=== PATIENT | female | born 1945 | race Caucasian/White ===

== ENCOUNTER 2019-02-06 10:51 | Inpatient (IN) | payer MEDICARE, MEDICAID ==
[~2019-02-06] VITALS: Ht 165.1 cm; Wt 101.0 kg
[2019-02-06] MEDS ORDERED: diphenhydrAMINE 25 MG TAB (BENADRYL) PO PRN (11:15)
[2019-02-06] MEDS ORDERED: ALPRAZolam 0.25 MG (XANAX) TAB PO PRN (11:15)
[2019-02-06] MEDS ORDERED: CALCIUM CARBONATE 500 MG (TUMS) TAB.CHEW PO PRN (11:15)
[2019-02-06] MEDS ORDERED: MELATONIN 3 MG TABLET PO PRN (11:15)
[2019-02-06] MEDS ORDERED: LOPERAMIDE 2 MG (IMODIUM) CAP PO PRN (11:15)
[2019-02-06] MEDS ORDERED: ONDANSETRON 4 MG (ZOFRAN) ORAL DISSOLVE TAB PO PRN ×2 (11:15→19:15)
[2019-02-06] MEDS ORDERED: ACETAMINOPHEN 500 MG TAB (TYLENOL) PO PRN (11:15)
[2019-02-06] MEDS ORDERED: DOCUSATE SODIUM 100 MG (COLACE) CAP PO PRN (11:15)
--- NOTE | 2019-02-06 14:20 | NUR ---
Pt admitted to room 227-1, with an admitting diagnosis of S/P L4-5, L5-S1 TLIF/PSIF on 02/06/[address] via w/c, accompanied by 2 female family members. RICARDO VALLEJO introduced to surroundings, call light, bed controls, phone, TV, temperature control, lights, meal times, smoking policy, visitor policy, side rail policy, bathrooms and showers. Patient Rights given to patient in the handbook. RICARDO VALLEJO acknowledges understanding that [facility] is not responsible for the loss or damage to any personal effects or valuables that are kept in the patients posession during their hospitalization. The following Patient Care Plans were discussed with the pt: Discharge Planning, Impaired Mobility, Self Care Deficit, Alteration in Skin integrity, Potential for fall/injury. RICARDO VALLEJO verbalizes understanding of Interdisciplinary Patient Education. Patient and/or family were informed about the Rapid Response Team and its purpose. Patient received Patient Rights Booklet, which includes Privacy Act Statement and Data Collection Information Summary.
[2019-02-06 14:45] VITALS: BP 146/71
[2019-02-06] MEDS ORDERED: OXYC-465 PO (15:27)
[2019-02-06] MEDS ORDERED: SPIR25TA5 PO (15:27)
[2019-02-06] MEDS ORDERED: FLUT9.9S NS (15:27)
[2019-02-06] MEDS ORDERED: DILT300C26 PO (15:27)
[2019-02-06] MEDS ORDERED: ONDA4TAB10 PO (15:27)
[2019-02-06] MEDS ORDERED: DIVA-76 PO (15:27)
[2019-02-06] MEDS ORDERED: DOCU-244 PO (15:27)
[2019-02-06] MEDS ORDERED: MAGN400T50 PO (15:27)
[2019-02-06] MEDS ORDERED: SITA100T12 PO (15:27)
[2019-02-06] MEDS ORDERED: ROSU40TA22 PO (15:27)
[2019-02-06] MEDS ORDERED: BUPR-168 PO (15:27)
[2019-02-06] MEDS ORDERED: TRAZ-189 PO (15:27)
[2019-02-06] MEDS ORDERED: FURO40TA4 PO (15:27)
[2019-02-06] MEDS ORDERED: DIVA250T12 PO (15:27)
[2019-02-06] MEDS ORDERED: ESOM40CA52 PO (15:27)
[2019-02-06] MEDS ORDERED: EST1.25T PO (15:27)
[2019-02-06] MEDS ORDERED: CYCL10TA9 PO (15:27)
[2019-02-06] MEDS ORDERED: LOSA50TA63 PO (15:27)
[2019-02-06] MEDS ORDERED: BUPR150T7 PO (15:27)
[2019-02-06] MEDS ORDERED: LEVO50TA6 PO (15:27)
[2019-02-06] MEDS ORDERED: oxyCODONE/APAP 10/325MG (PERCOCET 10) TABLET PO PRN (16:00)
--- NOTE | 2019-02-06 16:02 | NUR ---
UPDATED MED REC TO THE LIST OF MEDICATIONS ORDERED AT DISCHARGE FROM [facility]. I VERIFIED WITH THE PATIENT THAT SHE IS TAKING TWO STRENGTHS OF BUPROPION- XL 150MG IN THE MORNING AND 75MG AT 4PM AND BEDTIME. ACCORDING TO THE EXT MED HX SHE HAS NOT FILLED THE 75MG SINCE 12-22-18 #60 HOWEVER SHE STATES SHE IS TAKING IT REGULARLY AND HAS BEEN RECENTLY TRANSFERRING HER PRESCRIPTIONS TO A DIFFERENT PHARMACY AND ALL HER FILLS MAY NOT BE REFLECTED CORRECTLY SHE ALSO VERIFIED HER FUROSEMIDE IS WRITTEN BID, LAST FILLED 40MG #180 FOR 90 DAYS 10-09-18- SHE STATES SHE ONLY TAKES IT ONCE DAILY. I WILL UPDATED THE MED REC TO THE LIST OF MEDICATIONS THE PATIENT WAS TAKING PRIOR TO ADMISSION/DISCHARGE FROM [facility] AT A LATER TIME FOR CORRECT DISCHARGE ORDERS. Addendum: 02/11/19 at 1332 by JU KEITA [facility] UPDATED MED REC BACK TO THE MED LIST THE PATIENT WAS TAKING PRIOR TO DISCHARGE FROM [facility] FOR PROPER DISCHARGE ORDERS FROM [facility]. I REMOVED THE 2 NEW MEDS ORDERED FROM [facility]; DOK 100MG AND PERCOCET AND ADDED BACK THE MEDS THAT WERE STOPPED AT [facility]; TRAMADOL, ASPIRIN, AND TYLENOL ARTHRITIS.
--- NOTE | 2019-02-06 16:09 | Occupational Therapy Eval ---
OT Evaluation-General/PLF Medical Diagnosis Admission Date Feb 06, 2019 at 14:14 Medical Diagnosis: Lumbar fusion L4-5, L5-S1 Onset Date: Feb 04, 2019 Therapy Diagnosis Therapy Diagnosis: Weakness Weight Bear Status Weight Bearing Restriction: Weight Bearing/Tolerated Back brace on when up. Spinal precautions. Referral Physician: Dr. Fried Referral Reason: Activity Tolerance, Self Care, Evaluation/Treatment, Strengthening/ROM Medical History Pertinent Medical History: DM, GERD Additional Medical History Hysterectomy Current History Pt. had elective back surgery two days ago due to pain and loss of mobility. Reviewed History: Yes Social History Home: Single Level Current Living Status: Pt. lives with sister. Entry Into Home: Ramp ADL-Prior Level of Function Therapy Code Descriptions/Definitions Functional [place] Measure: 0=Not Assessed/NA 4=Minimal Assistance 1=Total Assistance 5=Supervision or Setup 2=Maximal Assistance 6=Modified [place] 3=Moderate Assistance 7=Complete [place] Therapy Quality Codes: 6 Independent with activity with or without an assistive device 5 Patient requires set up or clean up by helper. Patient completes activity by themselves 4 Supervision or touching assist (CGA). [place] provide cues , steadying assist 3 The helper provides less than half the effort to complete the activity 2 The helper provides more than half the effort to complete the activity 1 Dependent. The helper does all the effort to complete an activity 7 Patient refused to complete or attempt activity 9 The patient did not perform the activity before the current illness or injury 88 Not attempted due to Medical conditions or safety concerns Functional Abilities and Goals: Independent: Patient completed the activities by him/herself, with or without an assistive device, with no assistance from a helper. Needed Some Help: Patient needed partial assistance from another person to complete activities. Dependent: A helper completed the activities for the patient. Unknown: Not Applicable: ADL PLOF Comments Pt. was independent previous to surgery. Self Care: Independent Functional Cognition: Unknown DME/Equipment: Bath Chair, Shower DME/Equipment Comments Pt. has a walker. Drive Self: Yes OT Current Status Subjective Pt. reports 8/10 pain in back. Nursing is notified. Appearance Pt. transferred to rehab via wheelchair. OT began assessing pt. upon admission. Mental Status/Objective Patient Orientation: Person, Place Current Glasses/Contacts: Yes Upper Extremity ROM WFL ADL-Treatment Bathing (FIM): 2 (Max assist overall. Pt. is able to wash under arms and chest. Pt. is able to wash upper thighs while sitting. Pt. requires assistance for all other parts.) Shower/Bathe Self (QC): 2 Upper Body Dressing (FIM): 3 (Mod assist overall to doff/don shirt and brace.) Upper Body Dressing (QC): 3 Lower Body Dressing (FIM): 2 Lower Body Dressing (QC): 2 On/Off Footwear (QC): 1 Toileting (FIM): 2 (Max assist overall to pull down pants over hips, as well as cleansing.) Toileting Hygiene (QC): 2 Transfers (B, C, W/C) (FIM): 1 (Mod assist overall x 2 for sit-stand. Once in stance, pt. able to ambulate with CGA x 2.) Toilet/Commode Transfer (FIM): 3 Toilet Transfer (QC): 3 Other Treatments Pt. seen by occupational therapy/physical therapy for partial co-treat. Pt. required co-treat due to significant weakness and fatigue/pain. OT focused on ADL skills training and education regarding back safety. PT focused on mobility training, transfer skills, and LE strength. Pt. very guarded with movements due to pain and weakness. Requires max cues to prepare for any activity. All needs met back in bed after treatment. Education OT Patient Education: Correct positioning, Modified ADL techniques, Progress toward Goal/Update tx plan, Purpose of tx/functional activities, Reviewed precautions, Rehab process, Transfer techniques Teaching Recipient: Patient, Family Teaching Methods: Demonstration, Discussion Response to Teaching: Verbalize Understanding, Return Demonstration OT Short Term Goals Short Term Goals Time Frame: Feb 13, 2019 Eating(FIM): 5 Grooming(FIM): 5 Bathing(FIM): 3 Upper Body Dressing(FIM): 4 Lower Body Dressing(FIM): 3 Toileting(FIM): 4 Transfers (B,C,W/C) (FIM): 4 Toilet/Commode Transfer(FIM): 4 Shower Transfer(FIM): 4 Additional Short Term Goals: 1-Demonstrate ADL Tasks, 2-Verbalize Understanding , 3-ImproveStrength/[place] 1=Demonstrate adherence to instructed precautions during ADL tasks. 2=Patient will verbalize/demonstrate understanding of assistive devices/ modifications for ADL. 3=Patient will improve strength/tolerance for activity to enable patient to perform ADL's. OT Freelance Translator Goals Freelance Translator Goals Time Frame: Feb 27, 2019 Eating (FIM): 6 Eating (QC): 6 Groomin Oral Hygiene (QC): 6 Bathing(FIM): 5 Shower/Bathe Self (QC): 5 Upper Body Dressing(FIM): 6 Upper Body Dressing (QC): 6 Lower Body Dressing(FIM): 5 Lower Body Dressing (QC): 5 On/Off Footwear (QC): 5 Toileting(FIM): 6 Toileting Hygiene (QC): 6 Transfers (B,C,W/C) (FIM): 6 Toilet/Commode Transfer(FIM): 6 Toilet/Commode Transfer (QC): 6 Shower Transfer(FIM): 5 Additional Goals: 1-Demonstrate ADL Tasks, 2-Verbalize Understanding, 3- ImproveStrength/[place] 1=Demonstrate adherence to instructed precautions during ADL tasks. 2=Patient will verbalize/demonstrate understanding of assistive devices/ modifications for ADL. 3=Patient will improve strength/tolerance for activity to enable patient to perform ADL's. OT Education/Plan Problem List/Assessment Assessment: Decreased Activ Tolerance, Decreased UE Strength, Dependent Transfers, Impaired Bed Mobility, Impaired Funct Balance, Impaired I ADL's, Impaired Self-Care Skills Discharge Recommendations Plan/Recommendations: Continue POC Therapy D/C Recommendations: Home w/ Family Support, Occupational Therapy Home Care, Scheduled Assistance Equpiment Recommendations-D/C: Hip Kit Comment To be determined. Treatment Plan/Plan of Care Treatment,Training & Education: Yes Patient would benefit from OT for education, treatment and training to promote independence in ADL's, mobility, safety and/or upper extremity function for ADL' s. Plan of Care: ADL Retraining, Functional Mobility, Group Exercise/Act as Ind, UE Funct Exercise/Act Treatment Duration: Feb 27, 2019 Frequency: At least 5 of 7 days/Wk (IRF) Estimated Hrs Per Day: 1.5 hours per day Agreement: Yes Rehab Potential: Fair Time/GCodes Start Time: 14:25 Stop Time: 16:05 Total Time Billed (hr/min): 90 Billed Treatment Time 3596-0675 1, [facility] OT eval [id number] PT eval, no charge [id number] FA x 30minutes, ADL x 50minutes Co-treat with PT. Please see above note for designated roles. DWIGHT NORTON OT Feb 06, 2019 16:09
--- NOTE | 2019-02-06 16:20 | Physical Therapy Evaluation ---
PT Evaluation-General Medical Diagnosis Admission Date Feb 06, 2019 at 14:14 Medical Diagnosis: Lumbar fusion Onset Date: Feb 06, 2019 Therapy Diagnosis Therapy Diagnosis: weakness; abn gait Precautions Precautions/Isolations: Fall Prevention, Standard Precautions Weight Bear Status Right Lower Extremity: Right Full Weight Bearing Left Lower Extremity: Left Full Weight Bearing Back precautions; Breg brace on when up Referral Physician: Fariha Reason for Referral: Evaluation/Treatment Medical History Pertinent Medical History: Arthritis, GERD, HTN, Neuropathy Additional Medical History anxiety, bipolar Current History Pt admitted to ARU post extensive lumbar fusion surgery at [facility]. Reviewed History: Yes Social History Home: Single Level Current Living Status: Other Family (sisiter) Entry Into Home: Ramp Prior/Core FIM Prior Level of Function Therapy Code Descriptions/Definitions Functional [place] Measure: 0=Not Assessed/NA 4=Minimal Assistance 1=Total Assistance 5=Supervision or Setup 2=Maximal Assistance 6=Modified [place] 3=Moderate Assistance 7=Complete [place] Therapy Quality Codes: 6 Independent with activity with or without an assistive device 5 Patient requires set up or clean up by helper. Patient completes activity by themselves 4 Supervision or touching assist (CGA). [place] provide cues , steadying assist 3 The helper provides less than half the effort to complete the activity 2 The helper provides more than half the effort to complete the activity 1 Dependent. The helper does all the effort to complete an activity 7 Patient refused to complete or attempt activity 9 The patient did not perform the activity before the current illness or injury 88 Not attempted due to Medical conditions or safety concerns Functional Abilities and Goals: Independent: Patient completed the activities by him/herself, with or without an assistive device, with no assistance from a helper. Needed Some Help: Patient needed partial assistance from another person to complete activities. Dependent: A helper completed the activities for the patient. Unknown: Not Applicable: Bed Mobility: 6 Transfers (B,C,W/C) (FIM): 6 Gait: 6 Indoor Mobility (Ambulation): Independent Stairs: Independent PT Evaluation-Current Subjective Pt agreeable to PT but reports she is tired this afternoon Pain Numeric Pain Scale: 8 Location: Right Location Body Site: Back Pain Description: Ache, Stabbing Comment: Pt reports she feels she had radiating pain Pt/Family Goals Her goal is to return home with her sister when able Objective Patient Orientation: Person, Place, Time, Situation Problem Solving: Fair ROM/Strength ROM Lower Extremities Her ROM is functional but knee flexion limited to approx 100 degrees, due to complaints of back pain with flexion. Strenght Lower Extremities B LE strength is grossly 3/5 throughout; except right quad is 2/5 Integumentary/Posture Integumentary Refer to nursing notes. Bowel Incontinence: No Bladder Incontinence: Yes Posture rounded shoulders Neuromuscular (Tone, Coordination, Reflexes) intact Sensory Vision: Wears Glasses Hearing: Functional Hand Dominance: Right Sensation Right Lower Extremit: Intact Sensation Left Lower Extremity: Intact Transfers Therapy Code Descriptions/Definitions Functional [place] Measure: 0=Not Assessed/NA 4=Minimal Assistance 1=Total Assistance 5=Supervision or Setup 2=Maximal Assistance 6=Modified [place] 3=Moderate Assistance 7=Complete [place] Therapy Quality Codes: 6 Independent with activity with or without an assistive device 5 Patient requires set up or clean up by helper. Patient completes activity by themselves 4 Supervision or touching assist (CGA). [place] provide cues , steadying assist 3 The helper provides less than half the effort to complete the activity 2 The helper provides more than half the effort to complete the activity 1 Dependent. The helper does all the effort to complete an activity 7 Patient refused to complete or attempt activity 9 The patient did not perform the activity before the current illness or injury 88 Not attempted due to Medical conditions or safety concerns Transfers (B, C, W/C) (FIM): 2 Scootin Rollin Roll Left to Right (QC): 2 Supine to/from Sit: 2 Sit to/from Stand: 2 Sit to Lying (QC): 2 Lying to Sitting/Side of Bed(Q: 2 Sit to Stand (QC): 2 Chair/Ren-yh-Dbpvt Xfer(QC): 4 Car Transfer (QC): 88 (Pt was not able to attempt this on this date due to pain and decreased ability to participate) Pt requires max assist to get in and out of bed with assist for both legs and trunk with heavy cues to sequence and problem solve. In addition she required max assist to come to a stand with multiple cues for sequencing, visual demonstration and takes several attempts to even start to stand. Gait Does the Patient Walk?: Yes Mode of Locomotion: Walk Anticipated Mode of Locomotion: Walk Gait (FIM): 2 Distance (FIM): 0=799-16 ft Walk 10 feet (QC): 4 Walk 50 ft with 2 Turns(QC): 4 Walk 150 ft (QC): 88 (Pt unable to walk this distance) Walking 10ft/uneven surface-QC: 4 Distance: 50 ft Gait Level of Assist: 4 (min assist with skilled cues for safety) Gait Assistive Device: FWW Comments/Gait Description Slow gait with heavy reliance on FWW. Requires cues for foot placement due to decreased step length and velocity. Decreased foot clearance as well Gait is slow and seems to be with difficulty. Wheelchair Training Does the Pt Use a Wheelchair?: No Stairs Stairs (FIM): 0 (Pt declined attempting) 1 Step (curb) (QC): 7 4 Steps (QC): 7 12 Steps (QC): 7 If not tested on admit;explain "there is no way I can do that today", pt response Balance Sitting Static: Fair Sitting Dynamic: Fair Standing Static: Fair Standing Dynamic: Fair Picking up an Object (QC): 88 (breaks her precautions) Treatment Co treat with OT due to the heavy need for assist and heavy cues to complete all tasks. Pt requires near constant cues to complete task as well as heavy assist for mobiloity. Addressed bed mobilty training, transfer trainng (visual demonstration) and multiple sit to stand transfers. As OT addressed use and placement of UE, PT addressed the gross movement of the transfer or bed mobility. Pt did complete a sponge bath and as OT addressed cleaning her self, PT addressed core control/posture, sit to stand transfers for clothing management. Skill of 2 clinicians required to fully meet the needs of this patient on this date. Assessment/Needs Post lumbar fusion surgery. Pt is quite debilitated with functional strength, balance and activity tolerance deficits that impair her ability to transfer or ambulate. Her problem solving skills and ability to stay on task are also impaired. She takes extra time to complete all tasks and seems to be having a fair amount of pain. She will benefit from skilled Pt to address her mobility loss and work to return her to a mod indep level. Rehab Potential: Good PT Short Term Goals Short Term Goals Time Frame: Feb 20, 2019 Transfers (B,C,W/C) (FIM): 4 Gait (FIM): 4 Distance (FIM): 3=150 ft Gait Assistive Device: FWW Stairs (FIM): 2 # of Steps: 4 PT Gear Generator Set Up Operator Goals Skilled Nursing Goals PT Gear Generator Set Up Operator Goals Time Frame: Mar 06, 2019 Transfers (B,C,W/C) (FIM): 6 Sit to Lying (QC): 6 Lying-Sitting on Side/Bed(QC): 6 Sit to Stand (QC): 6 Roll Left to Right (QC): 6 Chair/Mnh-sk-Wztxi Xfer(QC): 6 Car Transfer (QC): 5 Does the Patient Walk: Yes Gait (FIM): 6 Gait distance (FIM): 3=150 ft Walk 10 feet (QC): 6 Walk 10ft-Uneven Surface(QC): 6 Walk 50ft with 2 Turns (QC): 6 Walk 150 ft (QC): 6 Gait Assistive Device: FWW Does the Pt use WC or Scooter?: No Stairs (FIM): 2 # of Steps: 4 1 Step (curb) (QC): 5 4 Steps (QC): 4 12 Steps (QC): 88 Picking up an Object (QC): 88 PT Plan Problem List Problem List: Activity Tolerance, Functional Strength, Safety, Balance, Gait, Transfer, Bed Mobility Treatment/Plan Treatment Plan: Continue Plan of Care Treatment Plan: Bed Mobility, Education, Functional Activity [place], Functional Strength, Group Therapy, Gait, Safety, Therapeutic Exercise, Transfers Treatment Duration: Mar 06, 2019 Frequency: At least 5 of 7 days/Wk (IRF) Estimated Hrs Per Day: 1.5 hours per day Patient and/or Family Agrees t: Yes Safety Risks/Education Patient Education: Transfer Techniques, Safety Issues Teaching Recipient: Patient Teaching Methods: Demonstration, Discussion Response to Teaching: Reinforcement Needed Discharge Recommendations Therapy D/C Recommendations: Physical Therapy Home Care Time/GCodes Time In: 1435 Time Out: 1445 ([id number]) Total Billed Treatment Time: 90 Total Billed Treatment visit [facility] 10 FA 80 JUAQUIN TANNER PT Feb 06, 2019 16:20
--- NOTE | 2019-02-06 17:20 | PM&R H&P / Post Admit Assess ---
History of Present Illness HPI/Chief Complaint CC: Debility following extensive lumbar fusion surgery uncomplicated by Dr Alvarez Moya at [facility] POD # 2 HPI: This is a 73-year-old white female that presents to inpatient rehab due to severe debility following extensive lumbar fusion surgery uncomplicated by Dr. Moya at [facility] in [facility]. Her primary care provider is Linda Pond in [facility]. Her pain is controlled but her right leg is sore during the transport from [place] to [facility] in [place]. She has had no complications during the hospital course at [facility] but continues to be a two-person assist and very slow recovery. Due to the fact of her multiple comorbidities in addition to dysphoria emotional problem she will need additional support provided at inpatient rehab with intensive therapies. She reports she has not had a bowel movement yet but she did receive a lot of medications which were laxatives and she wants to wait for any additional meds until in the morning and she is agreeable for suppository or enema. I reviewed all of her home medications and restarted every one of them per her home routine. Source: patient, old records Exam Limitations: no limitations Date Seen 02/06/19 Time Seen by a Provider: 17:00 Attending Physician Debbie Fried DO PCP No,Local Physician Referring Physician Date of Admission Feb 06, 2019 at 14:14 Home Medications & Allergies Home Medications Reviewed patient Home Medication Reconciliation performed by pharmacy medication reconciliations retread technician and/or nursing. Patients Allergies have been reviewed. Allergies Allergies Coded Allergies Sulfa (Sulfonamide Antibiotics) (Verified Allergy, Unknown, ITCHING, 02/06/19) adhesive (Verified Allergy, Unknown, 02/06/19) RASH cortisone (Verified Allergy, Unknown, 02/06/19) PARANOIA, IRRITABLE hydrochlorothiazide (Verified Allergy, Unknown, 02/06/19) MUSCLE PAIN nickel (Verified Allergy, Unknown, RASH, 02/06/19) Uncoded Allergies HASMUKH IN ( Allergy, Unknown, ANGIOEDEMA, 02/06/19) AMOXICILLIN/CLAVULANATE ( Adverse Reaction, Unknown, 02/06/19) DOESN'T REMEMBER CODEI ( Adverse Reaction, Unknown, 02/06/19) N/V Past Kzimgra-Akqjgc-Kiooui Hx Past Med/Social Hx: Reviewed Nursing Past Med/Soc Hx, Reviewed and Corrections made Patient Social History Marrital Status: single 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) Smoking Status: Never a Smoker Recent Foreign Travel: No Contact w/other who traveled: No Past Medical History Surgeries: Abdominal, Appendectomy, Gallbladder, Hysterectomy, Orthopedic, Tonsillectomy Respiratory: Sleep Apnea Currently Using CPAP: Yes Cardiac: High Cholesterol, Hypertension Neurological: Neuropathy Gastrointestinal: Gastroesophageal Reflux, Chronic Constipation Musculoskeletal: Arthritis, Chronic Back Pain Endocrine: Hypothyroidsim, Diabetes, Non-Insulin dep Psychosocial: Sleep Difficulties, Anxiety, Bipolar, Depression Family History Hypertension Review of Systems Constitutional: see HPI EENTM: no symptoms reported Respiratory: no symptoms reported Cardiovascular: no symptoms reported Gastrointestinal: constipation Genitourinary: no symptoms reported Musculoskeletal: back pain Skin: no symptoms reported Psychiatric/Neurological: Anxiety, Depressed All Other Systems Reviewed Negative Unless Noted: Yes Physical Exam Exam Vital Signs Vital Signs Date Time Temp Pulse Resp B/P (MAP) Pulse Ox O2 Delivery O2 Flow Rate FiO2 02/07/19 05:20 100.0 96 18 124/67 (86) 91 Room Air Capillary Refill : General Appearance: No Apparent Distress, WD/WN, Chronically ill, Obese HEENT: PERRL/EOMI, Normal ENT Inspection, Pharynx Normal, Moist Mucous Membranes Neck: Full Range of Motion, Normal Inspection, Non Tender, Supple Respiratory: Chest Non Tender, Lungs Clear, Normal Breath Sounds, No Accessory Muscle Use, No Respiratory Distress Cardiovascular: Regular Rate, Rhythm, No Edema, No Gallop, No JVD, No Murmur Gastrointestinal: Normal Bowel Sounds, No Organomegaly, No Pulsatile Mass, Non Tender, Soft Back: Decreased Range of Motion Extremity: Normal Capillary Refill, Normal Inspection, Normal Range of Motion, Non Tender, No Calf Tenderness, No Pedal Edema Neurologic/Psychiatric: Alert, Oriented x3, No Motor/Sensory Deficits, Normal Mood/Affect Skin: Normal Color, Warm/Dry Lymphatic: No Adenopathy Results Results/Procedures Labs Patient resulted labs reviewed. Assessment/Plan Assessment and Plan Assess & Plan/Chief Complaint Assessment: Status post extensive lumbar fusion surgery uncomplicated by Dr. Moya POD#2 Bipolar disorder/dysphoria Obstructive sleep apnea Hypertension Hyperlipidemia GERD Chronic back pain Osteoarthritis Diabetes mellitus Hypothyroidism MRSA infection in the past Plan: Home meds Emotional support Intensive therapies Return bowel function to normal with meds Pain control (1) S/P spinal fusion (2) Diabetes mellitus (3) Hypothyroidism (4) PAO on CPAP (5) GERD (gastroesophageal reflux disease) (6) Dysphoric mood (7) Bipolar disorder (8) Constipation Post Admission Physician Asses Date seen by provider: Feb 07, 2019 Time seen by provider: 17:00 Admisison Dx: (1) S/P spinal fusion Status: Acute The preadmission screen agrees with the post admission assessment that the patient is a good candidate for inpatient rehabilitation. The patient will have a comprehensive program of inpatient rehabilitation with a goal of maximizing level of functional independence prior to discharge home with family. The patient will have PT/OT ninety minutes per day, each discipline, five days a week for gait, strengthening, conditioning, balance, ADLs, any patient/family/caregiver training as necessary. Speech therapy to do cognitive assessment and treat as indicated. Rehabilitation nursing to assist with bowel, bladder, skin, wound care, medication administration, pain management. Route Sales Driver to assist with discharge planning, community reentry. SCD's for DVT prophylaxis. She appears to be well motivated to participate in three hours of therapy a day. She should be able to tolerate three hours of therapy a day from a medical standpoint. She should benefit from the three hours of therapy a day. She has a reasonable discharge plan, reasonable discharge rehabilitation goals and a supportive family. She has various comorbidities that need to be closely monitored with medications and treatments adjusted on a daily basis as needed. These include: Barriers to discharge for this patient who had been independent prior to this are for her to be modified independent to supervision for ADLs and mobility skills prior to discharge home with [family], so as to lessen the burden of the caregivers. Risks for this patient include: 1. Fall 2. Fracture 3. DVT 4. Pulmonary embolism 5. Wound infection 6. Skin breakdown 7. Contractures 8. Poorly controlled pain 9. Urinary retention 10. UTI 11. Respiratory infection 12. Aspiration Estimated Length of Stay: 7 days Prognosis: Rehab prognosis appears good for goal of discharge home with family modified independent to supervision for ADLs and mobility skills. General: Alert, Oriented X3, Cooperative, No Acute Distress HEENT: Atraumatic, PERRLA Neck: Supple, No JVD, No Thyromegaly, +2 Carotid Pulse No Bruit, No LAD Lungs: Clear to Auscultation, Normal Air Movement Abdomen: Normal Bowel Sounds, Soft, No Tenderness, No Hepatosplenomegaly, No Masses Extremities: No Clubbing, No Cyanosis, No Edema, Normal Pulses, No Tenderness/ Swelling Skin: No Rashes, No Breakdown, No Significant Lesion Neuro: Normal Speech, Normal Tone, Sensation Intact, Cranial Nerves 3-12 NL, Reflexes 2+, Other (limited ROM back with weakness lower extremities 4/5) Psych/Mental Status: Mental Status NL, Mood NL DEBBIE FRIED DO Feb 06, 2019 17:19
[2019-02-06] MEDS ORDERED: NON-FORMULARY MEDICATION 1 EA EA (Fluticasone Propionate (Flonase Allergy Relief) 1 SPRAY) NS PRN (17:45)
[2019-02-06] MEDS ORDERED: NON-FORMULARY MEDICATION 1 EA EA (Ondansetron HCl 4 MG) PO PRN (17:45)
[2019-02-06] MEDS ORDERED: FLUTICASONE NASAL SPRAY (FLONASE) 16 GM BTL NS PRN (19:15)
--- NOTE | 2019-02-06 20:06 | NUR ---
Call to sister, Gisselle & notified per request of Pharmacy if she could bring pt's Wellbutrin XL when she comes to see pt tomorrow. She states that she will.
--- NOTE | 2019-02-06 20:09 | NUR ---
pt arrived w dry drsg to Rt mid forearm where previous IV had been dc'd prior to d/c.
[2019-02-06] MEDS ORDERED: PATIENT MAY USE OWN MEDS, ALL MC SCH (20:15)
[2019-02-06] MEDS: POLYETHYLENE GLYCOL 17 GM (MIRALAX) PACK PO SCH (20:27)
[2019-02-06] MEDS ORDERED: NON-FORMULARY MEDICATION 1 EA EA (Docusate Sodium (Dok) 100 MG) PO SCH (21:00)
[2019-02-06] MEDS ORDERED: NON-FORMULARY MEDICATION 1 EA EA (Sitagliptin Phosphate (Januvia) 100 MG) PO SCH (21:00)
[2019-02-06] MEDS ORDERED: ESTROGENS CONJUGATED 1.25 MG PO SCH (21:00)
[2019-02-06] MEDS: buPROPion 75 MG (WELLBUTRIN) TAB PO SCH (21:01)
[2019-02-06] MEDS: traZODone 50 MG (DESYREL) TAB PO SCH (21:01)
[2019-02-06] MEDS: DIVALPROEX 500 MG DELAYED RELEASE (DEPAKOTE) TAB PO SCH (21:01)
[2019-02-06] MEDS: DIVALPROEX EXT RELEASE 250 MG (DEPAKOTE ER) TAB PO SCH (21:02)
[2019-02-06] MEDS: DOCUSATE SODIUM 100 MG (COLACE) CAP PO SCH (21:02)
[2019-02-06] MEDS: CYCLOBENZAPRINE 10 MG (FLEXERIL) TAB PO SCH (21:02)
[2019-02-06] MEDS: LINAGLIPTIN (TRADJENTA) 5 MG TABLET PO SCH (21:03)
[2019-02-06] MEDS: oxyCODONE/APAP 10/325MG (PERCOCET 10) TABLET PO PRN (21:04)
[2019-02-06] MEDS: ESTROGENS CONJ 0.625 MG (PREMARIN) TAB PO SCH (21:05)
[2019-02-06] MEDS ORDERED: BUPROPION HCL 75 MG PO SCH (22:00)
[2019-02-07] MEDS: LEVOTHYROXINE 50 MCG (LEVOTHROID) TAB PO SCH (05:13)
[2019-02-07] MEDS: oxyCODONE/APAP 10/325MG (PERCOCET 10) TABLET PO PRN (05:13)
[2019-02-07 05:20] VITALS: BP 124/67
[2019-02-07 07:26] LABS: BASOPHILS % (AUTO) 0 % (0-10); EOSINOPHILS # (AUTO) 0.1 10^3/uL (0.0-0.3); EOSINOPHILS % (AUTO) 1 % (0-10); HEMATOCRIT 25 % (35-52); HEMOGLOBIN 7.8 G/DL (11.5-16.0); LYMPHOCYTES # (AUTO) 2.6 X 10^3 (1.0-4.0); LYMPHOCYTES % (AUTO) 19 % (12-44); MEAN CORPUSCULAR HEMOGLOBIN 26 PG (25-34); MEAN CORPUSCULAR HGB CONC 32 G/DL (32-36); MEAN CORPUSCULAR VOLUME 84 FL (80-99); MEAN PLATELET VOLUME 11.8 FL (7.4-10.4); MONOCYTES # (AUTO) 1.5 X 10^3 (0.0-1.0); MONOCYTES % (AUTO) 11 % (0-12); NEUTROPHILS # (AUTO) 9.1 X 10^3 (1.8-7.8); NEUTROPHILS % (AUTO) 69 % (42-75); PLATELET COUNT 244 10^3/uL (130-400); RED CELL DISTRIBUTION WIDTH 16.7 % (10.0-14.5); WHITE BLOOD COUNT 13.3 10^3/uL (4.3-11.0)
[2019-02-07 07:51] LABS: ALANINE AMINOTRANSFERASE 12 U/L (0-55); ALBUMIN 3.2 GM/DL (3.2-4.5); ALKALINE PHOSPHATASE 84 U/L (40-136); BILIRUBIN,TOTAL 0.3 MG/DL (0.1-1.0); BUN/CREATININE RATIO 18; CALCIUM 8.6 MG/DL (8.5-10.1); CARBON DIOXIDE 26 MMOL/L (21-32); CHLORIDE 102 MMOL/L (98-107); CREATININE SERUM 0.76 MG/DL (0.60-1.30); GFR ESTIMATED > 60; GLUCOSE 164 MG/DL (70-105); POTASSIUM 3.6 MMOL/L (3.6-5.0); SODIUM 137 MMOL/L (135-145); TOTAL PROTEIN 5.9 GM/DL (6.4-8.2)
--- NOTE | 2019-02-07 07:57 | PM&R Progress Note ---
Subjective HPI/CC On Admission Date Seen by Provider: Feb 07, 2019 Time Seen by Provider: 08:00 CC: Debility following extensive lumbar fusion surgery uncomplicated by Dr Alvarez Moya at [facility] POD # 2 HPI: This is a 73-year-old white female that presents to inpatient rehab due to severe debility following extensive lumbar fusion surgery uncomplicated by Dr. Moya at [facility] in [facility]. Her primary care provider is Linda Pond in [facility]. Her pain is controlled but her right leg is sore during the transport from [place] to [facility] in [place]. She has had no complications during the hospital course at [facility] but continues to be a two-person assist and very slow recovery. Due to the fact of her multiple comorbidities in addition to dysphoria emotional problem she will need additional support provided at inpatient rehab with intensive therapies. She reports she has not had a bowel movement yet but she did receive a lot of medications which were laxatives and she wants to wait for any additional meds until in the morning and she is agreeable for suppository or enema. I reviewed all of her home medications and restarted every one of them per her home routine. Subjective/Events-last exam Pt having a lot of pain on her right side Has a lot of needs per nursing staff Accu check AC and HS and noted blood sugar was high so will initiate sliding scale B Labs are pending at time of dictation She needs a bowel movement so I did order a suppository because she did receive a lot of medication at [place] Review of Systems General: Fatigue Musculoskeletal: back pain, leg pain Objective Exam Vital Signs Vital Signs Date Time Temp Pulse Resp B/P (MAP) Pulse Ox O2 Delivery O2 Flow Rate FiO2 02/07/19 21:00 Room Air 02/07/19 15:42 98.2 83 14 142/81 (101) 92 Capillary Refill : General Appearance: No Apparent Distress, WD/WN, Chronically ill, Obese HEENT: PERRL/EOMI, Normal ENT Inspection, Pharynx Normal, Moist Mucous Membranes Neck: Full Range of Motion, Normal Inspection, Non Tender, Supple Respiratory: Chest Non Tender, Lungs Clear, Normal Breath Sounds, No Accessory Muscle Use, No Respiratory Distress Cardiovascular: Regular Rate, Rhythm, No Edema, No Gallop, No JVD, No Murmur Gastrointestinal: Normal Bowel Sounds, No Organomegaly, No Pulsatile Mass, Non Tender, Soft Back: Decreased Range of Motion Extremity: Normal Capillary Refill, Normal Inspection, Normal Range of Motion, Non Tender, No Calf Tenderness, No Pedal Edema Neurologic/Psychiatric: Alert, Oriented x3, No Motor/Sensory Deficits, Normal Mood/Affect Skin: Normal Color, Warm/Dry Lymphatic: No Adenopathy Results/Procedures Lab Laboratory Tests 02/07/19 07:14 Patient resulted labs reviewed. Assessment/Plan Assessment and Plan Assess & Plan/Chief Complaint Assessment: Status post extensive lumbar fusion surgery uncomplicated by Dr. Moya POD#3 Bipolar disorder/dysphoria Obstructive sleep apnea Hypertension Hyperlipidemia GERD Chronic back pain Osteoarthritis Diabetes mellitus Hypothyroidism MRSA infection in the past Plan: Home meds Emotional support Intensive therapies Return bowel function to normal with meds Pain control SSI Insulin (1) S/P spinal fusion (2) PAO (obstructive sleep apnea) (3) Dysphoric mood (4) GERD (gastroesophageal reflux disease) (5) Hypothyroidism (6) Bipolar disorder (7) Diabetes mellitus (8) Constipation Clinical Quality Measures DVT/VTE Risk/Contraindication: Risk Factor Score Per Nursin RFS Level Per Nursing on Admit: 4+=Very High VAL GUADALUPE DO Feb 07, 2019 07:57
[2019-02-07] MEDS ORDERED: BISACODYL 10 MG SUPP (DULCOLAX) PR NR (08:45)
[2019-02-07] MEDS: DOCUSATE SODIUM 100 MG (COLACE) CAP PO SCH ×2 (08:51→20:51)
[2019-02-07] MEDS: LOSARTAN 50 MG (COZAAR) TAB PO SCH (08:52)
[2019-02-07] MEDS: MAGNESIUM OXIDE (MAG-OX)400 MG TAB PO SCH (08:52)
[2019-02-07] MEDS: DILTIAZEM 300 MG (CARDIZEM CD) CAP PO SCH (08:52)
[2019-02-07] MEDS: SPIRONOLACTONE 25 MG (ALDACTONE) TAB PO SCH (08:52)
[2019-02-07] MEDS: FUROSEMIDE 40 MG (LASIX) TAB PO SCH (08:52)
[2019-02-07] MEDS: POLYETHYLENE GLYCOL 17 GM (MIRALAX) PACK PO SCH ×2 (08:53→20:54)
[2019-02-07] MEDS: ROSUVASTATIN 20 MG (CRESTOR) TABLET PO SCH (08:53)
[2019-02-07] MEDS ORDERED: buPROPion SR 150 MG (WELLBUTRIN SR) TAB PO SCH (09:00)
[2019-02-07] MEDS ORDERED: NON-FORMULARY MEDICATION 1 EA EA (Losartan Potassium 50 MG) PO SCH (09:00)
[2019-02-07] MEDS ORDERED: NON-FORMULARY MEDICATION 1 EA EA (Diltiazem HCl (Cartia Xt) 300 MG) PO SCH (09:00)
[2019-02-07] MEDS ORDERED: NON-FORMULARY MEDICATION 1 EA EA (Magnesium Oxide 400 MG) PO SCH (09:00)
[2019-02-07] MEDS ORDERED: NON-FORMULARY MEDICATION 1 EA EA (Rosuvastatin Calcium 40 MG) PO SCH (09:00)
--- NOTE | 2019-02-07 10:17 | Physical Therapy Daily Note ---
PT Daily Note-Current Subjective Pt agreeable to PT treatment. States several times during treatment session that she can't move, with max encouragement and time though, is able Pain Numeric Pain Scale: 8 Comment: R LB, buttock downd leg and into foot. Pre medicated Appearance Upon arrival into pt's room, pt sitting up with buttocks forward in chair, would not lean back. Awake but somewhat confused, difficulty following conversation and instruction. Noted pt with anxiety and becoming very anxious at times decreasing safety awareness and requiring redirection to calm down and perform safely At end of session, pt supine in bed with HOB and LE's slightly elevated, ST arrived, call light, phone and bedside table within reach Mental Status Patient Orientation: Person, Place, Time, Situation, Listless Attachments: Other-See Comments (back brace while up out of bed) Pt oriented to Person, place and time, but some confustion noted throughout tx session, pt requiring almost constant re instruction, tactile cueing, verbal cueing to keep aroused and awake, becomes very anxious and showing decreased safety awareness at times Transfers Therapy Code Descriptions/Definitions Functional [place] Measure: 0=Not Assessed/NA 4=Minimal Assistance 1=Total Assistance 5=Supervision or Setup 2=Maximal Assistance 6=Modified [place] 3=Moderate Assistance 7=Complete [place] Therapy Quality Codes: 6 Independent with activity with or without an assistive device 5 Patient requires set up or clean up by helper. Patient completes activity by themselves 4 Supervision or touching assist (CGA). [place] provide cues , steadying assist 3 The helper provides less than half the effort to complete the activity 2 The helper provides more than half the effort to complete the activity 1 Dependent. The helper does all the effort to complete an activity 7 Patient refused to complete or attempt activity 9 The patient did not perform the activity before the current illness or injury 88 Not attempted due to Medical conditions or safety concerns Transfers (B, C, W/C) (FIM): 2 Scootin Supine to/from Sit: 3 (sit to supine) Sit to/from Stand: 4 pt very slow with all transitions, requiring almost constant re instruction, verbal cues, physical assist, increased time to perform in order to keep pt alert Weight Bearing Right Lower Extremity: Right Full Weight Bearing Left Lower Extremity: Left Full Weight Bearing Back precautions; Breg brace on when up Gait Training Does the Patient Walk?: Yes Gait (FIM): 1 Distance (FIM): 1=up to 49 ft Distance: 15' x2 Gait Level of Assist: 4 Gait Persons Needed: 1 Gait Assistive Device: FWW requires increased time, max encouragement, verbal instruction for safety awareness, assist with maneuvering walker at times. Slow pace, shuffling gait, several stopping and standing breaks Exercises Supine Ex: Ankle pumps, Heel Slides, Straight leg raise, Hip abd/add Supine Reps: 10 (AAROM, pt unablet to maintain alertness while performing) Treatments Gait, transfer, safety, bed mobility, ex to improve functional mobility, activity tolerance, ROM, strength, decrease fall risk, decrease pain, Assessment Difficulty with maintaining alertness requiring re direction, re instruction, tactile cueing. Noted it does help to bring pt out of it with slight raised voice saying pt's name PT Short Term Goals Short Term Goals Time Frame: Feb 20, 2019 Transfers (B,C,W/C) (FIM): 4 Gait (FIM): 4 Distance (FIM): 3=150 ft Gait Assistive Device: FWW Stairs (FIM): 2 # of Steps: 4 PT Halfway Goals Mutuel Cashier Goals PT Halfway Goals Time Frame: Mar 06, 2019 Transfers (B,C,W/C) (FIM): 6 Sit to Lying (QC): 6 Lying-Sitting on Side/Bed(QC): 6 Sit to Stand (QC): 6 Rollin Roll Left to Right (QC): 6 Chair/Dfl-xj-Mralo Xfer(QC): 6 Car Transfer (QC): 5 Does the Patient Walk: Yes Gait (FIM): 6 Gait distance (FIM): 3=150 ft Walk 10 feet (QC): 6 Walk 10ft-Uneven Surface(QC): 6 Walk 50ft with 2 Turns (QC): 6 Walk 150 ft (QC): 6 Gait Assistive Device: FWW Does the Pt use WC or Scooter?: No Stairs (FIM): 2 # of Steps: 4 1 Step (curb) (QC): 5 4 Steps (QC): 4 12 Steps (QC): 88 Picking up an Object (QC): 88 PT Plan Treatment/Plan Treatment Plan: Continue Plan of Care Treatment Plan: Bed Mobility, Education, Functional Activity [place], Functional Strength, Group Therapy, Gait, Safety, Therapeutic Exercise, Transfers Treatment Duration: Mar 06, 2019 Frequency: At least 5 of 7 days/Wk (IRF) Estimated Hrs Per Day: 1.5 hours per day Patient and/or Family Agrees t: Yes Safety Risks/Education Patient Education: Gait Training, Transfer Techniques, Reviewed Precautions, Correct Positioning, Disease Process, Safety Issues Teaching Recipient: Patient Teaching Methods: Demonstration, Discussion Response to Teaching: Verbalize Understanding, Return Demonstration, Reinforcement Needed Time/GCodes Time In: 800 Time Out: 900 Total Billed Treatment Time: 60 Total Billed Treatment 1 visit, FA x 2 units, GT x 1 unit, EX x 1 unit MITRA MURPHY PTA Feb 07, 2019 10:17
--- NOTE | 2019-02-07 11:24 | ST Cognitive Linguistic Eval ---
Speech Evaluation-General Medical Diagnosis Lumbar fusion Onset Date: Feb 06, 2019 Therapy Diagnosis Therapy Diagnosis: Cognitive-Communication Precautions Precautions/Isolations: Fall Prevention, Standard Precautions Referral Referring Physician: Dr. Sanchez Medical History Pertinent Medical History: Arthritis, GERD, HTN, Neuropathy Reviewed History: Yes Social History Current Living Status: Other Family Speech PLF-Current Status Prior Level of Function Patient lived with family. She was independent for most of her daily needs. Subjective The patient was very sleepy due to her pain meds. Language Eval: Auditory Comprehends Simple Yes/No Ques: Functional Follows 1-Step Commands: Mild Follows Complex Directions: Moderate Follows General Conversations: Mild Language Eval: Verbal Language Completes Spontaneous Greeting: Functional Produces Auto, Serial Info: Functional Imitates Simple Words/Phrases: Mild Word Finding: Mild Requests Basic Needs: Mild States Basic Personal Info: Mild Expresses Complex Ideas: Moderate Objective Cognitive Domain Attention: Moderate Memory: Mild Problem Solving: Moderate Executive Functions: Moderate Objective Formal/Standardized Tests [place] Cognitive Assessment (MOCA) Results Visuospatial/Executive: 3/5, Namim/3, Attention: 0/2, Language: 3/3, Abstraction: 1/2, Memory: Immediate 4/5, Delayed with cues 2/5, Orientation: 4/6 Oral Motor/Speech Production Within Functional Limits Impression Patient is a pleasant 73 year old female who was admitted to the ARU for strengthening s/p lumbar surgery. The patient was given a bedside cognitive evaluation, MOCA. She presented with significant decreased level of alertness and attention. She completed the test with frequent verbal prompts. She exhibits mild to moderate deficits in most of the cognitive areas tested. The patient will receive skilled ST services to improve these areas for safety and independence. Communication/Social Cognition Comprehension: 5 Expression: 5 Social Interaction: 4 Problem Solvin Memory: 5 Speech Patient Assess Expression of Ideas/Wants: Exhibits (3) Understanding Verbal Content: Usually Understands (3) Brief Interview-Mental Status: Yes Repetition of Three Words: Three (3) Temporal Orientation: Year: Correct (3) Temporal Orientation: Month: Accurate within 5 days(2) Temporal Orientation: Day: Incorrect or No Answer(0) Recall : Wear to say "Sock": Yes, no cue required (2) Recall : Color: No, could not recall (0) Recall : Bed: No, could not recall (0) Memory/Recall Ability: Current season, That he or she is in a hsp/hsp unit Speech Short Term Goals Short Term Goals Short Term Goals 1) The patient will demonstrate simple problem solving (verbal/visual) with 80% accuracy, min to mod cues. 2) The patient will demonstrate sustained attention for task performance with 80 % accuracy, min to mod cues. 3) The patient will demonstrate sequencing for ADL's with 80% accuracy, min to mod cues. Speech Long-Term Goals Metal Door Assembler Goals The patient will improve skills necessary for ADL's and safety in the home with minimal assist. Comprehension: 6 Expression: 6 Social Interaction: 6 Problem Solvin Memory: 6 Speech-Plan Patient/Family Goals Patient/Family Goals: The patient plans to return home with family support post rehab. Treatment Plan Speech Therapy Treatment Plan: Continue Plan of Care The patient will receive skilled ST for improving safety and independence. Treatment Duration: Feb 15, 2019 Frequency: 4 times per week Estimated Hrs Per Day: .5 hour per day Rehab Potential: Good Barriers to Learning: Patient has deficits with cognition, possibly due to medications. Pt/Family Agrees to Plan: Yes Safety Risks/Education Teaching Recipient: Patient Teaching Methods: Discussion Response to Teaching: Verbalize Understanding Education Topics Provided: Safety within her room, utilizing her call light as needed. Time Speech Therapy Time In: 09:00 Speech Therapy Time Out: 09:30 Total Billed Time: 30 Billed Treatment Time 1, ALFRED Thakur Feb 07, 2019 11:24
[2019-02-07 11:28] VITALS: BP 116/68
--- NOTE | 2019-02-07 12:41 | NUR ---
Notified Dr. Fried of pt drowzy throughout therapy this AM, & had 2 pain pills around 0500 this AM, therapy thinking that the pain pills caused somnolence. Pt stirs easily, & nods off, but, awakens easily. Rec'd order to decrease pain med to only 1 tablet.
--- NOTE | 2019-02-07 12:41 | Individualized Plan of Care ---
Individualized Plan of Care Rehab Nursing IPOC Order Admission Date Feb 06, 2019 at 14:14 Current Orders Orders Admission Order(Inpt,Obs,Sdc) (02/06/19 11:04) Anti Air Warfare Operations Officer-Inpt Rehab Con (02/06/19 11:04) Rehab Nursing Orders-Ipoc (02/06/19 11:04) Physical Therapy Rehab Orders (02/06/19 11:04) Occupational Therapy Rehab Ord (02/06/19 11:04) Speech Therapy Rehab Orders (02/06/19 11:04) Intake & Output 06,14,22 (02/06/19 11:04) Precautions (Aru) (02/06/19 11:04) Weekly Weight (Lbs) WEEK (02/06/19 11:04) Rehab-Intensity Of Therapy (02/06/19 11:04) Initiate Admission Nursing Pro .admission (02/06/19 11:04) Acetaminophen Tablet (Tylenol Tablet) (02/06/19 11:15) Alprazolam Tablet (Xanax Tablet) (02/06/19 11:15) Calcium Carbonate Chew Tablet (Antacid C (02/06/19 11:15) Diphenhydramine Tablet (Benadryl Tablet) (02/06/19 11:15) Docusate Sodium Capsule (Colace Capsule) (02/06/19 11:15) Loperamide Capsule (Imodium Capsule) (02/06/19 11:15) Melatonin Tablet (Melatonin Tablet) (02/06/19 11:15) Ondansetron Oral Dissolve Tab (Zofran (02/06/19 11:15) Polyethylene Glycol Powder Pkt (Miralax (02/06/19 21:00) Oxycodone/Acet 10/325mg Tablet (Percocet (02/06/19 16:00) Cho 60g/M 1snack (16-2000 Cordell) (02/06/19 Dinner) Cyclobenzaprine Tablet (Flexeril Tablet) (02/06/19 21:00) Divalproex Delay Release Tab (Depakote T (02/06/19 21:00) Divalproex Er 24 Hr Tablet (Depakote Er (02/06/19 21:00) Furosemide Tablet (Lasix Tablet) (02/07/19 09:00) Levothyroxine Tablet (Synthroid Tablet) (02/07/19 06:30) Oxycodone/Acet 10/325mg Tablet (Percocet (02/06/19 17:45) Spironolactone Tablet (Aldactone Tablet) (02/07/19 09:00) Trazodone Tablet (Desyrel Tablet) (02/06/19 21:00) (Nf) Bupropion Hcl (02/06/19 22:00) (Nf) Diltiazem Hcl (Cartia Xt) (02/07/19 09:00) (Nf) Docusate Sodium (Dok) (02/06/19 21:00) (Nf) Esomeprazole Magnesium (02/07/19 15:00) (Nf) Estrogens Conjugated (Premarin) (02/06/19 21:00) (Nf) Fluticasone Propionate (Flonase All (02/06/19 17:45) (Nf) Losartan Potassium (02/07/19 09:00) (Nf) Magnesium Oxide (02/07/19 09:00) (Nf) Ondansetron Hcl (02/06/19 17:45) (Nf) Rosuvastatin Calcium (02/07/19 09:00) (Nf) Sitagliptin Phosphate (Januvia) (02/06/19 21:00) Cbc With Automated Diff (02/07/19 06:00) Comprehensive Metabolic Panel (02/07/19 06:00) Diltiazem Cd 24 Hr Capsule (Cardizem Cd (02/07/19 09:00) Estrogens Conjugated Tablet (Premarin Ta (02/06/19 21:00) Docusate Sodium Capsule (Colace Capsule) (02/06/19 21:00) Fluticasone Nasal [place] (Flonase Nasal S (02/06/19 19:15) Pantoprazole Tablet (Protonix Tablet) (02/07/19 15:00) Magnesium Oxide Tablet (Mag Ox Tablet) (02/07/19 08:00) Ondansetron Oral Dissolve Tab (Zofran (02/06/19 19:15) Losartan Tablet (Cozaar Tablet) (02/07/19 09:00) Rosuvastatin Tablet (Crestor Tablet) (02/07/19 09:00) Linagliptin Tablet (Tradjenta Tablet) (02/06/19 21:00) Bupropion Tablet (Wellbutrin Tablet) (02/06/19 22:00) Ambulate 08,, (02/06/19 19:22) Sequential Compression Device , (02/06/19 19:22) Dvt/Vte Risk - Notifiy Physici 08 (02/06/19 19:22) Patient May Use Own Meds, All (Patient M (02/06/19 20:15) Bupropion Sr 12 Hr Tablet (Wellbutrin Sr (02/07/19 09:00) Bisacodyl Suppository (Dulcolax Supposit (02/07/19 08:45) Patient Visit (02/06/19 ) Pt Eval Moderate Complexity (02/06/19 ) Functional Activities, Ea 15 (02/06/19 ) Oxycodone/Acet 10/325mg Tablet (Percocet (02/07/19 17:45) Insulin Aspart (Novolog) (Novolog (Charg (02/07/19 14:30) Insulin Aspart (Novolog) (Novolog (Charg (02/07/19 16:00) Patient Visit (02/07/19 ) Speech Sound Lang Comp (02/07/19 ) Patient Visit (02/07/19 ) Gait Training, Ea 15 Min (02/07/19 ) Exercise Therap, Ea 15 Min (02/07/19 ) Functional Activities, Ea 15 (02/07/19 ) Patient Visit (02/07/19 ) Exercise Therap, Ea 15 Min (02/07/19 ) Bupropion Xl Tab (Non-Form) (Wellbutrin (02/08/19 09:00) Rehab Nursing Orders: Ongoing Assess. of Function Status Intensity of Therapy to be met Patient to be seen: Min.3h per day/5 of 7d PT IPOC Problem List: Activity Tolerance, Functional Strength, Safety, Balance, Gait, Transfer, Bed Mobility Treatment Plan: Continue Plan of Care Bed Mobility, Education, Functional Activity [place], Functional Strength, Group Therapy, Gait, Safety, Therapeutic Exercise, Transfers Treatment Duration: Mar 06, 2019 Frequency: At least 5 of 7 days/Wk (IRF) Estimated Hrs Per Day: 1.5 hours per day OT IPOC Problems: Decreased Activ Tolerance, Decreased UE Strength, Dependent Transfers , Impaired Bed Mobility, Impaired Funct Balance, Impaired I ADL's, Impaired Self -Care Skills OT Treatment, Training and Edu: Yes Plan of Care: ADL Retraining, Functional Mobility, Group Exercise/Act as Ind, UE Funct Exercise/Act Treatment Duration: Feb 27, 2019 Frequency: At least 5 of 7 days/Wk (IRF) Estimated Hrs Per Day: 1.[address] IPOC Speech Therapy Treatment Plan: Continue Plan of Care Treatment Duration: Feb 15, 2019 Frequency: 4 times per week Estimated Hrs Per Day: .5 hour per day Anti Air Warfare Operations Officer/Case Mgmt Anti Air Warfare Operations Officer/Case Managemen: Discharge Planning Dietitian/Diaper Folder Dietitian/Diaper Folder to monitor nutritional status and make changes and/or recommendations as needed and work with speech pathology on dietary upgrades as the occur. Physician IPOC Medical Issues being managed closely and that require the 24 hour availability of a physician: Extensive spine surgery will require close physician monitoring for neurological deficits Medical Issues: Bowel/Bladder Function, DVT Prophylaxis, Falls Precautions, Fluid/Electrolyte/Nutrition Balance, Pain Management Brief Synthesis of Preadmission Screen, Post-Admission Evaluation, and Therapy Evaluations: PT/OT will improve independent ADL's along with pain management evaluation Medical Prognosis: Good Anticipated Length of Stay: 7 days VAL GUADALUPE DO Feb 07, 2019 12:41
--- NOTE | 2019-02-07 13:07 | NUR ---
INSURANCE LEGAL ASSISTANT met with patient to complete initial assessment. Orientation status was difficult to assess as patient was somnolent throughout entire assessment. Patient admitted to ARU from [facility] following lumbar spinal fusion performed by Dr. Moya. Per information received from patient during periods of alertness, patient resides in a one level home in [place], [place] with his sister, Gisselle. The home is equipped with a ramp at the entrance. Prior to surgery patient was independent with ambulation and ADLs; however, required increased time due to back pain. Patient identifies sister Gisselle Betancourt as primary contact at [phone]; however, Gisselle is gone frequently with volunteer work. Insurance verified as Medicare and [place] Medicaid with prescription coverage and preference of [facility]. PCP identified as Linda P[facility] of [place], [place]. Patient receives 25 hours of home care services provided through [facility], but patient is unable to recall caregivers name. INSURANCE LEGAL ASSISTANT reviewed typical ARU length of stay and weekly team conference summary. Additional information was unable to be obtained due to somnolence. INSURANCE LEGAL ASSISTANT will continue to follow for additional needs.
--- NOTE | 2019-02-07 14:29 | Occupational Ther Daily Note ---
OT Current Status-Daily Note Subjective Pt. reports pain but does not state a pain level. Does state that she will want pain meds when available. However, pt. continually falls asleep throughout treatment. Spoke with nursing regarding this. Appearance Pt. in bed. Agrees to work with OT. Mental Status/Objective Patient Orientation: Unable to Assess Therapy Code Descriptions/Definitions Functional [place] Measure: 0=Not Assessed/NA 4=Minimal Assistance 1=Total Assistance 5=Supervision or Setup 2=Maximal Assistance 6=Modified [place] 3=Moderate Assistance 7=Complete [place] ADL-Treatment Therapy Code Descriptions/Definitions Functional [place] Measure: 0=Not Assessed/NA 4=Minimal Assistance 1=Total Assistance 5=Supervision or Setup 2=Maximal Assistance 6=Modified [place] 3=Moderate Assistance 7=Complete [place] Therapy Quality Codes: 6 Independent with activity with or without an assistive device 5 Patient requires set up or clean up by helper. Patient completes activity by themselves 4 Supervision or touching assist (CGA). [place] provide cues , steadying assist 3 The helper provides less than half the effort to complete the activity 2 The helper provides more than half the effort to complete the activity 1 Dependent. The helper does all the effort to complete an activity 7 Patient refused to complete or attempt activity 9 The patient did not perform the activity before the current illness or injury 88 Not attempted due to Medical conditions or safety concerns Eating (FIM): 5 (Close SBA and supervision. Pt. continually falls asleep while eating food. Requires cues to stay awake. At one point, pt. starts to cough with eating eggs. States that this isn't new, that she does not have an epiglotus. Nursing notified of this.) Eating (QC): 4 Grooming (FIM): 4 (Pt. requires cues to stay awake and brush her partial. After doing this, OT rinsed partial for her. Pt. able to place them in her mouth.) Oral Hygiene (QC): 4 Bathing (FIM): 2 (Please see note below.) Shower/Bathe Self (QC): 2 Upper Body (FIM): 2 Upper Body Dressing (QC): 2 Lower Body Dressing (FIM): 1 Lower Body Dressing (QC): 1 On/Off Footwear (QC): 1 Pt. transferred supine-sit with mod assist. Pt. able to sit on side of bed, but unable to move to edge, or stand. OT attempted multiple times with pt, and pt. seemed apprehensive, and did not initiate movement. Pt. fell asleep throughout treatment and contributed it to her pain medicine. Nursing notified and checked meds. Pt. bathed UE on side of bed, with max cues to sequences. Donned shirt with assist and then laid back in bed with max assist. Dependent assist for bed mobility. Pt encouraged to doff pants over hips while in bed. Pt. unable to do this. Pt. would fall asleep, or begin talking about something else. OT assisted with this in bed. Max/dependent assist to roll in bed to cleanse peg area and bilateral LE, as well as doff/don pants and slipper socks. After ADLs, pt. given warmed up meal. Began to fall asleep while eating. After that, pt. encouraged to brush her teeth. Encouraged to stay awake throughout treatment. All needs met after treatment. Nursing notified of pt's behavior. Education OT Patient Education: Correct positioning, Modified ADL techniques, Progress toward Goal/Update tx plan, Purpose of tx/functional activities, Reviewed precautions, Rehab process, Transfer techniques, Use of adapted equipment Teaching Recipient: Patient Teaching Methods: Demonstration, Discussion Response to Teaching: Verbalize Understanding, Return Demonstration OT Short Term Goals Short Term Goals Time Frame: Feb 13, 2019 Eating(FIM): 5 Grooming(FIM): 5 Bathing(FIM): 3 Upper Body Dressing(FIM): 4 Lower Body Dressing(FIM): 3 Toileting(FIM): 4 Transfers (B,C,W/C) (FIM): 4 Toilet/Commode Transfer(FIM): 4 Shower Transfer(FIM): 4 Additional Short Term Goals: 1-Demonstrate ADL Tasks, 2-Verbalize Understanding , 3-ImproveStrength/[place] 1=Demonstrate adherence to instructed precautions during ADL tasks. 2=Patient will verbalize/demonstrate understanding of assistive devices/ modifications for ADL. 3=Patient will improve strength/tolerance for activity to enable patient to perform ADL's. OT Molding Sander Goals Molding Sander Goals Time Frame: Feb 27, 2019 Eating (FIM): 6 Eating (QC): 6 Groomin Oral Hygiene (QC): 6 Bathing(FIM): 5 Shower/Bathe Self (QC): 5 Upper Body Dressing(FIM): 6 Upper Body Dressing (QC): 6 Lower Body Dressing(FIM): 5 Lower Body Dressing (QC): 5 On/Off Footwear (QC): 5 Toileting(FIM): 6 Toileting Hygiene (QC): 6 Transfers (B,C,W/C) (FIM): 6 Toilet/Commode Transfer(FIM): 6 Toilet/Commode Transfer (QC): 6 Shower Transfer(FIM): 5 Comprehension(FIM): 6 Expression (FIM): 6 Social Interaction(FIM): 6 Problem Solving(FIM): 6 Memory(FIM): 6 Additional Goals: 1-Demonstrate ADL Tasks, 2-Verbalize Understanding, 3- ImproveStrength/Carlyle 1=Demonstrate adherence to instructed precautions during ADL tasks. 2=Patient will verbalize/demonstrate understanding of assistive devices/ modifications for ADL. 3=Patient will improve strength/tolerance for activity to enable patient to perform ADL's. OT Education/Plan Problem List/Assessment Assessment: Decreased Activ Tolerance, Decreased UE Strength, Dependent Transfers, Impaired Bed Mobility, Impaired Cognition, Impaired Funct Balance, Impaired I ADL's, Impaired Self-Care Skills, Restricted Funct UE ROM Discharge Recommendations Plan/Recommendations: Continue POC Therapy D/C Recommendations: 24 hr Supervision Treatment Plan/Plan of Care Treatment,Training & Education: Yes Patient would benefit from OT for education, treatment and training to promote independence in ADL's, mobility, safety and/or upper extremity function for ADL' s. Plan of Care: ADL Retraining, Functional Mobility, Group Exercise/Act as Ind, UE Funct Exercise/Act Treatment Duration: Feb 27, 2019 Frequency: At least 5 of 7 days/Wk (IRF) Estimated Hrs Per Day: 1.5 hours per day Agreement: Yes Rehab Potential: Fair Time/GCodes Start Time: 09:20 Stop Time: 10:50 Total Time Billed (hr/min): 90 Billed Treatment Time 1, ADL x 6 DWIGHT NORTON OT Feb 07, 2019 14:29
[2019-02-07] MEDS ORDERED: inSUlin ASPART (NovoLOG) 1 UNIT/0.01 ML (CHARGE PER UNIT) SC SCH (14:30)
[2019-02-07] MEDS ORDERED: NON-FORMULARY MEDICATION 1 EA EA (Esomeprazole Magnesium 40 MG) PO SCH (15:00)
--- NOTE | 2019-02-07 15:02 | Physical Therapy Daily Note ---
PT Daily Note-Current Subjective "I just cant stay awake"; pt nods off throughout treatment. Transfers Therapy Code Descriptions/Definitions Functional [place] Measure: 0=Not Assessed/NA 4=Minimal Assistance 1=Total Assistance 5=Supervision or Setup 2=Maximal Assistance 6=Modified [place] 3=Moderate Assistance 7=Complete [place] Therapy Quality Codes: 6 Independent with activity with or without an assistive device 5 Patient requires set up or clean up by helper. Patient completes activity by themselves 4 Supervision or touching assist (CGA). [place] provide cues , steadying assist 3 The helper provides less than half the effort to complete the activity 2 The helper provides more than half the effort to complete the activity 1 Dependent. The helper does all the effort to complete an activity 7 Patient refused to complete or attempt activity 9 The patient did not perform the activity before the current illness or injury 88 Not attempted due to Medical conditions or safety concerns Weight Bearing Right Lower Extremity: Right Full Weight Bearing Left Lower Extremity: Left Full Weight Bearing Back precautions; Breg brace on when up Treatments Pt requires multiple cues to stay awake during treatment and words are slurred. Pt had just received lunch earlier but she had not began eating it as she had fallen asleep. Assisted pt with feeding herself as she intermittently performed LE ther ex. Pt performed AP, QS, GS, AAROM heel slides x 10 each. Takes extra time to complete all as she does fall asleep throughout. Also encouraged pt to feed herself and to eat as she has not eaten much today. Pt in bed with needs met post treatment. Assessment Current Status: Fair Progress Pt very drowsy. Much difficulty staying awake. Needs near constant cues to stay on task and to complete exercises. PT Short Term Goals Short Term Goals Time Frame: Feb 20, 2019 Transfers (B,C,W/C) (FIM): 4 Gait (FIM): 4 Distance (FIM): 3=150 ft Gait Assistive Device: FWW Stairs (FIM): 2 # of Steps: 4 PT [facility] Goals Team Assembly Line Machine Operator Goals PT [facility] Goals Time Frame: Mar 06, 2019 Transfers (B,C,W/C) (FIM): 6 Sit to Lying (QC): 6 Lying-Sitting on Side/Bed(QC): 6 Sit to Stand (QC): 6 Rollin Roll Left to Right (QC): 6 Chair/Vxm-wn-Xnavd Xfer(QC): 6 Car Transfer (QC): 5 Does the Patient Walk: Yes Gait (FIM): 6 Gait distance (FIM): 3=150 ft Walk 10 feet (QC): 6 Walk 10ft-Uneven Surface(QC): 6 Walk 50ft with 2 Turns (QC): 6 Walk 150 ft (QC): 6 Gait Assistive Device: FWW Does the Pt use WC or Scooter?: No Stairs (FIM): 2 # of Steps: 4 1 Step (curb) (QC): 5 4 Steps (QC): 4 12 Steps (QC): 88 Picking up an Object (QC): 88 PT Plan Problem List Problem List: Activity Tolerance, Functional Strength, Safety, Balance, Gait, Transfer, Bed Mobility Treatment/Plan Treatment Plan: Continue Plan of Care Treatment Plan: Bed Mobility, Education, Functional Activity [place], Functional Strength, Group Therapy, Gait, Safety, Therapeutic Exercise, Transfers Treatment Duration: Mar 06, 2019 Frequency: At least 5 of 7 days/Wk (IRF) Estimated Hrs Per Day: 1.5 hours per day Patient and/or Family Agrees t: Yes Time/GCodes Time In: 1250 Time Out: 1320 Total Billed Treatment Time: 30 Total Billed Treatment visit EX 30 JUAQUIN TANNER PT Feb 07, 2019 15:02
[2019-02-07 15:42] VITALS: BP 142/81
[2019-02-07] MEDS: inSUlin ASPART (NovoLOG) 1 UNIT/0.01 ML (CHARGE PER UNIT) SC SCH ×2 (15:53→22:41)
[2019-02-07] MEDS: PANTOPRAZOLE 40 MG (PROTONIX) TAB PO SCH (16:46)
[2019-02-07] MEDS: buPROPion 75 MG (WELLBUTRIN) TAB PO SCH ×2 (16:56→20:51)
[2019-02-07] MEDS: traZODone 50 MG (DESYREL) TAB PO SCH (20:50)
[2019-02-07] MEDS: CYCLOBENZAPRINE 10 MG (FLEXERIL) TAB PO SCH (20:51)
[2019-02-07] MEDS: DIVALPROEX EXT RELEASE 250 MG (DEPAKOTE ER) TAB PO SCH (20:51)
[2019-02-07] MEDS: DIVALPROEX 500 MG DELAYED RELEASE (DEPAKOTE) TAB PO SCH (20:51)
[2019-02-07] MEDS: LINAGLIPTIN (TRADJENTA) 5 MG TABLET PO SCH (20:59)
[2019-02-07] MEDS: ESTROGENS CONJ 0.625 MG (PREMARIN) TAB PO SCH (20:59)
--- NOTE | 2019-02-07 21:03 | NUR ---
patient has not had bm since 02/03. Noted patient refusing miralax ordered BID. Patient educated on physician order and importance of medication with risk r/t surgery, narcotic admin and immobility as concerns to bowels. Patient agreeable to take at this time and states she will not refuse again. Patient denies any s/s of constipation. BS hypoactivex4. Denies any c/o at this time. cont to monitorl
[2019-02-08] MEDS: oxyCODONE/APAP 10/325MG (PERCOCET 10) TABLET PO PRN ×2 (02:29→20:20)
[2019-02-08 04:02] VITALS: BP 127/62
[2019-02-08 05:44] VITALS: BP 118/72
[2019-02-08] MEDS: inSUlin ASPART (NovoLOG) 1 UNIT/0.01 ML (CHARGE PER UNIT) SC SCH ×4 (05:49→21:43)
[2019-02-08] MEDS: LEVOTHYROXINE 50 MCG (LEVOTHROID) TAB PO SCH (06:05)
[2019-02-08] MEDS ORDERED: BISACODYL 10 MG SUPP (DULCOLAX) PR NR (09:00)
--- NOTE | 2019-02-08 09:00 | PM&R Progress Note ---
Subjective HPI/CC On Admission Date Seen by Provider: Feb 08, 2019 Time Seen by Provider: 08:45 CC: Debility following extensive lumbar fusion surgery uncomplicated by Dr Alvarez Moya at [facility] POD # 2 HPI: This is a 73-year-old white female that presents to inpatient rehab due to severe debility following extensive lumbar fusion surgery uncomplicated by Dr. Moya at [facility] in [facility]. Her primary care provider is [facility] in [facility]. Her pain is controlled but her right leg is sore during the transport from [place] to [facility] in [place]. She has had no complications during the hospital course at [facility] but continues to be a two-person assist and very slow recovery. Due to the fact of her multiple comorbidities in addition to dysphoria emotional problem she will need additional support provided at inpatient rehab with intensive therapies. She reports she has not had a bowel movement yet but she did receive a lot of medications which were laxatives and she wants to wait for any additional meds until in the morning and she is agreeable for suppository or enema. I reviewed all of her home medications and restarted every one of them per her home routine. Subjective/Events-last exam Patient doing well No bowel movement yet so will order a suppository and soapsuds enema No pain is reported other than back Right leg is much improved Reviewed blood sugars Tolerating therapies Motivated to improve Review of Systems General: Fatigue Objective Exam Vital Signs Vital Signs Date Time Temp Pulse Resp B/P (MAP) Pulse Ox O2 Delivery O2 Flow Rate FiO2 02/08/19 09:00 Room Air 02/08/19 05:44 118/72 (87) 98 02/08/19 04:02 97.6 72 16 Capillary Refill : General Appearance: No Apparent Distress, WD/WN, Chronically ill, Obese HEENT: PERRL/EOMI, Normal ENT Inspection, Pharynx Normal, Moist Mucous Membranes Neck: Full Range of Motion, Normal Inspection, Non Tender, Supple Respiratory: Chest Non Tender, Lungs Clear, Normal Breath Sounds, No Accessory Muscle Use, No Respiratory Distress Cardiovascular: Regular Rate, Rhythm, No Edema, No Gallop, No JVD, No Murmur Gastrointestinal: Normal Bowel Sounds, No Organomegaly, No Pulsatile Mass, Non Tender, Soft Back: Decreased Range of Motion Extremity: Normal Capillary Refill, Normal Inspection, Normal Range of Motion, Non Tender, No Calf Tenderness, No Pedal Edema Neurologic/Psychiatric: Alert, Oriented x3, No Motor/Sensory Deficits, Normal Mood/Affect Skin: Normal Color, Warm/Dry Lymphatic: No Adenopathy Results/Procedures Lab Patient resulted labs reviewed. Assessment/Plan Assessment and Plan Assess & Plan/Chief Complaint Assessment: Status post extensive lumbar fusion surgery uncomplicated by Dr. Moya POD#4 Bipolar disorder/dysphoria Obstructive sleep apnea Hypertension Hyperlipidemia GERD Chronic back pain Osteoarthritis Diabetes mellitus Hypothyroidism MRSA infection in the past Constipation Plan: Home meds Emotional support Intensive therapies Return bowel function to normal with meds Pain control SSI Insulin Supp and SSE (1) S/P spinal fusion (2) PAO (obstructive sleep apnea) (3) Dysphoric mood (4) GERD (gastroesophageal reflux disease) (5) Hypothyroidism (6) Bipolar disorder (7) Diabetes mellitus (8) Constipation Clinical Quality Measures DVT/VTE Risk/Contraindication: Risk Factor Score Per Nursin RFS Level Per Nursing on Admit: 4+=Very High VAL GUADALUPE DO Feb 08, 2019 09:00
[2019-02-08] MEDS: ROSUVASTATIN 20 MG (CRESTOR) TABLET PO SCH (09:06)
[2019-02-08] MEDS: LOSARTAN 50 MG (COZAAR) TAB PO SCH (09:06)
[2019-02-08] MEDS: DILTIAZEM 300 MG (CARDIZEM CD) CAP PO SCH (09:06)
[2019-02-08] MEDS: FUROSEMIDE 40 MG (LASIX) TAB PO SCH (09:06)
[2019-02-08] MEDS: MAGNESIUM OXIDE (MAG-OX)400 MG TAB PO SCH (09:07)
[2019-02-08] MEDS: DOCUSATE SODIUM 100 MG (COLACE) CAP PO SCH ×2 (09:07→21:40)
[2019-02-08] MEDS: SPIRONOLACTONE 25 MG (ALDACTONE) TAB PO SCH (09:07)
[2019-02-08] MEDS: POLYETHYLENE GLYCOL 17 GM (MIRALAX) PACK PO SCH ×2 (09:08→21:41)
[2019-02-08] MEDS: buPROPion XL 150 MG (WELLBUTRIN XL) NON-FORM PO SCH (09:14)
--- NOTE | 2019-02-08 11:42 | Physical Therapy Daily Note ---
PT Daily Note-Current Subjective Pt hollering out, acting confused at first, unable to recall if she had breakfast or medications. States her anxiety is getting worse and is having some paranoia. States she knows she hollers out, but can't seem to help it. States she feels that her Wellbutrin and other pills are not working. Did refuse Xanax when nsg offered it stating it was "powdered alcohol". Pt states she is upset that her back brace is too small and does not fit correctly Pain Comment: pt reports pain in "glut" but unable to rate, hollers out occasionally Appearance Upon arrival, pt sidelying in bed upon arrival, easily aroused but upset to be bothered, after discussion was agreeable to PT treatment. Pt's back brace is too small, does not fit correctly at end of session, pt R side lying with nursing present to administer suppository, call light, phone and bedside table within reach Mental Status Patient Orientation: Person, Time, Eyes Open some confusion at times, high anxiety and irritability, decreased safety awareness charmaine when anxiety and confusion seem to heighten Transfers Therapy Code Descriptions/Definitions Functional [place] Measure: 0=Not Assessed/NA 4=Minimal Assistance 1=Total Assistance 5=Supervision or Setup 2=Maximal Assistance 6=Modified [place] 3=Moderate Assistance 7=Complete [place] Therapy Quality Codes: 6 Independent with activity with or without an assistive device 5 Patient requires set up or clean up by helper. Patient completes activity by themselves 4 Supervision or touching assist (CGA). [place] provide cues , steadying assist 3 The helper provides less than half the effort to complete the activity 2 The helper provides more than half the effort to complete the activity 1 Dependent. The helper does all the effort to complete an activity 7 Patient refused to complete or attempt activity 9 The patient did not perform the activity before the current illness or injury 88 Not attempted due to Medical conditions or safety concerns Transfers (B, C, W/C) (FIM): 4 Scootin Rollin Supine to/from Sit: 4 Sit to/from Stand: 5 sit to from stand transfers, CGA, requiring max verb instruction for correct technique and safety but pt not following instruction or returning demonstration. Pt requiring physical assist sidelying to sit EOB with HOB elevated. Weight Bearing Right Lower Extremity: Right Full Weight Bearing Left Lower Extremity: Left Full Weight Bearing Back precautions; Breg brace on when up Gait Training Does the Patient Walk?: Yes Gait (FIM): 2 Distance (FIM): 0=147-89 ft Distance: 80', 70', 80', 70' Gait Level of Assist: 4 Gait Persons Needed: 1 Gait Assistive Device: FWW Pt wearing back brace, requiring max encouragement to continue walking before sitting, shuffling gait but improves with max instruction although then becomes agitated, fatigue with gait distances, occasional hollering out due to c/o sharp pain in "glut" Exercises NuStep Minutes: 10 NuStep Workload: 2 (min A and max verb instruction to continue movement on NuStep as well as increasing motion) Treatments gait, transfer, ther ex, safety, bed mobility to improve functional mobility, activity tolerance, strength, ROM and decrease pain Assessment Current Status: Good Progress PT Short Term Goals Short Term Goals Time Frame: Feb 20, 2019 Transfers (B,C,W/C) (FIM): 4 Gait (FIM): 4 Distance (FIM): 3=150 ft Gait Assistive Device: FWW Stairs (FIM): 2 # of Steps: 4 PT Snf Goals Panel Coverer Goals PT Snf Goals Time Frame: Mar 06, 2019 Transfers (B,C,W/C) (FIM): 6 Sit to Lying (QC): 6 Lying-Sitting on Side/Bed(QC): 6 Sit to Stand (QC): 6 Rollin Roll Left to Right (QC): 6 Chair/Lxh-fb-Mirix Xfer(QC): 6 Car Transfer (QC): 5 Does the Patient Walk: Yes Gait (FIM): 6 Gait distance (FIM): 3=150 ft Walk 10 feet (QC): 6 Walk 10ft-Uneven Surface(QC): 6 Walk 50ft with 2 Turns (QC): 6 Walk 150 ft (QC): 6 Gait Assistive Device: FWW Does the Pt use WC or Scooter?: No Stairs (FIM): 2 # of Steps: 4 1 Step (curb) (QC): 5 4 Steps (QC): 4 12 Steps (QC): 88 Picking up an Object (QC): 88 PT Plan Treatment/Plan Treatment Plan: Continue Plan of Care Treatment Plan: Bed Mobility, Education, Functional Activity [place], Functional Strength, Group Therapy, Gait, Safety, Therapeutic Exercise, Transfers Treatment Duration: Mar 06, 2019 Frequency: At least 5 of 7 days/Wk (IRF) Estimated Hrs Per Day: 1.5 hours per day Patient and/or Family Agrees t: Yes Safety Risks/Education Patient Education: Gait Training, Transfer Techniques, Reviewed Precautions, Correct Positioning, Disease Process, Safety Issues Teaching Recipient: Patient Teaching Methods: Demonstration, Discussion Response to Teaching: Verbalize Understanding, Unable to Return Demonstration, Reinforcement Needed Time/GCodes Time In: 1000 Time Out: 1100 Total Billed Treatment Time: 60 Total Billed Treatment 1 visit, GT x1 unit, EX x1 unit, FA x2 units MITRA MURPHY ADULT SECONDARY EDUCATION INSTRUCTOR Feb 08, 2019 11:42
--- NOTE | 2019-02-08 12:11 | Physician Query Clarification ---
PQ-Intro New Diagnosis Admission/Discharge Admission Date: Feb 06, 2019 at 14:14 Discharge Date: The medical record reflects the following clinical scenario: History/Risk Factors: s/p spinal fusion, bipolar disorder, diabetes Clinical Findings: Debility Treatment: spinal fusion Question: What condition best reflects the above clinical scenario? Please document below. 1. Please list the diagnosis that resulted in the spinal fusion 2. s/p fusion condition unknown 3. Other, with explanation of the clinical findings. 4. Clinically undetermined, no explanation for the clinical findings. PHYSICIAN RESPONSE What condition reflects above: 1 In responding to this query, please exercise your independent professional judgment. The purpose of this communication is to more accurately reflect the complexity of your patients condition. The fact that a question is asked does not imply that any particular answer is desired or expected. Thank you for your timely response to this clarification. Requestors name: Tonie THIS PHYSICIAN QUERY FORM IS A PERMANENT PART OF THE MEDICAL RECORD TONIE PRAJAPATI Feb 08, 2019 12:11 VAL GUADALUPE DO Feb 09, 2019 12:25
--- NOTE | 2019-02-08 12:59 | Occupational Ther Daily Note ---
OT Current Status-Daily Note Subjective Pt agreeable to therapy this am. Pt yells out during movement, but does not rate pain. Mental Status/Objective Therapy Code Descriptions/Definitions Functional [place] Measure: 0=Not Assessed/NA 4=Minimal Assistance 1=Total Assistance 5=Supervision or Setup 2=Maximal Assistance 6=Modified [place] 3=Moderate Assistance 7=Complete [place] ADL-Treatment Pt preparing to transfer to BSC with RN when therapist arrives. Pt's back brace does not fit well as it is small and pt requires assist to don it. Pt requires minimal assistance for sit to stand on multiple attempts. Cues for hand placement and safety. Transfer to BSC with minimal assistance using FWW. Pt requires assist for toileting hygiene. Transfer back to chair with minimal assistance. Pt is fearful of pain and has very guarded movements. Requires increased time for mobility. Sponge bath completed while seated in chair. Pt doffed shirt with SBA. Upper body bathing completed with SBA and increased time. Skilled cues for technique and pt requires cues for completion of task. Pt attempted to use long handled sponge to wash lower legs with maximal encouragement, but required assist to complete. Upper body dressing completed with minimal assistance. Instructed pt in use of adaptive equipment for LE dressing. Pt required max assist to don pants using coal sampler to start over feet. Pt required assist to pull pants over hips in standing. Pt requested to use BSC again, but once on commode pt requested to return to bed. Did not void. Transfer to EOB with FWW. Pt is anxious during transfer and required multiple cues for safety. Sit to supine with assist for LE. Pt resting in bed with needs met and RN present after session. Therapy Code Descriptions/Definitions Functional [place] Measure: 0=Not Assessed/NA 4=Minimal Assistance 1=Total Assistance 5=Supervision or Setup 2=Maximal Assistance 6=Modified [place] 3=Moderate Assistance 7=Complete [place] Therapy Quality Codes: 6 Independent with activity with or without an assistive device 5 Patient requires set up or clean up by helper. Patient completes activity by themselves 4 Supervision or touching assist (CGA). [place] provide cues , steadying assist 3 The helper provides less than half the effort to complete the activity 2 The helper provides more than half the effort to complete the activity 1 Dependent. The helper does all the effort to complete an activity 7 Patient refused to complete or attempt activity 9 The patient did not perform the activity before the current illness or injury 88 Not attempted due to Medical conditions or safety concerns Bathing (FIM): 2 Shower/Bathe Self (QC): 2 Upper Body (FIM): 4 Upper Body Dressing (QC): 3 Lower Body Dressing (FIM): 2 Lower Body Dressing (QC): 2 Toileting (FIM): 2 Toilet/Commode Transfer (FIM): 4 Education OT Patient Education: Modified ADL techniques Teaching Recipient: Patient Teaching Methods: Demonstration, Discussion Response to Teaching: Reinforcement Needed OT Short Term Goals Short Term Goals Time Frame: Feb 13, 2019 Eating(FIM): 5 Grooming(FIM): 5 Bathing(FIM): 3 Upper Body Dressing(FIM): 4 Lower Body Dressing(FIM): 3 Toileting(FIM): 4 Transfers (B,C,W/C) (FIM): 4 Toilet/Commode Transfer(FIM): 4 Shower Transfer(FIM): 4 Additional Short Term Goals: 1-Demonstrate ADL Tasks, 2-Verbalize Understanding , 3-ImproveStrength/[place] 1=Demonstrate adherence to instructed precautions during ADL tasks. 2=Patient will verbalize/demonstrate understanding of assistive devices/ modifications for ADL. 3=Patient will improve strength/tolerance for activity to enable patient to perform ADL's. OT Client Technical Professional Goals [place] Goals Time Frame: Feb 27, 2019 Eating (FIM): 6 Eating (QC): 6 Groomin Oral Hygiene (QC): 6 Bathing(FIM): 5 Shower/Bathe Self (QC): 5 Upper Body Dressing(FIM): 6 Upper Body Dressing (QC): 6 Lower Body Dressing(FIM): 5 Lower Body Dressing (QC): 5 On/Off Footwear (QC): 5 Toileting(FIM): 6 Toileting Hygiene (QC): 6 Transfers (B,C,W/C) (FIM): 6 Toilet/Commode Transfer(FIM): 6 Toilet/Commode Transfer (QC): 6 Shower Transfer(FIM): 5 Comprehension(FIM): 6 Expression (FIM): 6 Social Interaction(FIM): 6 Problem Solving(FIM): 6 Memory(FIM): 6 Additional Goals: 1-Demonstrate ADL Tasks, 2-Verbalize Understanding, 3- ImproveStrength/[place] 1=Demonstrate adherence to instructed precautions during ADL tasks. 2=Patient will verbalize/demonstrate understanding of assistive devices/ modifications for ADL. 3=Patient will improve strength/tolerance for activity to enable patient to perform ADL's. OT Education/Plan Discharge Recommendations Plan/Recommendations: Continue POC Treatment Plan/Plan of Care Patient would benefit from OT for education, treatment and training to promote independence in ADL's, mobility, safety and/or upper extremity function for ADL' s. Plan of Care: ADL Retraining, Functional Mobility, Group Exercise/Act as Ind, UE Funct Exercise/Act Treatment Duration: Feb 27, 2019 Frequency: At least 5 of 7 days/Wk (IRF) Estimated Hrs Per Day: 1.5 hours per day Agreement: Yes Rehab Potential: Fair Time/GCodes Start Time: 08:00 Stop Time: 09:00 Total Time Billed (hr/min): 60 Billed Treatment Time 1 visit, ADLx4(60minutes) LUPE CASSIDY OT Feb 08, 2019 12:59
--- NOTE | 2019-02-08 15:07 | Therapy Group Daily Note ---
Therapy Daily Group Note Patient Education Topic Other List Below (Transfer techniques and safety) Exercises LE Seated Exercise, UE Exercise Session Ratio (pt:therapist): 4:1 Goal of Session: Home Safety Strategies, Safety with Transfers Pt. to lead others in seated exercise group session by reading and demonstrating exercises utilizing written illustrated guide. Pts. to gain understanding of various transfer techniques and safety Goal Met for this Session: Yes Pt Benefit of Group: Increased Functional Safety, Increased Functional Strength , Recognition of Peers, Socialization Pt. interacted with others , assisted in leading exercises, rolled dice for reps of the exercise she lead. Pt. contributed to discussion regarding transfers and safety. Other/Notes Pt. was very undecided regarding use of BSC after leaving group and initially refused to get on BSC although she stated multiple times that she thought she may have gone in her pants. This ASSEMBLY LINE INSPECTOR had pt. in bed when nursing arrived and strongly encouraged to get up on toilet, nursing states pt. had suppository and should sit on BSC, pt. then reluctantly cooperative to get on BSC. Support under pts feet as well as pillow to her back was provided and pt. left to care of nursing Start Time: 13:00 Stop Time: 14:30 Total Billed Treatment Time: 90 Total Billed Treatment 1,GRP KINA RODRIGUEZ ASSEMBLY LINE INSPECTOR Feb 08, 2019 15:07
--- NOTE | 2019-02-08 16:07 | Speech Therapy Daily Note ---
Speech Daily Progress Note Subjective Date Seen by Provider: Feb 08, 2019 Time Seen by Provider: 00:15 Patient more alert today. Objective Patient completed simple memory tasks related to her daily needs with frequent redirection needed. Assessment Assessment Current Status: Fair Progress Treatment Plan Continue Plan of Care Communication Comprehension: 5 Expression: 5 Social Cognition Social Interaction: 4 Problem Solvin Memory: 5 Speech Short Term Goals Short Term Goals Short Term Goals 1) The patient will demonstrate simple problem solving (verbal/visual) with 80% accuracy, min to mod cues. 2) The patient will demonstrate sustained attention for task performance with 80 % accuracy, min to mod cues. 3) The patient will demonstrate sequencing for ADL's with 80% accuracy, min to mod cues. Speech Intermediate Goals Intermediate Goals The patient will improve skills necessary for ADL's and safety in the home with minimal assist. Comprehension: 6 Expression: 6 Social Interaction: 6 Problem Solvin Memory: 6 Speech-Plan Patient/Family Goals Patient/Family Goals: Patient plans to return home with her family post rehab. Treatment Plan Speech Therapy Treatment Plan: Continue Plan of Care Patient will receive skilled services from 4x/wk. Treatment Duration: Feb 15, 2019 Frequency: 4 times per week Estimated Hrs Per Day: .5 hour per day Rehab Potential: Fair Barriers to Learning: Patient has difficulty following through with directions. Pt/Family Agrees to Plan: Yes Safety Risks/Education Teaching Recipient: Patient Teaching Methods: Discussion Response to Teaching: Verbalize Understanding Education Topics Provided: Safety within her room. Time Speech Therapy Time In: 15:15 Speech Therapy Time Out: 15:30 Total Billed Time: 15 Billed Treatment Time 1, ALFRED West Feb 08, 2019 16:07
[2019-02-08 16:28] VITALS: BP 111/67
[2019-02-08] MEDS: buPROPion 75 MG (WELLBUTRIN) TAB PO SCH ×2 (16:50→21:41)
[2019-02-08] MEDS: PANTOPRAZOLE 40 MG (PROTONIX) TAB PO SCH (16:50)
[2019-02-08 18:11] VITALS: BP 111/67
--- NOTE | 2019-02-08 19:54 | NUR ---
report given to RUSTAM Fernandez.
[2019-02-08] MEDS: ESTROGENS CONJ 0.625 MG (PREMARIN) TAB PO SCH (21:40)
[2019-02-08] MEDS: DIVALPROEX EXT RELEASE 250 MG (DEPAKOTE ER) TAB PO SCH (21:41)
[2019-02-08] MEDS: LINAGLIPTIN (TRADJENTA) 5 MG TABLET PO SCH (21:41)
[2019-02-08] MEDS: CYCLOBENZAPRINE 10 MG (FLEXERIL) TAB PO SCH (21:41)
[2019-02-08] MEDS: traZODone 50 MG (DESYREL) TAB PO SCH (21:41)
[2019-02-08] MEDS: DIVALPROEX 500 MG DELAYED RELEASE (DEPAKOTE) TAB PO SCH (21:41)
--- NOTE | 2019-02-09 01:12 | NUR ---
soap suds enema 1000cc x 3 given with small amt of soft brown stool expelled
[2019-02-09 05:13] VITALS: BP 144/65
[2019-02-09] MEDS: LEVOTHYROXINE 50 MCG (LEVOTHROID) TAB PO SCH (05:34)
[2019-02-09] MEDS: inSUlin ASPART (NovoLOG) 1 UNIT/0.01 ML (CHARGE PER UNIT) SC SCH ×4 (05:34→21:42)
[2019-02-09 08:05] VITALS: BP 152/66
[2019-02-09] MEDS: MAGNESIUM OXIDE (MAG-OX)400 MG TAB PO SCH (08:06)
[2019-02-09] MEDS: FUROSEMIDE 40 MG (LASIX) TAB PO SCH (08:06)
[2019-02-09] MEDS: SPIRONOLACTONE 25 MG (ALDACTONE) TAB PO SCH (08:06)
[2019-02-09] MEDS: LOSARTAN 50 MG (COZAAR) TAB PO SCH (08:06)
[2019-02-09] MEDS: DILTIAZEM 300 MG (CARDIZEM CD) CAP PO SCH (08:06)
[2019-02-09] MEDS: ROSUVASTATIN 20 MG (CRESTOR) TABLET PO SCH (08:06)
[2019-02-09] MEDS: DOCUSATE SODIUM 100 MG (COLACE) CAP PO SCH ×2 (08:06→21:33)
[2019-02-09] MEDS: oxyCODONE/APAP 10/325MG (PERCOCET 10) TABLET PO PRN ×3 (08:06→22:15)
[2019-02-09] MEDS: buPROPion XL 150 MG (WELLBUTRIN XL) NON-FORM PO SCH (08:08)
[2019-02-09] MEDS: POLYETHYLENE GLYCOL 17 GM (MIRALAX) PACK PO SCH ×2 (08:08→21:32)
--- NOTE | 2019-02-09 09:15 | Physical Therapy Daily Note ---
PT Daily Note-Current Subjective Pt on BSC with Nurse present as SYSTEMS SOFTWARE SPECIALIST answers call light. Pt demonstrates confusion. Pt agrees to PT to assist with transfer and positioning in bed. Pain Numeric Pain Scale: 10-Worst Possible Pain Location Body Site: Sacrum Pain Description: Stabbing, Sharp Comment: Pt yells out in pain with movement, Nurse aware. Mental Status Patient Orientation: Person, Confused Transfers Therapy Code Descriptions/Definitions Functional [place] Measure: 0=Not Assessed/NA 4=Minimal Assistance 1=Total Assistance 5=Supervision or Setup 2=Maximal Assistance 6=Modified [place] 3=Moderate Assistance 7=Complete [place] Therapy Quality Codes: 6 Independent with activity with or without an assistive device 5 Patient requires set up or clean up by helper. Patient completes activity by themselves 4 Supervision or touching assist (CGA). [place] provide cues , steadying assist 3 The helper provides less than half the effort to complete the activity 2 The helper provides more than half the effort to complete the activity 1 Dependent. The helper does all the effort to complete an activity 7 Patient refused to complete or attempt activity 9 The patient did not perform the activity before the current illness or injury 88 Not attempted due to Medical conditions or safety concerns Scootin Rollin Supine to/from Sit: 2 Sit to/from Stand: 2 Sit to Lying (QC): 2 Sit to Stand (QC): 2 Chair/Euy-tc-Nmrne Xfer(QC): 2 Bed to/from Chair: 2 Weight Bearing Right Lower Extremity: Right Full Weight Bearing Left Lower Extremity: Left Full Weight Bearing Back precautions; Breg brace on when up Exercises Supine Ex: Rolling Treatments SYSTEMS SOFTWARE SPECIALIST assists pt & Nurse with [place] [facility] [place]. Pt is very unsafe and needs constant VC as well as PCs to safely transfer. SYSTEMS SOFTWARE SPECIALIST & Nurse aid in transferring to L sidelying & SYSTEMS SOFTWARE SPECIALIST positions with pillow to aid for support. Pt resting and reports not wanting to continue with anymore PT. Pt has all needs met including call light in hand and OJ on side table. Assessment Current Status: Fair Progress Pt is very confused and demonstrates inability to follow directions for safe transfers. PT Short Term Goals Short Term Goals Time Frame: Feb 20, 2019 Transfers (B,C,W/C) (FIM): 4 Gait (FIM): 4 Distance (FIM): 3=150 ft Gait Assistive Device: FWW Stairs (FIM): 2 # of Steps: 4 PT Drum Sander Goals Usp Goals PT Usp Goals Time Frame: Mar 06, 2019 Transfers (B,C,W/C) (FIM): 6 Sit to Lying (QC): 6 Lying-Sitting on Side/Bed(QC): 6 Sit to Stand (QC): 6 Rollin Roll Left to Right (QC): 6 Chair/Zvs-iv-Pfjph Xfer(QC): 6 Car Transfer (QC): 5 Does the Patient Walk: Yes Gait (FIM): 6 Gait distance (FIM): 3=150 ft Walk 10 feet (QC): 6 Walk 10ft-Uneven Surface(QC): 6 Walk 50ft with 2 Turns (QC): 6 Walk 150 ft (QC): 6 Gait Assistive Device: FWW Does the Pt use WC or Scooter?: No Stairs (FIM): 2 # of Steps: 4 1 Step (curb) (QC): 5 4 Steps (QC): 4 12 Steps (QC): 88 Picking up an Object (QC): 88 PT Plan Problem List Problem List: Activity Tolerance, Functional Strength, Safety, Balance, Gait, Transfer, Bed Mobility Treatment/Plan Treatment Plan: Continue Plan of Care Treatment Plan: Bed Mobility, Education, Functional Activity [place], Functional Strength, Group Therapy, Gait, Safety, Therapeutic Exercise, Transfers Treatment Duration: Mar 06, 2019 Frequency: At least 5 of 7 days/Wk (IRF) Estimated Hrs Per Day: 1.5 hours per day Patient and/or Family Agrees t: Yes Safety Risks/Education Patient Education: Transfer Techniques, Correct Positioning, Safety Issues Teaching Recipient: Patient Teaching Methods: Discussion Response to Teaching: Reinforcement Needed Time/GCodes Time In: 755 Time Out: 810 Total Billed Treatment Time: 15 Total Billed Treatment 1, FA (15m) G Codes Necessary: GABRIEL Roca PTA Feb 09, 2019 09:15
--- NOTE | 2019-02-09 11:06 | PM&R Progress Note ---
Subjective HPI/CC On Admission Date Seen by Provider: Feb 09, 2019 Time Seen by Provider: 11:15 CC: Debility following extensive lumbar fusion surgery uncomplicated by Dr Alvarez Moya at [facility] POD # 2 HPI: This is a 73-year-old white female that presents to inpatient rehab due to severe debility following extensive lumbar fusion surgery uncomplicated by Dr. Moya at [facility] in [facility]. Her primary care provider is Linda Pond in [facility]. Her pain is controlled but her right leg is sore during the transport from [place] to [facility] in [place]. She has had no complications during the hospital course at [facility] but continues to be a two-person assist and very slow recovery. Due to the fact of her multiple comorbidities in addition to dysphoria emotional problem she will need additional support provided at inpatient rehab with intensive therapies. She reports she has not had a bowel movement yet but she did receive a lot of medications which were laxatives and she wants to wait for any additional meds until in the morning and she is agreeable for suppository or enema. I reviewed all of her home medications and restarted every one of them per her home routine. Subjective/Events-last exam Patient doing well as to be expected but she doesn't think she is doing well No bowel movement yet and minimal results with SSE x 2 yesterday so will check abdominal xray and initiate mag citrate today No pain is reported other than back Right leg is moving pretty well Reviewed blood sugars Tolerating therapies Motivated to improve but very needy and need constant reassurance Review of Systems General: Fatigue Gastrointestinal: Constipation Musculoskeletal: back pain Objective Exam Vital Signs Vital Signs Date Time Temp Pulse Resp B/P (MAP) Pulse Ox O2 Delivery O2 Flow Rate FiO2 02/09/19 09:00 Room Air 02/09/19 08:05 80 152/66 (94) 02/09/19 05:13 98.4 16 96 Capillary Refill : General Appearance: No Apparent Distress, WD/WN, Chronically ill, Obese HEENT: PERRL/EOMI, Normal ENT Inspection, Pharynx Normal, Moist Mucous Membranes Neck: Full Range of Motion, Normal Inspection, Non Tender, Supple Respiratory: Chest Non Tender, Lungs Clear, Normal Breath Sounds, No Accessory Muscle Use, No Respiratory Distress Cardiovascular: Regular Rate, Rhythm, No Edema, No Gallop, No JVD, No Murmur Gastrointestinal: Normal Bowel Sounds, No Organomegaly, No Pulsatile Mass, Non Tender, Soft Back: Decreased Range of Motion Extremity: Normal Capillary Refill, Normal Inspection, Normal Range of Motion, Non Tender, No Calf Tenderness, No Pedal Edema Neurologic/Psychiatric: Alert, Oriented x3, No Motor/Sensory Deficits, Normal Mood/Affect Skin: Normal Color, Warm/Dry Lymphatic: No Adenopathy Results/Procedures Lab Patient resulted labs reviewed. Assessment/Plan Assessment and Plan Assess & Plan/Chief Complaint Assessment: Status post extensive lumbar fusion surgery uncomplicated by Dr. Moya POD#5 Bipolar disorder/dysphoria Obstructive sleep apnea Hypertension Hyperlipidemia GERD Chronic back pain Osteoarthritis Diabetes mellitus Hypothyroidism MRSA infection in the past Constipation will increase meds and check xray Plan: Home meds Emotional support Intensive therapies Return bowel function to normal with magcitrate after xray reviewed to r/o ileus but BS noted on exam Pain control SSI Insulin Supp and SSE after magcitrate if needed (1) S/P spinal fusion (2) PAO (obstructive sleep apnea) (3) Dysphoric mood (4) GERD (gastroesophageal reflux disease) (5) Hypothyroidism (6) Bipolar disorder (7) Diabetes mellitus (8) Constipation Clinical Quality Measures DVT/VTE Risk/Contraindication: Risk Factor Score Per Nursin RFS Level Per Nursing on Admit: 4+=Very High VAL GUADALUPE DO Feb 09, 2019 11:06
--- NOTE | 2019-02-09 11:38 | NUR ---
Dr. Fried here to see patient. New order for Baclofen- 10 MG PO Q6 PRN pa in. KUB XRAY. 1/2 bottle of Mag Citrate now. Repeat in 4 hours if no BM.
[2019-02-09] MEDS ORDERED: MAGNESIUM CITRATE 300 ML BTL PO NR (11:45)
[2019-02-09] MEDS: BACLOFEN 10 MG (LIORESAL) TAB PO PRN (12:22)
--- NOTE | 2019-02-09 13:00 | Diagnostic Imaging Report ---
Indication: Constipation, abdominal pain. Comparison: None. Findings: Upright view of the abdomen demonstrates no free air. There are a few air-fluid levels within the colon. There is some mild constipation. Cholecystectomy clips are present. Impression: Nonspecific air-fluid levels within the colon. Mild constipation without overt obstruction. Dictated by: Dictated on workstation # [id number]
--- NOTE | 2019-02-09 13:50 | NUR ---
Dr. Fried notified of Abdominal XRAY results. Only able to do 1 view because patient could not tolerate lying flat. Orders to consult Dr. Luciano.
--- NOTE | 2019-02-09 13:54 | NUR ---
Dr. Luciano notified of consult.
[2019-02-09] MEDS: buPROPion 75 MG (WELLBUTRIN) TAB PO SCH ×2 (15:10→21:33)
[2019-02-09] MEDS: PANTOPRAZOLE 40 MG (PROTONIX) TAB PO SCH (15:12)
--- NOTE | 2019-02-09 15:23 | NUR ---
Patient requesting to take home Nexium instead of sub Protonix and home Januvia instead of sub Tradjenta. Dr. Fried notified and ok with above.
[2019-02-09] MEDS ORDERED: MAGNESIUM CITRATE 300 ML BTL PO PRN (15:45)
[2019-02-09 16:21] VITALS: BP 147/68
[2019-02-09] MEDS: ESOMEPRAZOLE 40 MG PO SCH (16:28)
--- NOTE | 2019-02-09 16:41 | NUR ---
No results from first 1/2 bottle of Mag Citrate. Repeat 1/2 bottle given.
--- NOTE | 2019-02-09 18:38 | NUR ---
Prune juice given in coffee.
[2019-02-09] MEDS: JANUVIA 100 MG PO SCH (21:32)
[2019-02-09] MEDS: CYCLOBENZAPRINE 10 MG (FLEXERIL) TAB PO SCH (21:33)
[2019-02-09] MEDS: ESTROGENS CONJ 0.625 MG (PREMARIN) TAB PO SCH (21:33)
[2019-02-09] MEDS: DIVALPROEX EXT RELEASE 250 MG (DEPAKOTE ER) TAB PO SCH (21:33)
[2019-02-09] MEDS: traZODone 50 MG (DESYREL) TAB PO SCH (21:33)
[2019-02-09] MEDS: DIVALPROEX 500 MG DELAYED RELEASE (DEPAKOTE) TAB PO SCH (21:33)
[2019-02-10 05:23] VITALS: BP 154/65
[2019-02-10] MEDS: LEVOTHYROXINE 50 MCG (LEVOTHROID) TAB PO SCH (06:07)
[2019-02-10] MEDS: inSUlin ASPART (NovoLOG) 1 UNIT/0.01 ML (CHARGE PER UNIT) SC SCH ×4 (06:28→21:01)
[2019-02-10] MEDS: LOSARTAN 50 MG (COZAAR) TAB PO SCH (08:34)
[2019-02-10] MEDS: MAGNESIUM OXIDE (MAG-OX)400 MG TAB PO SCH (08:34)
[2019-02-10] MEDS: SPIRONOLACTONE 25 MG (ALDACTONE) TAB PO SCH (08:34)
[2019-02-10] MEDS: ROSUVASTATIN 20 MG (CRESTOR) TABLET PO SCH (08:34)
[2019-02-10] MEDS: DILTIAZEM 300 MG (CARDIZEM CD) CAP PO SCH (08:34)
[2019-02-10] MEDS: FUROSEMIDE 40 MG (LASIX) TAB PO SCH (08:34)
[2019-02-10] MEDS: DOCUSATE SODIUM 100 MG (COLACE) CAP PO SCH ×2 (08:35→21:01)
[2019-02-10] MEDS: POLYETHYLENE GLYCOL 17 GM (MIRALAX) PACK PO SCH ×2 (08:35→21:01)
[2019-02-10] MEDS: buPROPion XL 150 MG (WELLBUTRIN XL) NON-FORM PO SCH (08:36)
[2019-02-10 08:38] VITALS: BP 159/77
--- NOTE | 2019-02-10 11:14 | PM&R Progress Note ---
Subjective HPI/CC On Admission Date Seen by Provider: Feb 10, 2019 Time Seen by Provider: 11:00 CC: Debility following extensive lumbar fusion surgery uncomplicated by Dr Alvarez Moya at [facility] POD # 2 HPI: This is a 73-year-old white female that presents to inpatient rehab due to severe debility following extensive lumbar fusion surgery uncomplicated by Dr. Moya at [facility] in [facility]. Her primary care provider is Linda Pond in [facility]. Her pain is controlled but her right leg is sore during the transport from [place] to [facility] in [place]. She has had no complications during the hospital course at [facility] but continues to be a two-person assist and very slow recovery. Due to the fact of her multiple comorbidities in addition to dysphoria emotional problem she will need additional support provided at inpatient rehab with intensive therapies. She reports she has not had a bowel movement yet but she did receive a lot of medications which were laxatives and she wants to wait for any additional meds until in the morning and she is agreeable for suppository or enema. I reviewed all of her home medications and restarted every one of them per her home routine. Subjective/Events-last exam Patient doing well Loose stools started after mag citrate yesterday and was given prune juice now they are very loose so will hold and changed to as needed No pain is reported other than back Right leg is moving pretty well Reviewed blood sugars Tolerating therapies Much improved today while minimizing pain medication to decrease sedation and now that bowels are functioning well Review of Systems Musculoskeletal: back pain Objective Exam Vital Signs Vital Signs Date Time Temp Pulse Resp B/P (MAP) Pulse Ox O2 Delivery O2 Flow Rate FiO2 02/10/19 09:59 Room Air 02/10/19 08:38 78 159/77 (104) 94 02/10/19 05:23 98.2 16 Capillary Refill : General Appearance: No Apparent Distress, WD/WN, Chronically ill, Obese HEENT: PERRL/EOMI, Normal ENT Inspection, Pharynx Normal, Moist Mucous Membranes Neck: Full Range of Motion, Normal Inspection, Non Tender, Supple Respiratory: Chest Non Tender, Lungs Clear, Normal Breath Sounds, No Accessory Muscle Use, No Respiratory Distress Cardiovascular: Regular Rate, Rhythm, No Edema, No Gallop, No JVD, No Murmur Gastrointestinal: Normal Bowel Sounds, No Organomegaly, No Pulsatile Mass, Non Tender, Soft Back: Decreased Range of Motion Extremity: Normal Capillary Refill, Normal Inspection, Normal Range of Motion, Non Tender, No Calf Tenderness, No Pedal Edema Neurologic/Psychiatric: Alert, Oriented x3, No Motor/Sensory Deficits, Normal Mood/Affect Skin: Normal Color, Warm/Dry Lymphatic: No Adenopathy Results/Procedures Lab Patient resulted labs reviewed. Assessment/Plan Assessment and Plan Assess & Plan/Chief Complaint Assessment: Status post extensive lumbar fusion surgery uncomplicated by Dr. Moya POD#6 Bipolar disorder/dysphoria Obstructive sleep apnea Hypertension Hyperlipidemia GERD Chronic back pain Osteoarthritis Diabetes mellitus Hypothyroidism MRSA infection in the past Constipation resolved Plan: Home meds Emotional support Intensive therapies Pain control SSI Insulin (1) S/P spinal fusion (2) PAO (obstructive sleep apnea) (3) Dysphoric mood (4) GERD (gastroesophageal reflux disease) (5) Hypothyroidism (6) Bipolar disorder (7) Diabetes mellitus (8) Constipation Clinical Quality Measures DVT/VTE Risk/Contraindication: Risk Factor Score Per Nursin RFS Level Per Nursing on Admit: 4+=Very High VAL GUADALUPE DO Feb 10, 2019 11:14
[2019-02-10] MEDS: oxyCODONE/APAP 10/325MG (PERCOCET 10) TABLET PO PRN (13:34)
[2019-02-10] MEDS: buPROPion 75 MG (WELLBUTRIN) TAB PO SCH ×2 (16:37→21:01)
[2019-02-10] MEDS: ESOMEPRAZOLE 40 MG PO SCH (16:38)
[2019-02-10 17:09] VITALS: BP 117/68
[2019-02-10] MEDS: DIVALPROEX 500 MG DELAYED RELEASE (DEPAKOTE) TAB PO SCH (21:00)
[2019-02-10] MEDS: CYCLOBENZAPRINE 10 MG (FLEXERIL) TAB PO SCH (21:00)
[2019-02-10] MEDS: ESTROGENS CONJ 0.625 MG (PREMARIN) TAB PO SCH (21:00)
[2019-02-10] MEDS: DIVALPROEX EXT RELEASE 250 MG (DEPAKOTE ER) TAB PO SCH (21:00)
[2019-02-10] MEDS: JANUVIA 100 MG PO SCH (21:00)
[2019-02-10] MEDS: traZODone 50 MG (DESYREL) TAB PO SCH (21:00)
[2019-02-11] MEDS: oxyCODONE/APAP 10/325MG (PERCOCET 10) TABLET PO PRN ×2 (02:42→09:23)
[2019-02-11 05:13] VITALS: BP 150/70
[2019-02-11] MEDS: inSUlin ASPART (NovoLOG) 1 UNIT/0.01 ML (CHARGE PER UNIT) SC SCH ×4 (05:29→20:53)
[2019-02-11] MEDS: LEVOTHYROXINE 50 MCG (LEVOTHROID) TAB PO SCH (05:30)
--- NOTE | 2019-02-11 08:19 | PM&R Progress Note ---
Subjective HPI/CC On Admission Date Seen by Provider: Feb 11, 2019 Time Seen by Provider: 08:15 CC: Debility following extensive lumbar fusion surgery uncomplicated by Dr Alvarez Moya at [facility] POD # 2 HPI: This is a 73-year-old white female that presents to inpatient rehab due to severe debility following extensive lumbar fusion surgery uncomplicated by Dr. Moya at [facility] in [facility]. Her primary care provider is Linda Pond in [facility]. Her pain is controlled but her right leg is sore during the transport from [place] to [facility] in [place]. She has had no complications during the hospital course at [facility] but continues to be a two-person assist and very slow recovery. Due to the fact of her multiple comorbidities in addition to dysphoria emotional problem she will need additional support provided at inpatient rehab with intensive therapies. She reports she has not had a bowel movement yet but she did receive a lot of medications which were laxatives and she wants to wait for any additional meds until in the morning and she is agreeable for suppository or enema. I reviewed all of her home medications and restarted every one of them per her home routine. Subjective/Events-last exam Pt does not want any more prune juice because she has loose stools Overall feels much better I will update Dr. Moya on the right leg pain but she is participating in therapies Was frustrated because she was so confused recently but anesthesia and pain medication have finally worn off Pain is tolerable Overall feels like she is improving in inpatient rehab Review of Systems General: Fatigue Musculoskeletal: back pain Objective Exam Vital Signs Vital Signs Date Time Temp Pulse Resp B/P (MAP) Pulse Ox O2 Delivery O2 Flow Rate FiO2 02/11/19 16:02 97.7 68 20 139/69 (92) 97 Room Air Capillary Refill : General Appearance: No Apparent Distress, WD/WN, Chronically ill, Obese HEENT: PERRL/EOMI, Normal ENT Inspection, Pharynx Normal, Moist Mucous Membranes Neck: Full Range of Motion, Normal Inspection, Non Tender, Supple Respiratory: Chest Non Tender, Lungs Clear, Normal Breath Sounds, No Accessory Muscle Use, No Respiratory Distress Cardiovascular: Regular Rate, Rhythm, No Edema, No Gallop, No JVD, No Murmur Gastrointestinal: Normal Bowel Sounds, No Organomegaly, No Pulsatile Mass, Non Tender, Soft Back: Decreased Range of Motion Extremity: Normal Capillary Refill, Normal Inspection, Normal Range of Motion, Non Tender, No Calf Tenderness, No Pedal Edema Neurologic/Psychiatric: Alert, Oriented x3, No Motor/Sensory Deficits, Normal Mood/Affect Skin: Normal Color, Warm/Dry Lymphatic: No Adenopathy Results/Procedures Lab Patient resulted labs reviewed. Assessment/Plan Assessment and Plan Assess & Plan/Chief Complaint Assessment: Status post extensive lumbar fusion surgery uncomplicated by Dr. Moya POD#7 Bipolar disorder/dysphoria Obstructive sleep apnea Hypertension Hyperlipidemia GERD Chronic back pain Osteoarthritis Diabetes mellitus Hypothyroidism MRSA infection in the past Constipation resolved Plan: Home meds Emotional support Intensive therapies Pain control SSI Insulin Much improved (1) S/P spinal fusion (2) PAO (obstructive sleep apnea) (3) Dysphoric mood (4) GERD (gastroesophageal reflux disease) (5) Hypothyroidism (6) Bipolar disorder (7) Diabetes mellitus (8) Constipation Clinical Quality Measures DVT/VTE Risk/Contraindication: Risk Factor Score Per Nursin RFS Level Per Nursing on Admit: 4+=Very High VAL GUADALUPE DO Feb 11, 2019 08:19
[2019-02-11] MEDS: ROSUVASTATIN 20 MG (CRESTOR) TABLET PO SCH (09:14)
[2019-02-11] MEDS: MAGNESIUM OXIDE (MAG-OX)400 MG TAB PO SCH (09:14)
[2019-02-11] MEDS: POLYETHYLENE GLYCOL 17 GM (MIRALAX) PACK PO SCH ×3 (09:14→20:44)
[2019-02-11] MEDS: FUROSEMIDE 40 MG (LASIX) TAB PO SCH (09:14)
[2019-02-11] MEDS: LOSARTAN 50 MG (COZAAR) TAB PO SCH (09:14)
[2019-02-11] MEDS: DILTIAZEM 300 MG (CARDIZEM CD) CAP PO SCH (09:15)
[2019-02-11] MEDS: SPIRONOLACTONE 25 MG (ALDACTONE) TAB PO SCH (09:15)
[2019-02-11] MEDS: DOCUSATE SODIUM 100 MG (COLACE) CAP PO SCH ×2 (09:15→20:44)
[2019-02-11] MEDS: buPROPion XL 150 MG (WELLBUTRIN XL) NON-FORM PO SCH (09:20)
[2019-02-11 09:21] VITALS: BP 125/68
--- NOTE | 2019-02-11 11:00 | NUR ---
Pastoral care visit, pt asleep
--- NOTE | 2019-02-11 11:05 | Physical Therapy Daily Note ---
PT Daily Note-Current Subjective Pt. in bed upon arrival. Pt. begins to tell the entire story of her back pain and surgery. Pt. has great difficulty talking while she works so this MANGLE OPERATOR GARMENTS asked her to try to share as we work so we can meet her goals with time well spent this Rx. Aty end of Rx pt. thanked this MANGLE OPERATOR GARMENTS and states she needs someone to be firm with her about continuing. Pt. spoke a lot about how much help she anticipates needing at home and that she wants more HC than she had prior to this surgery Pain Numeric Pain Scale: 5-Moderate Pain Location: Medial Location Body Site: Back Pain Description: Throbbing Mental Status Patient Orientation: Person, Place, Situation Attachments: Other-See Comments (aspen back brace) Transfers Therapy Code Descriptions/Definitions Functional [place] Measure: 0=Not Assessed/NA 4=Minimal Assistance 1=Total Assistance 5=Supervision or Setup 2=Maximal Assistance 6=Modified [place] 3=Moderate Assistance 7=Complete [place] Therapy Quality Codes: 6 Independent with activity with or without an assistive device 5 Patient requires set up or clean up by helper. Patient completes activity by themselves 4 Supervision or touching assist (CGA). [place] provide cues , steadying assist 3 The helper provides less than half the effort to complete the activity 2 The helper provides more than half the effort to complete the activity 1 Dependent. The helper does all the effort to complete an activity 7 Patient refused to complete or attempt activity 9 The patient did not perform the activity before the current illness or injury 88 Not attempted due to Medical conditions or safety concerns Transfers (B, C, W/C) (FIM): 4 Scootin Rollin Supine to/from Sit: 4 Sit to/from Stand: 5 pt. c/o increased pain in R low back/buttock while attempting to roll on Rx mat fopr bed mob training. Pt. was instructed through this and encouraged to accomplish this as independently as possible. Weight Bearing Right Lower Extremity: Right Full Weight Bearing Left Lower Extremity: Left Full Weight Bearing Back precautions; Breg brace on when up Gait Training Does the Patient Walk?: Yes Gait (FIM): 4 Distance (FIM): 3=150 ft (x2, 50) Gait Level of Assist: 4 Gait Persons Needed: 1 Gait Assistive Device: FWW pt. multiple times ran FWW in to objects and needed instruction around furniture etc. Exercises Supine Ex: Bridging (attempted), Ankle pumps, Rolling, Heel Slides, Scooting, Hip abd/add Supine Reps: 20 Seated Therapy Exercises: Ankle pumps, Sit to stand, Long arc quads Seated Reps: 20 Treatments toileted with much instruction in indep to pull pants down and up utilizing supervisor labor gang as well as cleaning self in stance after urinating . Pt. requires CGA and instruction through all Assessment Current Status: Good Progress pt. would cont to be dependent if not encouraged and reminded of goals PT Short Term Goals Short Term Goals Time Frame: Feb 20, 2019 Transfers (B,C,W/C) (FIM): 4 Gait (FIM): 4 Distance (FIM): 3=150 ft Gait Assistive Device: FWW Stairs (FIM): 2 # of Steps: 4 PT Airport Ramp Agent Goals Intermediate Goals PT Airport Ramp Agent Goals Time Frame: Mar 06, 2019 Transfers (B,C,W/C) (FIM): 6 Sit to Lying (QC): 6 Lying-Sitting on Side/Bed(QC): 6 Sit to Stand (QC): 6 Rollin Roll Left to Right (QC): 6 Chair/Kbs-bk-Abeij Xfer(QC): 6 Car Transfer (QC): 5 Does the Patient Walk: Yes Gait (FIM): 6 Gait distance (FIM): 3=150 ft Walk 10 feet (QC): 6 Walk 10ft-Uneven Surface(QC): 6 Walk 50ft with 2 Turns (QC): 6 Walk 150 ft (QC): 6 Gait Assistive Device: FWW Does the Pt use WC or Scooter?: No Stairs (FIM): 2 # of Steps: 4 1 Step (curb) (QC): 5 4 Steps (QC): 4 12 Steps (QC): 88 Picking up an Object (QC): 88 PT Plan Treatment/Plan Treatment Plan: Continue Plan of Care Treatment Plan: Bed Mobility, Education, Functional Activity [place], Functional Strength, Group Therapy, Gait, Safety, Therapeutic Exercise, Transfers Treatment Duration: Mar 06, 2019 Frequency: At least 5 of 7 days/Wk (IRF) Estimated Hrs Per Day: 1.5 hours per day Patient and/or Family Agrees t: Yes Safety Risks/Education Patient Education: Gait Training, Transfer Techniques, Correct Positioning, Disease Process, Safety Issues Teaching Recipient: Patient Teaching Methods: Demonstration, Discussion Response to Teaching: Verbalize Understanding, Return Demonstration, Reinforcement Needed Time/GCodes Time In: 1000 Time Out: 1100 Total Billed Treatment Time: 60 Total Billed Treatment 1,GT15m,FA25m,EX20 G Codes Necessary: KINA Connors MANGLE OPERATOR GARMENTS Feb 11, 2019 11:05
[2019-02-11] MEDS ORDERED: ACET-2650 PO (13:29)
[2019-02-11] MEDS ORDERED: TRAM50TA2 PO (13:29)
[2019-02-11] MEDS ORDERED: ASPI-983 PO (13:29)
--- NOTE | 2019-02-11 13:31 | Occupational Ther Daily Note ---
OT Current Status-Daily Note Subjective Pt. asks for pain pill but does not state number. Nursing gets her medication. Pt. states that she is very "weak" at beginning of treatment. Appearance Pt. in bed. Agrees to work with OT. Mental Status/Objective Patient Orientation: Unable to Assess Therapy Code Descriptions/Definitions Functional [place] Measure: 0=Not Assessed/NA 4=Minimal Assistance 1=Total Assistance 5=Supervision or Setup 2=Maximal Assistance 6=Modified [place] 3=Moderate Assistance 7=Complete [place] ADL-Treatment Therapy Code Descriptions/Definitions Functional [place] Measure: 0=Not Assessed/NA 4=Minimal Assistance 1=Total Assistance 5=Supervision or Setup 2=Maximal Assistance 6=Modified [place] 3=Moderate Assistance 7=Complete [place] Therapy Quality Codes: 6 Independent with activity with or without an assistive device 5 Patient requires set up or clean up by helper. Patient completes activity by themselves 4 Supervision or touching assist (CGA). [place] provide cues , steadying assist 3 The helper provides less than half the effort to complete the activity 2 The helper provides more than half the effort to complete the activity 1 Dependent. The helper does all the effort to complete an activity 7 Patient refused to complete or attempt activity 9 The patient did not perform the activity before the current illness or injury 88 Not attempted due to Medical conditions or safety concerns Bathing (FIM): 4 (Pt. is able to wash most parts, including LE with LH sponge. Requires assistance in shower to wash peg area.) Shower/Bathe Self (QC): 4 Upper Body (FIM): 5 (Max cues to apply back brace with SBA. Pt. able to don shirt.) Upper Body Dressing (QC): 4 Lower Body Dressing (FIM): 3 (Pt. requires assistance to don pants, socks, shoes. Pt. encouraged to use AE. Pt. has difficulty processing how to use the sock aide.) Lower Body Dressing (QC): 3 On/Off Footwear (QC): 2 Transfers (B, C, W/C) (FIM): 4 (SBA supine-sit. Min assist sit-stand.) Shower Transfer(FIM): 1 (Via shower chair.) Other Treatment Pt. has difficulty remembering steps. Requires great encouragement to participate at times, but then feels that she is not getting enough therapy. Pt. states that she is motivated. Requires cues to sequence and participate. After ADLs, pt. was encouraged to ambulate out into therapy dining area. Pt. requires constant encouragement, as she states that she would like to sit very often. Pt. is given rest breaks, but encouraged to continue on. Pt. ambulated approximately 150 feet with encouragement. Pt. taken back to room and given cues again on how to log roll/get into bed. Once she is educated again, pt. is able to get self into bed with SBA. All needs met. Education OT Patient Education: Correct positioning, Modified ADL techniques, Progress toward Goal/Update tx plan, Purpose of tx/functional activities, Reviewed precautions, Rehab process, Transfer techniques Teaching Recipient: Patient Teaching Methods: Demonstration, Discussion Response to Teaching: Verbalize Understanding, Return Demonstration OT Short Term Goals Short Term Goals Time Frame: Feb 13, 2019 Eating(FIM): 5 Grooming(FIM): 5 Bathing(FIM): 3 Upper Body Dressing(FIM): 4 Lower Body Dressing(FIM): 3 Toileting(FIM): 4 Transfers (B,C,W/C) (FIM): 4 Toilet/Commode Transfer(FIM): 4 Shower Transfer(FIM): 4 Additional Short Term Goals: 1-Demonstrate ADL Tasks, 2-Verbalize Understanding , 3-ImproveStrength/[place] 1=Demonstrate adherence to instructed precautions during ADL tasks. 2=Patient will verbalize/demonstrate understanding of assistive devices/ modifications for ADL. 3=Patient will improve strength/tolerance for activity to enable patient to perform ADL's. OT Civil Technician Goals Civil Technician Goals Time Frame: Feb 27, 2019 Eating (FIM): 6 Eating (QC): 6 Groomin Oral Hygiene (QC): 6 Bathing(FIM): 5 Shower/Bathe Self (QC): 5 Upper Body Dressing(FIM): 6 Upper Body Dressing (QC): 6 Lower Body Dressing(FIM): 5 Lower Body Dressing (QC): 5 On/Off Footwear (QC): 5 Toileting(FIM): 6 Toileting Hygiene (QC): 6 Transfers (B,C,W/C) (FIM): 6 Toilet/Commode Transfer(FIM): 6 Toilet/Commode Transfer (QC): 6 Shower Transfer(FIM): 5 Comprehension(FIM): 6 Expression (FIM): 6 Social Interaction(FIM): 6 Problem Solving(FIM): 6 Memory(FIM): 6 Additional Goals: 1-Demonstrate ADL Tasks, 2-Verbalize Understanding, 3- ImproveStrength/[place] 1=Demonstrate adherence to instructed precautions during ADL tasks. 2=Patient will verbalize/demonstrate understanding of assistive devices/ modifications for ADL. 3=Patient will improve strength/tolerance for activity to enable patient to perform ADL's. OT Education/Plan Problem List/Assessment Assessment: Decreased Activ Tolerance, Impaired Cognition, Impaired I ADL's, Impaired Self-Care Skills Discharge Recommendations Plan/Recommendations: Continue POC Therapy D/C Recommendations: Home w/ Family Support, Occupational Therapy Home Care, Scheduled Assistance Equpiment Recommendations-D/C: Hip Kit Barriers to Progress Cognition at times. Treatment Plan/Plan of Care Treatment,Training & Education: Yes Patient would benefit from OT for education, treatment and training to promote independence in ADL's, mobility, safety and/or upper extremity function for ADL' s. Plan of Care: ADL Retraining, Functional Mobility, Group Exercise/Act as Ind, UE Funct Exercise/Act Treatment Duration: Feb 27, 2019 Frequency: At least 5 of 7 days/Wk (IRF) Estimated Hrs Per Day: 1.5 hours per day Agreement: Yes Rehab Potential: Fair Time/GCodes Start Time: 08:30 Stop Time: 09:30 Total Time Billed (hr/min): 60 Billed Treatment Time 1, ADL x 45minutes, FA x 15minutes DWIGHT NORTON OT Feb 11, 2019 13:31
--- NOTE | 2019-02-11 13:41 | Occupational Ther Daily Note ---
OT Current Status-Daily Note Subjective Pt. up in chair. Agrees to work with OT. Appearance Pt. states that she has ordered her lunch earlier, but it had not came yet. OT checked on it. Food on its way. Mental Status/Objective Therapy Code Descriptions/Definitions Functional [place] Measure: 0=Not Assessed/NA 4=Minimal Assistance 1=Total Assistance 5=Supervision or Setup 2=Maximal Assistance 6=Modified [place] 3=Moderate Assistance 7=Complete [place] ADL-Treatment Therapy Code Descriptions/Definitions Functional [place] Measure: 0=Not Assessed/NA 4=Minimal Assistance 1=Total Assistance 5=Supervision or Setup 2=Maximal Assistance 6=Modified [place] 3=Moderate Assistance 7=Complete [place] Therapy Quality Codes: 6 Independent with activity with or without an assistive device 5 Patient requires set up or clean up by helper. Patient completes activity by themselves 4 Supervision or touching assist (CGA). [place] provide cues , steadying assist 3 The helper provides less than half the effort to complete the activity 2 The helper provides more than half the effort to complete the activity 1 Dependent. The helper does all the effort to complete an activity 7 Patient refused to complete or attempt activity 9 The patient did not perform the activity before the current illness or injury 88 Not attempted due to Medical conditions or safety concerns Eating (FIM): 6 Eating (QC): 6 Transfers (B, C, W/C) (FIM): 4 (CGA to ambulate with walker to therapy dining room.) Pt.'s lunch had just came. OT had it put in dining area. Pt. ate while working on cognitive tasks. Worked on naming, categorization, and organization. Pt. able to complete approximately 75% of the tasks with no assist. Pt. continually asks questions pertaining to her condition/situation. Does not seem to remember exactly why she is here or what all is going on. Requires cues to educate her on why she is in the rehab facility. Education OT Patient Education: Correct positioning, Modified ADL techniques, Progress toward Goal/Update tx plan, Purpose of tx/functional activities, Reviewed precautions, Rehab process, Transfer techniques Teaching Recipient: Patient Teaching Methods: Demonstration, Discussion Response to Teaching: Verbalize Understanding, Return Demonstration OT Short Term Goals Short Term Goals Time Frame: Feb 13, 2019 Eating(FIM): 5 Grooming(FIM): 5 Bathing(FIM): 3 Upper Body Dressing(FIM): 4 Lower Body Dressing(FIM): 3 Toileting(FIM): 4 Transfers (B,C,W/C) (FIM): 4 Toilet/Commode Transfer(FIM): 4 Shower Transfer(FIM): 4 Additional Short Term Goals: 1-Demonstrate ADL Tasks, 2-Verbalize Understanding , 3-ImproveStrength/[place] 1=Demonstrate adherence to instructed precautions during ADL tasks. 2=Patient will verbalize/demonstrate understanding of assistive devices/ modifications for ADL. 3=Patient will improve strength/tolerance for activity to enable patient to perform ADL's. OT Computed Tomography Technologist Goals Snf Goals Time Frame: Feb 27, 2019 Eating (FIM): 6 Eating (QC): 6 Groomin Oral Hygiene (QC): 6 Bathing(FIM): 5 Shower/Bathe Self (QC): 5 Upper Body Dressing(FIM): 6 Upper Body Dressing (QC): 6 Lower Body Dressing(FIM): 5 Lower Body Dressing (QC): 5 On/Off Footwear (QC): 5 Toileting(FIM): 6 Toileting Hygiene (QC): 6 Transfers (B,C,W/C) (FIM): 6 Toilet/Commode Transfer(FIM): 6 Toilet/Commode Transfer (QC): 6 Shower Transfer(FIM): 5 Comprehension(FIM): 6 Expression (FIM): 6 Social Interaction(FIM): 6 Problem Solving(FIM): 6 Memory(FIM): 6 Additional Goals: 1-Demonstrate ADL Tasks, 2-Verbalize Understanding, 3- ImproveStrength/[place] 1=Demonstrate adherence to instructed precautions during ADL tasks. 2=Patient will verbalize/demonstrate understanding of assistive devices/ modifications for ADL. 3=Patient will improve strength/tolerance for activity to enable patient to perform ADL's. OT Education/Plan Problem List/Assessment Assessment: Decreased Activ Tolerance, Decreased UE Strength, Impaired Cognition, Impaired I ADL's, Impaired Self-Care Skills Discharge Recommendations Plan/Recommendations: Continue POC Therapy D/C Recommendations: Home w/ Family Support, Occupational Therapy Home Care, Scheduled Assistance Equpiment Recommendations-D/C: Hip Kit Treatment Plan/Plan of Care Treatment,Training & Education: Yes Patient would benefit from OT for education, treatment and training to promote independence in ADL's, mobility, safety and/or upper extremity function for ADL' s. Plan of Care: ADL Retraining, Functional Mobility, Group Exercise/Act as Ind, UE Funct Exercise/Act Treatment Duration: Feb 27, 2019 Frequency: At least 5 of 7 days/Wk (IRF) Estimated Hrs Per Day: 1.5 hours per day Agreement: Yes Rehab Potential: Fair Time/GCodes Start Time: 12:55 Stop Time: 13:25 Total Time Billed (hr/min): 30 Billed Treatment Time 1, ADL x 15minutes, FA x 15minutes DWIGHT NORTON OT Feb 11, 2019 13:41
--- NOTE | 2019-02-11 14:58 | Physical Therapy Daily Note ---
PT Daily Note-Current Subjective Pt. agrees to Rx. Sister she lives with is present and wants to visit about DC options, sister is mostly concerned about pts. cognitive issues and that she will not be able to leave her alone. Mental Status Patient Orientation: Person, Place Transfers Therapy Code Descriptions/Definitions Functional [place] Measure: 0=Not Assessed/NA 4=Minimal Assistance 1=Total Assistance 5=Supervision or Setup 2=Maximal Assistance 6=Modified [place] 3=Moderate Assistance 7=Complete [place] Therapy Quality Codes: 6 Independent with activity with or without an assistive device 5 Patient requires set up or clean up by helper. Patient completes activity by themselves 4 Supervision or touching assist (CGA). [place] provide cues , steadying assist 3 The helper provides less than half the effort to complete the activity 2 The helper provides more than half the effort to complete the activity 1 Dependent. The helper does all the effort to complete an activity 7 Patient refused to complete or attempt activity 9 The patient did not perform the activity before the current illness or injury 88 Not attempted due to Medical conditions or safety concerns on off toilet and in out chair SBA Weight Bearing Right Lower Extremity: Right Full Weight Bearing Left Lower Extremity: Left Full Weight Bearing Back precautions; Breg brace on when up Gait Training Gait Assistive Device: FWW gait FWW 150 ft x 2 SBA Exercises Seated Therapy Exercises: Ankle pumps, Sit to stand, Long arc quads, Hip flexion Seated Reps: 15 Treatments toileted and cleaned self indep, min assist pants down and up Assessment Current Status: Good Progress making physical functional gains but cognitively having exacerbated issues per sister PT Short Term Goals Short Term Goals Time Frame: Feb 20, 2019 Transfers (B,C,W/C) (FIM): 4 Gait (FIM): 4 Distance (FIM): 3=150 ft Gait Assistive Device: FWW Stairs (FIM): 2 # of Steps: 4 PT Prison Goals [place] Goals PT Prison Goals Time Frame: Mar 06, 2019 Transfers (B,C,W/C) (FIM): 6 Sit to Lying (QC): 6 Lying-Sitting on Side/Bed(QC): 6 Sit to Stand (QC): 6 Rollin Roll Left to Right (QC): 6 Chair/Wao-cx-Ldbkb Xfer(QC): 6 Car Transfer (QC): 5 Does the Patient Walk: Yes Gait (FIM): 6 Gait distance (FIM): 3=150 ft Walk 10 feet (QC): 6 Walk 10ft-Uneven Surface(QC): 6 Walk 50ft with 2 Turns (QC): 6 Walk 150 ft (QC): 6 Gait Assistive Device: FWW Does the Pt use WC or Scooter?: No Stairs (FIM): 2 # of Steps: 4 1 Step (curb) (QC): 5 4 Steps (QC): 4 12 Steps (QC): 88 Picking up an Object (QC): 88 PT Plan Treatment/Plan Treatment Plan: Continue Plan of Care Treatment Plan: Bed Mobility, Education, Functional Activity [place], Functional Strength, Group Therapy, Gait, Safety, Therapeutic Exercise, Transfers Treatment Duration: Mar 06, 2019 Frequency: At least 5 of 7 days/Wk (IRF) Estimated Hrs Per Day: 1.5 hours per day Patient and/or Family Agrees t: Yes Safety Risks/Education Patient Education: Gait Training, Transfer Techniques, Correct Positioning, Disease Process, Safety Issues Teaching Recipient: Patient Teaching Methods: Demonstration, Discussion Response to Teaching: Verbalize Understanding, Return Demonstration, Reinforcement Needed Time/GCodes Time In: 1405 Time Out: 1455 Total Billed Treatment Time: 50 Total Billed Treatment 1, FA20m,GT15m,EX15m G Codes Necessary: KINA Connors PTA Feb 11, 2019 14:58
[2019-02-11 16:02] VITALS: BP 139/69
[2019-02-11] MEDS: ESOMEPRAZOLE 40 MG PO SCH (16:10)
[2019-02-11] MEDS: buPROPion 75 MG (WELLBUTRIN) TAB PO SCH ×2 (16:26→22:35)
--- NOTE | 2019-02-11 16:52 | NUR ---
CABIN CREW met with patient and patient's sister, Gisselle in regards to discharge planning discussion. Gisselle expresses concern with patient's increased confusion and worsening problem-solving skills. Gisselle states minor cognitive deficits were present prior to surgery; however, cognitive deficits are more pronounced now. CABIN CREW has informed Dr. Fried of cognitive dissonance from baseline. At this time a discharge date has not been anticipated for patient. CABIN CREW recommended the ability for [place] Medicaid to increase homecare hours vs alternative option of assisted living. CABIN CREW will explore further options.
[2019-02-11] MEDS: CYCLOBENZAPRINE 10 MG (FLEXERIL) TAB PO SCH (20:44)
[2019-02-11] MEDS: ESTROGENS CONJ 0.625 MG (PREMARIN) TAB PO SCH (20:44)
[2019-02-11] MEDS: DIVALPROEX EXT RELEASE 250 MG (DEPAKOTE ER) TAB PO SCH (20:44)
[2019-02-11] MEDS: DIVALPROEX 500 MG DELAYED RELEASE (DEPAKOTE) TAB PO SCH (20:44)
[2019-02-11] MEDS: traZODone 50 MG (DESYREL) TAB PO SCH (20:44)
[2019-02-11] MEDS: JANUVIA 100 MG PO SCH (20:45)
[2019-02-12] MEDS: oxyCODONE/APAP 10/325MG (PERCOCET 10) TABLET PO PRN ×3 (00:18→23:45)
--- NOTE | 2019-02-12 01:00 | NUR ---
Received report from RUSTAM Simmons. This RN to assume care at this time. Agree with previous center mgr.
[2019-02-12] MEDS: inSUlin ASPART (NovoLOG) 1 UNIT/0.01 ML (CHARGE PER UNIT) SC SCH ×4 (06:06→21:41)
[2019-02-12] MEDS: LEVOTHYROXINE 50 MCG (LEVOTHROID) TAB PO SCH (06:06)
[2019-02-12 06:20] VITALS: BP 126/71
[2019-02-12] MEDS: DILTIAZEM 300 MG (CARDIZEM CD) CAP PO SCH (08:33)
[2019-02-12] MEDS: LOSARTAN 50 MG (COZAAR) TAB PO SCH (08:34)
[2019-02-12] MEDS: FUROSEMIDE 40 MG (LASIX) TAB PO SCH (08:34)
[2019-02-12] MEDS: MAGNESIUM OXIDE (MAG-OX)400 MG TAB PO SCH (08:34)
[2019-02-12] MEDS: ROSUVASTATIN 20 MG (CRESTOR) TABLET PO SCH (08:34)
[2019-02-12] MEDS: SPIRONOLACTONE 25 MG (ALDACTONE) TAB PO SCH (08:34)
[2019-02-12] MEDS: DOCUSATE SODIUM 100 MG (COLACE) CAP PO SCH ×2 (08:35→21:22)
[2019-02-12] MEDS: POLYETHYLENE GLYCOL 17 GM (MIRALAX) PACK PO SCH ×2 (08:35→21:23)
--- NOTE | 2019-02-12 08:44 | PM&R Progress Note ---
Subjective HPI/CC On Admission Date Seen by Provider: Feb 12, 2019 Time Seen by Provider: 08:30 CC: Debility following extensive lumbar fusion surgery uncomplicated by Dr Alvarez Myoa at [facility] POD # 2 HPI: This is a 73-year-old white female that presents to inpatient rehab due to severe debility following extensive lumbar fusion surgery uncomplicated by Dr. Moya at [facility] in [facility]. Her primary care provider is Linda Pond in [facility]. Her pain is controlled but her right leg is sore during the transport from [place] to [facility] in [place]. She has had no complications during the hospital course at [facility] but continues to be a two-person assist and very slow recovery. Due to the fact of her multiple comorbidities in addition to dysphoria emotional problem she will need additional support provided at inpatient rehab with intensive therapies. She reports she has not had a bowel movement yet but she did receive a lot of medications which were laxatives and she wants to wait for any additional meds until in the morning and she is agreeable for suppository or enema. I reviewed all of her home medications and restarted every one of them per her home routine. Subjective/Events-last exam Pt is doing well. Sister who is a psych nurse thought she was hallucinating in which she likely was this weekend but no longer has that so she does not need a behavioral health consult. Denies any significant pain except for the right leg that the pain in the back goes down to her foot, so will talk to Dr. Moya. Bowels are moving. Using IS. Reassured her and told her she was doing a good job. Review of Systems General: Fatigue Musculoskeletal: back pain Objective Exam Vital Signs Vital Signs Date Time Temp Pulse Resp B/P (MAP) Pulse Ox O2 Delivery O2 Flow Rate FiO2 02/12/19 17:07 97.8 70 20 137/79 (98) 96 Room Air Capillary Refill : General Appearance: No Apparent Distress, WD/WN, Chronically ill, Obese HEENT: PERRL/EOMI, Normal ENT Inspection, Pharynx Normal, Moist Mucous Membranes Neck: Full Range of Motion, Normal Inspection, Non Tender, Supple Respiratory: Chest Non Tender, Lungs Clear, Normal Breath Sounds, No Accessory Muscle Use, No Respiratory Distress Cardiovascular: Regular Rate, Rhythm, No Edema, No Gallop, No JVD, No Murmur Gastrointestinal: Normal Bowel Sounds, No Organomegaly, No Pulsatile Mass, Non Tender, Soft Back: Decreased Range of Motion Extremity: Normal Capillary Refill, Normal Inspection, Normal Range of Motion, Non Tender, No Calf Tenderness, No Pedal Edema Neurologic/Psychiatric: Alert, Oriented x3, No Motor/Sensory Deficits, Normal Mood/Affect Skin: Normal Color, Warm/Dry Lymphatic: No Adenopathy Results/Procedures Lab Patient resulted labs reviewed. Assessment/Plan Assessment and Plan Assess & Plan/Chief Complaint Assessment: Status post extensive lumbar fusion surgery uncomplicated by Dr. Moya POD#8 Bipolar disorder/dysphoria Obstructive sleep apnea Hypertension Hyperlipidemia GERD Chronic back pain Osteoarthritis Diabetes mellitus Hypothyroidism MRSA infection in the past Constipation resolved Plan: Home meds Emotional support Intensive therapies Pain control SSI Insulin Much improved Inquire with Dr Moya regarding the right leg pain radiation (1) S/P spinal fusion (2) PAO (obstructive sleep apnea) (3) Dysphoric mood (4) GERD (gastroesophageal reflux disease) (5) Hypothyroidism (6) Bipolar disorder (7) Diabetes mellitus (8) Constipation Clinical Quality Measures DVT/VTE Risk/Contraindication: Risk Factor Score Per Nursin RFS Level Per Nursing on Admit: 4+=Very High VAL GUADALUPE DO Feb 12, 2019 08:44
[2019-02-12] MEDS: buPROPion XL 150 MG (WELLBUTRIN XL) NON-FORM PO SCH (08:50)
--- NOTE | 2019-02-12 09:52 | Physical Therapy Daily Note ---
PT Daily Note-Current Subjective Patient in recliner pre tx, agrees to PT, states she has pain in low back and right leg but will not rate, states it gets worse depending on the situation. Appearance Patient in bed post tx with nurse call, phone, tray, all needs met. Nurse notified about pain. Mental Status Patient Orientation: Person, Place, Situation back brace Transfers Therapy Code Descriptions/Definitions Functional [place] Measure: 0=Not Assessed/NA 4=Minimal Assistance 1=Total Assistance 5=Supervision or Setup 2=Maximal Assistance 6=Modified [place] 3=Moderate Assistance 7=Complete [place] Therapy Quality Codes: 6 Independent with activity with or without an assistive device 5 Patient requires set up or clean up by helper. Patient completes activity by themselves 4 Supervision or touching assist (CGA). [place] provide cues , steadying assist 3 The helper provides less than half the effort to complete the activity 2 The helper provides more than half the effort to complete the activity 1 Dependent. The helper does all the effort to complete an activity 7 Patient refused to complete or attempt activity 9 The patient did not perform the activity before the current illness or injury 88 Not attempted due to Medical conditions or safety concerns Transfers (B, C, W/C) (FIM): 3 Scootin Rollin Supine to/from Sit: 3 Bed to/from Chair: 5 Cues for safety and hand placement, patient can be impulsive. Weight Bearing Right Lower Extremity: Right Full Weight Bearing Left Lower Extremity: Left Full Weight Bearing Back precautions; Breg brace on when up Gait Training Gait (FIM): 5 Distance: 150'x2 Gait Level of Assist: 5 Gait Persons Needed: 1 Gait Assistive Device: FWW Antalgic ambulation, patient sometimes jerks the walker one way or another without reason. Exercises Standing: Heel/toe raises, Sit to Stand Standing Reps: 10 Treatments bed mobility and transfers, ambulation, functional strengthening Assessment Current Status: Poor Progress Patient complained of pain in right leg and buttock and states that her pain is now radiating to the left side of her back. Nurse notified of change in pain. Patient was very anxious during treatment and very concerned about her pain. She tried a few reps of exercises in the parallel bars but refused to continue due to the pain. Patient then became extremely anxious and started crying and saying that she just couldn't do it right now. No amount of consoling or encouragement would get her to calm down. After not being able to participate in therapy in the gym due to pain, she then ambulated 150' back to her room and got into bed. PT Short Term Goals Short Term Goals Time Frame: Feb 20, 2019 Transfers (B,C,W/C) (FIM): 4 Gait (FIM): 4 Distance (FIM): 3=150 ft Gait Assistive Device: FWW Stairs (FIM): 2 # of Steps: 4 PT Angio Technologist Goals Jail Goals PT Angio Technologist Goals Time Frame: Mar 06, 2019 Transfers (B,C,W/C) (FIM): 6 Sit to Lying (QC): 6 Lying-Sitting on Side/Bed(QC): 6 Sit to Stand (QC): 6 Rollin Roll Left to Right (QC): 6 Chair/Vdh-wj-Fliei Xfer(QC): 6 Car Transfer (QC): 5 Does the Patient Walk: Yes Gait (FIM): 6 Gait distance (FIM): 3=150 ft Walk 10 feet (QC): 6 Walk 10ft-Uneven Surface(QC): 6 Walk 50ft with 2 Turns (QC): 6 Walk 150 ft (QC): 6 Gait Assistive Device: FWW Does the Pt use WC or Scooter?: No Stairs (FIM): 2 # of Steps: 4 1 Step (curb) (QC): 5 4 Steps (QC): 4 12 Steps (QC): 88 Picking up an Object (QC): 88 PT Plan Problem List Problem List: Activity Tolerance, Functional Strength, Safety, Balance, Gait, Transfer, Bed Mobility, ROM Treatment/Plan Treatment Plan: Continue Plan of Care Treatment Plan: Bed Mobility, Education, Functional Activity [place], Functional Strength, Group Therapy, Gait, Safety, Therapeutic Exercise, Transfers Treatment Duration: Mar 06, 2019 Frequency: At least 5 of 7 days/Wk (IRF) Estimated Hrs Per Day: 1.5 hours per day Patient and/or Family Agrees t: Yes Safety Risks/Education Patient Education: Gait Training, Transfer Techniques, Correct Positioning, Reviewed Don/Doff Brace, Safety Issues Teaching Recipient: Patient Teaching Methods: Demonstration, Discussion Response to Teaching: Reinforcement Needed Time/GCodes Time In: 0915 Time Out: 1000 Total Billed Treatment Time: 45 Total Billed Treatment 1 visit GT 20' FA 25' GIRISH DOZIER PT Feb 12, 2019 09:52
[2019-02-12] MEDS: BACLOFEN 10 MG (LIORESAL) TAB PO PRN ×2 (10:06→23:45)
--- NOTE | 2019-02-12 10:51 | Occupational Ther Daily Note ---
OT Current Status-Daily Note Subjective Pt in bed, agrees to treatment. Pt reports pain, but does not rate. Mental Status/Objective Therapy Code Descriptions/Definitions Functional [place] Measure: 0=Not Assessed/NA 4=Minimal Assistance 1=Total Assistance 5=Supervision or Setup 2=Maximal Assistance 6=Modified [place] 3=Moderate Assistance 7=Complete [place] ADL-Treatment Pt states she had a shower yesterday, would like to sponge bathe this morning. Supine to sit with minimal assistance using bed rails. Sponge bath completed seated EOB. Doff shirt with SBA. Upper body bathing completed with set up. Don pullover shirt with set up. Pt donned back brace with minimal assistance. Lower body bathing completed with minimal assistance using long handled sponge. Pt donned underwear and pants with minimal assistance using vice president of recruiting to start over feet. Stood with CGA for balance during pant hike. Donned bilateral socks with SBA and verbal cues using sock aid. Gait to restroom with FWW. Transfer to [facility] over toilet with CGA and cues for safety. Pt able to manage clothing, but requires assist for thorough hygiene. Stood at sink to wash hands with SBA. Pt reports fatigue and requests seated rest break. Pt then stood at sink to brush teeth with SBA for safety. Pt transferred to chair with SBA. Pt requires increased time for ADL tasks. Sitting in chair with needs met after session. Therapy Code Descriptions/Definitions Functional [place] Measure: 0=Not Assessed/NA 4=Minimal Assistance 1=Total Assistance 5=Supervision or Setup 2=Maximal Assistance 6=Modified [place] 3=Moderate Assistance 7=Complete [place] Therapy Quality Codes: 6 Independent with activity with or without an assistive device 5 Patient requires set up or clean up by helper. Patient completes activity by themselves 4 Supervision or touching assist (CGA). [place] provide cues , steadying assist 3 The helper provides less than half the effort to complete the activity 2 The helper provides more than half the effort to complete the activity 1 Dependent. The helper does all the effort to complete an activity 7 Patient refused to complete or attempt activity 9 The patient did not perform the activity before the current illness or injury 88 Not attempted due to Medical conditions or safety concerns Grooming (FIM): 5 Bathing (FIM): 4 Shower/Bathe Self (QC): 3 Upper Body (FIM): 5 Upper Body Dressing (QC): 4 Lower Body Dressing (FIM): 4 Lower Body Dressing (QC): 3 On/Off Footwear (QC): 4 Toileting (FIM): 3 Toileting Hygiene (QC): 3 Toilet/Commode Transfer (FIM): 4 (CGA) Toilet Transfer (QC): 4 Education OT Patient Education: Modified ADL techniques Teaching Recipient: Patient Teaching Methods: Demonstration, Discussion Response to Teaching: Verbalize Understanding, Reinforcement Needed OT Short Term Goals Short Term Goals Time Frame: Feb 13, 2019 Eating(FIM): 5 Grooming(FIM): 5 Bathing(FIM): 3 Upper Body Dressing(FIM): 4 Lower Body Dressing(FIM): 3 Toileting(FIM): 4 Transfers (B,C,W/C) (FIM): 4 Toilet/Commode Transfer(FIM): 4 Shower Transfer(FIM): 4 Additional Short Term Goals: 1-Demonstrate ADL Tasks, 2-Verbalize Understanding , 3-ImproveStrength/[place] 1=Demonstrate adherence to instructed precautions during ADL tasks. 2=Patient will verbalize/demonstrate understanding of assistive devices/ modifications for ADL. 3=Patient will improve strength/tolerance for activity to enable patient to perform ADL's. OT Industrial Relations Representative Goals Mcc Goals Time Frame: Feb 27, 2019 Eating (FIM): 6 Eating (QC): 6 Groomin Oral Hygiene (QC): 6 Bathing(FIM): 5 Shower/Bathe Self (QC): 5 Upper Body Dressing(FIM): 6 Upper Body Dressing (QC): 6 Lower Body Dressing(FIM): 5 Lower Body Dressing (QC): 5 On/Off Footwear (QC): 5 Toileting(FIM): 6 Toileting Hygiene (QC): 6 Transfers (B,C,W/C) (FIM): 6 Toilet/Commode Transfer(FIM): 6 Toilet/Commode Transfer (QC): 6 Shower Transfer(FIM): 5 Comprehension(FIM): 6 Expression (FIM): 6 Social Interaction(FIM): 6 Problem Solving(FIM): 6 Memory(FIM): 6 Additional Goals: 1-Demonstrate ADL Tasks, 2-Verbalize Understanding, 3- ImproveStrength/[place] 1=Demonstrate adherence to instructed precautions during ADL tasks. 2=Patient will verbalize/demonstrate understanding of assistive devices/ modifications for ADL. 3=Patient will improve strength/tolerance for activity to enable patient to perform ADL's. OT Education/Plan Discharge Recommendations Plan/Recommendations: Continue POC Treatment Plan/Plan of Care Patient would benefit from OT for education, treatment and training to promote independence in ADL's, mobility, safety and/or upper extremity function for ADL' s. Plan of Care: ADL Retraining, Functional Mobility, Group Exercise/Act as Ind, UE Funct Exercise/Act Treatment Duration: Feb 27, 2019 Frequency: At least 5 of 7 days/Wk (IRF) Estimated Hrs Per Day: 1.5 hours per day Agreement: Yes Rehab Potential: Fair Time/GCodes Start Time: 08:15 Stop Time: 09:15 Total Time Billed (hr/min): 60 Billed Treatment Time 1 visit, ADLx4(60minutes) LUPE CASSIDY OT Feb 12, 2019 10:51
--- NOTE | 2019-02-12 10:55 | Speech Therapy Daily Note ---
Speech Daily Progress Note Subjective Date Seen by Provider: Feb 12, 2019 Time Seen by Provider: 00:30 Patient was laying in bed resting when I entered her room. She was in pain, however she reported she had taken her pain meds about an hour prior. Objective Patient completed memory tasks with 75% accuracy given moderate verbal cues. Treatment Plan Continue Plan of Care Communication Comprehension: 5 Expression: 5 Social Cognition Social Interaction: 4 Problem Solvin Memory: 5 Speech Short Term Goals Short Term Goals Short Term Goals 1) The patient will demonstrate simple problem solving (verbal/visual) with 80% accuracy, min to mod cues. 2) The patient will demonstrate sustained attention for task performance with 80 % accuracy, min to mod cues. 3) The patient will demonstrate sequencing for ADL's with 80% accuracy, min to mod cues. Speech Fpc Goals Promotional Model Goals The patient will improve skills necessary for ADL's and safety in the home with minimal assist. Comprehension: 6 Expression: 6 Social Interaction: 6 Problem Solvin Memory: 6 Speech-Plan Patient/Family Goals Patient/Family Goals: Patient plans to return home where she lives with her sister post rehab. Treatment Plan Speech Therapy Treatment Plan: Continue Plan of Care Patient is progressing on all goals. Treatment Duration: Feb 15, 2019 Frequency: 4 times per week Estimated Hrs Per Day: .5 hour per day Rehab Potential: Fair Barriers to Learning: Patient interjects random thoughts when conversing which makes it difficult to stay on tasks. Pt/Family Agrees to Plan: Yes Safety Risks/Education Teaching Recipient: Patient Teaching Methods: Discussion Response to Teaching: Verbalize Understanding Education Topics Provided: Safety within her room. Time Speech Therapy Time In: 10:15 Speech Therapy Time Out: 10:45 Total Billed Time: 30 Billed Treatment Time 1CHARBEL BETHANIA ST Feb 12, 2019 10:55
--- NOTE | 2019-02-12 11:35 | Occupational Ther Daily Note ---
OT Current Status-Daily Note Subjective Pt alert, lying in bed Mental Status/Objective Patient Orientation: Person, Place, Time, Situation Therapy Code Descriptions/Definitions Functional [place] Measure: 0=Not Assessed/NA 4=Minimal Assistance 1=Total Assistance 5=Supervision or Setup 2=Maximal Assistance 6=Modified [place] 3=Moderate Assistance 7=Complete [place] ADL-Treatment Using bedrails and HOB slightly elevated, pt able to go supine to EOB by self. Pt then ambulated to bathroom using FWW with SBA. SBA using BSC, FWW and grabbar to transfer to/from toilet. Pt given toilet tongs to cleanse self after voiding, able to complete after set up. Pt manipulated clothing by self. Pt declined washing hands. Pt required 1 rest break while ambulating to therapy gym from room. Pt ambulated to therapy gym to complete UE exercises to increased strength and activity tolerance for daily functional tasks. Dowel billy exercises with 2# wt attached, 3 sets 10 reps each. Pt ambulated back to room without breaks. After therapy, pt sitting in recliner with call light/ phone in reach. All needs met in room. Ordered pt's lunch. Therapy Code Descriptions/Definitions Functional [place] Measure: 0=Not Assessed/NA 4=Minimal Assistance 1=Total Assistance 5=Supervision or Setup 2=Maximal Assistance 6=Modified [place] 3=Moderate Assistance 7=Complete [place] Therapy Quality Codes: 6 Independent with activity with or without an assistive device 5 Patient requires set up or clean up by helper. Patient completes activity by themselves 4 Supervision or touching assist (CGA). [place] provide cues , steadying assist 3 The helper provides less than half the effort to complete the activity 2 The helper provides more than half the effort to complete the activity 1 Dependent. The helper does all the effort to complete an activity 7 Patient refused to complete or attempt activity 9 The patient did not perform the activity before the current illness or injury 88 Not attempted due to Medical conditions or safety concerns Toileting (FIM): 5 Toileting Hygiene (QC): 4 Toilet/Commode Transfer (FIM): 5 Toilet Transfer (QC): 4 OT Short Term Goals Short Term Goals Time Frame: Feb 13, 2019 Eating(FIM): 5 Grooming(FIM): 5 Bathing(FIM): 3 Upper Body Dressing(FIM): 4 Lower Body Dressing(FIM): 3 Toileting(FIM): 4 Transfers (B,C,W/C) (FIM): 4 Toilet/Commode Transfer(FIM): 4 Shower Transfer(FIM): 4 Additional Short Term Goals: 1-Demonstrate ADL Tasks, 2-Verbalize Understanding , 3-ImproveStrength/[place] 1=Demonstrate adherence to instructed precautions during ADL tasks. 2=Patient will verbalize/demonstrate understanding of assistive devices/ modifications for ADL. 3=Patient will improve strength/tolerance for activity to enable patient to perform ADL's. OT Rod Puller And Coiler Goals Rod Puller And Coiler Goals Time Frame: Feb 27, 2019 Eating (FIM): 6 Eating (QC): 6 Groomin Oral Hygiene (QC): 6 Bathing(FIM): 5 Shower/Bathe Self (QC): 5 Upper Body Dressing(FIM): 6 Upper Body Dressing (QC): 6 Lower Body Dressing(FIM): 5 Lower Body Dressing (QC): 5 On/Off Footwear (QC): 5 Toileting(FIM): 6 Toileting Hygiene (QC): 6 Transfers (B,C,W/C) (FIM): 6 Toilet/Commode Transfer(FIM): 6 Toilet/Commode Transfer (QC): 6 Shower Transfer(FIM): 5 Comprehension(FIM): 6 Expression (FIM): 6 Social Interaction(FIM): 6 Problem Solving(FIM): 6 Memory(FIM): 6 Additional Goals: 1-Demonstrate ADL Tasks, 2-Verbalize Understanding, 3- ImproveStrength/[place] 1=Demonstrate adherence to instructed precautions during ADL tasks. 2=Patient will verbalize/demonstrate understanding of assistive devices/ modifications for ADL. 3=Patient will improve strength/tolerance for activity to enable patient to perform ADL's. OT Education/Plan Discharge Recommendations Plan/Recommendations: Continue POC Treatment Plan/Plan of Care Patient would benefit from OT for education, treatment and training to promote independence in ADL's, mobility, safety and/or upper extremity function for ADL' s. Plan of Care: ADL Retraining, Functional Mobility, Group Exercise/Act as Ind, UE Funct Exercise/Act Treatment Duration: Feb 27, 2019 Frequency: At least 5 of 7 days/Wk (IRF) Estimated Hrs Per Day: 1.5 hours per day Agreement: Yes Rehab Potential: Fair Time/GCodes Start Time: 10:50 Stop Time: 11:39 Total Time Billed (hr/min): 49 Billed Treatment Time 1 visit-ADL 2 (27 min) EX 1 (22 min) JUAQUIN DELEON Feb 12, 2019 11:35
--- NOTE | 2019-02-12 13:42 | Physical Therapy Daily Note ---
PT Daily Note-Current Subjective Patient in recliner pre tx sleeping, agrees to PT upon waking, has 2/10 pain low back. Appearance Patient on toilet post tx, has nurse call. Mental Status Patient Orientation: Person, Place, Situation Transfers Therapy Code Descriptions/Definitions Functional [place] Measure: 0=Not Assessed/NA 4=Minimal Assistance 1=Total Assistance 5=Supervision or Setup 2=Maximal Assistance 6=Modified [place] 3=Moderate Assistance 7=Complete [place] Therapy Quality Codes: 6 Independent with activity with or without an assistive device 5 Patient requires set up or clean up by helper. Patient completes activity by themselves 4 Supervision or touching assist (CGA). [place] provide cues , steadying assist 3 The helper provides less than half the effort to complete the activity 2 The helper provides more than half the effort to complete the activity 1 Dependent. The helper does all the effort to complete an activity 7 Patient refused to complete or attempt activity 9 The patient did not perform the activity before the current illness or injury 88 Not attempted due to Medical conditions or safety concerns Transfers (B, C, W/C) (FIM): 5 Sit to/from Stand: 5 Bed to/from Chair: 5 Weight Bearing Right Lower Extremity: Right Full Weight Bearing Left Lower Extremity: Left Full Weight Bearing Back precautions; Breg brace on when up Gait Training Gait (FIM): 5 Distance: 150'x2 Gait Level of Assist: 5 Gait Persons Needed: 1 Gait Assistive Device: FWW More steady, smoother ambulation, no unsteadiness. Treatments transfers, ambulation Assessment Current Status: Fair Progress improved balance and ambulation PT Short Term Goals Short Term Goals Time Frame: Feb 20, 2019 Transfers (B,C,W/C) (FIM): 4 Gait (FIM): 4 Distance (FIM): 3=150 ft Gait Assistive Device: FWW Stairs (FIM): 2 # of Steps: 4 PT Skilled Nursing Goals Skilled Nursing Goals PT Soft Boarder Goals Time Frame: Mar 06, 2019 Transfers (B,C,W/C) (FIM): 6 Sit to Lying (QC): 6 Lying-Sitting on Side/Bed(QC): 6 Sit to Stand (QC): 6 Rollin Roll Left to Right (QC): 6 Chair/Xir-yx-Tsubn Xfer(QC): 6 Car Transfer (QC): 5 Does the Patient Walk: Yes Gait (FIM): 6 Gait distance (FIM): 3=150 ft Walk 10 feet (QC): 6 Walk 10ft-Uneven Surface(QC): 6 Walk 50ft with 2 Turns (QC): 6 Walk 150 ft (QC): 6 Gait Assistive Device: FWW Does the Pt use WC or Scooter?: No Stairs (FIM): 2 # of Steps: 4 1 Step (curb) (QC): 5 4 Steps (QC): 4 12 Steps (QC): 88 Picking up an Object (QC): 88 PT Plan Problem List Problem List: Activity Tolerance, Functional Strength, Safety, Balance, Gait, Transfer, Bed Mobility, ROM Treatment/Plan Treatment Plan: Continue Plan of Care Treatment Plan: Bed Mobility, Education, Functional Activity [place], Functional Strength, Group Therapy, Gait, Safety, Therapeutic Exercise, Transfers Treatment Duration: Mar 06, 2019 Frequency: At least 5 of 7 days/Wk (IRF) Estimated Hrs Per Day: 1.5 hours per day Patient and/or Family Agrees t: Yes Safety Risks/Education Patient Education: Gait Training, Transfer Techniques, Correct Positioning, Safety Issues Teaching Recipient: Patient Teaching Methods: Demonstration, Discussion Response to Teaching: Reinforcement Needed Time/GCodes Time In: 1325 Time Out: 1340 Total Billed Treatment Time: 15 Total Billed Treatment 1 visit GT GIRISH VILLASENOR PT Feb 12, 2019 13:42
[2019-02-12] MEDS: ESOMEPRAZOLE 40 MG PO SCH (15:45)
[2019-02-12 17:07] VITALS: BP 137/79
[2019-02-12] MEDS: buPROPion 75 MG (WELLBUTRIN) TAB PO SCH ×2 (17:21→21:23)
[2019-02-12] MEDS: DIVALPROEX 500 MG DELAYED RELEASE (DEPAKOTE) TAB PO SCH (21:22)
[2019-02-12] MEDS: CYCLOBENZAPRINE 10 MG (FLEXERIL) TAB PO SCH (21:23)
[2019-02-12] MEDS: traZODone 50 MG (DESYREL) TAB PO SCH (21:23)
[2019-02-12] MEDS: DIVALPROEX EXT RELEASE 250 MG (DEPAKOTE ER) TAB PO SCH (21:23)
[2019-02-12] MEDS: ESTROGENS CONJ 0.625 MG (PREMARIN) TAB PO SCH (21:23)
[2019-02-12] MEDS: JANUVIA 100 MG PO SCH (21:24)
[2019-02-13] MEDS: LEVOTHYROXINE 50 MCG (LEVOTHROID) TAB PO SCH (05:46)
[2019-02-13] MEDS: oxyCODONE/APAP 10/325MG (PERCOCET 10) TABLET PO PRN (05:46)
[2019-02-13 05:48] LABS: BASOPHILS # (AUTO) 0.1 10^3/uL (0.0-0.1); BASOPHILS % (AUTO) 1 % (0-10); EOSINOPHILS # (AUTO) 0.3 10^3/uL (0.0-0.3); EOSINOPHILS % (AUTO) 3 % (0-10); HEMATOCRIT 25 % (35-52); HEMOGLOBIN 7.8 G/DL (11.5-16.0); LYMPHOCYTES % (AUTO) 29 % (12-44); MEAN CORPUSCULAR HEMOGLOBIN 27 PG (25-34); MEAN CORPUSCULAR HGB CONC 32 G/DL (32-36); MEAN CORPUSCULAR VOLUME 85 FL (80-99); MEAN PLATELET VOLUME 9.7 FL (7.4-10.4); MONOCYTES # (AUTO) 1.2 X 10^3 (0.0-1.0); MONOCYTES % (AUTO) 11 % (0-12); NEUTROPHILS # (AUTO) 5.9 X 10^3 (1.8-7.8); NEUTROPHILS % (AUTO) 56 % (42-75); PLATELET COUNT 494 10^3/uL (130-400); WHITE BLOOD COUNT 10.4 10^3/uL (4.3-11.0)
[2019-02-13 06:06] VITALS: BP 112/62
[2019-02-13 06:15] LABS: ALANINE AMINOTRANSFERASE 16 U/L (0-55); ALKALINE PHOSPHATASE 139 U/L (40-136); BILIRUBIN,TOTAL 0.2 MG/DL (0.1-1.0); BUN/CREATININE RATIO 12; CALCIUM 8.8 MG/DL (8.5-10.1); CARBON DIOXIDE 27 MMOL/L (21-32); CHLORIDE 101 MMOL/L (98-107); CREATININE SERUM 0.73 MG/DL (0.60-1.30); GFR ESTIMATED > 60; GLUCOSE 128 MG/DL (70-105); POTASSIUM 3.6 MMOL/L (3.6-5.0); SODIUM 141 MMOL/L (135-145); TOTAL PROTEIN 5.8 GM/DL (6.4-8.2)
[2019-02-13] MEDS: inSUlin ASPART (NovoLOG) 1 UNIT/0.01 ML (CHARGE PER UNIT) SC SCH ×4 (06:18→20:24)
[2019-02-13] MEDS: LOSARTAN 50 MG (COZAAR) TAB PO SCH (08:53)
[2019-02-13] MEDS: DILTIAZEM 300 MG (CARDIZEM CD) CAP PO SCH (08:53)
[2019-02-13] MEDS: ROSUVASTATIN 20 MG (CRESTOR) TABLET PO SCH (08:53)
[2019-02-13] MEDS: FUROSEMIDE 40 MG (LASIX) TAB PO SCH (08:53)
[2019-02-13] MEDS: SPIRONOLACTONE 25 MG (ALDACTONE) TAB PO SCH (08:53)
[2019-02-13] MEDS: DOCUSATE SODIUM 100 MG (COLACE) CAP PO SCH ×2 (08:53→20:23)
[2019-02-13] MEDS: MAGNESIUM OXIDE (MAG-OX)400 MG TAB PO SCH (08:53)
[2019-02-13] MEDS: buPROPion XL 150 MG (WELLBUTRIN XL) NON-FORM PO SCH (08:56)
--- NOTE | 2019-02-13 08:56 | PM&R Progress Note ---
Subjective HPI/CC On Admission Date Seen by Provider: Feb 13, 2019 Time Seen by Provider: 08:30 CC: Debility following extensive lumbar fusion surgery uncomplicated by Dr Alvarez Moya at [facility] POD # 2 HPI: This is a 73-year-old white female that presents to inpatient rehab due to severe debility following extensive lumbar fusion surgery uncomplicated by Dr. Moya at [facility] in [facility]. Her primary care provider is Linda Pond in [facility]. Her pain is controlled but her right leg is sore during the transport from [place] to [facility] in [place]. She has had no complications during the hospital course at [facility] but continues to be a two-person assist and very slow recovery. Due to the fact of her multiple comorbidities in addition to dysphoria emotional problem she will need additional support provided at inpatient rehab with intensive therapies. She reports she has not had a bowel movement yet but she did receive a lot of medications which were laxatives and she wants to wait for any additional meds until in the morning and she is agreeable for suppository or enema. I reviewed all of her home medications and restarted every one of them per her home routine. Subjective/Events-last exam Spoke to Dr. 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 to remain at home alone Overall progressing through therapies and participating well Review of Systems General: Fatigue Musculoskeletal: back pain Objective Exam Vital Signs Vital Signs Date Time Temp Pulse Resp B/P (MAP) Pulse Ox O2 Delivery O2 Flow Rate FiO2 02/13/19 20:44 Room Air 02/13/19 16:19 97.0 71 20 131/73 (92) 96 Capillary Refill : General Appearance: No Apparent Distress, WD/WN, Chronically ill, Obese HEENT: PERRL/EOMI, Normal ENT Inspection, Pharynx Normal, Moist Mucous Membranes Neck: Full Range of Motion, Normal Inspection, Non Tender, Supple Respiratory: Chest Non Tender, Lungs Clear, Normal Breath Sounds, No Accessory Muscle Use, No Respiratory Distress Cardiovascular: Regular Rate, Rhythm, No Edema, No Gallop, No JVD, No Murmur Gastrointestinal: Normal Bowel Sounds, No Organomegaly, No Pulsatile Mass, Non Tender, Soft Back: Decreased Range of Motion Extremity: Normal Capillary Refill, Normal Inspection, Normal Range of Motion, Non Tender, No Calf Tenderness, No Pedal Edema Neurologic/Psychiatric: Alert, Oriented x3, No Motor/Sensory Deficits, Normal Mood/Affect Skin: Normal Color, Warm/Dry Lymphatic: No Adenopathy Results/Procedures Lab Laboratory Tests 02/13/19 05:30 Patient resulted labs reviewed. Assessment/Plan Assessment and Plan Assess & Plan/Chief Complaint Assessment: Status post extensive lumbar fusion surgery uncomplicated by Dr. Moya POD#9 Bipolar disorder/dysphoria Obstructive sleep apnea Hypertension Hyperlipidemia GERD Chronic back pain Osteoarthritis Diabetes mellitus Hypothyroidism MRSA infection in the past Constipation resolved Plan: Home meds Emotional support Intensive therapies Pain control SSI Insulin Much improved Spoke with Dr Moya regarding the right leg pain radiation (1) S/P spinal fusion (2) PAO (obstructive sleep apnea) (3) Dysphoric mood (4) GERD (gastroesophageal reflux disease) (5) Hypothyroidism (6) Bipolar disorder (7) Diabetes mellitus (8) Constipation Clinical Quality Measures DVT/VTE Risk/Contraindication: Risk Factor Score Per Nursin RFS Level Per Nursing on Admit: 4+=Very High VAL GUADALUPE DO Feb 13, 2019 08:56
--- NOTE | 2019-02-13 08:57 | NUR ---
Pt states, "I didn't have any hope before this, & now, I actually do." Pt states when talking about her surgery, & therapy, pt verbalizes that she is pleased, & surprised w her progress. "I didn't think I would do as well as I'm doing."
[2019-02-13] MEDS: POLYETHYLENE GLYCOL 17 GM (MIRALAX) PACK PO SCH ×2 (09:00→20:23)
[2019-02-13] MEDS: BACLOFEN 10 MG (LIORESAL) TAB PO PRN (09:08)
--- NOTE | 2019-02-13 11:03 | Speech Therapy Daily Note ---
Speech Daily Progress Note Subjective Date Seen by Provider: Feb 13, 2019 Time Seen by Provider: 00:30 Patient was resting in her bed. She did not appear to be in pain. Objective The patient completed memory tasks related to her daily needs with 75% accuracy given min to mod verbal cues. Assessment Assessment Current Status: Fair Progress Treatment Plan Continue Plan of Care Communication Comprehension: 5 Expression: 5 Social Cognition Social Interaction: 4 Problem Solvin Memory: 5 Speech Short Term Goals Short Term Goals Short Term Goals 1) The patient will demonstrate simple problem solving (verbal/visual) with 80% accuracy, min to mod cues. 2) The patient will demonstrate sustained attention for task performance with 80 % accuracy, min to mod cues. 3) The patient will demonstrate sequencing for ADL's with 80% accuracy, min to mod cues. Speech Counter Person Goals Detention Goals The patient will improve skills necessary for ADL's and safety in the home with minimal assist. Comprehension: 6 Expression: 6 Social Interaction: 6 Problem Solvin Memory: 6 Speech-Plan Patient/Family Goals Patient/Family Goals: Patient plans to return home where she lives with her sister post rehab. Treatment Plan Speech Therapy Treatment Plan: Continue Plan of Care Patient was able to recall more information related to her sessions today. Treatment Duration: Feb 15, 2019 Frequency: 4 times per week Estimated Hrs Per Day: .5 hour per day Rehab Potential: Fair Barriers to Learning: Patient has difficulty with recall of new information. Pt/Family Agrees to Plan: Yes Safety Risks/Education Teaching Recipient: Patient Teaching Methods: Discussion Response to Teaching: Verbalize Understanding Education Topics Provided: Safety within her room. Time Speech Therapy Time In: 10:15 Speech Therapy Time Out: 10:45 Total Billed Time: 30 Billed Treatment Time 1[address] Feb 13, 2019 11:03
--- NOTE | 2019-02-13 11:28 | Occupational Ther Daily Note ---
OT Current Status-Daily Note Subjective Pt sitting in chair, agrees to therapy. Pt states pain is "barely a 1" Mental Status/Objective Therapy Code Descriptions/Definitions Functional [place] Measure: 0=Not Assessed/NA 4=Minimal Assistance 1=Total Assistance 5=Supervision or Setup 2=Maximal Assistance 6=Modified [place] 3=Moderate Assistance 7=Complete [place] ADL-Treatment Pt would like to shower this morning. Sit to stand from chair with SBA. Gait to restroom. Transfer to [facility] over toilet with SBA using grab bar. Pt able to manipulate clothing. Uses toileting aid with verbal cues with SBA. Transfer to chair in shower with CGA for safety. Doffed shirt without assist. Used dressing stick to doff lower body clothing. Bathing completed using hand held shower and long handled sponge. Pt requires assist to wash buttocks, but able to bathe other areas. Don pullover shirt with set up. Don brace with verbal cues. Pt used meat service team member to start underwear and pants over feet with minimal assistance. Stood with SBA for pant hike. Pt donned bilateral socks with SBA and verbal cues using sock aid. Increased time for ADL tasks. Pt stood at sink to wash partial with SBA, declined to brush teeth. Transfer to chair with SBA. Pt sitting in chair with needs met and RN present after session. Therapy Code Descriptions/Definitions Functional [place] Measure: 0=Not Assessed/NA 4=Minimal Assistance 1=Total Assistance 5=Supervision or Setup 2=Maximal Assistance 6=Modified [place] 3=Moderate Assistance 7=Complete [place] Therapy Quality Codes: 6 Independent with activity with or without an assistive device 5 Patient requires set up or clean up by helper. Patient completes activity by themselves 4 Supervision or touching assist (CGA). [place] provide cues , steadying assist 3 The helper provides less than half the effort to complete the activity 2 The helper provides more than half the effort to complete the activity 1 Dependent. The helper does all the effort to complete an activity 7 Patient refused to complete or attempt activity 9 The patient did not perform the activity before the current illness or injury 88 Not attempted due to Medical conditions or safety concerns Grooming (FIM): 5 Bathing (FIM): 4 Shower/Bathe Self (QC): 3 Upper Body (FIM): 5 Upper Body Dressing (QC): 5 Lower Body Dressing (FIM): 4 Lower Body Dressing (QC): 3 On/Off Footwear (QC): 4 Toileting (FIM): 5 Toileting Hygiene (QC): 4 Toilet/Commode Transfer (FIM): 5 Toilet Transfer (QC): 4 Shower Transfer(FIM): 4 (CGA) Education OT Patient Education: Modified ADL techniques Teaching Recipient: Patient Teaching Methods: Demonstration, Discussion Response to Teaching: Verbalize Understanding, Reinforcement Needed OT Short Term Goals Short Term Goals Time Frame: Feb 13, 2019 Eating(FIM): 5 Grooming(FIM): 5 Bathing(FIM): 3 Upper Body Dressing(FIM): 4 Lower Body Dressing(FIM): 3 Toileting(FIM): 4 Transfers (B,C,W/C) (FIM): 4 Toilet/Commode Transfer(FIM): 4 Shower Transfer(FIM): 4 Additional Short Term Goals: 1-Demonstrate ADL Tasks, 2-Verbalize Understanding , 3-ImproveStrength/[place] 1=Demonstrate adherence to instructed precautions during ADL tasks. 2=Patient will verbalize/demonstrate understanding of assistive devices/ modifications for ADL. 3=Patient will improve strength/tolerance for activity to enable patient to perform ADL's. OT Skilled Nursing Goals Skilled Nursing Goals Time Frame: Feb 27, 2019 Eating (FIM): 6 Eating (QC): 6 Groomin Oral Hygiene (QC): 6 Bathing(FIM): 5 Shower/Bathe Self (QC): 5 Upper Body Dressing(FIM): 6 Upper Body Dressing (QC): 6 Lower Body Dressing(FIM): 5 Lower Body Dressing (QC): 5 On/Off Footwear (QC): 5 Toileting(FIM): 6 Toileting Hygiene (QC): 6 Transfers (B,C,W/C) (FIM): 6 Toilet/Commode Transfer(FIM): 6 Toilet/Commode Transfer (QC): 6 Shower Transfer(FIM): 5 Comprehension(FIM): 6 Expression (FIM): 6 Social Interaction(FIM): 6 Problem Solving(FIM): 6 Memory(FIM): 6 Additional Goals: 1-Demonstrate ADL Tasks, 2-Verbalize Understanding, 3- ImproveStrength/[place] 1=Demonstrate adherence to instructed precautions during ADL tasks. 2=Patient will verbalize/demonstrate understanding of assistive devices/ modifications for ADL. 3=Patient will improve strength/tolerance for activity to enable patient to perform ADL's. OT Education/Plan Discharge Recommendations Plan/Recommendations: Continue POC Treatment Plan/Plan of Care Patient would benefit from OT for education, treatment and training to promote independence in ADL's, mobility, safety and/or upper extremity function for ADL' s. Plan of Care: ADL Retraining, Functional Mobility, Group Exercise/Act as Ind, UE Funct Exercise/Act Treatment Duration: Feb 27, 2019 Frequency: At least 5 of 7 days/Wk (IRF) Estimated Hrs Per Day: 1.5 hours per day Agreement: Yes Rehab Potential: Fair Time/GCodes Start Time: 08:00 Stop Time: 09:00 Total Time Billed (hr/min): 60 Billed Treatment Time 1 visit, ADLx4(60minutes) LUPE CASSIDY OT Feb 13, 2019 11:28
--- NOTE | 2019-02-13 11:37 | Physical Therapy Daily Note ---
PT Daily Note-Current Subjective Pt sitting in recliner upon arrival. Pt agrees to PT. Pt appears less anxious this morning. Pain Numeric Pain Scale: 3 Location: Left, Lower Location Body Site: Back Pain Description: Ache Mental Status Patient Orientation: Person, Place, Situation Attachments: Other-See Comments (Back Brace) Transfers Therapy Code Descriptions/Definitions Functional [place] Measure: 0=Not Assessed/NA 4=Minimal Assistance 1=Total Assistance 5=Supervision or Setup 2=Maximal Assistance 6=Modified [place] 3=Moderate Assistance 7=Complete [place] Therapy Quality Codes: 6 Independent with activity with or without an assistive device 5 Patient requires set up or clean up by helper. Patient completes activity by themselves 4 Supervision or touching assist (CGA). [place] provide cues , steadying assist 3 The helper provides less than half the effort to complete the activity 2 The helper provides more than half the effort to complete the activity 1 Dependent. The helper does all the effort to complete an activity 7 Patient refused to complete or attempt activity 9 The patient did not perform the activity before the current illness or injury 88 Not attempted due to Medical conditions or safety concerns [place] Supine to/from Sit: 4 Sit to/from Stand: 5 Sit to Lying (QC): 4 Sit to Stand (QC): 5 Weight Bearing Right Lower Extremity: Right Full Weight Bearing Left Lower Extremity: Left Full Weight Bearing Back precautions; Breg brace on when up Gait Training Does the Patient Walk?: Yes Distance (FIM): 3=150 ft Distance: 150' Walk 10 feet (QC): 5 Walk 50 ft with 2 Turns(QC): 5 Walk 150 ft (QC): 5 Gait Level of Assist: 5 Gait Persons Needed: 1 Gait Assistive Device: FWW Pt walks with more control, less impulsive today. Pt has slow elo and needs reminders to stay closer to FWW. Wheelchair Training Does the Pt Use a Wheelchair?: No Exercises Seated Therapy Exercises: Ankle pumps, Long arc quads, Hip flexion, Kicking activity Seated Reps: 15 NuStep Minutes: 15 Treatments Pt transfers from recliner and ambulates in hallway. Pt uses NuStep for 15m at WL 3. Pt completes Seated Ex in chair before ambulating back to room to rest. Pt transfers to bed to rest Supine with all needs met. Assessment Current Status: Good Progress Pt is in better spirits and willing to participate in PT better today. PT Short Term Goals Short Term Goals Time Frame: Feb 20, 2019 Transfers (B,C,W/C) (FIM): 4 Gait (FIM): 4 Distance (FIM): 3=150 ft Gait Assistive Device: FWW Stairs (FIM): 2 # of Steps: 4 PT [facility] Goals Sales Attendant Goals PT Sales Attendant Goals Time Frame: Mar 06, 2019 Transfers (B,C,W/C) (FIM): 6 Sit to Lying (QC): 6 Lying-Sitting on Side/Bed(QC): 6 Sit to Stand (QC): 6 Rollin Roll Left to Right (QC): 6 Chair/Wfm-kj-Iueea Xfer(QC): 6 Car Transfer (QC): 5 Does the Patient Walk: Yes Gait (FIM): 6 Gait distance (FIM): 3=150 ft Walk 10 feet (QC): 6 Walk 10ft-Uneven Surface(QC): 6 Walk 50ft with 2 Turns (QC): 6 Walk 150 ft (QC): 6 Gait Assistive Device: FWW Does the Pt use WC or Scooter?: No Stairs (FIM): 2 # of Steps: 4 1 Step (curb) (QC): 5 4 Steps (QC): 4 12 Steps (QC): 88 Picking up an Object (QC): 88 PT Plan Problem List Problem List: Activity Tolerance, Functional Strength, Safety, Balance, Gait Treatment/Plan Treatment Plan: Continue Plan of Care Treatment Plan: Bed Mobility, Education, Functional Activity [place], Functional Strength, Group Therapy, Gait, Safety, Therapeutic Exercise, Transfers Treatment Duration: Mar 06, 2019 Frequency: At least 5 of 7 days/Wk (IRF) Estimated Hrs Per Day: 1.5 hours per day Patient and/or Family Agrees t: Yes Safety Risks/Education Patient Education: Gait Training, Transfer Techniques, Correct Positioning, Safety Issues Teaching Recipient: Patient Teaching Methods: Discussion Response to Teaching: Verbalize Understanding Time/GCodes Time In: 915 Time Out: 1000 Total Billed Treatment Time: 45 Total Billed Treatment 1, GT (15m) & EX x2 (30m) G Codes Necessary: GABRIEL Roca CEMENT GRINDING MILL OPERATOR Feb 13, 2019 11:37
--- NOTE | 2019-02-13 12:43 | NUR ---
Per conversation had with patient and patient's sister, Gisselle on 02/11, MACHINE FEEDER reached out to [facility] in regards to reevaluation for home care hours to increase. Cell Coverer states the case has been placed on high priority as patient may potentially discharge home next week.
--- NOTE | 2019-02-13 12:51 | Occupational Ther Daily Note ---
OT Current Status-Daily Note Subjective Pt agreeable to treatment. Mental Status/Objective Therapy Code Descriptions/Definitions Functional [place] Measure: 0=Not Assessed/NA 4=Minimal Assistance 1=Total Assistance 5=Supervision or Setup 2=Maximal Assistance 6=Modified [place] 3=Moderate Assistance 7=Complete [place] ADL-Treatment Pt transferred to [facility] over toilet with SBA. Pt able to manipulate clothing with SBA. Uses toileting aid for hygiene. Therapy Code Descriptions/Definitions Functional [place] Measure: 0=Not Assessed/NA 4=Minimal Assistance 1=Total Assistance 5=Supervision or Setup 2=Maximal Assistance 6=Modified [place] 3=Moderate Assistance 7=Complete [place] Therapy Quality Codes: 6 Independent with activity with or without an assistive device 5 Patient requires set up or clean up by helper. Patient completes activity by themselves 4 Supervision or touching assist (CGA). [place] provide cues , steadying assist 3 The helper provides less than half the effort to complete the activity 2 The helper provides more than half the effort to complete the activity 1 Dependent. The helper does all the effort to complete an activity 7 Patient refused to complete or attempt activity 9 The patient did not perform the activity before the current illness or injury 88 Not attempted due to Medical conditions or safety concerns Toileting (FIM): 5 Toileting Hygiene (QC): 4 Toilet/Commode Transfer (FIM): 5 Toilet Transfer (QC): 4 Other Treatment Gait to therapy gym with FWW. Pt completed arm bike activity x12 minutes to increase overall strength and activity tolerance needed for functional tasks. Pt performed activity with minimal resistance and slow pace. No rest breaks needed. Pt returned to room, transferred to chair with SBA. Pt sitting in chair eating lunch after session. OT Short Term Goals Short Term Goals Time Frame: Feb 13, 2019 Eating(FIM): 5 Grooming(FIM): 5 Bathing(FIM): 3 Upper Body Dressing(FIM): 4 Lower Body Dressing(FIM): 3 Toileting(FIM): 4 Transfers (B,C,W/C) (FIM): 4 Toilet/Commode Transfer(FIM): 4 Shower Transfer(FIM): 4 Additional Short Term Goals: 1-Demonstrate ADL Tasks, 2-Verbalize Understanding , 3-ImproveStrength/[place] 1=Demonstrate adherence to instructed precautions during ADL tasks. 2=Patient will verbalize/demonstrate understanding of assistive devices/ modifications for ADL. 3=Patient will improve strength/tolerance for activity to enable patient to perform ADL's. OT Glass Block Bender Goals Glass Block Bender Goals Time Frame: Feb 27, 2019 Eating (FIM): 6 Eating (QC): 6 Groomin Oral Hygiene (QC): 6 Bathing(FIM): 5 Shower/Bathe Self (QC): 5 Upper Body Dressing(FIM): 6 Upper Body Dressing (QC): 6 Lower Body Dressing(FIM): 5 Lower Body Dressing (QC): 5 On/Off Footwear (QC): 5 Toileting(FIM): 6 Toileting Hygiene (QC): 6 Transfers (B,C,W/C) (FIM): 6 Toilet/Commode Transfer(FIM): 6 Toilet/Commode Transfer (QC): 6 Shower Transfer(FIM): 5 Comprehension(FIM): 6 Expression (FIM): 6 Social Interaction(FIM): 6 Problem Solving(FIM): 6 Memory(FIM): 6 Additional Goals: 1-Demonstrate ADL Tasks, 2-Verbalize Understanding, 3- ImproveStrength/[place] 1=Demonstrate adherence to instructed precautions during ADL tasks. 2=Patient will verbalize/demonstrate understanding of assistive devices/ modifications for ADL. 3=Patient will improve strength/tolerance for activity to enable patient to perform ADL's. OT Education/Plan Discharge Recommendations Plan/Recommendations: Continue POC Treatment Plan/Plan of Care Patient would benefit from OT for education, treatment and training to promote independence in ADL's, mobility, safety and/or upper extremity function for ADL' s. Plan of Care: ADL Retraining, Functional Mobility, Group Exercise/Act as Ind, UE Funct Exercise/Act Treatment Duration: Feb 27, 2019 Frequency: At least 5 of 7 days/Wk (IRF) Estimated Hrs Per Day: 1.5 hours per day Agreement: Yes Rehab Potential: Fair Time/GCodes Start Time: 11:30 Stop Time: 12:00 Total Time Billed (hr/min): 30 Billed Treatment Time 1 visit, ADL(10minutes), EX(20minutes) LUPE CASSIDY OT Feb 13, 2019 12:51
--- NOTE | 2019-02-13 14:38 | Physical Therapy Daily Note ---
PT Daily Note-Current Subjective Pt sitting in recliner as call light is going off upon arrival. Pt agrees to PT and reports needing to use restroom. Pain Numeric Pain Scale: 3 Location: Left, Lower Location Body Site: Back Pain Description: Ache Mental Status Patient Orientation: Person, Place Transfers Therapy Code Descriptions/Definitions Functional [place] Measure: 0=Not Assessed/NA 4=Minimal Assistance 1=Total Assistance 5=Supervision or Setup 2=Maximal Assistance 6=Modified [place] 3=Moderate Assistance 7=Complete [place] Therapy Quality Codes: 6 Independent with activity with or without an assistive device 5 Patient requires set up or clean up by helper. Patient completes activity by themselves 4 Supervision or touching assist (CGA). [place] provide cues , steadying assist 3 The helper provides less than half the effort to complete the activity 2 The helper provides more than half the effort to complete the activity 1 Dependent. The helper does all the effort to complete an activity 7 Patient refused to complete or attempt activity 9 The patient did not perform the activity before the current illness or injury 88 Not attempted due to Medical conditions or safety concerns Scootin Supine to/from Sit: 4 Sit to/from Stand: 5 Sit to Lying (QC): 4 Sit to Stand (QC): 5 Weight Bearing Right Lower Extremity: Right Full Weight Bearing Left Lower Extremity: Left Full Weight Bearing Back precautions; Breg brace on when up Gait Training Does the Patient Walk?: Yes Distance (FIM): 1=up to 49 ft Distance: 35' Walk 10 feet (QC): 5 Gait Level of Assist: 5 Gait Persons Needed: 1 Gait Assistive Device: FWW Wheelchair Training Does the Pt Use a Wheelchair?: No Exercises Supine Ex: Ankle pumps, Quad Set, Heel Slides, Straight leg raise, Hip abd/add Supine Reps: 20 Treatments Pt transfers from recliner to standing then ambulates to restroom. After using restroom, pt ambulates to EOB then transfers to Supine at Min A for BLE lifting into bed. Pt completes Supine Ex in bed with a couple of rest breaks. Pt resting at end of tx with all needs met. Assessment Current Status: Fair Progress Pt needs more VC this afternoon as pt demonstrates more confusion with directions given. PT Short Term Goals Short Term Goals Time Frame: Feb 20, 2019 Transfers (B,C,W/C) (FIM): 4 Gait (FIM): 4 Distance (FIM): 3=150 ft Gait Assistive Device: FWW Stairs (FIM): 2 # of Steps: 4 PT Long-Term Goals Long-Term Goals PT Rn Gastroenterology Goals Time Frame: Mar 06, 2019 Transfers (B,C,W/C) (FIM): 6 Sit to Lying (QC): 6 Lying-Sitting on Side/Bed(QC): 6 Sit to Stand (QC): 6 Rollin Roll Left to Right (QC): 6 Chair/Pib-fu-Xkxdu Xfer(QC): 6 Car Transfer (QC): 5 Does the Patient Walk: Yes Gait (FIM): 6 Gait distance (FIM): 3=150 ft Walk 10 feet (QC): 6 Walk 10ft-Uneven Surface(QC): 6 Walk 50ft with 2 Turns (QC): 6 Walk 150 ft (QC): 6 Gait Assistive Device: FWW Does the Pt use WC or Scooter?: No Stairs (FIM): 2 # of Steps: 4 1 Step (curb) (QC): 5 4 Steps (QC): 4 12 Steps (QC): 88 Picking up an Object (QC): 88 PT Plan Problem List Problem List: Activity Tolerance, Functional Strength, Safety, Balance, Gait, Transfer Treatment/Plan Treatment Plan: Continue Plan of Care Treatment Plan: Bed Mobility, Education, Functional Activity Carlyle, Functional Strength, Group Therapy, Gait, Safety, Therapeutic Exercise, Transfers Treatment Duration: Mar 06, 2019 Frequency: At least 5 of 7 days/Wk (IRF) Estimated Hrs Per Day: 1.5 hours per day Patient and/or Family Agrees t: Yes Safety Risks/Education Patient Education: Gait Training, Transfer Techniques, Correct Positioning, Safety Issues Teaching Recipient: Patient Teaching Methods: Discussion Response to Teaching: Verbalize Understanding Time/GCodes Time In: 1300 Time Out: 1330 Total Billed Treatment Time: 30 Total Billed Treatment 1, FA (10m) & EX (20m) G Codes Necessary: GABRIEL Roca PTA Feb 13, 2019 14:38
[2019-02-13] MEDS: ESOMEPRAZOLE 40 MG PO SCH (15:57)
[2019-02-13] MEDS: buPROPion 75 MG (WELLBUTRIN) TAB PO SCH ×2 (15:57→21:07)
[2019-02-13 16:19] VITALS: BP 131/73
[2019-02-13] MEDS: ESTROGENS CONJ 0.625 MG (PREMARIN) TAB PO SCH (20:22)
[2019-02-13] MEDS: DIVALPROEX 500 MG DELAYED RELEASE (DEPAKOTE) TAB PO SCH (20:22)
[2019-02-13] MEDS: CYCLOBENZAPRINE 10 MG (FLEXERIL) TAB PO SCH (20:22)
[2019-02-13] MEDS: JANUVIA 100 MG PO SCH (20:22)
[2019-02-13] MEDS: DIVALPROEX EXT RELEASE 250 MG (DEPAKOTE ER) TAB PO SCH (20:22)
[2019-02-13] MEDS: traZODone 50 MG (DESYREL) TAB PO SCH (20:22)
[2019-02-14 05:04] VITALS: BP 128/76
[2019-02-14] MEDS: inSUlin ASPART (NovoLOG) 1 UNIT/0.01 ML (CHARGE PER UNIT) SC SCH ×4 (05:21→20:45)
[2019-02-14] MEDS: LEVOTHYROXINE 50 MCG (LEVOTHROID) TAB PO SCH (05:35)
[2019-02-14] MEDS: oxyCODONE/APAP 10/325MG (PERCOCET 10) TABLET PO PRN (05:35)
--- NOTE | 2019-02-14 08:37 | PM&R Progress Note ---
Subjective HPI/CC On Admission Date Seen by Provider: Feb 14, 2019 Time Seen by Provider: 08:45 CC: Debility following extensive lumbar fusion surgery uncomplicated by Dr Alvarez Moya at [facility] POD # 2 HPI: This is a 73-year-old white female that presents to inpatient rehab due to severe debility following extensive lumbar fusion surgery uncom[place] M[place] [facility] [place] [facility] [place] primary care provider is Linda Pond in [facility]. Her pain is controlled but her right leg is sore during the transport from [place] to [facility] in [place]. She has had no complications during the hospital course at [facility] but continues to be a two-person assist and very slow recovery. Due to the fact of her multiple comorbidities in addition to dysphoria emotional problem she will need additional support provided at inpatient rehab with intensive therapies. She reports she has not had a bowel movement yet but she did receive a lot of medications which were laxatives and she wants to wait for any additional meds until in the morning and she is agreeable for suppository or enema. I reviewed all of her home medications and restarted every one of them per her home routine. Subjective/Events-last exam Participating well with therapies Having confidence issues Participating with all therapies I suggested her to take one day at a time Checked meds and labs Sugars noted Review of Systems General: Fatigue Objective Exam Vital Signs Vital Signs Date Time Temp Pulse Resp B/P (MAP) Pulse Ox O2 Delivery O2 Flow Rate FiO2 02/14/19 09:49 Room Air 02/14/19 09:00 78 149/95 (113) 02/14/19 05:04 98.4 16 96 Capillary Refill : General Appearance: No Apparent Distress, WD/WN, Chronically ill, Obese, Other (much improved 02/14/19) HEENT: PERRL/EOMI, Normal ENT Inspection, Pharynx Normal, Moist Mucous Membranes Neck: Full Range of Motion, Normal Inspection, Non Tender, Supple Respiratory: Chest Non Tender, Lungs Clear, Normal Breath Sounds, No Accessory Muscle Use, No Respiratory Distress Cardiovascular: Regular Rate, Rhythm, No Edema, No Gallop, No JVD, No Murmur Gastrointestinal: Normal Bowel Sounds, No Organomegaly, No Pulsatile Mass, Non Tender, Soft Back: Decreased Range of Motion Extremity: Normal Capillary Refill, Normal Inspection, Normal Range of Motion, Non Tender, No Calf Tenderness, No Pedal Edema Neurologic/Psychiatric: Alert, Oriented x3, No Motor/Sensory Deficits, Normal Mood/Affect Skin: Normal Color, Warm/Dry Lymphatic: No Adenopathy Results/Procedures Lab Patient resulted labs reviewed. Assessment/Plan Assessment and Plan Assess & Plan/Chief Complaint Assessment: Status post extensive lumbar fusion surgery uncomplicated by Dr. Moya POD#10 Bipolar disorder/dysphoria Obstructive sleep apnea Hypertension Hyperlipidemia GERD Chronic back pain Osteoarthritis Diabetes mellitus Hypothyroidism MRSA infection in the past Constipation resolved Plan: Home meds Emotional support Intensive therapies Pain control SSI Insulin Much improved Home at ID (1) S/P spinal fusion (2) PAO (obstructive sleep apnea) (3) Dysphoric mood (4) GERD (gastroesophageal reflux disease) (5) Hypothyroidism (6) Bipolar disorder (7) Diabetes mellitus (8) Constipation Clinical Quality Measures DVT/VTE Risk/Contraindication: Risk Factor Score Per Nursin RFS Level Per Nursing on Admit: 4+=Very High VAL GUADALUPE DO Feb 14, 2019 08:37
--- NOTE | 2019-02-14 08:38 | Occupational Ther Daily Note ---
OT Current Status-Daily Note Subjective Pt sleeping with headphones on, woke after headphones were taken off. Pt agrees to therapy. No c/o pain at this time. Mental Status/Objective Patient Orientation: Person, Time, Situation Therapy Code Descriptions/Definitions Functional [place] Measure: 0=Not Assessed/NA 4=Minimal Assistance 1=Total Assistance 5=Supervision or Setup 2=Maximal Assistance 6=Modified [place] 3=Moderate Assistance 7=Complete [place] Attachments: Other-See Comments (back brace) ADL-Treatment Pt declined shower stating that she took one yesterday. Pt agrees to sponge bath. Supine to sitting by self using bedrails and HOB raised. Pt ambulated to bathroom and transferred to toilet using FWW, BSC and grabbars with close SBA. Using toilet tongs pt able to cleanse self after bowel movement in sitting. Pt cleansed peg area/buttocks sitting on toilet. Donned/doffed lower body clothing with AE, pants completed with SBA in standing to hike over hips. Pt then ambulated to sink and sat to complete grooming and upper body bathing. Pt able to complete by self after set up. Pt ambulated back to recliner to doff/don socks with AE. Pt required verbal cues and assist to manipulate socks to correct position. Breakfast came and pt able to set self up to eat and use regular utensils. Pt takes increased time to complete tasks due to decreased focus and talking through sequences for reassurance to complete things the way pt needs them to be done. After therapy, pt sitting in recliner with call light/phone in reach. Nrsg and physician in room during therapy. All needs met in room. Therapy Code Descriptions/Definitions Functional [place] Measure: 0=Not Assessed/NA 4=Minimal Assistance 1=Total Assistance 5=Supervision or Setup 2=Maximal Assistance 6=Modified [place] 3=Moderate Assistance 7=Complete [place] Therapy Quality Codes: 6 Independent with activity with or without an assistive device 5 Patient requires set up or clean up by helper. Patient completes activity by themselves 4 Supervision or touching assist (CGA). [place] provide cues , steadying assist 3 The helper provides less than half the effort to complete the activity 2 The helper provides more than half the effort to complete the activity 1 Dependent. The helper does all the effort to complete an activity 7 Patient refused to complete or attempt activity 9 The patient did not perform the activity before the current illness or injury 88 Not attempted due to Medical conditions or safety concerns Eating (FIM): 6 Eating (QC): 6 Grooming (FIM): 6 Oral Hygiene (QC): 6 Upper Body (FIM): 5 (After set up. Dons/doffs brace by self after placed.) Upper Body Dressing (QC): 5 Lower Body Dressing (FIM): 4 Lower Body Dressing (QC): 4 On/Off Footwear (QC): 4 Toileting (FIM): 5 Toileting Hygiene (QC): 4 Toilet/Commode Transfer (FIM): 5 Toilet Transfer (QC): 4 OT Short Term Goals Short Term Goals Time Frame: Feb 13, 2019 Eating(FIM): 5 Grooming(FIM): 5 Bathing(FIM): 3 Upper Body Dressing(FIM): 4 Lower Body Dressing(FIM): 3 Toileting(FIM): 4 Transfers (B,C,W/C) (FIM): 4 Toilet/Commode Transfer(FIM): 4 Shower Transfer(FIM): 4 Additional Short Term Goals: 1-Demonstrate ADL Tasks, 2-Verbalize Understanding , 3-ImproveStrength/Carlyle 1=Demonstrate adherence to instructed precautions during ADL tasks. 2=Patient will verbalize/demonstrate understanding of assistive devices/ modifications for ADL. 3=Patient will improve strength/tolerance for activity to enable patient to perform ADL's. OT Telecommunications Cable Jointer Goals Halfway Goals Time Frame: Feb 27, 2019 Eating (FIM): 6 Eating (QC): 6 Groomin Oral Hygiene (QC): 6 Bathing(FIM): 5 Shower/Bathe Self (QC): 5 Upper Body Dressing(FIM): 6 Upper Body Dressing (QC): 6 Lower Body Dressing(FIM): 5 Lower Body Dressing (QC): 5 On/Off Footwear (QC): 5 Toileting(FIM): 6 Toileting Hygiene (QC): 6 Transfers (B,C,W/C) (FIM): 6 Toilet/Commode Transfer(FIM): 6 Toilet/Commode Transfer (QC): 6 Shower Transfer(FIM): 5 Comprehension(FIM): 6 Expression (FIM): 6 Social Interaction(FIM): 6 Problem Solving(FIM): 6 Memory(FIM): 6 Additional Goals: 1-Demonstrate ADL Tasks, 2-Verbalize Understanding, 3- ImproveStrength/Carlyle 1=Demonstrate adherence to instructed precautions during ADL tasks. 2=Patient will verbalize/demonstrate understanding of assistive devices/ modifications for ADL. 3=Patient will improve strength/tolerance for activity to enable patient to perform ADL's. OT Education/Plan Discharge Recommendations Plan/Recommendations: Continue POC Treatment Plan/Plan of Care Patient would benefit from OT for education, treatment and training to promote independence in ADL's, mobility, safety and/or upper extremity function for ADL' s. Plan of Care: ADL Retraining, Functional Mobility, Group Exercise/Act as Ind, UE Funct Exercise/Act Treatment Duration: Feb 27, 2019 Frequency: At least 5 of 7 days/Wk (IRF) Estimated Hrs Per Day: 1.5 hours per day Agreement: Yes Rehab Potential: Fair Time/GCodes Start Time: 08:00 Stop Time: 09:15 Total Time Billed (hr/min): 75 Billed Treatment Time 1 visit-ADL 5 (75 min) JUAQUIN DELEON Feb 14, 2019 08:38
[2019-02-14] MEDS: MAGNESIUM OXIDE (MAG-OX)400 MG TAB PO SCH (08:55)
[2019-02-14] MEDS: SPIRONOLACTONE 25 MG (ALDACTONE) TAB PO SCH (08:56)
[2019-02-14 09:00] VITALS: BP 149/95
[2019-02-14] MEDS: ROSUVASTATIN 20 MG (CRESTOR) TABLET PO SCH (09:00)
[2019-02-14] MEDS: DILTIAZEM 300 MG (CARDIZEM CD) CAP PO SCH (09:00)
[2019-02-14] MEDS: FUROSEMIDE 40 MG (LASIX) TAB PO SCH (09:00)
[2019-02-14] MEDS: DOCUSATE SODIUM 100 MG (COLACE) CAP PO SCH ×2 (09:01→20:34)
[2019-02-14] MEDS: POLYETHYLENE GLYCOL 17 GM (MIRALAX) PACK PO SCH ×2 (09:01→20:44)
[2019-02-14] MEDS: LOSARTAN 50 MG (COZAAR) TAB PO SCH (09:01)
[2019-02-14] MEDS: buPROPion XL 150 MG (WELLBUTRIN XL) NON-FORM PO SCH (09:06)
--- NOTE | 2019-02-14 10:12 | Speech Therapy Daily Note ---
Speech Daily Progress Note Subjective Date Seen by Provider: Feb 14, 2019 Time Seen by Provider: 00:30 The patient was sitting up in her recliner and was drinking her coffee. Objective The patient completed memory exercises with increased ability today. Patient is improving every day. Assessment Assessment Current Status: Good Progress Treatment Plan Continue Plan of Care Communication Comprehension: 5 Expression: 5 Social Cognition Social Interaction: 4 Problem Solvin Memory: 5 Speech Short Term Goals Short Term Goals Short Term Goals 1) The patient will demonstrate simple problem solving (verbal/visual) with 80% accuracy, min to mod cues. 2) The patient will demonstrate sustained attention for task performance with 80 % accuracy, min to mod cues. 3) The patient will demonstrate sequencing for ADL's with 80% accuracy, min to mod cues. Speech Home Care Rn Goals Assisted Goals The patient will improve skills necessary for ADL's and safety in the home with minimal assist. Comprehension: 6 Expression: 6 Social Interaction: 6 Problem Solvin Memory: 6 Speech-Plan Patient/Family Goals Patient/Family Goals: The patient plans to return home where she lives with her sister. Treatment Plan Speech Therapy Treatment Plan: Continue Plan of Care Patient is progressing well as a result of skilled ST. Treatment Duration: Feb 15, 2019 Frequency: 4 times per week Estimated Hrs Per Day: .5 hour per day Rehab Potential: Fair Barriers to Learning: Patient is continuing to get her mind "clear" post surgery. Pt/Family Agrees to Plan: Yes Safety Risks/Education Teaching Recipient: Patient Teaching Methods: Discussion Response to Teaching: Verbalize Understanding Education Topics Provided: Safety within her room and upon her return home. Time Speech Therapy Time In: 09:15 Speech Therapy Time Out: 09:45 Total Billed Time: 30 Billed Treatment Time 1CHARBEL [address] ST Feb 14, 2019 10:12
--- NOTE | 2019-02-14 11:17 | Physical Therapy Daily Note ---
PT Daily Note-Current Subjective Pt. agrees to Rx and stats she really only had pain while getting in out car TRF. Pt. feels she is improved but still has some difficulty with memory/ cognition Pain Numeric Pain Scale: 7 Location: Medial Location Body Site: Sacrum (buttock) Comment: with TRF only Mental Status Patient Orientation: Person, Place, Time, Situation Attachments: Other-See Comments ([place]itt back brace) memory activity by having pt. remember 4 words in beginning of Rx then repeat them at end, pt. completing 2/4 accurately Transfers Therapy Code Descriptions/Definitions Functional [place] Measure: 0=Not Assessed/NA 4=Minimal Assistance 1=Total Assistance 5=Supervision or Setup 2=Maximal Assistance 6=Modified [place] 3=Moderate Assistance 7=Complete [place] Therapy Quality Codes: 6 Independent with activity with or without an assistive device 5 Patient requires set up or clean up by helper. Patient completes activity by themselves 4 Supervision or touching assist (CGA). [place] provide cues , steadying assist 3 The helper provides less than half the effort to complete the activity 2 The helper provides more than half the effort to complete the activity 1 Dependent. The helper does all the effort to complete an activity 7 Patient refused to complete or attempt activity 9 The patient did not perform the activity before the current illness or injury 88 Not attempted due to Medical conditions or safety concerns Transfers (B, C, W/C) (FIM): 5 Scootin Rollin Supine to/from Sit: 5 Sit to/from Stand: 5 in out car simulator SBa and instruction as pt. started to stand on one leg and put other in car, instructed to sit then bring LEs in car Weight Bearing Right Lower Extremity: Right Full Weight Bearing Left Lower Extremity: Left Full Weight Bearing Back precautions; Breg brace on when up Gait Training Does the Patient Walk?: Yes Gait (FIM): 5 Distance (FIM): 3=150 ft (170x3) Gait Level of Assist: 5 Gait Persons Needed: 1 Gait Assistive Device: FWW Stair Training Stair Training: Handrails/: 2 handrails Stairs (FIM): 2 #of Steps: 4 Stairs: Pattern: Step to Level of Assist: 4 Exercises Seated Therapy Exercises: Ankle pumps, Sit to stand, Long arc quads, Hip flexion, Hip abd/add Seated Reps: 20 NuStep Minutes: 8 NuStep Workload: 2 Treatments instructed in seated hamstring stretches using gait belt x 5 each leg with 20 sec hold Assessment Current Status: Good Progress increased funct mob, decreased c/o pain PT Short Term Goals Short Term Goals Time Frame: Feb 20, 2019 Transfers (B,C,W/C) (FIM): 4 Gait (FIM): 4 Distance (FIM): 3=150 ft Gait Assistive Device: FWW Stairs (FIM): 2 # of Steps: 4 PT Clinical Nurse Specialist Goals Clinical Nurse Specialist Goals PT Correction Goals Time Frame: Mar 06, 2019 Transfers (B,C,W/C) (FIM): 6 Sit to Lying (QC): 6 Lying-Sitting on Side/Bed(QC): 6 Sit to Stand (QC): 6 Rollin Roll Left to Right (QC): 6 Chair/Fxp-yd-Puqir Xfer(QC): 6 Car Transfer (QC): 5 Does the Patient Walk: Yes Gait (FIM): 6 Gait distance (FIM): 3=150 ft Walk 10 feet (QC): 6 Walk 10ft-Uneven Surface(QC): 6 Walk 50ft with 2 Turns (QC): 6 Walk 150 ft (QC): 6 Gait Assistive Device: FWW Does the Pt use WC or Scooter?: No Stairs (FIM): 2 # of Steps: 4 1 Step (curb) (QC): 5 4 Steps (QC): 4 12 Steps (QC): 88 Picking up an Object (QC): 88 PT Plan Treatment/Plan Treatment Plan: Continue Plan of Care Treatment Plan: Bed Mobility, Education, Functional Activity Carlyle, Functional Strength, Group Therapy, Gait, Safety, Therapeutic Exercise, Transfers Treatment Duration: Mar 06, 2019 Frequency: At least 5 of 7 days/Wk (IRF) Estimated Hrs Per Day: 1.5 hours per day Patient and/or Family Agrees t: Yes Safety Risks/Education Patient Education: Gait Training, Transfer Techniques, Steps, Correct Positioning, Disease Process, Safety Issues Teaching Recipient: Patient Teaching Methods: Demonstration, Discussion Response to Teaching: Verbalize Understanding, Return Demonstration, Reinforcement Needed Time/GCodes Time In: 1000 Time Out: 1115 Total Billed Treatment Time: 75 Total Billed Treatment 1,GT20m,EX25, FA30 G Codes Necessary: KINA Connors DRILLING SUPERVISOR Feb 14, 2019 11:17
--- NOTE | 2019-02-14 14:54 | NUR ---
INSPECTOR BOILER called to patient's room regarding phone call patient received from [facility] worker. This call was in reference of the request for reevaluation for an increase in home care hours Although INSPECTOR BOILER informed patient to be expecting call, patient was confused as to why the State call to requested information from her. INSPECTOR BOILER explained the process again, patient voiced understanding. INSPECTOR BOILER contacted Sonia at [facility], as she previously contacted patient, Sonia reached out to patient's sister in regards to increase request.
[2019-02-14] MEDS: buPROPion 75 MG (WELLBUTRIN) TAB PO SCH ×2 (16:25→20:45)
[2019-02-14] MEDS: ESOMEPRAZOLE 40 MG PO SCH (16:26)
[2019-02-14 18:00] VITALS: BP 147/55
[2019-02-14] MEDS: DIVALPROEX 500 MG DELAYED RELEASE (DEPAKOTE) TAB PO SCH (20:43)
[2019-02-14] MEDS: DIVALPROEX EXT RELEASE 250 MG (DEPAKOTE ER) TAB PO SCH (20:44)
[2019-02-14] MEDS: traZODone 50 MG (DESYREL) TAB PO SCH (20:44)
[2019-02-14] MEDS: CYCLOBENZAPRINE 10 MG (FLEXERIL) TAB PO SCH (20:44)
[2019-02-14] MEDS: ESTROGENS CONJ 0.625 MG (PREMARIN) TAB PO SCH (20:44)
[2019-02-14] MEDS: JANUVIA 100 MG PO SCH (20:45)
[2019-02-15] MEDS: inSUlin ASPART (NovoLOG) 1 UNIT/0.01 ML (CHARGE PER UNIT) SC SCH ×4 (05:37→21:21)
[2019-02-15] MEDS: oxyCODONE/APAP 10/325MG (PERCOCET 10) TABLET PO PRN (05:38)
[2019-02-15] MEDS: LEVOTHYROXINE 50 MCG (LEVOTHROID) TAB PO SCH (05:38)
[2019-02-15] MEDS: BACLOFEN 10 MG (LIORESAL) TAB PO PRN ×2 (05:38→08:32)
[2019-02-15 05:43] VITALS: BP 130/72
[2019-02-15 08:30] VITALS: BP 133/59
[2019-02-15] MEDS: ROSUVASTATIN 20 MG (CRESTOR) TABLET PO SCH (08:31)
[2019-02-15] MEDS: DILTIAZEM 300 MG (CARDIZEM CD) CAP PO SCH (08:31)
[2019-02-15] MEDS: MAGNESIUM OXIDE (MAG-OX)400 MG TAB PO SCH (08:32)
[2019-02-15] MEDS: FUROSEMIDE 40 MG (LASIX) TAB PO SCH (08:32)
[2019-02-15] MEDS: LOSARTAN 50 MG (COZAAR) TAB PO SCH (08:32)
[2019-02-15] MEDS: SPIRONOLACTONE 25 MG (ALDACTONE) TAB PO SCH (08:32)
[2019-02-15] MEDS: DOCUSATE SODIUM 100 MG (COLACE) CAP PO SCH ×2 (08:32→20:52)
[2019-02-15] MEDS: POLYETHYLENE GLYCOL 17 GM (MIRALAX) PACK PO SCH ×2 (08:33→21:04)
[2019-02-15] MEDS: buPROPion XL 150 MG (WELLBUTRIN XL) NON-FORM PO SCH (08:33)
--- NOTE | 2019-02-15 08:40 | PM&R Progress Note ---
Subjective HPI/CC On Admission Date Seen by Provider: Feb 15, 2019 Time Seen by Provider: 08:45 CC: Debility following extensive lumbar fusion surgery uncomplicated by Dr Alvarez Moya at [facility] POD # 2 HPI: This is a 73-year-old white female that presents to inpatient rehab due to severe debility following extensive lumbar fusion surgery uncomplicated by Dr. Moya at [facility] in [facility]. Her primary care provider is Linda Pond in [facility]. Her pain is controlled but her right leg is sore during the transport from [place] to [facility] in [place]. She has had no complications during the hospital course at [facility] but continues to be a two-person assist and very slow recovery. Due to the fact of her multiple comorbidities in addition to dysphoria emotional problem she will need additional support provided at inpatient rehab with intensive therapies. She reports she has not had a bowel movement yet but she did receive a lot of medications which were laxatives and she wants to wait for any additional meds until in the morning and she is agreeable for suppository or enema. I reviewed all of her home medications and restarted every one of them per her home routine. Subjective/Events-last exam Participating well with therapies but restriction of bending remains per Dr Moya update today when I reached out so will need to use more assistive devices to help with toileting in order to be DC Having confidence issues and I reassure her every day I suggested her to take one day at a time every day Bowels are moving well Using IS Sugars noted Work on barriers of toileting and remaining safe at home when her sister is at work Review of Systems General: Fatigue Musculoskeletal: back pain Objective Exam Vital Signs Vital Signs Date Time Temp Pulse Resp B/P (MAP) Pulse Ox O2 Delivery O2 Flow Rate FiO2 02/15/19 09:00 Room Air 02/15/19 08:30 98.1 72 16 133/59 (83) 99 Capillary Refill : General Appearance: No Apparent Distress, WD/WN, Chronically ill, Obese, Other (much improved 02/14/19) HEENT: PERRL/EOMI, Normal ENT Inspection, Pharynx Normal, Moist Mucous Membranes Neck: Full Range of Motion, Normal Inspection, Non Tender, Supple Respiratory: Chest Non Tender, Lungs Clear, Normal Breath Sounds, No Accessory Muscle Use, No Respiratory Distress Cardiovascular: Regular Rate, Rhythm, No Edema, No Gallop, No JVD, No Murmur Gastrointestinal: Normal Bowel Sounds, No Organomegaly, No Pulsatile Mass, Non Tender, Soft Back: Decreased Range of Motion Extremity: Normal Capillary Refill, Normal Inspection, Normal Range of Motion, Non Tender, No Calf Tenderness, No Pedal Edema Neurologic/Psychiatric: Alert, Oriented x3, No Motor/Sensory Deficits, Normal Mood/Affect Skin: Normal Color, Warm/Dry Lymphatic: No Adenopathy Results/Procedures Lab Patient resulted labs reviewed. Assessment/Plan Assessment and Plan Assess & Plan/Chief Complaint Assessment: Status post extensive lumbar fusion surgery uncomplicated by Dr. Moya POD#11 Bipolar disorder/dysphoria Obstructive sleep apnea Hypertension Hyperlipidemia GERD Chronic back pain Osteoarthritis Diabetes mellitus Hypothyroidism MRSA infection in the past Constipation resolved Slow recovery Plan: Home meds Emotional support Intensive therapies Pain control SSI Insulin Much improved Home at [place] Work on toileting (1) S/P spinal fusion (2) PAO (obstructive sleep apnea) (3) Dysphoric mood (4) GERD (gastroesophageal reflux disease) (5) Hypothyroidism (6) Bipolar disorder (7) Diabetes mellitus (8) Constipation Clinical Quality Measures DVT/VTE Risk/Contraindication: Risk Factor Score Per Nursin RFS Level Per Nursing on Admit: 4+=Very High VAL GUADALUPE DO Feb 15, 2019 08:40
--- NOTE | 2019-02-15 11:12 | NUR ---
PT EATING WELL, 88% MEALS. GLUCOSE SLIGHTLY ELEVATED. WEIGHT DOWN A BIT. INTAKE MEETING OVERALL NUTRITION NEEDS AT THIS TIME. CONT SAME.
--- NOTE | 2019-02-15 11:20 | Occupational Ther Daily Note ---
OT Current Status-Daily Note Subjective Pt alert, sitting in recliner. Pt very anxious about going home and what to expect. Pt states that she wants to be able to bend over and not use AE for toileting. No c/o pain at this time. Mental Status/Objective Patient Orientation: Person, Time, Situation Therapy Code Descriptions/Definitions Functional [place] Measure: 0=Not Assessed/NA 4=Minimal Assistance 1=Total Assistance 5=Supervision or Setup 2=Maximal Assistance 6=Modified [place] 3=Moderate Assistance 7=Complete [place] Attachments: Other-See Comments (back brace) ADL-Treatment Pt declined shower. Pt able to change upper body clothing by self after set up. Pt sat at sink to complete own grooming. Pt takes increased time to complete tasks due to anxiety and decrease focus. Pt then ambulated back to recliner. Therapy Code Descriptions/Definitions Functional [place] Measure: 0=Not Assessed/NA 4=Minimal Assistance 1=Total Assistance 5=Supervision or Setup 2=Maximal Assistance 6=Modified [place] 3=Moderate Assistance 7=Complete [place] Therapy Quality Codes: 6 Independent with activity with or without an assistive device 5 Patient requires set up or clean up by helper. Patient completes activity by themselves 4 Supervision or touching assist (CGA). [place] provide cues , steadying assist 3 The helper provides less than half the effort to complete the activity 2 The helper provides more than half the effort to complete the activity 1 Dependent. The helper does all the effort to complete an activity 7 Patient refused to complete or attempt activity 9 The patient did not perform the activity before the current illness or injury 88 Not attempted due to Medical conditions or safety concerns Grooming (FIM): 6 Oral Hygiene (QC): 6 Upper Body (FIM): 5 Upper Body Dressing (QC): 5 Toileting (FIM): 5 (Supervision, AE to cleanse self.) Toileting Hygiene (QC): 4 Toilet/Commode Transfer (FIM): 5 (Supervision using grabbar and FWW) Toilet Transfer (QC): 4 Other Treatment Pt completed B UE exercises using 3# wt holding with both hands to increase strength and activity tolerance for daily functional tasks. Pt able to do 1 set 10 reps with wt then felt stress on back. Pt able to complete B shldr ext against gravity, 1 set 10 reps. After therapy, pt sitting in recliner with call light/phone in reach. All needs met in room. OT Short Term Goals Short Term Goals Time Frame: Feb 13, 2019 Eating(FIM): 5 Grooming(FIM): 5 Bathing(FIM): 3 Upper Body Dressing(FIM): 4 Lower Body Dressing(FIM): 3 Toileting(FIM): 4 Transfers (B,C,W/C) (FIM): 4 Toilet/Commode Transfer(FIM): 4 Shower Transfer(FIM): 4 Additional Short Term Goals: 1-Demonstrate ADL Tasks, 2-Verbalize Understanding , 3-ImproveStrength/[place] 1=Demonstrate adherence to instructed precautions during ADL tasks. 2=Patient will verbalize/demonstrate understanding of assistive devices/ modifications for ADL. 3=Patient will improve strength/tolerance for activity to enable patient to perform ADL's. OT Prison Goals Toy Painter Goals Time Frame: Feb 27, 2019 Eating (FIM): 6 Eating (QC): 6 Groomin Oral Hygiene (QC): 6 Bathing(FIM): 5 Shower/Bathe Self (QC): 5 Upper Body Dressing(FIM): 6 Upper Body Dressing (QC): 6 Lower Body Dressing(FIM): 5 Lower Body Dressing (QC): 5 On/Off Footwear (QC): 5 Toileting(FIM): 6 Toileting Hygiene (QC): 6 Transfers (B,C,W/C) (FIM): 6 Toilet/Commode Transfer(FIM): 6 Toilet/Commode Transfer (QC): 6 Shower Transfer(FIM): 5 Comprehension(FIM): 6 Expression (FIM): 6 Social Interaction(FIM): 6 Problem Solving(FIM): 6 Memory(FIM): 6 Additional Goals: 1-Demonstrate ADL Tasks, 2-Verbalize Understanding, 3- ImproveStrength/[place] 1=Demonstrate adherence to instructed precautions during ADL tasks. 2=Patient will verbalize/demonstrate understanding of assistive devices/ modifications for ADL. 3=Patient will improve strength/tolerance for activity to enable patient to perform ADL's. OT Education/Plan Problem List/Assessment Assessment: Impaired Self-Care Skills Discharge Recommendations Plan/Recommendations: Continue POC Treatment Plan/Plan of Care Patient would benefit from OT for education, treatment and training to promote independence in ADL's, mobility, safety and/or upper extremity function for ADL' s. Plan of Care: ADL Retraining, Functional Mobility, Group Exercise/Act as Ind, UE Funct Exercise/Act Treatment Duration: Feb 27, 2019 Frequency: At least 5 of 7 days/Wk (IRF) Estimated Hrs Per Day: 1.5 hours per day Agreement: Yes Rehab Potential: Fair Time/GCodes Start Time: 09:00 Stop Time: 10:00 Total Time Billed (hr/min): 60 Billed Treatment Time 1 visit-ADL 3 (45 min) EX 1 (15 min) JUAQUIN DELEON Feb 15, 2019 11:20
--- NOTE | 2019-02-15 11:54 | Physical Therapy Daily Note ---
PT Daily Note-Current Subjective Pt sitting in recliner upon arrival. Pt agrees to PT. Pain Location: No Pain Reported Mental Status Patient Orientation: Person, Place, Situation Transfers Therapy Code Descriptions/Definitions Functional [place] Measure: 0=Not Assessed/NA 4=Minimal Assistance 1=Total Assistance 5=Supervision or Setup 2=Maximal Assistance 6=Modified [place] 3=Moderate Assistance 7=Complete [place] Therapy Quality Codes: 6 Independent with activity with or without an assistive device 5 Patient requires set up or clean up by helper. Patient completes activity by themselves 4 Supervision or touching assist (CGA). [place] provide cues , steadying assist 3 The helper provides less than half the effort to complete the activity 2 The helper provides more than half the effort to complete the activity 1 Dependent. The helper does all the effort to complete an activity 7 Patient refused to complete or attempt activity 9 The patient did not perform the activity before the current illness or injury 88 Not attempted due to Medical conditions or safety concerns Scootin Supine to/from Sit: 5 Sit to/from Stand: 5 Sit to Lying (QC): 5 Sit to Stand (QC): 5 Weight Bearing Right Lower Extremity: Right Full Weight Bearing Left Lower Extremity: Left Full Weight Bearing Back precautions; Breg brace on when up Gait Training Does the Patient Walk?: Yes Distance (FIM): 3=150 ft Distance: 150' Walk 10 feet (QC): 5 Walk 50 ft with 2 Turns(QC): 5 Walk 150 ft (QC): 5 Gait Level of Assist: 5 Gait Persons Needed: 1 Gait Assistive Device: FWW Exercises Seated Therapy Exercises: Ankle pumps, Hip flexion Standing: Heel/toe raises, Mini squats Treatments Pt transfers from recliner to standing then ambulates in hallway. Pt uses NuStep for 11m at WL 4 then completes Standing Ex at //bars until pt feels unstable and wants to sit for Seated Ex. Pt ambulates back, using restroom on the way. Pt rests in bed at end of tx with all needs met. Assessment Current Status: Good Progress Pt needs VC for safety reminders. PT Short Term Goals Short Term Goals Time Frame: Feb 20, 2019 Transfers (B,C,W/C) (FIM): 4 Gait (FIM): 4 Distance (FIM): 3=150 ft Gait Assistive Device: FWW Stairs (FIM): 2 # of Steps: 4 PT Instructor Watch Assembly Goals Jail Goals PT Instructor Watch Assembly Goals Time Frame: Mar 06, 2019 Transfers (B,C,W/C) (FIM): 6 Sit to Lying (QC): 6 Lying-Sitting on Side/Bed(QC): 6 Sit to Stand (QC): 6 Rollin Roll Left to Right (QC): 6 Chair/Hry-jd-Zxfof Xfer(QC): 6 Car Transfer (QC): 5 Does the Patient Walk: Yes Gait (FIM): 6 Gait distance (FIM): 3=150 ft Walk 10 feet (QC): 6 Walk 10ft-Uneven Surface(QC): 6 Walk 50ft with 2 Turns (QC): 6 Walk 150 ft (QC): 6 Gait Assistive Device: FWW Does the Pt use WC or Scooter?: No Stairs (FIM): 2 # of Steps: 4 1 Step (curb) (QC): 5 4 Steps (QC): 4 12 Steps (QC): 88 Picking up an Object (QC): 88 PT Plan Problem List Problem List: Activity Tolerance, Functional Strength, Safety Treatment/Plan Treatment Plan: Continue Plan of Care Treatment Plan: Bed Mobility, Education, Functional Activity [place], Functional Strength, Group Therapy, Gait, Safety, Therapeutic Exercise, Transfers Treatment Duration: Mar 06, 2019 Frequency: At least 5 of 7 days/Wk (IRF) Estimated Hrs Per Day: 1.5 hours per day Patient and/or Family Agrees t: Yes Safety Risks/Education Patient Education: Gait Training, Transfer Techniques, Correct Positioning, Safety Issues Teaching Recipient: Patient Teaching Methods: Discussion Response to Teaching: Reinforcement Needed Time/GCodes Time In: 1015 Time Out: 1100 Total Billed Treatment Time: 45 Total Billed Treatment 1, GT (15m), FA (10m) & EX (20m) G Codes Necessary: GABRIEL Roca MEAT INSPECTOR Feb 15, 2019 11:54
--- NOTE | 2019-02-15 13:15 | NUR ---
EVISCERATOR facilitated Kizzy, Slide Maker to complete notarization of power of divorce attorney documents.
--- NOTE | 2019-02-15 13:27 | Speech Therapy Daily Note ---
Speech Daily Progress Note Subjective Date Seen by Provider: Feb 15, 2019 Time Seen by Provider: 00:30 The patient was resting in her bed when I entered her room. Objective The patient completed problem solving tasks related to her needs upon discharge with 80% accuracy given minimal cues. Assessment Assessment Current Status: Good Progress Treatment Plan Continue Plan of Care Communication Comprehension: 5 Expression: 5 Social Cognition Social Interaction: 4 Problem Solvin Memory: 5 Speech Short Term Goals Short Term Goals Short Term Goals 1) The patient will demonstrate simple problem solving (verbal/visual) with 80% accuracy, min to mod cues. 2) The patient will demonstrate sustained attention for task performance with 80 % accuracy, min to mod cues. 3) The patient will demonstrate sequencing for ADL's with 80% accuracy, min to mod cues. Speech Director Stage Goals Chcf Goals The patient will improve skills necessary for ADL's and safety in the home with minimal assist. Comprehension: 6 Expression: 6 Social Interaction: 6 Problem Solvin Memory: 6 Speech-Plan Patient/Family Goals Patient/Family Goals: The patient plans to return home where she lives with her sister post rehab. Treatment Plan Speech Therapy Treatment Plan: Continue Plan of Care Patient is progressing with memory and problem solving. Treatment Duration: Feb 15, 2019 Frequency: 4 times per week Estimated Hrs Per Day: .5 hour per day Rehab Potential: Fair Barriers to Learning: Patient gets confused easily. Pt/Family Agrees to Plan: Yes Safety Risks/Education Teaching Recipient: Patient Teaching Methods: Discussion Response to Teaching: Verbalize Understanding Education Topics Provided: Telephone procedures Time Speech Therapy Time In: 11:00 Speech Therapy Time Out: 11:30 Total Billed Time: 30 Billed Treatment Time CHARBEL Pike [facility] Feb 15, 2019 13:27
--- NOTE | 2019-02-15 15:20 | Therapy Group Daily Note ---
Therapy Daily Group Note Patient Education Topic Other List Below (memory strategies/ARU description) Exercises LE Seated Exercise, Fine Motor Session Ratio (pt:therapist): 4:1 Goal of Session: Education on ARU Expectations, Memory Strategies, UE/LE Strengthing Goal Met for this Session: Yes Pt Benefit of Group: Contributions to Others, F/U Use of Strategies @Home, Increased Functional Strength, Improved Cognition, Recognition of Peers, Socialization Other/Notes Pt ambulated to OT/PT group in [facility] area. Group consisted of introductions (name, place, best restaurant), socialization, UE/LE seated exercises and educational topics (memory strategies/ARU description). Pt introduced self appropriately and actively listened to peers. Pt able to complete seated UE/LE exercises. Pt was able to verbalize memory strategies and acknowledge understanding of educational topics. After therapy, pt sitting in recliner with call light/phone in reach. All needs met in room. Start Time: 13:00 Stop Time: 14:30 Total Billed Treatment Time: 90 Total Billed Treatment 1-GRP JUAQUIN DELEON Feb 15, 2019 15:20
[2019-02-15] MEDS: buPROPion 75 MG (WELLBUTRIN) TAB PO SCH ×2 (16:32→21:29)
[2019-02-15] MEDS: ESOMEPRAZOLE 40 MG PO SCH (16:32)
[2019-02-15 17:51] VITALS: BP 144/75
[2019-02-15] MEDS: ESTROGENS CONJ 0.625 MG (PREMARIN) TAB PO SCH (20:52)
[2019-02-15] MEDS: traZODone 50 MG (DESYREL) TAB PO SCH (20:52)
[2019-02-15] MEDS: CYCLOBENZAPRINE 10 MG (FLEXERIL) TAB PO SCH (20:52)
[2019-02-15] MEDS: DIVALPROEX 500 MG DELAYED RELEASE (DEPAKOTE) TAB PO SCH (20:52)
[2019-02-15] MEDS: DIVALPROEX EXT RELEASE 250 MG (DEPAKOTE ER) TAB PO SCH (20:52)
[2019-02-15] MEDS: JANUVIA 100 MG PO SCH (20:53)
[2019-02-16 05:43] VITALS: BP 135/71
[2019-02-16] MEDS: oxyCODONE/APAP 10/325MG (PERCOCET 10) TABLET PO PRN (06:35)
[2019-02-16] MEDS: LEVOTHYROXINE 50 MCG (LEVOTHROID) TAB PO SCH (06:35)
[2019-02-16] MEDS: inSUlin ASPART (NovoLOG) 1 UNIT/0.01 ML (CHARGE PER UNIT) SC SCH ×4 (06:39→21:37)
[2019-02-16 08:00] VITALS: BP 132/75
[2019-02-16] MEDS: SPIRONOLACTONE 25 MG (ALDACTONE) TAB PO SCH (08:12)
[2019-02-16] MEDS: MAGNESIUM OXIDE (MAG-OX)400 MG TAB PO SCH (08:12)
[2019-02-16] MEDS: ROSUVASTATIN 20 MG (CRESTOR) TABLET PO SCH (08:12)
[2019-02-16] MEDS: LOSARTAN 50 MG (COZAAR) TAB PO SCH (08:12)
[2019-02-16] MEDS: DOCUSATE SODIUM 100 MG (COLACE) CAP PO SCH ×2 (08:12→21:36)
[2019-02-16] MEDS: DILTIAZEM 300 MG (CARDIZEM CD) CAP PO SCH (08:12)
[2019-02-16] MEDS: FUROSEMIDE 40 MG (LASIX) TAB PO SCH (08:12)
[2019-02-16] MEDS: buPROPion XL 150 MG (WELLBUTRIN XL) NON-FORM PO SCH (08:15)
[2019-02-16] MEDS: POLYETHYLENE GLYCOL 17 GM (MIRALAX) PACK PO SCH ×2 (09:22→21:38)
--- NOTE | 2019-02-16 10:00 | NUR ---
HAS BEEN VISITING WITH SISTER JUVE AND MAKING ARRANGEMENTS TO HOPEFULLY GO HOME SOON.
--- NOTE | 2019-02-16 10:33 | Physical Therapy Daily Note ---
PT Daily Note-Current Subjective Pt agreeable. Pt rates pain 4/10 (L) glute. Denies radicular pain. Pt seated with thoracic brace in place upon arrival. Mental Status Patient Orientation: Person, Place, Situation Transfers Therapy Code Descriptions/Definitions Functional [place] Measure: 0=Not Assessed/NA 4=Minimal Assistance 1=Total Assistance 5=Supervision or Setup 2=Maximal Assistance 6=Modified [place] 3=Moderate Assistance 7=Complete [place] Therapy Quality Codes: 6 Independent with activity with or without an assistive device 5 Patient requires set up or clean up by helper. Patient completes activity by themselves 4 Supervision or touching assist (CGA). [place] provide cues , steadying assist 3 The helper provides less than half the effort to complete the activity 2 The helper provides more than half the effort to complete the activity 1 Dependent. The helper does all the effort to complete an activity 7 Patient refused to complete or attempt activity 9 The patient did not perform the activity before the current illness or injury 88 Not attempted due to Medical conditions or safety concerns Pt transfers mod (I) chair and bed Weight Bearing Right Lower Extremity: Right Full Weight Bearing Left Lower Extremity: Left Full Weight Bearing Back precautions; Breg brace on when up Gait Training Gait Assistive Device: FWW Pt amb with FWW and SBA 2 x 150ft Exercises Seated Therapy Exercises: Ankle pumps, Long arc quads Seated Reps: 20 NuStep Minutes: 15 NuStep Workload: 2 Assessment Current Status: Good Progress Pt vonda well with good participation. Pt demonstrated mod (I) transfers and mobility. Pt back to bed with call light and all needs met post therapy session. PT Short Term Goals Short Term Goals Time Frame: Feb 20, 2019 Transfers (B,C,W/C) (FIM): 4 Gait (FIM): 4 Distance (FIM): 3=150 ft Gait Assistive Device: FWW Stairs (FIM): 2 # of Steps: 4 PT Displayer Goals Retirement Goals PT Retirement Goals Time Frame: Mar 06, 2019 Transfers (B,C,W/C) (FIM): 6 Sit to Lying (QC): 6 Lying-Sitting on Side/Bed(QC): 6 Sit to Stand (QC): 6 Rollin Roll Left to Right (QC): 6 Chair/Yok-yn-Dwzpc Xfer(QC): 6 Car Transfer (QC): 5 Does the Patient Walk: Yes Gait (FIM): 6 Gait distance (FIM): 3=150 ft Walk 10 feet (QC): 6 Walk 10ft-Uneven Surface(QC): 6 Walk 50ft with 2 Turns (QC): 6 Walk 150 ft (QC): 6 Gait Assistive Device: FWW Does the Pt use WC or Scooter?: No Stairs (FIM): 2 # of Steps: 4 1 Step (curb) (QC): 5 4 Steps (QC): 4 12 Steps (QC): 88 Picking up an Object (QC): 88 PT Plan Treatment/Plan Treatment Plan: Continue Plan of Care Treatment Plan: Bed Mobility, Education, Functional Activity [place], Functional Strength, Group Therapy, Gait, Safety, Therapeutic Exercise, Transfers Treatment Duration: Mar 06, 2019 Frequency: At least 5 of 7 days/Wk (IRF) Estimated Hrs Per Day: 1.5 hours per day Patient and/or Family Agrees t: Yes Time/GCodes Time In: 900 Time Out: 938 Total Billed Treatment Time: 38 Total Billed Treatment 1, ther ex 23min, Gait 15 min RDAHA DENTON CPTA Feb 16, 2019 10:33
--- NOTE | 2019-02-16 12:44 | PM&R Progress Note ---
Subjective HPI/CC On Admission Date Seen by Provider: Feb 16, 2019 Time Seen by Provider: 11:15 CC: Debility following extensive lumbar fusion surgery uncomplicated by Dr Alvarez Moya at [facility] POD # 2 HPI: This is a 73-year-old white female that presents to inpatient rehab due to severe debility following extensive lumbar fusion surgery uncomplicated by Dr. Moya at [facility] in [facility]. Her primary care provider is Linda Pond in [facility]. Her pain is controlled but her right leg is sore during the transport from [place] to [facility] in [place]. She has had no complications during the hospital course at [facility] but continues to be a two-person assist and very slow recovery. Due to the fact of her multiple comorbidities in addition to dysphoria emotional problem she will need additional support provided at inpatient rehab with intensive therapies. She reports she has not had a bowel movement yet but she did receive a lot of medications which were laxatives and she wants to wait for any additional meds until in the morning and she is agreeable for suppository or enema. I reviewed all of her home medications and restarted every one of them per her home routine. Subjective/Events-last exam Participating well with therapies but cannot bend after confirming with Dr Moya Having confidence issues and I reassure her every day Talkative I suggested her to take one day at a time every day Bowels are moving well Using IS Talked about a recliner she wants to buy Work on barriers of toileting and remaining safe at home when her sister is at work Review of Systems Musculoskeletal: hand pain Neurological: Weakness Objective Exam Vital Signs Vital Signs Date Time Temp Pulse Resp B/P (MAP) Pulse Ox O2 Delivery O2 Flow Rate FiO2 02/16/19 09:00 Room Air 02/16/19 05:43 98.0 74 20 135/71 (92) 97 Capillary Refill : General Appearance: No Apparent Distress, WD/WN, Chronically ill, Obese, Other (much improved 02/14/19) HEENT: PERRL/EOMI, Normal ENT Inspection, Pharynx Normal, Moist Mucous Membranes Neck: Full Range of Motion, Normal Inspection, Non Tender, Supple Respiratory: Chest Non Tender, Lungs Clear, Normal Breath Sounds, No Accessory Muscle Use, No Respiratory Distress Cardiovascular: Regular Rate, Rhythm, No Edema, No Gallop, No JVD, No Murmur Gastrointestinal: Normal Bowel Sounds, No Organomegaly, No Pulsatile Mass, Non Tender, Soft Back: Decreased Range of Motion Extremity: Normal Capillary Refill, Normal Inspection, Normal Range of Motion, Non Tender, No Calf Tenderness, No Pedal Edema Neurologic/Psychiatric: Alert, Oriented x3, No Motor/Sensory Deficits, Normal Mood/Affect Skin: Normal Color, Warm/Dry Lymphatic: No Adenopathy Results/Procedures Lab Patient resulted labs reviewed. Assessment/Plan Assessment and Plan Assess & Plan/Chief Complaint Assessment: Status post extensive lumbar fusion surgery uncomplicated by Dr. Moya POD#12 Bipolar disorder/dysphoria Obstructive sleep apnea Hypertension Hyperlipidemia GERD Chronic back pain Osteoarthritis Diabetes mellitus Hypothyroidism MRSA infection in the past Constipation resolved Slow recovery Plan: Home meds Emotional support Intensive therapies Pain control SSI Insulin Much improved Home at [place] Work on toileting Recliner purchase with PT direction to be sure it will serve her needs (1) S/P spinal fusion (2) PAO (obstructive sleep apnea) (3) Dysphoric mood (4) GERD (gastroesophageal reflux disease) (5) Hypothyroidism (6) Bipolar disorder (7) Diabetes mellitus (8) Constipation Clinical Quality Measures DVT/VTE Risk/Contraindication: Risk Factor Score Per Nursin RFS Level Per Nursing on Admit: 4+=Very High VAL GUADALUPE DO Feb 16, 2019 12:44
[2019-02-16] MEDS: ESOMEPRAZOLE 40 MG PO SCH (15:34)
[2019-02-16] MEDS: buPROPion 75 MG (WELLBUTRIN) TAB PO SCH ×2 (15:34→21:31)
[2019-02-16 15:45] VITALS: BP 149/64
[2019-02-16] MEDS: ESTROGENS CONJ 0.625 MG (PREMARIN) TAB PO SCH (21:29)
[2019-02-16] MEDS: DIVALPROEX 500 MG DELAYED RELEASE (DEPAKOTE) TAB PO SCH (21:29)
[2019-02-16] MEDS: DIVALPROEX EXT RELEASE 250 MG (DEPAKOTE ER) TAB PO SCH (21:30)
[2019-02-16] MEDS: CYCLOBENZAPRINE 10 MG (FLEXERIL) TAB PO SCH (21:31)
[2019-02-16] MEDS: JANUVIA 100 MG PO SCH (21:31)
[2019-02-16] MEDS: traZODone 50 MG (DESYREL) TAB PO SCH (21:31)
[2019-02-17] MEDS: oxyCODONE/APAP 10/325MG (PERCOCET 10) TABLET PO PRN ×2 (02:58→16:20)
[2019-02-17 05:27] VITALS: BP 147/72
[2019-02-17] MEDS: LEVOTHYROXINE 50 MCG (LEVOTHROID) TAB PO SCH (06:12)
[2019-02-17] MEDS: inSUlin ASPART (NovoLOG) 1 UNIT/0.01 ML (CHARGE PER UNIT) SC SCH ×4 (06:13→21:01)
[2019-02-17 08:00] VITALS: BP 153/71
[2019-02-17] MEDS: ROSUVASTATIN 20 MG (CRESTOR) TABLET PO SCH (08:57)
[2019-02-17] MEDS: FUROSEMIDE 40 MG (LASIX) TAB PO SCH (08:57)
[2019-02-17] MEDS: DOCUSATE SODIUM 100 MG (COLACE) CAP PO SCH ×2 (08:57→20:52)
[2019-02-17] MEDS: DILTIAZEM 300 MG (CARDIZEM CD) CAP PO SCH (08:57)
[2019-02-17] MEDS: MAGNESIUM OXIDE (MAG-OX)400 MG TAB PO SCH (08:57)
[2019-02-17] MEDS: SPIRONOLACTONE 25 MG (ALDACTONE) TAB PO SCH (08:57)
[2019-02-17] MEDS: LOSARTAN 50 MG (COZAAR) TAB PO SCH (08:57)
[2019-02-17] MEDS: POLYETHYLENE GLYCOL 17 GM (MIRALAX) PACK PO SCH ×2 (08:59→20:52)
[2019-02-17] MEDS: buPROPion XL 150 MG (WELLBUTRIN XL) NON-FORM PO SCH (08:59)
--- NOTE | 2019-02-17 13:23 | PM&R Progress Note ---
Subjective HPI/CC On Admission Date Seen by Provider: Feb 17, 2019 Time Seen by Provider: 11:15 CC: Debility following extensive lumbar fusion surgery uncomplicated by Dr Alvarez Moya at [facility] POD # 2 HPI: This is a 73-year-old white female that presents to inpatient rehab due to severe debility following extensive lumbar fusion surgery uncomplicated by Dr. Moya at [facility] in [facility]. Her primary care provider is Linda Pond in [facility]. Her pain is controlled but her right leg is sore during the transport from [place] to [facility] in [place]. She has had no complications during the hospital course at [facility] but continues to be a two-person assist and very slow recovery. Due to the fact of her multiple comorbidities in addition to dysphoria emotional problem she will need additional support provided at inpatient rehab with intensive therapies. She reports she has not had a bowel movement yet but she did receive a lot of medications which were laxatives and she wants to wait for any additional meds until in the morning and she is agreeable for suppository or enema. I reviewed all of her home medications and restarted every one of them per her home routine. Subjective/Events-last exam Fixated on the recliner and other furniture for the house Patient has figure out a way to toilet herself and not been so that's encouraging No pain is reported except for the back Right leg pain is much improved Overall feels like she is progressing Review of Systems Musculoskeletal: back pain Objective Exam Vital Signs Vital Signs Date Time Temp Pulse Resp B/P (MAP) Pulse Ox O2 Delivery O2 Flow Rate FiO2 02/17/19 09:00 Room Air 02/17/19 05:27 97.2 74 18 147/72 (97) 97 Capillary Refill : General Appearance: No Apparent Distress, WD/WN, Chronically ill, Obese, Other (much improved 02/14/19) HEENT: PERRL/EOMI, Normal ENT Inspection, Pharynx Normal, Moist Mucous Membranes Neck: Full Range of Motion, Normal Inspection, Non Tender, Supple Respiratory: Chest Non Tender, Lungs Clear, Normal Breath Sounds, No Accessory Muscle Use, No Respiratory Distress Cardiovascular: Regular Rate, Rhythm, No Edema, No Gallop, No JVD, No Murmur Gastrointestinal: Normal Bowel Sounds, No Organomegaly, No Pulsatile Mass, Non Tender, Soft Back: Decreased Range of Motion Extremity: Normal Capillary Refill, Normal Inspection, Normal Range of Motion, Non Tender, No Calf Tenderness, No Pedal Edema Neurologic/Psychiatric: Alert, Oriented x3, No Motor/Sensory Deficits, Normal Mood/Affect Skin: Normal Color, Warm/Dry Lymphatic: No Adenopathy Results/Procedures Lab Patient resulted labs reviewed. Assessment/Plan Assessment and Plan Assess & Plan/Chief Complaint Assessment: Status post extensive lumbar fusion surgery uncomplicated by Dr. Moya POD#13 Bipolar disorder/dysphoria Obstructive sleep apnea Hypertension Hyperlipidemia GERD Chronic back pain Osteoarthritis Diabetes mellitus Hypothyroidism MRSA infection in the past Constipation resolved Slow recovery Plan: Home meds Emotional support Intensive therapies Pain control SSI Insulin Much improved Home at [place] Work on toileting and it appears she now has a plan and doing well Recliner purchase with PT direction to be sure it will serve her needs (1) S/P spinal fusion (2) PAO (obstructive sleep apnea) (3) Dysphoric mood (4) GERD (gastroesophageal reflux disease) (5) Hypothyroidism (6) Bipolar disorder (7) Diabetes mellitus (8) Constipation Clinical Quality Measures DVT/VTE Risk/Contraindication: Risk Factor Score Per Nursin RFS Level Per Nursing on Admit: 4+=Very High VAL GUADALUPE DO Feb 17, 2019 13:23
[2019-02-17] MEDS: ESOMEPRAZOLE 40 MG PO SCH (15:00)
[2019-02-17] MEDS: buPROPion 75 MG (WELLBUTRIN) TAB PO SCH ×2 (16:22→21:01)
[2019-02-17 17:54] VITALS: BP 135/66
[2019-02-17] MEDS: ESTROGENS CONJ 0.625 MG (PREMARIN) TAB PO SCH (20:49)
[2019-02-17] MEDS: CYCLOBENZAPRINE 10 MG (FLEXERIL) TAB PO SCH (20:49)
[2019-02-17] MEDS: DIVALPROEX 500 MG DELAYED RELEASE (DEPAKOTE) TAB PO SCH (20:49)
[2019-02-17] MEDS: DIVALPROEX EXT RELEASE 250 MG (DEPAKOTE ER) TAB PO SCH (20:49)
[2019-02-17] MEDS: traZODone 50 MG (DESYREL) TAB PO SCH (20:49)
[2019-02-17] MEDS: JANUVIA 100 MG PO SCH (20:52)
[2019-02-18 05:01] VITALS: BP 112/58
[2019-02-18] MEDS: inSUlin ASPART (NovoLOG) 1 UNIT/0.01 ML (CHARGE PER UNIT) SC SCH ×4 (05:45→20:10)
[2019-02-18] MEDS: LEVOTHYROXINE 50 MCG (LEVOTHROID) TAB PO SCH (05:46)
[2019-02-18] MEDS: BACLOFEN 10 MG (LIORESAL) TAB PO PRN (05:49)
[2019-02-18] MEDS: oxyCODONE/APAP 10/325MG (PERCOCET 10) TABLET PO PRN ×2 (05:50→15:56)
--- NOTE | 2019-02-18 08:23 | PM&R Progress Note ---
Subjective HPI/CC On Admission Date Seen by Provider: Feb 18, 2019 Time Seen by Provider: 08:15 CC: Debility following extensive lumbar fusion surgery uncomplicated by Dr Alvarez Moya at [facility] POD # 2 HPI: This is a 73-year-old white female that presents to inpatient rehab due to severe debility following extensive lumbar fusion surgery uncomplicated by Dr. Moya at [facility] in [facility]. Her primary care provider is Linda Pond in [facility]. Her pain is controlled but her right leg is sore during the transport from [place] to [facility] in [place]. She has had no complications during the hospital course at [facility] but continues to be a two-person assist and very slow recovery. Due to the fact of her multiple comorbidities in addition to dysphoria emotional problem she will need additional support provided at inpatient rehab with intensive therapies. She reports she has not had a bowel movement yet but she did receive a lot of medications which were laxatives and she wants to wait for any additional meds until in the morning and she is agreeable for suppository or enema. I reviewed all of her home medications and restarted every one of them per her home routine. Subjective/Events-last exam Patient is doing very well and feels ready to go home No longer fixated on anything today Checked meds and labs Bowels moved yesterday Tramadol takes 2 at night Pain much improved Will begin arrangements for DC Review of Systems General: Fatigue Musculoskeletal: back pain Objective Exam Vital Signs Vital Signs Date Time Temp Pulse Resp B/P (MAP) Pulse Ox O2 Delivery O2 Flow Rate FiO2 02/18/19 05:01 97.0 67 16 112/58 (76) 95 Room Air Capillary Refill : General Appearance: No Apparent Distress, WD/WN, Chronically ill, Obese, Other (much improved 02/14/19) HEENT: PERRL/EOMI, Normal ENT Inspection, Pharynx Normal, Moist Mucous Membranes Neck: Full Range of Motion, Normal Inspection, Non Tender, Supple Respiratory: Chest Non Tender, Lungs Clear, Normal Breath Sounds, No Accessory Muscle Use, No Respiratory Distress Cardiovascular: Regular Rate, Rhythm, No Edema, No Gallop, No JVD, No Murmur Gastrointestinal: Normal Bowel Sounds, No Organomegaly, No Pulsatile Mass, Non Tender, Soft Back: Decreased Range of Motion (much improved today 02/18/19) Extremity: Normal Capillary Refill, Normal Inspection, Normal Range of Motion, Non Tender, No Calf Tenderness, No Pedal Edema Neurologic/Psychiatric: Alert, Oriented x3, No Motor/Sensory Deficits, Normal Mood/Affect Skin: Normal Color, Warm/Dry Lymphatic: No Adenopathy Results/Procedures Lab Patient resulted labs reviewed. Assessment/Plan Assessment and Plan Assess & Plan/Chief Complaint Assessment: Status post extensive lumbar fusion surgery uncomplicated by Dr. Moya POD#14 Bipolar disorder/dysphoria Obstructive sleep apnea Hypertension Hyperlipidemia GERD Chronic back pain Osteoarthritis Diabetes mellitus Hypothyroidism MRSA infection in the past Constipation resolved Slow recovery Plan: Home meds Emotional support Intensive therapies Pain control SSI Insulin Much improved Home at DC Work on toileting and it appears she now has a plan and doing well Recliner purchase with PT direction to be sure it will serve her needs DC arrangements (1) S/P spinal fusion (2) PAO (obstructive sleep apnea) (3) Dysphoric mood (4) GERD (gastroesophageal reflux disease) (5) Hypothyroidism (6) Bipolar disorder (7) Diabetes mellitus (8) Constipation Clinical Quality Measures DVT/VTE Risk/Contraindication: Risk Factor Score Per Nursin RFS Level Per Nursing on Admit: 4+=Very High VAL GUADALUPE DO Feb 18, 2019 08:23
[2019-02-18] MEDS: MAGNESIUM OXIDE (MAG-OX)400 MG TAB PO SCH (09:50)
[2019-02-18] MEDS: LOSARTAN 50 MG (COZAAR) TAB PO SCH (09:50)
[2019-02-18] MEDS: DILTIAZEM 300 MG (CARDIZEM CD) CAP PO SCH (09:50)
[2019-02-18] MEDS: FUROSEMIDE 40 MG (LASIX) TAB PO SCH (09:50)
[2019-02-18] MEDS: ROSUVASTATIN 20 MG (CRESTOR) TABLET PO SCH (09:50)
[2019-02-18] MEDS: DOCUSATE SODIUM 100 MG (COLACE) CAP PO SCH ×3 (09:50→20:09)
[2019-02-18] MEDS: SPIRONOLACTONE 25 MG (ALDACTONE) TAB PO SCH (09:50)
--- NOTE | 2019-02-18 09:57 | Occupational Ther Daily Note ---
OT Current Status-Daily Note Subjective Pt alert, lying in bed. Pt agrees to therapy. Pt stated that she had discussed discharging tomorrow with physician, reported to SW. No c/o pain at this time. Mental Status/Objective Patient Orientation: Person, Time, Situation Therapy Code Descriptions/Definitions Functional [place] Measure: 0=Not Assessed/NA 4=Minimal Assistance 1=Total Assistance 5=Supervision or Setup 2=Maximal Assistance 6=Modified [place] 3=Moderate Assistance 7=Complete [place] ADL-Treatment Pt has high anxiety with change and different environments. Difficulty with ADL independence in hospital setting due to the anxiety, as pt returns to familiar environment it is possible that pt will be more independent with functional transfers and ADLs. Therapy Code Descriptions/Definitions Functional [place] Measure: 0=Not Assessed/NA 4=Minimal Assistance 1=Total Assistance 5=Supervision or Setup 2=Maximal Assistance 6=Modified [place] 3=Moderate Assistance 7=Complete [place] Therapy Quality Codes: 6 Independent with activity with or without an assistive device 5 Patient requires set up or clean up by helper. Patient completes activity by themselves 4 Supervision or touching assist (CGA). [place] provide cues , steadying assist 3 The helper provides less than half the effort to complete the activity 2 The helper provides more than half the effort to complete the activity 1 Dependent. The helper does all the effort to complete an activity 7 Patient refused to complete or attempt activity 9 The patient did not perform the activity before the current illness or injury 88 Not attempted due to Medical conditions or safety concerns Eating (FIM): 6 (Pt demonstrates that ability to complete own set up and use regular utensils to eat.) Eating (QC): 6 Grooming (FIM): 6 (Sitting at sink, pt able to complete by self.) Oral Hygiene (QC): 6 Bathing (FIM): 5 (Supervision for safety using grabbar, shower seat with cutout , hand held shower and grabbars.) Bathing Location: L Arm, R Arm, L Upper Leg, R Upper Leg, L Lower Leg ( including foot), R Lower Leg (including foot), Chest, Abdomen, Buttocks, Perineal Area Shower/Bathe Self (QC): 4 Upper Body (FIM): 5 (After set up, pt able to complete own dressing. Dons/ doffs brace by self.) Upper Body Dressing (QC): 5 Lower Body Dressing (FIM): 4 (After set up, pt dons/doffs socks and pants using AE as necessary. Assist to don shoes.) Lower Body Dressing (QC): 3 On/Off Footwear (QC): 3 Toileting (FIM): 5 (Supervision for safety using grabbars and BSC.) Toileting Hygiene (QC): 4 Transfers (B, C, W/C) (FIM): 6 (Using FWW) Toilet/Commode Transfer (FIM): 6 (Using FWW, grabbars and BSC.) Toilet Transfer (QC): 6 Shower Transfer(FIM): 6 (Using shower chair with cut out, grabbars and FWW.) After therapy, pt sitting in recliner with call light/phone in reach. All needs met in room. OT Short Term Goals Short Term Goals Time Frame: Feb 13, 2019 Eating(FIM): 5 Grooming(FIM): 5 Bathing(FIM): 3 Upper Body Dressing(FIM): 4 Lower Body Dressing(FIM): 3 Toileting(FIM): 4 Transfers (B,C,W/C) (FIM): 4 Toilet/Commode Transfer(FIM): 4 Shower Transfer(FIM): 4 Additional Short Term Goals: 1-Demonstrate ADL Tasks, 2-Verbalize Understanding , 3-ImproveStrength/[place] 1=Demonstrate adherence to instructed precautions during ADL tasks. 2=Patient will verbalize/demonstrate understanding of assistive devices/ modifications for ADL. 3=Patient will improve strength/tolerance for activity to enable patient to perform ADL's. OT Cook [place] Goals Care Home Goals Time Frame: Feb 27, 2019 Eating (FIM): 6 (met-02/18/2019) Eating (QC): 6 (met-02/18/2019) Groomin (met-02/18/2019) Oral Hygiene (QC): 6 (met-02/18/2019) Bathing(FIM): 5 Shower/Bathe Self (QC): 5 Upper Body Dressing(FIM): 6 Upper Body Dressing (QC): 6 Lower Body Dressing(FIM): 5 Lower Body Dressing (QC): 5 On/Off Footwear (QC): 5 Toileting(FIM): 6 Toileting Hygiene (QC): 6 Transfers (B,C,W/C) (FIM): 6 Toilet/Commode Transfer(FIM): 6 Toilet/Commode Transfer (QC): 6 Shower Transfer(FIM): 5 (met-02/18/2019) Comprehension(FIM): 6 Expression (FIM): 6 Social Interaction(FIM): 6 Problem Solving(FIM): 6 Memory(FIM): 6 Additional Goals: 1-Demonstrate ADL Tasks, 2-Verbalize Understanding, 3- ImproveStrength/[place] 1=Demonstrate adherence to instructed precautions during ADL tasks. 2=Patient will verbalize/demonstrate understanding of assistive devices/ modifications for ADL. 3=Patient will improve strength/tolerance for activity to enable patient to perform ADL's. OT Education/Plan Discharge Recommendations Plan/Recommendations: Continue POC Treatment Plan/Plan of Care Patient would benefit from OT for education, treatment and training to promote independence in ADL's, mobility, safety and/or upper extremity function for ADL' s. Plan of Care: ADL Retraining, Functional Mobility, Group Exercise/Act as Ind, UE Funct Exercise/Act Treatment Duration: Feb 27, 2019 Frequency: At least 5 of 7 days/Wk (IRF) Estimated Hrs Per Day: 1.5 hours per day Agreement: Yes Rehab Potential: Fair Time/GCodes Start Time: 08:00 Stop Time: 09:00 Total Time Billed (hr/min): 60 Billed Treatment Time 1 visit-ADL 4 (60 min) JUAQUIN DELEON Feb 18, 2019 09:57
[2019-02-18] MEDS: POLYETHYLENE GLYCOL 17 GM (MIRALAX) PACK PO SCH ×2 (10:04→20:09)
[2019-02-18] MEDS: buPROPion XL 150 MG (WELLBUTRIN XL) NON-FORM PO SCH (10:04)
--- NOTE | 2019-02-18 10:16 | NUR ---
Pt requests to take Tramadol 100 mg q HS, as she does at home, notified Dr. Fried, & she approved.
--- NOTE | 2019-02-18 11:13 | Physical Therapy Daily Note ---
PT Daily Note-Current Subjective Pt. agrees to Rx and states she isnt in pain today. Pt. states she wants to go home soon, maybe even tomorrow. Pain Location: No Pain Reported Mental Status Patient Orientation: Person, Place, Situation Transfers Therapy Code Descriptions/Definitions Functional [place] Measure: 0=Not Assessed/NA 4=Minimal Assistance 1=Total Assistance 5=Supervision or Setup 2=Maximal Assistance 6=Modified [place] 3=Moderate Assistance 7=Complete [place] Therapy Quality Codes: 6 Independent with activity with or without an assistive device 5 Patient requires set up or clean up by helper. Patient completes activity by themselves 4 Supervision or touching assist (CGA). [place] provide cues , steadying assist 3 The helper provides less than half the effort to complete the activity 2 The helper provides more than half the effort to complete the activity 1 Dependent. The helper does all the effort to complete an activity 7 Patient refused to complete or attempt activity 9 The patient did not perform the activity before the current illness or injury 88 Not attempted due to Medical conditions or safety concerns Transfers (B, C, W/C) (FIM): 6 Scootin Rollin Supine to/from Sit: 6 Sit to/from Stand: 6 Weight Bearing Right Lower Extremity: Right Full Weight Bearing Left Lower Extremity: Left Full Weight Bearing Back precautions; Breg brace on when up Gait Training Does the Patient Walk?: Yes Gait (FIM): 5 Distance (FIM): 3=150 ft (150x3) Gait Level of Assist: 5 Gait Persons Needed: 1 Gait Assistive Device: FWW Stair Training Stair Training: Handrails/: 2 handrails Stairs (FIM): 2 #of Steps: 4 Stairs: Pattern: Reciprocal Level of Assist: 4 Exercises Supine Ex: Ankle pumps, Quad Set, Rolling, Glut sets, Heel Slides, Short Arc Quads, Scooting, Straight leg raise, Hip abd/add Supine Reps: 15 Seated Therapy Exercises: Ankle pumps, Sit to stand, Long arc quads Seated Reps: 15 NuStep Minutes: 10 NuStep Workload: 5 Treatments pt. donns and doffs brace indep Assessment Current Status: Good Progress pt. continues with some cognitive deficits PT Short Term Goals Short Term Goals Time Frame: Feb 20, 2019 Transfers (B,C,W/C) (FIM): 4 Gait (FIM): 4 Distance (FIM): 3=150 ft Gait Assistive Device: FWW Stairs (FIM): 2 # of Steps: 4 PT Paper Bag Press Operator Goals Intermediate Goals PT Paper Bag Press Operator Goals Time Frame: Mar 06, 2019 Transfers (B,C,W/C) (FIM): 6 Sit to Lying (QC): 6 Lying-Sitting on Side/Bed(QC): 6 Sit to Stand (QC): 6 Rollin Roll Left to Right (QC): 6 Chair/[id number]-[id number] Xfer(QC): 6 Car Transfer (QC): 5 Does the Patient Walk: Yes Gait (FIM): 6 Gait distance (FIM): 3=150 ft Walk 10 feet (QC): 6 Walk 10ft-Uneven Surface(QC): 6 Walk 50ft with 2 Turns (QC): 6 Walk 150 ft (QC): 6 Gait Assistive Device: FWW Does the Pt use WC or Scooter?: No Stairs (FIM): 2 # of Steps: 4 1 Step (curb) (QC): 5 4 Steps (QC): 4 12 Steps (QC): 88 Picking up an Object (QC): 88 PT Plan Treatment/Plan Treatment Plan: Continue Plan of Care Treatment Plan: Bed Mobility, Education, Functional Activity [place], Functional Strength, Group Therapy, Gait, Safety, Therapeutic Exercise, Transfers Treatment Duration: Mar 06, 2019 Frequency: At least 5 of 7 days/Wk (IRF) Estimated Hrs Per Day: 1.5 hours per day Patient and/or Family Agrees t: Yes Safety Risks/Education Patient Education: Gait Training, Transfer Techniques, Steps, Correct Positioning, Reviewed Don/Doff Brace, Disease Process, Safety Issues Teaching Recipient: Patient Teaching Methods: Demonstration, Discussion Response to Teaching: Verbalize Understanding, Return Demonstration, Reinforcement Needed Time/GCodes Time In: 1015 Time Out: 1100 Total Billed Treatment Time: 45 Total Billed Treatment 1,GT15m,EX15m,FA15m G Codes Necessary: KINA Connors PROJECT MANAGER INTERIOR DESIGN Feb 18, 2019 11:12
--- NOTE | 2019-02-18 12:09 | Speech Therapy Daily Note ---
Speech Daily Progress Note Subjective Date Seen by Provider: Feb 18, 2019 Time Seen by Provider: 00:30 Patient was very talkative today. Objective The patient completed problem solving tasks with 80% accuracy given minimal verbal cues. Assessment Assessment Current Status: Good Progress Treatment Plan Continue Plan of Care Communication Comprehension: 7 Expression: 6 Social Cognition Social Interaction: 6 Problem Solvin Memory: 6 Speech Short Term Goals Short Term Goals Short Term Goals 1) The patient will demonstrate simple problem solving (verbal/visual) with 80% accuracy, min to mod cues. 2) The patient will demonstrate sustained attention for task performance with 80 % accuracy, min to mod cues. 3) The patient will demonstrate sequencing for ADL's with 80% accuracy, min to mod cues. Speech Fdc Goals Land Lease Information Clerk Goals The patient will improve skills necessary for ADL's and safety in the home with minimal assist. Comprehension: 6 Expression: 6 Social Interaction: 6 Problem Solvin Memory: 6 Speech-Plan Patient/Family Goals Patient/Family Goals: Patient plans to return home where she lives with her sister post rehab. Treatment Plan Speech Therapy Treatment Plan: Continue Plan of Care Patient plans to return home tomorrow. Treatment Duration: Feb 19, 2019 Frequency: 4 times per week Estimated Hrs Per Day: .5 hour per day Rehab Potential: Fair Barriers to Learning: Patient has memory and problem solving deficits. Pt/Family Agrees to Plan: Yes Safety Risks/Education Teaching Recipient: Patient Teaching Methods: Discussion Response to Teaching: Verbalize Understanding Education Topics Provided: Safety when she returns home. Time Speech Therapy Time In: 11:00 Speech Therapy Time Out: 11:30 Total Billed Time: 30 Billed Treatment Time 1, ALFRED West Feb 18, 2019 12:09
--- NOTE | 2019-02-18 14:52 | Therapy Group Daily Note ---
Therapy Daily Group Note Patient Education Topic Fall Prevention, Incontinence, Exercises Exercises LE Seated Exercise, UE Exercise Session Ratio (pt:therapist): 3:1 Goal of Session: Home Safety Strategies, UE/LE Strengthing Goal Met for this Session: Yes Pt Benefit of Group: Contributions to Others, F/U Use of Strategies @Home, Increased Functional Safety, Increased Functional Strength, Improved Cognition, Recognition of Peers, Socialization Other/Notes Pt ambulated to OT/PT group using FWW in [facility]. Group consisted of introductions (name, place, worst fall), socialization, UE/LE seated exercises using cans of food, educational topics of home safety and home exercises. Pt introduced self appropriately and actively listened to peers. When asked question about home safety pt able to give correct answers 100% of the time. Completed UE/LE seated exercises without difficulty. Pt acknowledged and verbalized understanding of educational topics. Able to give personal strategies and experiences throughout group. After therapy, pt lying in bed with call light/phone in reach. All needs met in room. Start Time: 13:00 Stop Time: 14:15 Total Billed Treatment Time: 75 Total Billed Treatment 1-GRP JUAQUIN DELEON Feb 18, 2019 14:52
[2019-02-18] MEDS: buPROPion 75 MG (WELLBUTRIN) TAB PO SCH ×2 (15:53→21:42)
[2019-02-18] MEDS: ESOMEPRAZOLE 40 MG PO SCH (15:54)
[2019-02-18 18:00] VITALS: BP 148/70
[2019-02-18] MEDS: CYCLOBENZAPRINE 10 MG (FLEXERIL) TAB PO SCH (20:08)
[2019-02-18] MEDS: DIVALPROEX EXT RELEASE 250 MG (DEPAKOTE ER) TAB PO SCH (20:08)
[2019-02-18] MEDS: DIVALPROEX 500 MG DELAYED RELEASE (DEPAKOTE) TAB PO SCH (20:08)
[2019-02-18] MEDS: ESTROGENS CONJ 0.625 MG (PREMARIN) TAB PO SCH (20:09)
[2019-02-18] MEDS: traZODone 50 MG (DESYREL) TAB PO SCH (20:09)
[2019-02-18] MEDS: JANUVIA 100 MG PO SCH (20:10)
[2019-02-19 05:06] VITALS: BP 126/71
[2019-02-19] MEDS: inSUlin ASPART (NovoLOG) 1 UNIT/0.01 ML (CHARGE PER UNIT) SC SCH ×4 (05:37→21:21)
[2019-02-19] MEDS: oxyCODONE/APAP 10/325MG (PERCOCET 10) TABLET PO PRN (05:38)
[2019-02-19] MEDS: LEVOTHYROXINE 50 MCG (LEVOTHROID) TAB PO SCH (05:38)
--- NOTE | 2019-02-19 08:21 | Occupational Ther Daily Note ---
OT Current Status-Daily Note Subjective Pt sleeping in bed, woke easily to name. Pt agrees to therapy. No c/o pain at this time. Pt stated that she had gotten her pain meds changed and slept well last night. Mental Status/Objective Patient Orientation: Person, Place, Time, Situation Therapy Code Descriptions/Definitions Functional [place] Measure: 0=Not Assessed/NA 4=Minimal Assistance 1=Total Assistance 5=Supervision or Setup 2=Maximal Assistance 6=Modified [place] 3=Moderate Assistance 7=Complete [place] ADL-Treatment Pt declined bathing or changing clothing today. Pt takes increased time to complete tasks due to anxiety and going over schedule prior to complete tasks. Pt discusses how she has own home set up and will work well for her when she has personal routine in place. Therapy Code Descriptions/Definitions Functional [place] Measure: 0=Not Assessed/NA 4=Minimal Assistance 1=Total Assistance 5=Supervision or Setup 2=Maximal Assistance 6=Modified [place] 3=Moderate Assistance 7=Complete [place] Therapy Quality Codes: 6 Independent with activity with or without an assistive device 5 Patient requires set up or clean up by helper. Patient completes activity by themselves 4 Supervision or touching assist (CGA). [place] provide cues , steadying assist 3 The helper provides less than half the effort to complete the activity 2 The helper provides more than half the effort to complete the activity 1 Dependent. The helper does all the effort to complete an activity 7 Patient refused to complete or attempt activity 9 The patient did not perform the activity before the current illness or injury 88 Not attempted due to Medical conditions or safety concerns Eating (FIM): 6 (Partial. Pt able to set up own meal and use regular utensils to eat.) Eating (QC): 6 Grooming (FIM): 6 (Sitting at sink, pt able to complete by self.) Oral Hygiene (QC): 6 Toileting (FIM): 6 (Using grabbar, BSC and FWW to complete is able to modified independent.) Toileting Hygiene (QC): 6 Transfers (B, C, W/C) (FIM): 6 (Using FWW, pt able to complete transfer with modified independence. Pt dons brace prior to ambulation/transfers.) Toilet/Commode Transfer (FIM): 6 (Using BSC, FWW and grabbars pt able to complete by self.) Toilet Transfer (QC): 6 Other Treatment Pt given light resistance theraband to use and instructions to be aware of pulling or pain in lumbar area during exercises when this happens to only complete motions without resistance. Handout given with verbal and gestural skilled instructions for correct technique of theraband. Pt able to demonstrate understanding of exercises though will need skilled instruction to become proficient. UE exercises given to increase UE strengthening for daily functional tasks. After therapy, pt sitting in recliner with call light/phone in reach. Nrsg in room. All needs met in room. Education OT Patient Education: Exercise program, Home exercise program Teaching Recipient: Patient Teaching Methods: Demonstration, Handout, Discussion Response to Teaching: Verbalize Understanding, Return Demonstration, Reinforcement Needed OT Short Term Goals Short Term Goals Time Frame: Feb 13, 2019 Eating(FIM): 5 Grooming(FIM): 5 Bathing(FIM): 3 Upper Body Dressing(FIM): 4 Lower Body Dressing(FIM): 3 Toileting(FIM): 4 Transfers (B,C,W/C) (FIM): 4 Toilet/Commode Transfer(FIM): 4 Shower Transfer(FIM): 4 Additional Short Term Goals: 1-Demonstrate ADL Tasks, 2-Verbalize Understanding , 3-ImproveStrength/[place] 1=Demonstrate adherence to instructed precautions during ADL tasks. 2=Patient will verbalize/demonstrate understanding of assistive devices/ modifications for ADL. 3=Patient will improve strength/tolerance for activity to enable patient to perform ADL's. OT Hose Inspector And Patcher Goals Hose Inspector And Patcher Goals Time Frame: Feb 27, 2019 Eating (FIM): 6 (met-02/18/2019) Eating (QC): 6 (met-02/18/2019) Groomin (met-02/18/2019) Oral Hygiene (QC): 6 (met-02/18/2019) Bathing(FIM): 5 Shower/Bathe Self (QC): 5 Upper Body Dressing(FIM): 6 Upper Body Dressing (QC): 6 Lower Body Dressing(FIM): 5 Lower Body Dressing (QC): 5 On/Off Footwear (QC): 5 Toileting(FIM): 6 Toileting Hygiene (QC): 6 Transfers (B,C,W/C) (FIM): 6 Toilet/Commode Transfer(FIM): 6 Toilet/Commode Transfer (QC): 6 Shower Transfer(FIM): 5 (met-02/18/2019) Comprehension(FIM): 6 Expression (FIM): 6 Social Interaction(FIM): 6 Problem Solving(FIM): 6 Memory(FIM): 6 Additional Goals: 1-Demonstrate ADL Tasks, 2-Verbalize Understanding, 3- ImproveStrength/[place] 1=Demonstrate adherence to instructed precautions during ADL tasks. 2=Patient will verbalize/demonstrate understanding of assistive devices/ modifications for ADL. 3=Patient will improve strength/tolerance for activity to enable patient to perform ADL's. OT Education/Plan Problem List/Assessment Assessment: Decreased UE Strength, Impaired Self-Care Skills Discharge Recommendations Plan/Recommendations: Continue POC Treatment Plan/Plan of Care Patient would benefit from OT for education, treatment and training to promote independence in ADL's, mobility, safety and/or upper extremity function for ADL' s. Plan of Care: ADL Retraining, Functional Mobility, Group Exercise/Act as Ind, UE Funct Exercise/Act Treatment Duration: Feb 27, 2019 Frequency: At least 5 of 7 days/Wk (IRF) Estimated Hrs Per Day: 1.5 hours per day Agreement: Yes Rehab Potential: Fair Time/GCodes Start Time: 08:00 Stop Time: 09:15 Total Time Billed (hr/min): 75 Billed Treatment Time 1 visit-ADL 3 (50 min) FA 1 (15 min) EX 1 (10 min) JUAQUIN DELEON Feb 19, 2019 08:21
--- NOTE | 2019-02-19 09:09 | PM&R Progress Note ---
Subjective HPI/CC On Admission Date Seen by Provider: Feb 19, 2019 Time Seen by Provider: 09:00 CC: Debility following extensive lumbar fusion surgery uncomplicated by Dr Alvarez Moya at [facility] POD # 2 HPI: This is a 73-year-old white female that presents to inpatient rehab due to severe debility following extensive lumbar fusion surgery uncomplicated by Dr. Moya at [facility] in [facility]. Her primary care provider is Linda Pond in [facility]. Her pain is controlled but her right leg is sore during the transport from [place] to [facility] in [place]. She has had no complications during the hospital course at [facility] but continues to be a two-person assist and very slow recovery. Due to the fact of her multiple comorbidities in addition to dysphoria emotional problem she will need additional support provided at inpatient rehab with intensive therapies. She reports she has not had a bowel movement yet but she did receive a lot of medications which were laxatives and she wants to wait for any additional meds until in the morning and she is agreeable for suppository or enema. I reviewed all of her home medications and restarted every one of them per her home routine. Subjective/Events-last exam Patient is doing very well and feels ready to go home No longer fixated on anything again today Checked meds and labs Bowels moving Tramadol takes 2 at night like she does at home and is doing well with that regimen Pain much improved Will begin arrangements for DC Patient can make her own decisions Review of Systems General: Fatigue Musculoskeletal: back pain Objective Exam Vital Signs Vital Signs Date Time Temp Pulse Resp B/P (MAP) Pulse Ox O2 Delivery O2 Flow Rate FiO2 02/19/19 08:41 Room Air 02/19/19 05:06 98.2 66 16 126/71 (89) 95 Capillary Refill : General Appearance: No Apparent Distress, WD/WN, Chronically ill, Obese, Other (much improved 02/14/19) HEENT: PERRL/EOMI, Normal ENT Inspection, Pharynx Normal, Moist Mucous Membranes Neck: Full Range of Motion, Normal Inspection, Non Tender, Supple Respiratory: Chest Non Tender, Lungs Clear, Normal Breath Sounds, No Accessory Muscle Use, No Respiratory Distress Cardiovascular: Regular Rate, Rhythm, No Edema, No Gallop, No JVD, No Murmur Gastrointestinal: Normal Bowel Sounds, No Organomegaly, No Pulsatile Mass, Non Tender, Soft Back: Decreased Range of Motion (much improved today 02/18/19) Extremity: Normal Capillary Refill, Normal Inspection, Normal Range of Motion, Non Tender, No Calf Tenderness, No Pedal Edema Neurologic/Psychiatric: Alert, Oriented x3, No Motor/Sensory Deficits, Normal Mood/Affect Skin: Normal Color, Warm/Dry Lymphatic: No Adenopathy Results/Procedures Lab Patient resulted labs reviewed. Assessment/Plan Assessment and Plan Assess & Plan/Chief Complaint Assessment: Status post extensive lumbar fusion surgery uncomplicated by Dr. Moya POD#15 Bipolar disorder/dysphoria Obstructive sleep apnea Hypertension Hyperlipidemia GERD Chronic back pain Osteoarthritis Diabetes mellitus Hypothyroidism MRSA infection in the past Constipation resolved Slow recovery Plan: Home meds Emotional support Intensive therapies Pain control SSI Insulin Much improved Home at DC Work on toileting and it appears she now has a plan and doing well Recliner purchase with PT direction to be sure it will serve her needs DC arrangements (1) S/P spinal fusion (2) PAO (obstructive sleep apnea) (3) Dysphoric mood (4) GERD (gastroesophageal reflux disease) (5) Hypothyroidism (6) Bipolar disorder (7) Diabetes mellitus (8) Constipation Clinical Quality Measures DVT/VTE Risk/Contraindication: Risk Factor Score Per Nursin RFS Level Per Nursing on Admit: 4+=Very High VAL GUADALUPE DO Feb 19, 2019 09:09
[2019-02-19] MEDS: FUROSEMIDE 40 MG (LASIX) TAB PO SCH (09:21)
[2019-02-19] MEDS: DILTIAZEM 300 MG (CARDIZEM CD) CAP PO SCH (09:21)
[2019-02-19] MEDS: DOCUSATE SODIUM 100 MG (COLACE) CAP PO SCH ×2 (09:21→21:16)
[2019-02-19] MEDS: LOSARTAN 50 MG (COZAAR) TAB PO SCH (09:21)
[2019-02-19] MEDS: MAGNESIUM OXIDE (MAG-OX)400 MG TAB PO SCH (09:21)
[2019-02-19] MEDS: SPIRONOLACTONE 25 MG (ALDACTONE) TAB PO SCH (09:21)
[2019-02-19] MEDS: ROSUVASTATIN 20 MG (CRESTOR) TABLET PO SCH (09:22)
[2019-02-19] MEDS: POLYETHYLENE GLYCOL 17 GM (MIRALAX) PACK PO SCH ×2 (09:22→21:16)
[2019-02-19] MEDS: buPROPion XL 150 MG (WELLBUTRIN XL) NON-FORM PO SCH (09:24)
--- NOTE | 2019-02-19 09:52 | NUR ---
BOILER WATER TESTER met with Dr. Fried regards to patient's cognitive status. Patient's sister has obtained DPOAE and has voiced desire for patient to discharge to assisted living facility following hospitalization. Patient has voiced multiple times her desire to return home with home care services. BOILER WATER TESTER and Dr. Fried believe patient is appropriate to make own decisions; however, patient does continue to have intermittent confusion. Patient is aware of confusion. BOILER WATER TESTER will discuss discharge options with patient and sister to proceed with home option when patient is appropriate. Patient is progressing in therapies and will likely be successful at home with increased home care hours.
--- NOTE | 2019-02-19 12:22 | Physical Therapy Daily Note ---
PT Daily Note-Current Subjective Agrees to PT; no complaints. Mental Status Patient Orientation: Person, Place, Time, Situation Transfers Therapy Code Descriptions/Definitions Functional [place] Measure: 0=Not Assessed/NA 4=Minimal Assistance 1=Total Assistance 5=Supervision or Setup 2=Maximal Assistance 6=Modified [place] 3=Moderate Assistance 7=Complete [place] Therapy Quality Codes: 6 Independent with activity with or without an assistive device 5 Patient requires set up or clean up by helper. Patient completes activity by themselves 4 Supervision or touching assist (CGA). [place] provide cues , steadying assist 3 The helper provides less than half the effort to complete the activity 2 The helper provides more than half the effort to complete the activity 1 Dependent. The helper does all the effort to complete an activity 7 Patient refused to complete or attempt activity 9 The patient did not perform the activity before the current illness or injury 88 Not attempted due to Medical conditions or safety concerns Transfers (B, C, W/C) (FIM): 5 Supine to/from Sit: 5 Sit to/from Stand: 5 SBA with transfers for safety; toilet transfer with SBA. Weight Bearing Right Lower Extremity: Right Full Weight Bearing Left Lower Extremity: Left Full Weight Bearing Back precautions; Breg brace on when up Gait Training Does the Patient Walk?: Yes Gait (FIM): 5 Distance (FIM): 3=150 ft Distance: 250 ft; 150 ft x 2 Gait Assistive Device: FWW steady giat with safe and correct use of FWW; no LOB; slight difficulty with turns but no LOB episodes,. Stair Training Stair Training: Handrails/: 2 handrails Stairs (FIM): 2 #of Steps: 4 Stairs: Pattern: Step to CGA up/down steps; pt reports feeling "nervous" on the steps. Exercises NuStep Minutes: 15 (to increase LE strength and functional act tolerance for safety with gait and transfers. ) NuStep Workload: 4 Treatments Safety improvement and functional progress noted Assessment Current Status: Good Progress Pt mobilizing with only SBA and no concerns for safety this visit. Pt continues to make functional gains towards goals. PT Short Term Goals Short Term Goals Time Frame: Feb 20, 2019 Transfers (B,C,W/C) (FIM): 4 (met) Gait (FIM): 4 (met) Distance (FIM): 3=150 ft Gait Assistive Device: FWW Stairs (FIM): 2 (met) # of Steps: 4 PT Intermediate Goals U.[employer]. Senator Goals PT Intermediate Goals Time Frame: Mar 06, 2019 Transfers (B,C,W/C) (FIM): 6 Sit to Lying (QC): 6 Lying-Sitting on Side/Bed(QC): 6 Sit to Stand (QC): 6 Rollin Roll Left to Right (QC): 6 Chair/Kkc-si-Jjttq Xfer(QC): 6 Car Transfer (QC): 5 Does the Patient Walk: Yes Gait (FIM): 6 Gait distance (FIM): 3=150 ft Walk 10 feet (QC): 6 Walk 10ft-Uneven Surface(QC): 6 Walk 50ft with 2 Turns (QC): 6 Walk 150 ft (QC): 6 Gait Assistive Device: FWW Does the Pt use WC or Scooter?: No Stairs (FIM): 2 # of Steps: 4 1 Step (curb) (QC): 5 4 Steps (QC): 4 12 Steps (QC): 88 Picking up an Object (QC): 88 PT Plan Problem List Problem List: Activity Tolerance, Functional Strength, Safety, Balance, Gait, Transfer, Bed Mobility Treatment/Plan Treatment Plan: Continue Plan of Care Treatment Plan: Bed Mobility, Education, Functional Activity [place], Functional Strength, Group Therapy, Gait, Safety, Therapeutic Exercise, Transfers Treatment Duration: Mar 06, 2019 Frequency: At least 5 of 7 days/Wk (IRF) Estimated Hrs Per Day: 1.5 hours per day Patient and/or Family Agrees t: Yes Safety Risks/Education Patient Education: Safety Issues Teaching Recipient: Patient Teaching Methods: Discussion Response to Teaching: Reinforcement Needed Discharge Recommendations Therapy D/C Recommendations: Physical Therapy Home Care Time/GCodes Time In: 1125 Time Out: 1210 Total Billed Treatment Time: 45 Total Billed Treatment visit EX 15 FA 30 JUAQUIN TANNER PT Feb 19, 2019 12:22
--- NOTE | 2019-02-19 13:40 | Physical Therapy Daily Note ---
PT Daily Note-Current Subjective Pt. was in bed upon arrival and agreed to treatment. Pt. reported that her back hurt but did not rate. Mental Status Patient Orientation: Normal For Age Transfers Therapy Code Descriptions/Definitions Functional [place] Measure: 0=Not Assessed/NA 4=Minimal Assistance 1=Total Assistance 5=Supervision or Setup 2=Maximal Assistance 6=Modified [place] 3=Moderate Assistance 7=Complete [place] Therapy Quality Codes: 6 Independent with activity with or without an assistive device 5 Patient requires set up or clean up by helper. Patient completes activity by themselves 4 Supervision or touching assist (CGA). [place] provide cues , steadying assist 3 The helper provides less than half the effort to complete the activity 2 The helper provides more than half the effort to complete the activity 1 Dependent. The helper does all the effort to complete an activity 7 Patient refused to complete or attempt activity 9 The patient did not perform the activity before the current illness or injury 88 Not attempted due to Medical conditions or safety concerns Transfers (B, C, W/C) (FIM): 5 Scootin Rollin Roll Left to Right (QC): 5 Supine to/from Sit: 5 Sit to/from Stand: 5 Sit to Lying (QC): 5 Sit to Stand (QC): 5 Weight Bearing Right Lower Extremity: Right Full Weight Bearing Left Lower Extremity: Left Full Weight Bearing Back precautions; Breg brace on when up Gait Training Gait (FIM): 5 Distance (FIM): 3=150 ft Distance: >500 x2 Gait Assistive Device: FWW Pt. agreed to walk inside [email or web address]. Pt. then became anxious about falling due to the tight spaces inside the gift shop. Patient displaced extended UE's with FWW use and slight trunk flexed posture. Wheelchair Training Does the Pt Use a Wheelchair?: No Wheelchair Distance: 0=does not occure Assessment Pt. didn't want to negotiate using her walker in tight spaces. Pt. has a slight flex in her trunk during gait. Pt. will continue to benefit from therapy services. PT Short Term Goals Short Term Goals Time Frame: Feb 20, 2019 Transfers (B,C,W/C) (FIM): 4 (met) Gait (FIM): 4 (met) Distance (FIM): 3=150 ft Gait Assistive Device: FWW Stairs (FIM): 2 (met) # of Steps: 4 PT Correction Goals Painter Helper Goals PT Painter Helper Goals Time Frame: Mar 06, 2019 Transfers (B,C,W/C) (FIM): 6 Sit to Lying (QC): 6 Lying-Sitting on Side/Bed(QC): 6 Sit to Stand (QC): 6 Rollin Roll Left to Right (QC): 6 Chair/Pwr-wn-Pzqcy Xfer(QC): 6 Car Transfer (QC): 5 Does the Patient Walk: Yes Gait (FIM): 6 Gait distance (FIM): 3=150 ft Walk 10 feet (QC): 6 Walk 10ft-Uneven Surface(QC): 6 Walk 50ft with 2 Turns (QC): 6 Walk 150 ft (QC): 6 Gait Assistive Device: FWW Does the Pt use WC or Scooter?: No Stairs (FIM): 2 # of Steps: 4 1 Step (curb) (QC): 5 4 Steps (QC): 4 12 Steps (QC): 88 Picking up an Object (QC): 88 PT Plan Treatment/Plan Treatment Plan: Continue Plan of Care Treatment Plan: Bed Mobility, Education, Functional Activity C[place], Functional Strength, Group Therapy, Gait, Safety, Therapeutic Exercise, Transfers Treatment Duration: Mar 06, 2019 Frequency: At least 5 of 7 days/Wk (IRF) Estimated Hrs Per Day: 1.5 hours per day Patient and/or Family Agrees t: Yes Time/GCodes Time In: 1300 Time Out: 1330 Total Billed Treatment Time: 30 Total Billed Treatment 1 visit FA x2 30 minutes TIANNA MAHMOOD PT Feb 19, 2019 13:40
[2019-02-19] MEDS: ESOMEPRAZOLE 40 MG PO SCH (15:44)
[2019-02-19] MEDS: buPROPion 75 MG (WELLBUTRIN) TAB PO SCH ×2 (15:44→21:16)
[2019-02-19 15:45] VITALS: BP 117/70
[2019-02-19] MEDS: traZODone 50 MG (DESYREL) TAB PO SCH (21:16)
[2019-02-19] MEDS: DIVALPROEX 500 MG DELAYED RELEASE (DEPAKOTE) TAB PO SCH (21:17)
[2019-02-19] MEDS: CYCLOBENZAPRINE 10 MG (FLEXERIL) TAB PO SCH (21:17)
[2019-02-19] MEDS: DIVALPROEX EXT RELEASE 250 MG (DEPAKOTE ER) TAB PO SCH (21:17)
[2019-02-19] MEDS: JANUVIA 100 MG PO SCH (21:18)
[2019-02-19] MEDS: ESTROGENS CONJ 0.625 MG (PREMARIN) TAB PO SCH (21:21)
[2019-02-20 05:01] VITALS: BP 128/73
[2019-02-20] MEDS: inSUlin ASPART (NovoLOG) 1 UNIT/0.01 ML (CHARGE PER UNIT) SC SCH ×4 (05:02→21:14)
[2019-02-20] MEDS: LEVOTHYROXINE 50 MCG (LEVOTHROID) TAB PO SCH (05:45)
[2019-02-20] MEDS: oxyCODONE/APAP 10/325MG (PERCOCET 10) TABLET PO PRN (05:46)
[2019-02-20 08:00] VITALS: BP 126/74
[2019-02-20] MEDS: DOCUSATE SODIUM 100 MG (COLACE) CAP PO SCH ×2 (08:12→21:13)
[2019-02-20] MEDS: ROSUVASTATIN 20 MG (CRESTOR) TABLET PO SCH (08:12)
[2019-02-20] MEDS: LOSARTAN 50 MG (COZAAR) TAB PO SCH (08:12)
[2019-02-20] MEDS: DILTIAZEM 300 MG (CARDIZEM CD) CAP PO SCH (08:12)
[2019-02-20] MEDS: SPIRONOLACTONE 25 MG (ALDACTONE) TAB PO SCH (08:12)
[2019-02-20] MEDS: FUROSEMIDE 40 MG (LASIX) TAB PO SCH (08:12)
[2019-02-20] MEDS: MAGNESIUM OXIDE (MAG-OX)400 MG TAB PO SCH (08:12)
--- NOTE | 2019-02-20 08:14 | PM&R Progress Note ---
Subjective HPI/CC On Admission Date Seen by Provider: Feb 20, 2019 Time Seen by Provider: 08:15 CC: Debility following extensive lumbar fusion surgery uncomplicated by Dr Alvarez Moya at [facility] POD # 2 HPI: This is a 73-year-old white female that presents to inpatient rehab due to severe debility following extensive lumbar fusion surgery uncomplicated by Dr. Moya at [facility] in [facility]. Her primary care provider is Linda Pond in [facility]. Her pain is controlled but her right leg is sore during the transport from [place] to [facility] in [place]. She has had no complications during the hospital course at [facility] but continues to be a two-person assist and very slow recovery. Due to the fact of her multiple comorbidities in addition to dysphoria emotional problem she will need additional support provided at inpatient rehab with intensive therapies. She reports she has not had a bowel movement yet but she did receive a lot of medications which were laxatives and she wants to wait for any additional meds until in the morning and she is agreeable for suppository or enema. I reviewed all of her home medications and restarted every one of them per her home routine. Subjective/Events-last exam Pt doing well today DC planned for Monday Participating in therapies Bowels are moving Talked about her banking changes to her sister Denies any problems currently Checked meds and labs Review of Systems Musculoskeletal: back pain Objective Exam Vital Signs Vital Signs Date Time Temp Pulse Resp B/P (MAP) Pulse Ox O2 Delivery O2 Flow Rate FiO2 02/20/19 17:29 97.9 72 18 133/67 (89) 95 Room Air Capillary Refill : General Appearance: No Apparent Distress, WD/WN, Chronically ill, Obese, Other (much improved 02/14/19) HEENT: PERRL/EOMI, Normal ENT Inspection, Pharynx Normal, Moist Mucous Membranes Neck: Full Range of Motion, Normal Inspection, Non Tender, Supple Respiratory: Chest Non Tender, Lungs Clear, Normal Breath Sounds, No Accessory Muscle Use, No Respiratory Distress Cardiovascular: Regular Rate, Rhythm, No Edema, No Gallop, No JVD, No Murmur Gastrointestinal: Normal Bowel Sounds, No Organomegaly, No Pulsatile Mass, Non Tender, Soft Back: Decreased Range of Motion (much improved today 02/18/19) Extremity: Normal Capillary Refill, Normal Inspection, Normal Range of Motion, Non Tender, No Calf Tenderness, No Pedal Edema Neurologic/Psychiatric: Alert, Oriented x3, No Motor/Sensory Deficits, Normal Mood/Affect Skin: Normal Color, Warm/Dry Lymphatic: No Adenopathy Results/Procedures Lab Patient resulted labs reviewed. Assessment/Plan Assessment and Plan Assess & Plan/Chief Complaint Assessment: Status post extensive lumbar fusion surgery uncomplicated by Dr. Moya POD#16 Bipolar disorder/dysphoria Obstructive sleep apnea Hypertension Hyperlipidemia GERD Chronic back pain Osteoarthritis Diabetes mellitus Hypothyroidism MRSA infection in the past Constipation resolved Slow recovery Plan: Home meds Emotional support Intensive therapies Pain control SSI Insulin Much improved Home at DC Work on toileting and it appears she now has a plan and doing well Recliner purchase with PT direction to be sure it will serve her needs DC arrangements for Monday (1) S/P spinal fusion (2) PAO (obstructive sleep apnea) (3) Dysphoric mood (4) GERD (gastroesophageal reflux disease) (5) Hypothyroidism (6) Bipolar disorder (7) Diabetes mellitus (8) Constipation Clinical Quality Measures DVT/VTE Risk/Contraindication: Risk Factor Score Per Nursin RFS Level Per Nursing on Admit: 4+=Very High VAL GUADALUPE DO Feb 20, 2019 08:14
[2019-02-20] MEDS: buPROPion XL 150 MG (WELLBUTRIN XL) NON-FORM PO SCH (08:15)
[2019-02-20] MEDS: POLYETHYLENE GLYCOL 17 GM (MIRALAX) PACK PO SCH ×2 (08:15→21:12)
--- NOTE | 2019-02-20 09:00 | NUR ---
REQUESTING TEACHING ON HOW TO COUNT CARBS. ORDER PLACED AND MESSAGE LEFT FOR PREETHI ZAMORA.
--- NOTE | 2019-02-20 09:18 | Speech Therapy Daily Note ---
Speech Daily Progress Note Subjective Date Seen by Provider: Feb 19, 2019 Time Seen by Provider: 00:30 The patient was resting in her recliner when I entered the room. Objective Patient completed memory tasks for her return home related to banking with 80% accuracy and self correction. Assessment Assessment Current Status: Good Progress Treatment Plan Continue Plan of Care Communication Comprehension: 7 Expression: 6 Social Cognition Social Interaction: 6 Problem Solvin Memory: 6 Speech Short Term Goals Short Term Goals Short Term Goals 1) The patient will demonstrate simple problem solving (verbal/visual) with 80% accuracy, min to mod cues. 2) The patient will demonstrate sustained attention for task performance with 80 % accuracy, min to mod cues. 3) The patient will demonstrate sequencing for ADL's with 80% accuracy, min to mod cues. Speech Neonatal Nurse Practitioner Goals Custodial Goals The patient will improve skills necessary for ADL's and safety in the home with minimal assist. Comprehension: 6 Expression: 6 Social Interaction: 6 Problem Solvin Memory: 6 Speech-Plan Patient/Family Goals Patient/Family Goals: The patient plans to return home with her sister and outside caregivers post rehab. Treatment Plan Speech Therapy Treatment Plan: Continue Plan of Care The patient has progressed well as a result of skilled therapy. Treatment Duration: Feb 19, 2019 Frequency: 4 times per week Estimated Hrs Per Day: .5 hour per day Rehab Potential: Fair Barriers to Learning: Patient has memory and problem solving deficits. Pt/Family Agrees to Plan: Yes Safety Risks/Education Teaching Recipient: Patient Teaching Methods: Discussion Response to Teaching: Verbalize Understanding Education Topics Provided: Safety upon her return home. Time Speech Therapy Time In: 09:30 Speech Therapy Time Out: 10:00 Total Billed Time: 30 Billed Treatment Time 1[address] B[address] ST Feb 20, 2019 09:18
--- NOTE | 2019-02-20 10:53 | Speech Therapy Daily Note ---
Speech Daily Progress Note Subjective Date Seen by Provider: Feb 20, 2019 Time Seen by Provider: 00:30 The patient was resting in her bed after OT. She states she was kind of sick at her stomach. Objective The patient completed problem solving tasks related to her return home with 80% accuracy. The patient self corrects frequently. Assessment Assessment Current Status: Good Progress Treatment Plan Continue Plan of Care Communication Comprehension: 7 Expression: 6 Social Cognition Social Interaction: 6 Problem Solvin Memory: 6 Speech Short Term Goals Short Term Goals Short Term Goals 1) The patient will demonstrate simple problem solving (verbal/visual) with 80% accuracy, min to mod cues. 2) The patient will demonstrate sustained attention for task performance with 80 % accuracy, min to mod cues. 3) The patient will demonstrate sequencing for ADL's with 80% accuracy, min to mod cues. Speech Behavioral Health Tech Goals Behavioral Health Tech Goals The patient will improve skills necessary for ADL's and safety in the home with minimal assist. Comprehension: 6 Expression: 6 Social Interaction: 6 Problem Solvin Memory: 6 Speech-Plan Patient/Family Goals Patient/Family Goals: The patient plans to return home with her sister post rehab. Treatment Plan Speech Therapy Treatment Plan: Continue Plan of Care The patient has progressed well as a result of skilled therapy. Treatment Duration: Feb 19, 2019 Frequency: 4 times per week Estimated Hrs Per Day: .5 hour per day Rehab Potential: Fair Barriers to Learning: Patient has memory and problem solving deficits. Pt/Family Agrees to Plan: Yes Safety Risks/Education Teaching Recipient: Patient Teaching Methods: Discussion Response to Teaching: Verbalize Understanding Education Topics Provided: Safety within her home. Time Speech Therapy Time In: 09:00 Speech Therapy Time Out: 10:00 Total Billed Time: 30 Billed Treatment Time 1[address] Feb 20, 2019 10:53
--- NOTE | 2019-02-20 11:07 | Physical Therapy Daily Note ---
PT Daily Note-Current Subjective Pt. was in bed upon arrival. Pt. agreed to therapy treatment. Pt. had no complaints of pain. Pain Location: No Pain Reported Transfers Therapy Code Descriptions/Definitions Functional [place] Measure: 0=Not Assessed/NA 4=Minimal Assistance 1=Total Assistance 5=Supervision or Setup 2=Maximal Assistance 6=Modified [place] 3=Moderate Assistance 7=Complete [place] Therapy Quality Codes: 6 Independent with activity with or without an assistive device 5 Patient requires set up or clean up by helper. Patient completes activity by themselves 4 Supervision or touching assist (CGA). [place] provide cues , steadying assist 3 The helper provides less than half the effort to complete the activity 2 The helper provides more than half the effort to complete the activity 1 Dependent. The helper does all the effort to complete an activity 7 Patient refused to complete or attempt activity 9 The patient did not perform the activity before the current illness or injury 88 Not attempted due to Medical conditions or safety concerns Transfers (B, C, W/C) (FIM): 6 Scootin Supine to/from Sit: 6 Sit to/from Stand: 6 Sit to Lying (QC): 6 Sit to Stand (QC): 6 Car Transfer (QC): 6 Safety concerns with transfers due to patient's cognition level. Weight Bearing Right Lower Extremity: Right Full Weight Bearing Left Lower Extremity: Left Full Weight Bearing Back precautions; Breg brace on when up Gait Training Does the Patient Walk?: Yes Distance (FIM): 3=150 ft Distance: >300 ft Gait Level of Assist: 6 Gait Persons Needed: 1 Gait Assistive Device: FWW Pt. became fatigued during ambulation. Pt. needed rest break x2. Wheelchair Training Does the Pt Use a Wheelchair?: No Exercises Supine Ex: Ankle pumps, Quad Set, Glut sets, Straight leg raise, Hip abd/add Supine Reps: 10 Treatments Pt. ambulated >300 ft around hospital floor with rest break x2. Pt. ambulated back to room. Pt. then completed supine exercises such as quad sets, hip abd/add , glut sets, ankle pumps and straight leg raises. Pt. completed 10 reps of each B LE. Pt. used restroom independently before returning to bed to rest at end of tx. Pt. has all needs met. Assessment Current Status: Good Progress Pt. responded to treatment good. Pt. became fatigued during ambulation using FWW. Pt. will continue to benefit from therapy services to get back to functional living. PT Short Term Goals Short Term Goals Time Frame: Feb 20, 2019 Transfers (B,C,W/C) (FIM): 4 (met) Gait (FIM): 4 (met) Distance (FIM): 3=150 ft Gait Assistive Device: FWW Stairs (FIM): 2 (met) # of Steps: 4 PT [facility] Goals [facility] Goals PT [facility] Goals Time Frame: Mar 06, 2019 Transfers (B,C,W/C) (FIM): 6 Sit to Lying (QC): 6 Lying-Sitting on Side/Bed(QC): 6 Sit to Stand (QC): 6 Rollin Roll Left to Right (QC): 6 Chair/Qjj-mf-Bqtvj Xfer(QC): 6 Car Transfer (QC): 5 Does the Patient Walk: Yes Gait (FIM): 6 Gait distance (FIM): 3=150 ft Walk 10 feet (QC): 6 Walk 10ft-Uneven Surface(QC): 6 Walk 50ft with 2 Turns (QC): 6 Walk 150 ft (QC): 6 Gait Assistive Device: FWW Does the Pt use WC or Scooter?: No Stairs (FIM): 2 # of Steps: 4 1 Step (curb) (QC): 5 4 Steps (QC): 4 12 Steps (QC): 88 Picking up an Object (QC): 88 PT Plan Problem List Problem List: Activity Tolerance, Safety Treatment/Plan Treatment Plan: Continue Plan of Care Treatment Plan: Bed Mobility, Education, Functional Activity Carly[place], Functional Strength, Group Therapy, Gait, Safety, Therapeutic Exercise, Transfers Treatment Duration: Mar 06, 2019 Frequency: At least 5 of 7 days/Wk (IRF) Estimated Hrs Per Day: 1.5 hours per day Patient and/or Family Agrees t: Yes Safety Risks/Education Patient Education: Gait Training, Transfer Techniques, Correct Positioning, Safety Issues Teaching Recipient: Patient Teaching Methods: Discussion Response to Teaching: Verbalize Understanding Time/GCodes Time In: 1000 Time Out: 1100 Total Billed Treatment Time: 60 Total Billed Treatment 1, GT x2, FA, Ex G Codes Necessary: GABRIEL Roca TENNIS DIRECTOR Feb 20, 2019 11:07
--- NOTE | 2019-02-20 11:14 | Occupational Ther Daily Note ---
OT Current Status-Daily Note Subjective Pt sitting in chair, agrees to therapy. Mental Status/Objective Therapy Code Descriptions/Definitions Functional [place] Measure: 0=Not Assessed/NA 4=Minimal Assistance 1=Total Assistance 5=Supervision or Setup 2=Maximal Assistance 6=Modified [place] 3=Moderate Assistance 7=Complete [place] ADL-Treatment Pt agrees to shower today. Sit to stand from chair without assistance. Gait to restroom with FWW. Transfer to walk in shower with SBA, cues for safety. Seated bathing completed using hand held shower and long handled sponge. Pt able to wash all areas with cues for safety during lower body bathing. Don pullover shirt and back brace with set up. Pt used physicist cryogenics to start pants over feet. Stood with supervision for balance during pant hike. Pt donned socks with set up using sock aide. Transfer to toilet with modified independence. Pt able to complete toileting with SBA. Stood at sink to wash hands with modified independence. Pt requires occasional cues for safety and back precautions during ADL tasks. Pt's meal tray arrived. Pt able to open containers and feed self without assistance. Therapy Code Descriptions/Definitions Functional [place] Measure: 0=Not Assessed/NA 4=Minimal Assistance 1=Total Assistance 5=Supervision or Setup 2=Maximal Assistance 6=Modified [place] 3=Moderate Assistance 7=Complete [place] Therapy Quality Codes: 6 Independent with activity with or without an assistive device 5 Patient requires set up or clean up by helper. Patient completes activity by themselves 4 Supervision or touching assist (CGA). [place] provide cues , steadying assist 3 The helper provides less than half the effort to complete the activity 2 The helper provides more than half the effort to complete the activity 1 Dependent. The helper does all the effort to complete an activity 7 Patient refused to complete or attempt activity 9 The patient did not perform the activity before the current illness or injury 88 Not attempted due to Medical conditions or safety concerns Eating (FIM): 6 Eating (QC): 6 Bathing (FIM): 5 Upper Body (FIM): 5 Upper Body Dressing (QC): 5 Lower Body Dressing (FIM): 5 On/Off Footwear (QC): 5 Toileting (FIM): 5 Toilet/Commode Transfer (FIM): 5 Other Treatment Gait to therapy gym with FWW, no LOB noted. Pt completed arm bike activity x10 minutes to increase overall strength and activity tolerance needed for functional task completion. Pt performed activity with minimal resistance and slow pace. One brief rest break taken. Pt returned to room, transferred to bed. Resting in bed with needs met after session. OT Short Term Goals Short Term Goals Time Frame: Feb 13, 2019 Eating(FIM): 5 Grooming(FIM): 5 Bathing(FIM): 3 Upper Body Dressing(FIM): 4 Lower Body Dressing(FIM): 3 Toileting(FIM): 4 Transfers (B,C,W/C) (FIM): 4 (met) Toilet/Commode Transfer(FIM): 4 Shower Transfer(FIM): 4 Additional Short Term Goals: 1-Demonstrate ADL Tasks, 2-Verbalize Understanding , 3-ImproveStrength/Carlyle 1=Demonstrate adherence to instructed precautions during ADL tasks. 2=Patient will verbalize/demonstrate understanding of assistive devices/ modifications for ADL. 3=Patient will improve strength/tolerance for activity to enable patient to perform ADL's. OT Feed In Worker Goals Feed In Worker Goals Time Frame: Feb 27, 2019 Eating (FIM): 6 (met-02/18/2019) Eating (QC): 6 (met-02/18/2019) Groomin (met-02/18/2019) Oral Hygiene (QC): 6 (met-02/18/2019) Bathing(FIM): 5 Shower/Bathe Self (QC): 5 Upper Body Dressing(FIM): 6 Upper Body Dressing (QC): 6 Lower Body Dressing(FIM): 5 Lower Body Dressing (QC): 5 On/Off Footwear (QC): 5 Toileting(FIM): 6 Toileting Hygiene (QC): 6 Transfers (B,C,W/C) (FIM): 6 Toilet/Commode Transfer(FIM): 6 Toilet/Commode Transfer (QC): 6 Shower Transfer(FIM): 5 (met-02/18/2019) Comprehension(FIM): 6 Expression (FIM): 6 Social Interaction(FIM): 6 Problem Solving(FIM): 6 Memory(FIM): 6 Additional Goals: 1-Demonstrate ADL Tasks, 2-Verbalize Understanding, 3- ImproveStrength/Carlyle 1=Demonstrate adherence to instructed precautions during ADL tasks. 2=Patient will verbalize/demonstrate understanding of assistive devices/ modifications for ADL. 3=Patient will improve strength/tolerance for activity to enable patient to perform ADL's. OT Education/Plan Discharge Recommendations Plan/Recommendations: Continue POC Treatment Plan/Plan of Care Patient would benefit from OT for education, treatment and training to promote independence in ADL's, mobility, safety and/or upper extremity function for ADL' s. Plan of Care: ADL Retraining, Functional Mobility, Group Exercise/Act as Ind, UE Funct Exercise/Act Treatment Duration: Feb 27, 2019 Frequency: At least 5 of 7 days/Wk (IRF) Estimated Hrs Per Day: 1.5 hours per day Agreement: Yes Rehab Potential: Fair Time/GCodes Start Time: 08:00 Stop Time: 09:15 Total Time Billed (hr/min): 75 Billed Treatment Time 1 visit, ADLx4(60minutes), EX(15minutes) LUPE CASSIDY OT Feb 20, 2019 11:14
[2019-02-20] MEDS: ESOMEPRAZOLE 40 MG PO SCH (14:12)
--- NOTE | 2019-02-20 14:19 | Physical Therapy Daily Note ---
PT Daily Note-Current Subjective Pt laying Supine in bed upon arrival. Pt agrees to PT. Mental Status Patient Orientation: Person, Place, Situation Transfers Therapy Code Descriptions/Definitions Functional [place] Measure: 0=Not Assessed/NA 4=Minimal Assistance 1=Total Assistance 5=Supervision or Setup 2=Maximal Assistance 6=Modified [place] 3=Moderate Assistance 7=Complete [place] Therapy Quality Codes: 6 Independent with activity with or without an assistive device 5 Patient requires set up or clean up by helper. Patient completes activity by themselves 4 Supervision or touching assist (CGA). [place] provide cues , steadying assist 3 The helper provides less than half the effort to complete the activity 2 The helper provides more than half the effort to complete the activity 1 Dependent. The helper does all the effort to complete an activity 7 Patient refused to complete or attempt activity 9 The patient did not perform the activity before the current illness or injury 88 Not attempted due to Medical conditions or safety concerns Scootin Rollin Supine to/from Sit: 6 Sit to/from Stand: 6 Sit to Lying (QC): 6 Sit to Stand (QC): 6 Weight Bearing Right Lower Extremity: Right Full Weight Bearing Left Lower Extremity: Left Full Weight Bearing Back precautions; Breg brace on when up Gait Training Does the Patient Walk?: Yes Distance (FIM): 1=up to 49 ft Distance: 40' Walk 10 feet (QC): 6 Walk 50 ft with 2 Turns(QC): 6 Gait Assistive Device: FWW Treatments Pt transfers from bed to use restroom. Pt voices concern over wanting to DC and what else might she need to do to DC. MONOTYPER advised SW will visit with pt over status of DC. Assessment Current Status: Good Progress Pt is very anxious about DC and being ready. PT Short Term Goals Short Term Goals Time Frame: Feb 20, 2019 Transfers (B,C,W/C) (FIM): 4 (met) Gait (FIM): 4 (met) Distance (FIM): 3=150 ft Gait Assistive Device: FWW Stairs (FIM): 2 (met) # of Steps: 4 PT Residential Goals Residential Goals PT Residential Goals Time Frame: Mar 06, 2019 Transfers (B,C,W/C) (FIM): 6 Sit to Lying (QC): 6 Lying-Sitting on Side/Bed(QC): 6 Sit to Stand (QC): 6 Rollin Roll Left to Right (QC): 6 Chair/Tam-zf-Igtpm Xfer(QC): 6 Car Transfer (QC): 5 Does the Patient Walk: Yes Gait (FIM): 6 Gait distance (FIM): 3=150 ft Walk 10 feet (QC): 6 Walk 10ft-Uneven Surface(QC): 6 Walk 50ft with 2 Turns (QC): 6 Walk 150 ft (QC): 6 Gait Assistive Device: FWW Does the Pt use WC or Scooter?: No Stairs (FIM): 2 # of Steps: 4 1 Step (curb) (QC): 5 4 Steps (QC): 4 12 Steps (QC): 88 Picking up an Object (QC): 88 PT Plan Problem List Problem List: Activity Tolerance, Safety Treatment/Plan Treatment Plan: Continue Plan of Care Treatment Plan: Bed Mobility, Education, Functional Activity Carlyle, Functional Strength, Group Therapy, Gait, Safety, Therapeutic Exercise, Transfers Treatment Duration: Mar 06, 2019 Frequency: At least 5 of 7 days/Wk (IRF) Estimated Hrs Per Day: 1.5 hours per day Patient and/or Family Agrees t: Yes Safety Risks/Education Patient Education: Transfer Techniques, Correct Positioning, Safety Issues Teaching Recipient: Patient Teaching Methods: Discussion Response to Teaching: Verbalize Understanding Time/GCodes Time In: 1400 Time Out: 1415 Total Billed Treatment Time: 15 Total Billed Treatment 1, FA (15m) G Codes Necessary: GABRIEL Roca MONOTYPER Feb 20, 2019 14:19
--- NOTE | 2019-02-20 15:00 | NUR ---
CONFORMAL PAD FORMER attempted to meet with patient to review Team Conference Summary, but patient was resting. CONFORMAL PAD FORMER then contacted patient's sister to to review discharge recommendations. As patient continues to make progress, Team has recommended patient return home on 02/25 with PT, OT, and RN services, as well as increased home care hours through [facility]. Patient's sister is agreeable to plan. CONFORMAL PAD FORMER will review with patient when patient is awake
[2019-02-20] MEDS: buPROPion 75 MG (WELLBUTRIN) TAB PO SCH ×2 (16:54→21:13)
[2019-02-20] MEDS: ACETAMINOPHEN ER 650 MG TABLET PO SCH (16:55)
[2019-02-20] MEDS ORDERED: PATIENT MAY USE OWN MED,SINGLE MED PO SCH (17:00)
[2019-02-20 17:29] VITALS: BP 133/67
[2019-02-20] MEDS: DIVALPROEX 500 MG DELAYED RELEASE (DEPAKOTE) TAB PO SCH (21:13)
[2019-02-20] MEDS: traZODone 50 MG (DESYREL) TAB PO SCH (21:13)
[2019-02-20] MEDS: DIVALPROEX EXT RELEASE 250 MG (DEPAKOTE ER) TAB PO SCH (21:13)
[2019-02-20] MEDS: ESTROGENS CONJ 0.625 MG (PREMARIN) TAB PO SCH (21:13)
[2019-02-20] MEDS: CYCLOBENZAPRINE 10 MG (FLEXERIL) TAB PO SCH (21:13)
[2019-02-20] MEDS: JANUVIA 100 MG PO SCH (21:14)
[2019-02-21] MEDS: BACLOFEN 10 MG (LIORESAL) TAB PO PRN (03:30)
[2019-02-21 05:10] VITALS: BP 123/70
[2019-02-21] MEDS: LEVOTHYROXINE 50 MCG (LEVOTHROID) TAB PO SCH (06:22)
[2019-02-21] MEDS: inSUlin ASPART (NovoLOG) 1 UNIT/0.01 ML (CHARGE PER UNIT) SC SCH ×4 (06:26→21:10)
[2019-02-21] MEDS: DOCUSATE SODIUM 100 MG (COLACE) CAP PO SCH ×2 (08:14→21:10)
[2019-02-21] MEDS: DILTIAZEM 300 MG (CARDIZEM CD) CAP PO SCH (08:15)
[2019-02-21] MEDS: MAGNESIUM OXIDE (MAG-OX)400 MG TAB PO SCH (08:15)
[2019-02-21] MEDS: LOSARTAN 50 MG (COZAAR) TAB PO SCH (08:15)
[2019-02-21] MEDS: SPIRONOLACTONE 25 MG (ALDACTONE) TAB PO SCH (08:15)
[2019-02-21] MEDS: FUROSEMIDE 40 MG (LASIX) TAB PO SCH (08:15)
[2019-02-21] MEDS: ROSUVASTATIN 20 MG (CRESTOR) TABLET PO SCH (08:17)
[2019-02-21] MEDS: buPROPion XL 150 MG (WELLBUTRIN XL) NON-FORM PO SCH (08:19)
[2019-02-21] MEDS: ACETAMINOPHEN ER 650 MG TABLET PO SCH ×3 (08:20→16:25)
[2019-02-21 08:22] VITALS: BP 165/77
--- NOTE | 2019-02-21 08:39 | Occupational Ther Daily Note ---
OT Current Status-Daily Note Subjective Pt sleeping on L side in bed, slow to wake. Agrees to therapy after encouragement. No c/o pain at this time. Mental Status/Objective Patient Orientation: Person, Place, Time, Situation Therapy Code Descriptions/Definitions Functional [place] Measure: 0=Not Assessed/NA 4=Minimal Assistance 1=Total Assistance 5=Supervision or Setup 2=Maximal Assistance 6=Modified [place] 3=Moderate Assistance 7=Complete [place] ADL-Treatment Pt declines shower. Wants to change shirt, socks and complete grooming. Pt ambulated to bathroom using FWW and transferred to toilet with mod I. Pt able to complete own toileting using BSC, FWW and grabbar. Pt then completed grooming at sink by self. Pt then ambulated back to bed and attempted to don socks/shoes, unable to manipulate sock aide and requested assistance, assistance given. Pt then transferred to recliner to eat breakfast, mod I. Therapy Code Descriptions/Definitions Functional [place] Measure: 0=Not Assessed/NA 4=Minimal Assistance 1=Total Assistance 5=Supervision or Setup 2=Maximal Assistance 6=Modified [place] 3=Moderate Assistance 7=Complete [place] Therapy Quality Codes: 6 Independent with activity with or without an assistive device 5 Patient requires set up or clean up by helper. Patient completes activity by themselves 4 Supervision or touching assist (CGA). [place] provide cues , steadying assist 3 The helper provides less than half the effort to complete the activity 2 The helper provides more than half the effort to complete the activity 1 Dependent. The helper does all the effort to complete an activity 7 Patient refused to complete or attempt activity 9 The patient did not perform the activity before the current illness or injury 88 Not attempted due to Medical conditions or safety concerns Eating (FIM): 6 Eating (QC): 6 Grooming (FIM): 6 Oral Hygiene (QC): 6 Upper Body (FIM): 5 (After set up, pt dons/doffs back brace, bra and shirt by self.) Upper Body Dressing (QC): 5 On/Off Footwear (QC): 2 Toileting (FIM): 6 Toileting Hygiene (QC): 6 Toilet/Commode Transfer (FIM): 6 Toilet Transfer (QC): 6 Other Treatment Ambulated to therapy gym with FWW. Completed resistive fine motor activity with 1# wt attached to wrists to strengthen sprayer operator, pinch and B UE for daily functional tasks. Pt stated that she was getting tired and upper back had slight pain. Pt ambulated back to room and transferred into bed after therapy. Call light/phone in reach. All needs met in room. OT Short Term Goals Short Term Goals Time Frame: Feb 13, 2019 Eating(FIM): 5 Grooming(FIM): 5 Bathing(FIM): 3 Upper Body Dressing(FIM): 4 Lower Body Dressing(FIM): 3 Toileting(FIM): 4 Transfers (B,C,W/C) (FIM): 4 (met) Toilet/Commode Transfer(FIM): 4 Shower Transfer(FIM): 4 Additional Short Term Goals: 1-Demonstrate ADL Tasks, 2-Verbalize Understanding , 3-ImproveStrength/[place] 1=Demonstrate adherence to instructed precautions during ADL tasks. 2=Patient will verbalize/demonstrate understanding of assistive devices/ modifications for ADL. 3=Patient will improve strength/tolerance for activity to enable patient to perform ADL's. OT Day Care Provider Goals Assisted Goals Time Frame: Feb 27, 2019 Eating (FIM): 6 (met-02/18/2019) Eating (QC): 6 (met-02/18/2019) Groomin (met-02/18/2019) Oral Hygiene (QC): 6 (met-02/18/2019) Bathing(FIM): 5 Shower/Bathe Self (QC): 5 Upper Body Dressing(FIM): 6 Upper Body Dressing (QC): 6 Lower Body Dressing(FIM): 5 Lower Body Dressing (QC): 5 On/Off Footwear (QC): 5 Toileting(FIM): 6 Toileting Hygiene (QC): 6 Transfers (B,C,W/C) (FIM): 6 Toilet/Commode Transfer(FIM): 6 Toilet/Commode Transfer (QC): 6 Shower Transfer(FIM): 5 (met-02/18/2019) Comprehension(FIM): 6 Expression (FIM): 6 Social Interaction(FIM): 6 Problem Solving(FIM): 6 Memory(FIM): 6 Additional Goals: 1-Demonstrate ADL Tasks, 2-Verbalize Understanding, 3- ImproveStrength/[place] 1=Demonstrate adherence to instructed precautions during ADL tasks. 2=Patient will verbalize/demonstrate understanding of assistive devices/ modifications for ADL. 3=Patient will improve strength/tolerance for activity to enable patient to perform ADL's. OT Education/Plan Discharge Recommendations Plan/Recommendations: Continue POC Treatment Plan/Plan of Care Patient would benefit from OT for education, treatment and training to promote independence in ADL's, mobility, safety and/or upper extremity function for ADL' s. Plan of Care: ADL Retraining, Functional Mobility, Group Exercise/Act as Ind, UE Funct Exercise/Act Treatment Duration: Feb 27, 2019 Frequency: At least 5 of 7 days/Wk (IRF) Estimated Hrs Per Day: 1.5 hours per day Agreement: Yes Rehab Potential: Fair Time/GCodes Start Time: 08:00 Stop Time: 09:15 Total Time Billed (hr/min): 75 Billed Treatment Time 1 visit-ADL 5 (55 min) EX 1 (20 min) JUAQUIN DELEON Feb 21, 2019 08:39
--- NOTE | 2019-02-21 08:57 | PM&R Progress Note ---
Subjective HPI/CC On Admission Date Seen by Provider: Feb 21, 2019 Time Seen by Provider: 08:45 CC: Debility following extensive lumbar fusion surgery uncomplicated by Dr Alvarez Moya at [facility] POD # 2 HPI: This is a 73-year-old white female that presents to inpatient rehab due to severe debility following extensive lumbar fusion surgery uncomplicated by Dr. Moya at [facility] in [facility]. Her primary care provider is Linda oPnd in [facility]. Her pain is controlled but her right leg is sore during the transport from [place] to [facility] in [place]. She has had no complications during the hospital course at [facility] but continues to be a two-person assist and very slow recovery. Due to the fact of her multiple comorbidities in addition to dysphoria emotional problem she will need additional support provided at inpatient rehab with intensive therapies. She reports she has not had a bowel movement yet but she did receive a lot of medications which were laxatives and she wants to wait for any additional meds until in the morning and she is agreeable for suppository or enema. I reviewed all of her home medications and restarted every one of them per her home routine. Subjective/Events-last exam Patient preparing for discharge on Monday Working with occupational therapy for fine motor skills currently in the gym Ambulating very well Right leg pain that she had before is no longer an issue Bowels haven't moved for 4 days so we'll take medications today and feels like she will be successful Denies any other significant new issues Review of Systems General: Fatigue Musculoskeletal: back pain Objective Exam Vital Signs Vital Signs Date Time Temp Pulse Resp B/P (MAP) Pulse Ox O2 Delivery O2 Flow Rate FiO2 02/21/19 09:40 Room Air 02/21/19 08:22 77 165/77 (106) 02/21/19 05:10 96.7 18 96 Capillary Refill : General Appearance: No Apparent Distress, WD/WN, Chronically ill, Obese, Other (much improved 02/14/19) HEENT: PERRL/EOMI, Normal ENT Inspection, Pharynx Normal, Moist Mucous Membranes Neck: Full Range of Motion, Normal Inspection, Non Tender, Supple Respiratory: Chest Non Tender, Lungs Clear, Normal Breath Sounds, No Accessory Muscle Use, No Respiratory Distress Cardiovascular: Regular Rate, Rhythm, No Edema, No Gallop, No JVD, No Murmur Gastrointestinal: Normal Bowel Sounds, No Organomegaly, No Pulsatile Mass, Non Tender, Soft Back: Decreased Range of Motion (much improved today 02/21/19) Extremity: Normal Capillary Refill, Normal Inspection, Normal Range of Motion, Non Tender, No Calf Tenderness, No Pedal Edema Neurologic/Psychiatric: Alert, Oriented x3, No Motor/Sensory Deficits, Normal Mood/Affect Skin: Normal Color, Warm/Dry Lymphatic: No Adenopathy Results/Procedures Lab Patient resulted labs reviewed. Assessment/Plan Assessment and Plan Assess & Plan/Chief Complaint Assessment: Status post extensive lumbar fusion surgery uncomplicated by Dr. Moya POD#17 Bipolar disorder/dysphoria Obstructive sleep apnea Hypertension Hyperlipidemia GERD Chronic back pain Osteoarthritis Diabetes mellitus Hypothyroidism MRSA infection in the past Constipation resolved Slow recovery Plan: Home meds are reviewed in prep for DC Monday Emotional support has been successful Intensive therapies have been successful considering she is ambulating well Pain control with Ultram and refuses narcs now SSI Insulin maintained DC arrangements for Monday (1) S/P spinal fusion (2) PAO (obstructive sleep apnea) (3) Dysphoric mood (4) GERD (gastroesophageal reflux disease) (5) Hypothyroidism (6) Bipolar disorder (7) Diabetes mellitus (8) Constipation Clinical Quality Measures DVT/VTE Risk/Contraindication: Risk Factor Score Per Nursin RFS Level Per Nursing on Admit: 4+=Very High VAL GUADALUPE DO Feb 21, 2019 08:57
[2019-02-21] MEDS: POLYETHYLENE GLYCOL 17 GM (MIRALAX) PACK PO SCH ×2 (10:17→21:10)
--- NOTE | 2019-02-21 10:21 | Speech Therapy Daily Note ---
Speech Daily Progress Note Subjective Date Seen by Provider: Feb 21, 2019 Time Seen by Provider: 00:30 The patient was resting in her bed when I entered the room. Assessment Assessment Current Status: Good Progress Patient completed problem solving tasks related to her return to home with 80% accuracy given minimal cues. The patient self corrected, however the frequency was less. Treatment Plan Continue Plan of Care Communication Comprehension: 7 Expression: 6 Social Cognition Social Interaction: 6 Problem Solvin Memory: 6 Speech Short Term Goals Short Term Goals Short Term Goals 1) The patient will demonstrate simple problem solving (verbal/visual) with 80% accuracy, min to mod cues. 2) The patient will demonstrate sustained attention for task performance with 80 % accuracy, min to mod cues. 3) The patient will demonstrate sequencing for ADL's with 80% accuracy, min to mod cues. Speech Mcfp Goals Mcfp Goals The patient will improve skills necessary for ADL's and safety in the home with minimal assist. Comprehension: 6 Expression: 6 Social Interaction: 6 Problem Solvin Memory: 6 Speech-Plan Patient/Family Goals Patient/Family Goals: Patient plans to return home on 02/25/19 where she lives with her sister. She will receive in home services when she returns home. Treatment Plan Speech Therapy Treatment Plan: Continue Plan of Care The patient has progressed well as a result of skilled ST services. Treatment Duration: Feb 18, 2019 Frequency: 4 times per week Estimated Hrs Per Day: .5 hour per day Rehab Potential: Fair Barriers to Learning: Patient has memory and problem solving deficits. Pt/Family Agrees to Plan: Yes Safety Risks/Education Teaching Recipient: Patient Teaching Methods: Discussion Response to Teaching: Verbalize Understanding Education Topics Provided: Safety when she returns home. Time Speech Therapy Time In: 09:30 Speech Therapy Time Out: 10:00 Total Billed Time: 30 Billed Treatment Time 1, ALFRED West Feb 21, 2019 10:21
--- NOTE | 2019-02-21 10:44 | Physical Therapy Daily Note ---
PT Daily Note-Current Subjective Pt. was in bed upon arrival. Pt. agreed to therapy treatment. Pt. didn't report any pain. Mental Status Patient Orientation: Person, Place, Situation Attachments: Other-See Comments (Back Brace) Transfers Therapy Code Descriptions/Definitions Functional [place] Measure: 0=Not Assessed/NA 4=Minimal Assistance 1=Total Assistance 5=Supervision or Setup 2=Maximal Assistance 6=Modified [place] 3=Moderate Assistance 7=Complete [place] Therapy Quality Codes: 6 Independent with activity with or without an assistive device 5 Patient requires set up or clean up by helper. Patient completes activity by themselves 4 Supervision or touching assist (CGA). [place] provide cues , steadying assist 3 The helper provides less than half the effort to complete the activity 2 The helper provides more than half the effort to complete the activity 1 Dependent. The helper does all the effort to complete an activity 7 Patient refused to complete or attempt activity 9 The patient did not perform the activity before the current illness or injury 88 Not attempted due to Medical conditions or safety concerns Scootin Supine to/from Sit: 5 Sit to/from Stand: 5 Sit to Lying (QC): 5 Sit to Stand (QC): 5 Weight Bearing Right Lower Extremity: Right Full Weight Bearing Left Lower Extremity: Left Full Weight Bearing Back precautions; Breg brace on when up Gait Training Does the Patient Walk?: Yes Distance (FIM): 3=150 ft Distance: >500' Walk 10 feet (QC): 5 Walk 50 ft with 2 Turns(QC): 5 Walk 150 ft (QC): 5 Gait Level of Assist: 5 Gait Persons Needed: 1 Gait Assistive Device: FWW Pt fatigues and occasionally needs rest break. Wheelchair Training Does the Pt Use a Wheelchair?: No Exercises Seated Therapy Exercises: Ankle pumps, Long arc quads, Hip flexion, Kicking activity, Hip abd/add Seated Reps: 10 Treatments Pt transfers and ambulates in hallway using FWW at SBA. Pt completes Seated Ex at EOB. Pt resting Supine in bed after using restroom. Assessment Current Status: Good Progress Pt self limits at times and is anxious, needing reassurance to continue to push self to improve. PT Short Term Goals Short Term Goals Time Frame: Feb 20, 2019 Transfers (B,C,W/C) (FIM): 4 (met) Gait (FIM): 4 (met) Distance (FIM): 3=150 ft Gait Assistive Device: FWW Stairs (FIM): 2 (met) # of Steps: 4 PT Sales Representative Trainee Goals Nursing Home Goals PT Sales Representative Trainee Goals Time Frame: Mar 06, 2019 Transfers (B,C,W/C) (FIM): 6 Sit to Lying (QC): 6 Lying-Sitting on Side/Bed(QC): 6 Sit to Stand (QC): 6 Rollin Roll Left to Right (QC): 6 Chair/Idn-ni-Ppoih Xfer(QC): 6 Car Transfer (QC): 5 Does the Patient Walk: Yes Gait (FIM): 6 Gait distance (FIM): 3=150 ft Walk 10 feet (QC): 6 Walk 10ft-Uneven Surface(QC): 6 Walk 50ft with 2 Turns (QC): 6 Walk 150 ft (QC): 6 Gait Assistive Device: FWW Does the Pt use WC or Scooter?: No Stairs (FIM): 2 # of Steps: 4 1 Step (curb) (QC): 5 4 Steps (QC): 4 12 Steps (QC): 88 Picking up an Object (QC): 88 PT Plan Problem List Problem List: Activity Tolerance, Safety Treatment/Plan Treatment Plan: Continue Plan of Care Treatment Plan: Bed Mobility, Education, Functional Activity [place], Functional Strength, Group Therapy, Gait, Safety, Therapeutic Exercise, Transfers Treatment Duration: Mar 06, 2019 Frequency: At least 5 of 7 days/Wk (IRF) Estimated Hrs Per Day: 1.5 hours per day Patient and/or Family Agrees t: Yes Safety Risks/Education Patient Education: Safety Issues Teaching Recipient: Patient Teaching Methods: Discussion Response to Teaching: Verbalize Understanding Time/GCodes Time In: 1000 Time Out: 1045 Total Billed Treatment Time: 45 Total Billed Treatment 1, GT (20m), FA (10m) & EX (15m) G Codes Necessary: No GABRIEL FLANAGAN FAMILY MEMBER CARETAKER Feb 21, 2019 10:44
--- NOTE | 2019-02-21 14:56 | Physical Therapy Daily Note ---
PT Daily Note-Current Subjective Pt. was sitting in chair upon arrival. Pt. agreed to therapy treatment. Pt. complained of no pain. Transfers Therapy Code Descriptions/Definitions Functional [place] Measure: 0=Not Assessed/NA 4=Minimal Assistance 1=Total Assistance 5=Supervision or Setup 2=Maximal Assistance 6=Modified [place] 3=Moderate Assistance 7=Complete [place] Therapy Quality Codes: 6 Independent with activity with or without an assistive device 5 Patient requires set up or clean up by helper. Patient completes activity by themselves 4 Supervision or touching assist (CGA). [place] provide cues , steadying assist 3 The helper provides less than half the effort to complete the activity 2 The helper provides more than half the effort to complete the activity 1 Dependent. The helper does all the effort to complete an activity 7 Patient refused to complete or attempt activity 9 The patient did not perform the activity before the current illness or injury 88 Not attempted due to Medical conditions or safety concerns Transfers (B, C, W/C) (FIM): 6 Sit to/from Stand: 6 Sit to Stand (QC): 6 Weight Bearing Right Lower Extremity: Right Full Weight Bearing Left Lower Extremity: Left Full Weight Bearing Back precautions; Breg brace on when up Gait Training Does the Patient Walk?: Yes Distance (FIM): 3=150 ft Distance: 250' Gait Level of Assist: 6 Gait Persons Needed: 1 Gait Assistive Device: FWW Exercises NuStep Minutes: 15 NuStep Workload: 4 Treatments Pt. transferred from chair and ambulated to therapy room. Pt. then rode Nustep x 15 min on work load 4. Pt. then ambulated back to hospital room. Pt. left at EOB with needs met. Assessment Current Status: Good Progress Pt. responded to treatment well. PT Short Term Goals Short Term Goals Time Frame: Feb 20, 2019 Transfers (B,C,W/C) (FIM): 4 (met) Gait (FIM): 4 (met) Distance (FIM): 3=150 ft Gait Assistive Device: FWW Stairs (FIM): 2 (met) # of Steps: 4 PT Assisted Goals Administrative Assistant Data Entry Goals PT Administrative Assistant Data Entry Goals Time Frame: Mar 06, 2019 Transfers (B,C,W/C) (FIM): 6 Sit to Lying (QC): 6 Lying-Sitting on Side/Bed(QC): 6 Sit to Stand (QC): 6 Rollin Roll Left to Right (QC): 6 Chair/Jyo-ob-Izkuf Xfer(QC): 6 Car Transfer (QC): 5 Does the Patient Walk: Yes Gait (FIM): 6 Gait distance (FIM): 3=150 ft Walk 10 feet (QC): 6 Walk 10ft-Uneven Surface(QC): 6 Walk 50ft with 2 Turns (QC): 6 Walk 150 ft (QC): 6 Gait Assistive Device: FWW Does the Pt use WC or Scooter?: No Stairs (FIM): 2 # of Steps: 4 1 Step (curb) (QC): 5 4 Steps (QC): 4 12 Steps (QC): 88 Picking up an Object (QC): 88 PT Plan Treatment/Plan Treatment Plan: Continue Plan of Care Treatment Plan: Bed Mobility, Education, Functional Activity [place], Functional Strength, Group Therapy, Gait, Safety, Therapeutic Exercise, Transfers Treatment Duration: Mar 06, 2019 Frequency: At least 5 of 7 days/Wk (IRF) Estimated Hrs Per Day: 1.5 hours per day Patient and/or Family Agrees t: Yes Time/GCodes Time In: 1400 Time Out: 1430 Total Billed Treatment Time: 30 Total Billed Treatment 1, GT, EX G Codes Necessary: No GABRIEL FLANAGAN ASSISTANT FOOD SERVICE MANAGER Feb 21, 2019 14:56
[2019-02-21] MEDS: ESOMEPRAZOLE 40 MG PO SCH (16:24)
[2019-02-21] MEDS: buPROPion 75 MG (WELLBUTRIN) TAB PO SCH ×2 (16:24→21:06)
[2019-02-21 16:26] VITALS: BP 159/78
--- NOTE | 2019-02-21 20:45 | NUR ---
430p-DIRECTOR GLOBAL DEVELOPMENT met with patient to review team conference summary and discuss discharge recommendations. Patient is pleased with therapy progress and pain management and remains in agreement with returning home on 02/25 with appropriate home care and home health services. DIRECTOR GLOBAL DEVELOPMENT will reach out to [facility] and [facility] to resume services.
[2019-02-21] MEDS: traZODone 50 MG (DESYREL) TAB PO SCH (21:06)
[2019-02-21] MEDS: DIVALPROEX 500 MG DELAYED RELEASE (DEPAKOTE) TAB PO SCH (21:06)
[2019-02-21] MEDS: DIVALPROEX EXT RELEASE 250 MG (DEPAKOTE ER) TAB PO SCH (21:06)
[2019-02-21] MEDS: CYCLOBENZAPRINE 10 MG (FLEXERIL) TAB PO SCH (21:06)
[2019-02-21] MEDS: ESTROGENS CONJ 0.625 MG (PREMARIN) TAB PO SCH (21:06)
[2019-02-21] MEDS: JANUVIA 100 MG PO SCH (21:07)
[2019-02-22] MEDS: BACLOFEN 10 MG (LIORESAL) TAB PO PRN ×2 (04:53→17:34)
[2019-02-22] MEDS: LEVOTHYROXINE 50 MCG (LEVOTHROID) TAB PO SCH (04:53)
[2019-02-22] MEDS: inSUlin ASPART (NovoLOG) 1 UNIT/0.01 ML (CHARGE PER UNIT) SC SCH ×4 (05:01→21:48)
[2019-02-22 05:03] VITALS: BP 151/75
--- NOTE | 2019-02-22 08:33 | Occupational Ther Daily Note ---
OT Current Status-Daily Note Subjective Pt lying in bed, woke to name. Pt agrees to therapy. No c/o pain at this time. Pt anxious about HHC and when they will be coming to the house on . SHEIKH discussed need for reassessment on Monday for discharge and that pt will not have to do the full 3 hours of therapy. Mental Status/Objective Patient Orientation: Person, Place, Time, Situation Therapy Code Descriptions/Definitions Functional [place] Measure: 0=Not Assessed/NA 4=Minimal Assistance 1=Total Assistance 5=Supervision or Setup 2=Maximal Assistance 6=Modified [place] 3=Moderate Assistance 7=Complete [place] ADL-Treatment Therapy Code Descriptions/Definitions Functional [place] Measure: 0=Not Assessed/NA 4=Minimal Assistance 1=Total Assistance 5=Supervision or Setup 2=Maximal Assistance 6=Modified [place] 3=Moderate Assistance 7=Complete [place] Therapy Quality Codes: 6 Independent with activity with or without an assistive device 5 Patient requires set up or clean up by helper. Patient completes activity by themselves 4 Supervision or touching assist (CGA). [place] provide cues , steadying assist 3 The helper provides less than half the effort to complete the activity 2 The helper provides more than half the effort to complete the activity 1 Dependent. The helper does all the effort to complete an activity 7 Patient refused to complete or attempt activity 9 The patient did not perform the activity before the current illness or injury 88 Not attempted due to Medical conditions or safety concerns Eating (FIM): 6 (Partial dentures. Pt able to set own self up to eat and use regular utensils.) Eating (QC): 6 Grooming (FIM): 6 (Sitting at the sink, pt able to complet by self.) Oral Hygiene (QC): 6 Toileting (FIM): 6 (Using grabbar and BSC, pt able to complete by self.) Toileting Hygiene (QC): 6 Transfers (B, C, W/C) (FIM): 6 (Using FWW, pt able to complete.) Toilet/Commode Transfer (FIM): 6 (Using FWW, grabbars and BSC pt able to complete by self.) Toilet Transfer (QC): 6 Other Treatment Pt continues to be apprehensive about scheduling HHC, going home and sister. SHEIKH and pt discussed schedules and expectations of each situation. Pt verbalized a decrease in anxiety after discussions. Pt complete UE theraband exercises with skilled instructions. Pt continues to need cues for correct technique and to monitor if causing discomfort/pain at surgical site. Pt then ambulated with FWW to [facility]. PT took over care in [facility]. All needs met. OT Short Term Goals Short Term Goals Time Frame: Feb 13, 2019 Eating(FIM): 5 Grooming(FIM): 5 Bathing(FIM): 3 Upper Body Dressing(FIM): 4 Lower Body Dressing(FIM): 3 Toileting(FIM): 4 Transfers (B,C,W/C) (FIM): 4 (met) Toilet/Commode Transfer(FIM): 4 Shower Transfer(FIM): 4 Additional Short Term Goals: 1-Demonstrate ADL Tasks, 2-Verbalize Understanding , 3-ImproveStrength/[place] 1=Demonstrate adherence to instructed precautions during ADL tasks. 2=Patient will verbalize/demonstrate understanding of assistive devices/ modifications for ADL. 3=Patient will improve strength/tolerance for activity to enable patient to perform ADL's. OT Quality Assurance Consultant Goals Quality Assurance Consultant Goals Time Frame: Feb 27, 2019 Eating (FIM): 6 (met-02/18/2019) Eating (QC): 6 (met-02/18/2019) Groomin (met-02/18/2019) Oral Hygiene (QC): 6 (met-02/18/2019) Bathing(FIM): 5 Shower/Bathe Self (QC): 5 Upper Body Dressing(FIM): 6 Upper Body Dressing (QC): 6 Lower Body Dressing(FIM): 5 Lower Body Dressing (QC): 5 On/Off Footwear (QC): 5 Toileting(FIM): 6 Toileting Hygiene (QC): 6 Transfers (B,C,W/C) (FIM): 6 Toilet/Commode Transfer(FIM): 6 Toilet/Commode Transfer (QC): 6 Shower Transfer(FIM): 5 (met-02/18/2019) Comprehension(FIM): 6 Expression (FIM): 6 Social Interaction(FIM): 6 Problem Solving(FIM): 6 Memory(FIM): 6 Additional Goals: 1-Demonstrate ADL Tasks, 2-Verbalize Understanding, 3- ImproveStrength/[place] 1=Demonstrate adherence to instructed precautions during ADL tasks. 2=Patient will verbalize/demonstrate understanding of assistive devices/ modifications for ADL. 3=Patient will improve strength/tolerance for activity to enable patient to perform ADL's. OT Education/Plan Problem List/Assessment Assessment: Decreased Activ Tolerance, Decreased UE Strength, Impaired Self- Care Skills Discharge Recommendations Plan/Recommendations: Continue POC Treatment Plan/Plan of Care Patient would benefit from OT for education, treatment and training to promote independence in ADL's, mobility, safety and/or upper extremity function for ADL' s. Plan of Care: ADL Retraining, Functional Mobility, Group Exercise/Act as Ind, UE Funct Exercise/Act Treatment Duration: Feb 27, 2019 Frequency: At least 5 of 7 days/Wk (IRF) Estimated Hrs Per Day: 1.5 hours per day Agreement: Yes Rehab Potential: Fair Time/GCodes Start Time: 08:00 Stop Time: 09:15 Total Time Billed (hr/min): 75 Billed Treatment Time 1 visit-ADL 2 (30 min) FA 2 (35 min) EX 1 (10 min) JUAQUIN DELEON Feb 22, 2019 08:33
--- NOTE | 2019-02-22 08:54 | PM&R Progress Note ---
Subjective HPI/CC On Admission Date Seen by Provider: Feb 22, 2019 Time Seen by Provider: 08:35 CC: Debility following extensive lumbar fusion surgery uncomplicated by Dr Alvarez Moya at [facility] POD # 2 HPI: This is a 73-year-old white female that presents to inpatient rehab due to severe debility following extensive lumbar fusion surgery uncomplicated by Dr. Moya at [facility] in [facility]. Her primary care provider is Linda Pond in [facility]. Her pain is controlled but her right leg is sore during the transport from [place] to [facility] in [place]. She has had no complications during the hospital course at [facility] but continues to be a two-person assist and very slow recovery. Due to the fact of her multiple comorbidities in addition to dysphoria emotional problem she will need additional support provided at inpatient rehab with intensive therapies. She reports she has not had a bowel movement yet but she did receive a lot of medications which were laxatives and she wants to wait for any additional meds until in the morning and she is agreeable for suppository or enema. I reviewed all of her home medications and restarted every one of them per her home routine. Subjective/Events-last exam Patient doing very well Discharge planned for Monday Denied any pain currently Still wearing a back brace Bowels are moving now and holding Colace Compliant with therapies Going home with sister Review of Systems General: Fatigue Objective Exam Vital Signs Vital Signs Date Time Temp Pulse Resp B/P (MAP) Pulse Ox O2 Delivery O2 Flow Rate FiO2 02/22/19 05:03 97.6 81 18 151/75 (100) 96 Room Air Capillary Refill : General Appearance: No Apparent Distress, WD/WN, Chronically ill, Obese, Other (much improved 02/14/19) HEENT: PERRL/EOMI, Normal ENT Inspection, Pharynx Normal, Moist Mucous Membranes Neck: Full Range of Motion, Normal Inspection, Non Tender, Supple Respiratory: Chest Non Tender, Lungs Clear, Normal Breath Sounds, No Accessory Muscle Use, No Respiratory Distress Cardiovascular: Regular Rate, Rhythm, No Edema, No Gallop, No JVD, No Murmur Gastrointestinal: Normal Bowel Sounds, No Organomegaly, No Pulsatile Mass, Non Tender, Soft Back: Decreased Range of Motion (much improved today 02/21/19) Extremity: Normal Capillary Refill, Normal Inspection, Normal Range of Motion, Non Tender, No Calf Tenderness, No Pedal Edema Neurologic/Psychiatric: Alert, Oriented x3, No Motor/Sensory Deficits, Normal Mood/Affect Skin: Normal Color, Warm/Dry Lymphatic: No Adenopathy Results/Procedures Lab Patient resulted labs reviewed. Assessment/Plan Assessment and Plan Assess & Plan/Chief Complaint Assessment: Status post extensive lumbar fusion surgery uncomplicated by Dr. Moya POD#18 Bipolar disorder/dysphoria Obstructive sleep apnea Hypertension Hyperlipidemia GERD Chronic back pain Osteoarthritis Diabetes mellitus Hypothyroidism MRSA infection in the past Constipation resolved Slow recovery Plan: Home meds are reviewed in prep for DC Monday Emotional support has been successful Intensive therapies have been successful considering she is ambulating well Pain control with Ultram and refuses narcs now SSI Insulin maintained DC arrangements for Monday (1) S/P spinal fusion (2) PAO (obstructive sleep apnea) (3) Dysphoric mood (4) GERD (gastroesophageal reflux disease) (5) Hypothyroidism (6) Bipolar disorder (7) Diabetes mellitus (8) Constipation Clinical Quality Measures DVT/VTE Risk/Contraindication: Risk Factor Score Per Nursin RFS Level Per Nursing on Admit: 4+=Very High AVL GUADALUPE DO Feb 22, 2019 08:54
[2019-02-22] MEDS: FUROSEMIDE 40 MG (LASIX) TAB PO SCH (08:59)
[2019-02-22] MEDS: SPIRONOLACTONE 25 MG (ALDACTONE) TAB PO SCH (08:59)
[2019-02-22] MEDS: LOSARTAN 50 MG (COZAAR) TAB PO SCH (08:59)
[2019-02-22] MEDS: DILTIAZEM 300 MG (CARDIZEM CD) CAP PO SCH (08:59)
[2019-02-22] MEDS: ROSUVASTATIN 20 MG (CRESTOR) TABLET PO SCH (08:59)
[2019-02-22] MEDS: MAGNESIUM OXIDE (MAG-OX)400 MG TAB PO SCH (08:59)
[2019-02-22] MEDS: buPROPion XL 150 MG (WELLBUTRIN XL) NON-FORM PO SCH (09:00)
[2019-02-22] MEDS: DOCUSATE SODIUM 100 MG (COLACE) CAP PO SCH ×2 (09:00→20:09)
[2019-02-22] MEDS: POLYETHYLENE GLYCOL 17 GM (MIRALAX) PACK PO SCH ×2 (09:00→20:09)
[2019-02-22] MEDS: ACETAMINOPHEN ER 650 MG TABLET PO SCH ×3 (09:01→17:35)
--- NOTE | 2019-02-22 10:30 | Physical Therapy Daily Note ---
PT Daily Note-Current Subjective Pt. agrees to Rx. Pt. c/o pain in right buttock that initiated with LE exercises. Pt. did not c/o further pain when encouraged to continue to move and stretch Pain Comment: pt. did not rate pain Mental Status Patient Orientation: Person, Time pt. forgets the name of the facility she is in as well as the city Transfers Therapy Code Descriptions/Definitions Functional [place] Measure: 0=Not Assessed/NA 4=Minimal Assistance 1=Total Assistance 5=Supervision or Setup 2=Maximal Assistance 6=Modified [place] 3=Moderate Assistance 7=Complete [place] Therapy Quality Codes: 6 Independent with activity with or without an assistive device 5 Patient requires set up or clean up by helper. Patient completes activity by themselves 4 Supervision or touching assist (CGA). [place] provide cues , steadying assist 3 The helper provides less than half the effort to complete the activity 2 The helper provides more than half the effort to complete the activity 1 Dependent. The helper does all the effort to complete an activity 7 Patient refused to complete or attempt activity 9 The patient did not perform the activity before the current illness or injury 88 Not attempted due to Medical conditions or safety concerns Transfers (B, C, W/C) (FIM): 6 Scootin Rollin Supine to/from Sit: 6 Sit to/from Stand: 6 Bed to/from Chair: 6 pt. did car TRF SBA and safety reminders Weight Bearing Right Lower Extremity: Right Full Weight Bearing Left Lower Extremity: Left Full Weight Bearing Back precautions; Breg brace on when up Gait Training Does the Patient Walk?: Yes Gait (FIM): 5 Distance (FIM): 3=150 ft (175x3) Gait Level of Assist: 5 Gait Persons Needed: 1 Gait Assistive Device: FWW pt. has not had LOB but requires SBA for supervision and direction Stair Training Stair Training: Handrails/: 2 handrails Stairs (FIM): 2 #of Steps: 4 Stairs: Pattern: Step to Level of Assist: 4 needs direction and instruction for sequence Exercises Supine Ex: Ankle pumps, Quad Set, Rolling, Glut sets, Heel Slides, Short Arc Quads, Scooting, Hip abd/add Supine Reps: 15 Seated Therapy Exercises: Ankle pumps, Sit to stand, Long arc quads, Hip flexion, Hip abd/add Seated Reps: 12 Standing: Hip Abduction, Hamstring curls, Heel/toe raises, Marching Standing Reps: 15 NuStep Minutes: 10 NuStep Workload: 4 Treatments toileted indep Assessment Current Status: Good Progress PT Short Term Goals Short Term Goals Time Frame: Feb 20, 2019 Transfers (B,C,W/C) (FIM): 4 (met) Gait (FIM): 4 (met) Distance (FIM): 3=150 ft Gait Assistive Device: FWW Stairs (FIM): 2 (met) # of Steps: 4 PT Paper Final Inspector Goals Paper Final Inspector Goals PT Residential Goals Time Frame: Mar 06, 2019 Transfers (B,C,W/C) (FIM): 6 Sit to Lying (QC): 6 Lying-Sitting on Side/Bed(QC): 6 Sit to Stand (QC): 6 Rollin Roll Left to Right (QC): 6 Chair/Ham-qt-Uehgu Xfer(QC): 6 Car Transfer (QC): 5 Does the Patient Walk: Yes Gait (FIM): 6 Gait distance (FIM): 3=150 ft Walk 10 feet (QC): 6 Walk 10ft-Uneven Surface(QC): 6 Walk 50ft with 2 Turns (QC): 6 Walk 150 ft (QC): 6 Gait Assistive Device: FWW Does the Pt use WC or Scooter?: No Stairs (FIM): 2 # of Steps: 4 1 Step (curb) (QC): 5 4 Steps (QC): 4 12 Steps (QC): 88 Picking up an Object (QC): 88 PT Plan Treatment/Plan Treatment Plan: Continue Plan of Care Treatment Plan: Bed Mobility, Education, Functional Activity [place], Functional Strength, Group Therapy, Gait, Safety, Therapeutic Exercise, Transfers Treatment Duration: Mar 06, 2019 Frequency: At least 5 of 7 days/Wk (IRF) Estimated Hrs Per Day: 1.5 hours per day Patient and/or Family Agrees t: Yes Safety Risks/Education Patient Education: Gait Training, Transfer Techniques, Steps, Correct Positioning, Safety Issues Teaching Recipient: Patient Teaching Methods: Demonstration, Discussion Response to Teaching: Verbalize Understanding, Return Demonstration, Reinforcement Needed Time/GCodes Time In: 915 Time Out: 1030 Total Billed Treatment Time: 75 Total Billed Treatment 1, EX25m,FA20m,GT30m G Codes Necessary: No KINA RODRIGUEZ RD LAB TECHNICIAN Feb 22, 2019 10:30
--- NOTE | 2019-02-22 10:36 | NUR ---
PT CONTINUES TO EAT WELL, 100% MEALS. WEIGHT DOWN SLIGHTLY AND GLUCOSE SLIGHTLY MORE CONTROLLED. INTAKE MEETING NEEDS AT THIS TIME. CONT SAME.
--- NOTE | 2019-02-22 14:15 | Speech Therapy Daily Note ---
Speech Daily Progress Note Subjective Date Seen by Provider: Feb 22, 2019 Time Seen by Provider: 00:30 The patient was sitting in her chair listening to music on her phone when I entered her room. Objective The patient completed problem solving tasks/scenarios which she may encounter when she returns home following rehab. Assessment Assessment Current Status: Good Progress Treatment Plan Continue Plan of Care Communication Comprehension: 7 Expression: 6 Social Cognition Social Interaction: 6 Problem Solvin Memory: 6 Speech Short Term Goals Short Term Goals Short Term Goals 1) The patient will demonstrate simple problem solving (verbal/visual) with 80% accuracy, min to mod cues. 2) The patient will demonstrate sustained attention for task performance with 80 % accuracy, min to mod cues. 3) The patient will demonstrate sequencing for ADL's with 80% accuracy, min to mod cues. Speech Mcfp Goals Jewel Bearing Maker Goals The patient will improve skills necessary for ADL's and safety in the home with minimal assist. Comprehension: 6 Expression: 6 Social Interaction: 6 Problem Solvin Memory: 6 Speech-Plan Patient/Family Goals Patient/Family Goals: Patient will be returning home on 02/25/19 where she lives with her sister. She will have home health and home care providers. Treatment Plan Speech Therapy Treatment Plan: Continue Plan of Care The patient has made good progress as a result of skilled ST services. Treatment Duration: Feb 25, 2019 Frequency: 5 times per week Estimated Hrs Per Day: .5 hour per day Rehab Potential: Fair Barriers to Learning: Patient has problem solving and memory deficits. Pt/Family Agrees to Plan: Yes Safety Risks/Education Teaching Recipient: Patient Teaching Methods: Discussion Response to Teaching: Verbalize Understanding Education Topics Provided: Safety upon her return home. Time Speech Therapy Time In: 11:00 Speech Therapy Time Out: 11:30 Total Billed Time: 30 Billed Treatment Time 1, ALFRED West Feb 22, 2019 14:15
--- NOTE | 2019-02-22 14:22 | Physical Therapy Daily Note ---
PT Daily Note-Current Subjective Pt. wants to discuss her routine at home as well and inquires as to whether she can move about her room ad giulia and without a FWW. Long discussion and education regarding safety and the stress on her low back if she does not use FWW. This CORPORATE ANALYST was also paulette about pts. lack of memory and inability to sequence and problem solve. Pt. agrees to call for help when she wants to get up to use her FWW at home. Transfers Therapy Code Descriptions/Definitions Functional [place] Measure: 0=Not Assessed/NA 4=Minimal Assistance 1=Total Assistance 5=Supervision or Setup 2=Maximal Assistance 6=Modified [place] 3=Moderate Assistance 7=Complete [place] Therapy Quality Codes: 6 Independent with activity with or without an assistive device 5 Patient requires set up or clean up by helper. Patient completes activity by themselves 4 Supervision or touching assist (CGA). [place] provide cues , steadying assist 3 The helper provides less than half the effort to complete the activity 2 The helper provides more than half the effort to complete the activity 1 Dependent. The helper does all the effort to complete an activity 7 Patient refused to complete or attempt activity 9 The patient did not perform the activity before the current illness or injury 88 Not attempted due to Medical conditions or safety concerns scoots up in bed and sup to side to sit and back indep Weight Bearing Right Lower Extremity: Right Full Weight Bearing Left Lower Extremity: Left Full Weight Bearing Back precautions; Breg brace on when up Assessment Current Status: Good Progress PT Short Term Goals Short Term Goals Time Frame: Feb 20, 2019 Transfers (B,C,W/C) (FIM): 4 (met) Gait (FIM): 4 (met) Distance (FIM): 3=150 ft Gait Assistive Device: FWW Stairs (FIM): 2 (met) # of Steps: 4 PT Senior Care Goals Jawbone Breaker Goals PT Jawbone Breaker Goals Time Frame: Mar 06, 2019 Transfers (B,C,W/C) (FIM): 6 Sit to Lying (QC): 6 Lying-Sitting on Side/Bed(QC): 6 Sit to Stand (QC): 6 Rollin Roll Left to Right (QC): 6 Chair/Ahl-jh-Gszcu Xfer(QC): 6 Car Transfer (QC): 5 Does the Patient Walk: Yes Gait (FIM): 6 Gait distance (FIM): 3=150 ft Walk 10 feet (QC): 6 Walk 10ft-Uneven Surface(QC): 6 Walk 50ft with 2 Turns (QC): 6 Walk 150 ft (QC): 6 Gait Assistive Device: FWW Does the Pt use WC or Scooter?: No Stairs (FIM): 2 # of Steps: 4 1 Step (curb) (QC): 5 4 Steps (QC): 4 12 Steps (QC): 88 Picking up an Object (QC): 88 PT Plan Treatment/Plan Treatment Plan: Continue Plan of Care Treatment Plan: Bed Mobility, Education, Functional Activity [place], Functional Strength, Group Therapy, Gait, Safety, Therapeutic Exercise, Transfers Treatment Duration: Mar 06, 2019 Frequency: At least 5 of 7 days/Wk (IRF) Estimated Hrs Per Day: 1.5 hours per day Patient and/or Family Agrees t: Yes Safety Risks/Education Patient Education: Transfer Techniques, Correct Positioning, Disease Process, Safety Issues Teaching Recipient: Patient Teaching Methods: Demonstration, Discussion Response to Teaching: Verbalize Understanding, Return Demonstration, Reinforcement Needed Time/GCodes Time In: 1400 Time Out: 1415 Total Billed Treatment Time: 15 Total Billed Treatment 1,FA15m G Codes Necessary: KINA Connors CORPORATE ANALYST Feb 22, 2019 14:22
--- NOTE | 2019-02-22 14:38 | NUR ---
MANAGER COMBINATION sent updated clinical information to [facility] home care and home health services to anticipate discharge on Sunday 02/25.
[2019-02-22 15:41] VITALS: BP 136/65
[2019-02-22] MEDS: ESOMEPRAZOLE 40 MG PO SCH (15:41)
[2019-02-22] MEDS: buPROPion 75 MG (WELLBUTRIN) TAB PO SCH ×2 (17:35→21:47)
[2019-02-22] MEDS: CYCLOBENZAPRINE 10 MG (FLEXERIL) TAB PO SCH (20:10)
[2019-02-22] MEDS: DIVALPROEX EXT RELEASE 250 MG (DEPAKOTE ER) TAB PO SCH (20:10)
[2019-02-22] MEDS: traZODone 50 MG (DESYREL) TAB PO SCH (20:10)
[2019-02-22] MEDS: DIVALPROEX 500 MG DELAYED RELEASE (DEPAKOTE) TAB PO SCH (20:10)
[2019-02-22] MEDS: ESTROGENS CONJ 0.625 MG (PREMARIN) TAB PO SCH (20:11)
[2019-02-22] MEDS: JANUVIA 100 MG PO SCH (20:11)
[2019-02-23] MEDS: inSUlin ASPART (NovoLOG) 1 UNIT/0.01 ML (CHARGE PER UNIT) SC SCH ×4 (05:31→21:00)
[2019-02-23] MEDS: BACLOFEN 10 MG (LIORESAL) TAB PO PRN (05:33)
[2019-02-23] MEDS: LEVOTHYROXINE 50 MCG (LEVOTHROID) TAB PO SCH (05:33)
[2019-02-23 06:00] VITALS: BP 146/88
[2019-02-23] MEDS: ACETAMINOPHEN ER 650 MG TABLET PO SCH ×4 (09:24→18:53)
[2019-02-23] MEDS: DILTIAZEM 300 MG (CARDIZEM CD) CAP PO SCH (09:27)
[2019-02-23] MEDS: LOSARTAN 50 MG (COZAAR) TAB PO SCH (09:27)
[2019-02-23] MEDS: FUROSEMIDE 40 MG (LASIX) TAB PO SCH (09:27)
[2019-02-23] MEDS: ROSUVASTATIN 20 MG (CRESTOR) TABLET PO SCH (09:27)
[2019-02-23] MEDS: SPIRONOLACTONE 25 MG (ALDACTONE) TAB PO SCH (09:29)
[2019-02-23] MEDS: MAGNESIUM OXIDE (MAG-OX)400 MG TAB PO SCH (09:33)
[2019-02-23] MEDS: POLYETHYLENE GLYCOL 17 GM (MIRALAX) PACK PO SCH ×2 (09:33→20:38)
[2019-02-23] MEDS: DOCUSATE SODIUM 100 MG (COLACE) CAP PO SCH ×2 (09:33→20:37)
--- NOTE | 2019-02-23 11:16 | Physical Therapy Daily Note ---
PT Daily Note-Current Subjective Pt. in bed, agrees to therapy. Pain rated 2/10 in the R hip. Transfers Therapy Code Descriptions/Definitions Functional Rice Measure: 0=Not Assessed/NA 4=Minimal Assistance 1=Total Assistance 5=Supervision or Setup 2=Maximal Assistance 6=Modified Rice 3=Moderate Assistance 7=Complete Rice Therapy Quality Codes: 6 Independent with activity with or without an assistive device 5 Patient requires set up or clean up by helper. Patient completes activity by themselves 4 Supervision or touching assist (CGA). [place] provide cues , steadying assist 3 The helper provides less than half the effort to complete the activity 2 The helper provides more than half the effort to complete the activity 1 Dependent. The helper does all the effort to complete an activity 7 Patient refused to complete or attempt activity 9 The patient did not perform the activity before the current illness or injury 88 Not attempted due to Medical conditions or safety concerns Transfers (B, C, W/C) (FIM): 5 Supine to/from Sit: 5 Sit to Stand (QC): 5 Car Transfer (QC): 5 cues for log-rolling technique. pt. able to don [place] brace while seated EOB. Weight Bearing Right Lower Extremity: Right Full Weight Bearing Left Lower Extremity: Left Full Weight Bearing Back precautions; Breg brace on when up Gait Training Does the Patient Walk?: Yes Gait (FIM): 5 Distance (FIM): 3=150 ft Distance: 2 x 150 ft Gait Level of Assist: 5 Gait Persons Needed: 1 Gait Assistive Device: FWW Stair Training Stair Training: Handrails/: 2 handrails Stairs (FIM): 2 #of Steps: 4 Stairs: Pattern: Reciprocal Level of Assist: 4 Exercises NuStep Minutes: 10 NuStep Workload: 4 Treatments car transfer, gait, exercise Assessment Current Status: Good Progress Pt. is steady with gait and SBA with transfers. She did well with stairs, primarily using reciprocal step pattern. Pt. returned to room, up in bedside chair with call light and all needs met. PT Short Term Goals Short Term Goals Time Frame: Feb 20, 2019 Transfers (B,C,W/C) (FIM): 4 (met) Gait (FIM): 4 (met) Distance (FIM): 3=150 ft Gait Assistive Device: FWW Stairs (FIM): 2 (met) # of Steps: 4 PT Livestock Farmer Goals Intermediate Goals PT Livestock Farmer Goals Time Frame: Mar 06, 2019 Transfers (B,C,W/C) (FIM): 6 Sit to Lying (QC): 6 Lying-Sitting on Side/Bed(QC): 6 Sit to Stand (QC): 6 Rollin Roll Left to Right (QC): 6 Chair/Xow-[id number] Xfer(QC): 6 Car Transfer (QC): 5 Does the Patient Walk: Yes Gait (FIM): 6 Gait distance (FIM): 3=150 ft Walk 10 feet (QC): 6 Walk 10ft-Uneven Surface(QC): 6 Walk 50ft with 2 Turns (QC): 6 Walk 150 ft (QC): 6 Gait Assistive Device: FWW Does the Pt use WC or Scooter?: No Stairs (FIM): 2 # of Steps: 4 1 Step (curb) (QC): 5 4 Steps (QC): 4 12 Steps (QC): 88 Picking up an Object (QC): 88 PT Plan Treatment/Plan Treatment Plan: Continue Plan of Care Treatment Plan: Bed Mobility, Education, Functional Activity [place], Functional Strength, Group Therapy, Gait, Safety, Therapeutic Exercise, Transfers Treatment Duration: Mar 06, 2019 Frequency: At least 5 of 7 days/Wk (IRF) Estimated Hrs Per Day: 1.5 hours per day Patient and/or Family Agrees t: Yes Time/GCodes Time In: 855 Time Out: 0922 Total Billed Treatment Time: 27 Total Billed Treatment 1, FA 17', Ex 10' CASI CULLEN PT Feb 23, 2019 11:16
--- NOTE | 2019-02-23 11:18 | PM&R Progress Note ---
Subjective HPI/CC On Admission Date Seen by Provider: Feb 23, 2019 Time Seen by Provider: 11:00 CC: Debility following extensive lumbar fusion surgery uncomplicated by Dr Alvarez Moya at [facility] POD # 2 HPI: This is a 73-year-old white female that presents to inpatient rehab due to severe debility following extensive lumbar fusion surgery uncomplicated by Dr. Moya at [facility] in [facility]. Her primary care provider is Linda Pond in [facility]. Her pain is controlled but her right leg is sore during the transport from [place] to [facility] in [place]. She has had no complications during the hospital course at [facility] but continues to be a two-person assist and very slow recovery. Due to the fact of her multiple comorbidities in addition to dysphoria emotional problem she will need additional support provided at inpatient rehab with intensive therapies. She reports she has not had a bowel movement yet but she did receive a lot of medications which were laxatives and she wants to wait for any additional meds until in the morning and she is agreeable for suppository or enema. I reviewed all of her home medications and restarted every one of them per her home routine. Subjective/Events-last exam Patient doing very well and participating in PT/OT today Discharge planned for Monday and she feels good about that and confident and going home with her sister Denied any pain currently Still wearing a back brace Bowels are moving now and holding Colace and will need to keep ahead of that at home when DC Compliant with therapies Going home with sister Monday with Review of Systems General: Fatigue Musculoskeletal: back pain Objective Exam Vital Signs Vital Signs Date Time Temp Pulse Resp B/P (MAP) Pulse Ox O2 Delivery O2 Flow Rate FiO2 02/23/19 09:00 Room Air 02/23/19 06:00 98.0 75 16 146/88 (107) 97 Capillary Refill : General Appearance: No Apparent Distress, WD/WN, Chronically ill, Obese, Other (much improved 02/14/19) HEENT: PERRL/EOMI, Normal ENT Inspection, Pharynx Normal, Moist Mucous Membranes Neck: Full Range of Motion, Normal Inspection, Non Tender, Supple Respiratory: Chest Non Tender, Lungs Clear, Normal Breath Sounds, No Accessory Muscle Use, No Respiratory Distress Cardiovascular: Regular Rate, Rhythm, No Edema, No Gallop, No JVD, No Murmur Gastrointestinal: Normal Bowel Sounds, No Organomegaly, No Pulsatile Mass, Non Tender, Soft Back: Decreased Range of Motion (much improved today 02/21/19) Extremity: Normal Capillary Refill, Normal Inspection, Normal Range of Motion, Non Tender, No Calf Tenderness, No Pedal Edema Neurologic/Psychiatric: Alert, Oriented x3, No Motor/Sensory Deficits, Normal Mood/Affect Skin: Normal Color, Warm/Dry Lymphatic: No Adenopathy Results/Procedures Lab Patient resulted labs reviewed. Assessment/Plan Assessment and Plan Assess & Plan/Chief Complaint Assessment: Status post extensive lumbar fusion surgery uncomplicated by Dr. Moya POD#19 Bipolar disorder/dysphoria Obstructive sleep apnea Hypertension Hyperlipidemia GERD Chronic back pain Osteoarthritis Diabetes mellitus Hypothyroidism MRSA infection in the past Constipation resolved Slow recovery Plan: Home meds are reviewed in prep for DC Monday Emotional support has been successful Intensive therapies have been successful considering she is ambulating well Pain control with Ultram and refuses narcs now SSI Insulin maintained until DC DC arrangements for Monday (1) S/P spinal fusion (2) PAO (obstructive sleep apnea) (3) Dysphoric mood (4) GERD (gastroesophageal reflux disease) (5) Hypothyroidism (6) Bipolar disorder (7) Diabetes mellitus (8) Constipation Clinical Quality Measures DVT/VTE Risk/Contraindication: Risk Factor Score Per Nursin RFS Level Per Nursing on Admit: 4+=Very High VAL GUADALUPE DO Feb 23, 2019 11:18
[2019-02-23] MEDS: buPROPion XL 150 MG (WELLBUTRIN XL) NON-FORM PO SCH (11:54)
[2019-02-23] MEDS: buPROPion 75 MG (WELLBUTRIN) TAB PO SCH ×2 (15:57→21:24)
[2019-02-23] MEDS: ESOMEPRAZOLE 40 MG PO SCH (15:57)
[2019-02-23 18:41] VITALS: BP 135/61
[2019-02-23] MEDS: ESTROGENS CONJ 0.625 MG (PREMARIN) TAB PO SCH (20:34)
[2019-02-23] MEDS: DIVALPROEX 500 MG DELAYED RELEASE (DEPAKOTE) TAB PO SCH (20:35)
[2019-02-23] MEDS: traZODone 50 MG (DESYREL) TAB PO SCH (20:35)
[2019-02-23] MEDS: CYCLOBENZAPRINE 10 MG (FLEXERIL) TAB PO SCH (20:35)
[2019-02-23] MEDS: DIVALPROEX EXT RELEASE 250 MG (DEPAKOTE ER) TAB PO SCH (20:35)
[2019-02-23] MEDS: JANUVIA 100 MG PO SCH (21:24)
[2019-02-24 05:23] VITALS: BP 139/64
[2019-02-24] MEDS: LEVOTHYROXINE 50 MCG (LEVOTHROID) TAB PO SCH (05:26)
[2019-02-24] MEDS: inSUlin ASPART (NovoLOG) 1 UNIT/0.01 ML (CHARGE PER UNIT) SC SCH ×4 (06:10→21:19)
[2019-02-24] MEDS: MAGNESIUM OXIDE (MAG-OX)400 MG TAB PO SCH (08:19)
[2019-02-24] MEDS: FUROSEMIDE 40 MG (LASIX) TAB PO SCH (08:19)
[2019-02-24] MEDS: POLYETHYLENE GLYCOL 17 GM (MIRALAX) PACK PO SCH ×2 (08:19→20:46)
[2019-02-24] MEDS: DOCUSATE SODIUM 100 MG (COLACE) CAP PO SCH ×2 (08:20→20:46)
[2019-02-24] MEDS: ROSUVASTATIN 20 MG (CRESTOR) TABLET PO SCH (08:20)
[2019-02-24] MEDS: DILTIAZEM 300 MG (CARDIZEM CD) CAP PO SCH (08:33)
[2019-02-24] MEDS: SPIRONOLACTONE 25 MG (ALDACTONE) TAB PO SCH (08:33)
[2019-02-24] MEDS: LOSARTAN 50 MG (COZAAR) TAB PO SCH (08:33)
[2019-02-24] MEDS: buPROPion XL 150 MG (WELLBUTRIN XL) NON-FORM PO SCH (08:35)
[2019-02-24] MEDS: ACETAMINOPHEN ER 650 MG TABLET PO SCH ×3 (08:36→16:28)
[2019-02-24] MEDS: BACLOFEN 10 MG (LIORESAL) TAB PO PRN (10:15)
--- NOTE | 2019-02-24 11:41 | PM&R Progress Note ---
Subjective HPI/CC On Admission Date Seen by Provider: Feb 24, 2019 Time Seen by Provider: 11:30 CC: Debility following extensive lumbar fusion surgery uncomplicated by Dr Alvarez Moya at [facility] POD # 2 HPI: This is a 73-year-old white female that presents to inpatient rehab due to severe debility following extensive lumbar fusion surgery uncomplicated by Dr. Moya at [facility] in [facility]. Her primary care provider is Linda Pond in [facility]. Her pain is controlled but her right leg is sore during the transport from [place] to [facility] in [place]. She has had no complications during the hospital course at [facility] but continues to be a two-person assist and very slow recovery. Due to the fact of her multiple comorbidities in addition to dysphoria emotional problem she will need additional support provided at inpatient rehab with intensive therapies. She reports she has not had a bowel movement yet but she did receive a lot of medications which were laxatives and she wants to wait for any additional meds until in the morning and she is agreeable for suppository or enema. I reviewed all of her home medications and restarted every one of them per her home routine. Subjective/Events-last exam Patient doing very weland ready to go home Monday tomorrow Going home with her sister Denied any pain currently Still wearing a back brace and will maintain compliance with that at home Bowels are moving now and will maintain that regimen at home Needs HH and pain meds and Baclofen Review of Systems Musculoskeletal: back pain Objective Exam Vital Signs Vital Signs Date Time Temp Pulse Resp B/P (MAP) Pulse Ox O2 Delivery O2 Flow Rate FiO2 02/24/19 09:00 Room Air 02/24/19 05:23 97.1 65 16 139/64 (89) 95 Capillary Refill : General Appearance: No Apparent Distress, WD/WN, Chronically ill, Obese, Other (much improved 02/14/19) HEENT: PERRL/EOMI, Normal ENT Inspection, Pharynx Normal, Moist Mucous Membranes Neck: Full Range of Motion, Normal Inspection, Non Tender, Supple Respiratory: Chest Non Tender, Lungs Clear, Normal Breath Sounds, No Accessory Muscle Use, No Respiratory Distress Cardiovascular: Regular Rate, Rhythm, No Edema, No Gallop, No JVD, No Murmur Gastrointestinal: Normal Bowel Sounds, No Organomegaly, No Pulsatile Mass, Non Tender, Soft Back: Decreased Range of Motion (much improved today 02/21/19) Extremity: Normal Capillary Refill, Normal Inspection, Normal Range of Motion, Non Tender, No Calf Tenderness, No Pedal Edema Neurologic/Psychiatric: Alert, Oriented x3, No Motor/Sensory Deficits, Normal Mood/Affect Skin: Normal Color, Warm/Dry Lymphatic: No Adenopathy Results/Procedures Lab Patient resulted labs reviewed. Assessment/Plan Assessment and Plan Assess & Plan/Chief Complaint Assessment: Status post extensive lumbar fusion surgery uncomplicated by Dr. Moya POD#20 Bipolar disorder/dysphoria Obstructive sleep apnea Hypertension Hyperlipidemia GERD Chronic back pain Osteoarthritis Diabetes mellitus Hypothyroidism MRSA infection in the past Constipation resolved Slow recovery Plan: Home meds are reviewed in prep for DC Monday Emotional support has been successful Intensive therapies have been successful considering she is ambulating well Pain control with Ultram and refuses narcs now SSI Insulin maintained until DC DC arrangements for tomorrow (1) S/P spinal fusion (2) PAO (obstructive sleep apnea) (3) Dysphoric mood (4) GERD (gastroesophageal reflux disease) (5) Hypothyroidism (6) Bipolar disorder (7) Diabetes mellitus (8) Constipation Clinical Quality Measures DVT/VTE Risk/Contraindication: Risk Factor Score Per Nursin RFS Level Per Nursing on Admit: 4+=Very High VAL GUADALUPE DO Feb 24, 2019 11:41
[2019-02-24] MEDS: buPROPion 75 MG (WELLBUTRIN) TAB PO SCH ×2 (16:28→21:02)
[2019-02-24] MEDS: ESOMEPRAZOLE 40 MG PO SCH (16:28)
[2019-02-24 17:27] VITALS: BP 139/63
[2019-02-24] MEDS: JANUVIA 100 MG PO SCH (20:44)
[2019-02-24] MEDS: DIVALPROEX 500 MG DELAYED RELEASE (DEPAKOTE) TAB PO SCH (20:44)
[2019-02-24] MEDS: traZODone 50 MG (DESYREL) TAB PO SCH (20:44)
[2019-02-24] MEDS: ESTROGENS CONJ 0.625 MG (PREMARIN) TAB PO SCH (20:44)
[2019-02-24] MEDS: DIVALPROEX EXT RELEASE 250 MG (DEPAKOTE ER) TAB PO SCH (20:45)
[2019-02-24] MEDS: CYCLOBENZAPRINE 10 MG (FLEXERIL) TAB PO SCH (20:46)
[2019-02-25] MEDS: inSUlin ASPART (NovoLOG) 1 UNIT/0.01 ML (CHARGE PER UNIT) SC SCH ×2 (06:10→11:37)
[2019-02-25] MEDS: LEVOTHYROXINE 50 MCG (LEVOTHROID) TAB PO SCH (06:10)
[2019-02-25 06:18] VITALS: BP 119/73
[2019-02-25] MEDS: BACLOFEN 10 MG (LIORESAL) TAB PO PRN (06:54)
[2019-02-25] MEDS: ACETAMINOPHEN ER 650 MG TABLET PO SCH (06:56)
[2019-02-25] MEDS ORDERED: ASPI-983 PO (08:05)
[2019-02-25] MEDS ORDERED: TRAM50TA2 PO (08:05)
[2019-02-25] MEDS ORDERED: BACL10TA PO (08:05)
--- NOTE | 2019-02-25 08:12 | D/C HH Face to Face Order ---
D/C Face to Face Orders Instructions for Patient Home Health Patient Instructions/FollowUp: Linda Pond in [place], [place] in 1 week Physician to follow Patient: Linda Pond in [place], [place] Discharge Diet for Home: ADA Diet Patient Problems: s/p lumbar spine surgery DM Chronic mental illness Goals for Patient: Return to independent ADL's Patient Data-Allergies,Ht & Wt Patient Allergies: Coded Allergies: Sulfa (Sulfonamide Antibiotics) (Verified Allergy, Unknown, ITCHING, ) adhesive (Verified Allergy, Unknown, 02/06/19) RASH cortisone (Verified Allergy, Unknown, 02/06/19) PARANOIA, IRRITABLE hydrochlorothiazide (Verified Allergy, Unknown, 02/06/19) MUSCLE PAIN nickel (Verified Allergy, Unknown, RASH, 02/06/19) Uncoded Allergies: HASMUKH IN (Allergy, Unknown, ANGIOEDEMA, 02/06/19) AMOXICILLIN/CLAVULANATE (Adverse Reaction, Unknown, 02/06/19) DOESN'T REMEMBER CODEI (Adverse Reaction, Unknown, 02/06/19) N/V Height (Feet): 5 Height (Inches): 5.00 Weight (Pounds): 222 Weight (Ounces): 9.6 Home Health Need/Face to Face Date of Face to Face: Feb 25, 2019 Clinical Findings: Generalized weakness and fatigue, Instability, Muscle weakness, Unsteady gait I have seen Pt [id number]: Yes Discharged To: Home Diagnosis/Conditions: s/p lumbar spine surgery DM Chronic mental illness Patient is Homebound due to: CognItive deficits, Osito fall risk due to instabilty, Muscle weakness Homebound Status Due to the above stated illness, injury or surgical procedure (medical condition or diagnosis) and associated clinical findings, the patient is homebound because of his/her inability to leave home except with aid of a supportive device and/or person AND leaving the home requires a considerable and taxing effort or is medically contraindicated. Pt req the following assistanc: Walker Home Health Nursing Orders Home Health Services Order: Nursing Services, Adjunct Sociology Professor-Evaluate & Treat, Physical Therapy-Evaluate & Treat Certify Stmt I certify that this patient is under my care and that I, a nurse practitioner or a physician; a academic support assistant working with me, had a face to face encounter that - meets the physician face to face encounter requirements with this patient as dated. VAL GUADALUPE DO Feb 25, 2019 08:11
--- NOTE | 2019-02-25 08:14 | Discharge Summary ---
Diagnosis/Chief Complaint Date of Admission Feb 06, 2019 at 14:14 Date of Discharge Discharge Date: Feb 25, 2019 Discharge Diagnosis Assessment: Status post extensive lumbar fusion surgery uncomplicated by Dr. Moya POD#[id number] Bipolar disorder/dysphoria Obstructive sleep apnea Hypertension Hyperlipidemia GERD Chronic back pain Osteoarthritis Diabetes mellitus Hypothyroidism MRSA infection in the past Constipation resolved Slow recovery Plan: Home meds are reviewed in prep for DC Monday Emotional support has been successful Intensive therapies have been successful considering she is ambulating well Pain control with Ultram and refuses narcs now SSI Insulin maintained until DC DC today (1) S/P spinal fusion (2) PAO (obstructive sleep apnea) (3) Dysphoric mood (4) GERD (gastroesophageal reflux disease) (5) Hypothyroidism (6) Bipolar disorder (7) Diabetes mellitus (8) Constipation Discharge Summary Discharge Physical Examination Allergies: Coded Allergies: Sulfa (Sulfonamide Antibiotics) (Verified Allergy, Unknown, ITCHING, ) adhesive (Verified Allergy, Unknown, 02/06/19) RASH cortisone (Verified Allergy, Unknown, 02/06/19) PARANOIA, IRRITABLE hydrochlorothiazide (Verified Allergy, Unknown, 02/06/19) MUSCLE PAIN nickel (Verified Allergy, Unknown, RASH, 02/06/19) Uncoded Allergies: HASMUKH IN (Allergy, Unknown, ANGIOEDEMA, 02/06/19) AMOXICILLIN/CLAVULANATE (Adverse Reaction, Unknown, 02/06/19) DOESN'T REMEMBER CODEI (Adverse Reaction, Unknown, 02/06/19) N/V Vitals & I&Os Vital Signs Date Time Temp Pulse Resp B/P (MAP) Pulse Ox O2 Delivery O2 Flow Rate FiO2 02/25/19 12:05 67 16 119/73 97 Room Air 02/25/19 06:18 97.9 Hospital Course Was the Problem List Reviewed?: Yes Hospital course: Pt had a lengthy hospital course for 20 days in the inpatient rehab unit following an uncomplicated lumbar spine surgery that was extensive by Dr. Moya at [facility] in [place]. Psychiatric medication were restarted, pain medication was minimized due to mild delirium. Pt did participate in all therapies. Bowel function regained normalcy after narcotic bowel was resolved six days after admission. Overall she had no significant decline in status, monitored labs and post-op anemia noted but no evidence or indication for transfusion. Her sister was involved in her care. She had all assistive devices at home ready for discharge. She did not require any home oxygen or any additional services except for home health, PT, OT, and bath aide and will be monitored closely for any decline in status. Dr. Moya was updated on discharge plan. She will see her PCP Dr. Linda Pond in [place] for close follow up. Labs (last 24 hrs) Laboratory Tests 02/06/19 20:58: Glucometer 324H 02/07/19 07:14: White Blood Count 13.3H, Red Blood Count 2.95L, Hemoglobin 7.8L, Hematocrit 25L , Mean Corpuscular Volume 84, Mean Corpuscular Hemoglobin 26, Mean Corpuscular Hemoglobin Concent 32, Red Cell Distribution Width 16.7H, Platelet Count 244, Mean Platelet Volume 11.8H, Neutrophils (%) (Auto) 69, Lymphocytes (%) (Auto) 19 , Monocytes (%) (Auto) 11, Eosinophils (%) (Auto) 1, Basophils (%) (Auto) 0, Neutrophils # (Auto) 9.1H, Lymphocytes # (Auto) 2.6, Monocytes # (Auto) 1.5H, Eosinophils # (Auto) 0.1, Basophils # (Auto) 0.0, Sodium Level 137, Potassium Level 3.6, Chloride Level 102, Carbon Dioxide Level 26, Anion Gap 9, Blood Urea Nitrogen 14, Creatinine 0.76, Estimat Glomerular Filtration Rate > 60, BUN/ Creatinine Ratio 18, Glucose Level 164H, Calcium Level 8.6, Corrected Calcium 9.2, Total Bilirubin 0.3, Aspartate Amino Transf (AST/SGOT) 20, Alanine Aminotransferase (ALT/SGPT) 12, Alkaline Phosphatase 84, Total Protein 5.9L, Albumin 3.2 02/07/19 11:10: Glucometer 183H 02/07/19 15:40: Glucometer 169H 02/07/19 21:20: Glucometer 205H 02/08/19 05:48: Glucometer 164H 02/08/19 11:04: Glucometer 173H 02/08/19 16:26: Glucometer 159H 02/08/19 20:40: Glucometer 203H 02/09/19 05:28: Glucometer 145H 02/09/19 11:29: Glucometer 234H 02/09/19 16:13: Glucometer 145H 02/09/19 21:28: Glucometer 189H 02/10/19 06:22: Glucometer 138H 02/10/19 11:23: Glucometer 152H 02/10/19 16:39: Glucometer 176H 02/10/19 20:10: Glucometer 121H 02/11/19 05:24: Glucometer 145H 02/11/19 12:20: Glucometer 135H 02/11/19 16:24: Glucometer 141H 02/11/19 20:52: Glucometer 161H 02/12/19 06:00: Glucometer 137H 02/12/19 12:01: Glucometer 134H 02/12/19 17:05: Glucometer 161H 02/12/19 21:20: Glucometer 188H 02/13/19 05:30: White Blood Count 10.4, Red Blood Count 2.91L, Hemoglobin 7.8L, Hematocrit 25L, Mean Corpuscular Volume 85, Mean Corpuscular Hemoglobin 27, Mean Corpuscular Hemoglobin Concent 32, Red Cell Distribution Width 17.0H, Platelet Count 494H, Mean Platelet Volume 9.7, Neutrophils (%) (Auto) 56, Lymphocytes (%) (Auto) 29, Monocytes (%) (Auto) 11, Eosinophils (%) (Auto) 3, Basophils (%) (Auto) 1, Neutrophils # (Auto) 5.9, Lymphocytes # (Auto) 3.0, Monocytes # (Auto) 1.2H, Eosinophils # (Auto) 0.3, Basophils # (Auto) 0.1, Sodium Level 141, Potassium Level 3.6, Chloride Level 101, Carbon Dioxide Level 27, Anion Gap 13, Blood Urea Nitrogen 9, Creatinine 0.73, Estimat Glomerular Filtration Rate > 60, BUN/ Creatinine Ratio 12, Glucose Level 128H, Calcium Level 8.8, Corrected Calcium 9.6, Total Bilirubin 0.2, Aspartate Amino Transf (AST/SGOT) 19, Alanine Aminotransferase (ALT/SGPT) 16, Alkaline Phosphatase 139H, Total Protein 5.8L, Albumin 3.0L 02/13/19 11:29: Glucometer 147H 02/13/19 16:00: Glucometer 151H 02/13/19 20:20: Glucometer 149H 02/14/19 04:04: Glucometer 153H 02/14/19 11:18: Glucometer 159H 02/14/19 16:23: Glucometer 152H 02/14/19 20:39: Glucometer 192H 02/15/19 05:37: Glucometer 141H 02/15/19 11:19: Glucometer 139H 02/15/19 16:43: Glucometer 138H 02/15/19 21:13: Glucometer 184H 02/16/19 06:35: Glucometer 129H 02/16/19 11:32: Glucometer 147H 02/16/19 16:10: Glucometer 132H 02/16/19 21:27: Glucometer 201H 02/17/19 06:11: Glucometer 125H 02/17/19 11:14: Glucometer 175H 02/17/19 16:18: Glucometer 128H 02/17/19 21:00: Glucometer 159H 02/18/19 05:40: Glucometer 116H 02/18/19 11:30: Glucometer 115H 02/18/19 16:38: Glucometer 145H 02/18/19 20:06: Glucometer 145H 02/19/19 04:46: Glucometer 136H 02/19/19 11:04: Glucometer 148H 02/19/19 17:34: Glucometer 126H 02/19/19 20:47: Glucometer 172H 02/20/19 04:19: Glucometer 130H 02/20/19 11:07: Glucometer 144H 02/20/19 15:57: Glucometer 105 02/20/19 21:11: Glucometer 176H 02/21/19 06:25: Glucometer 128H 02/21/19 11:11: Glucometer 190H 02/21/19 16:23: Glucometer 149H 02/21/19 21:05: Glucometer 180H 02/22/19 04:55: Glucometer 118H 02/22/19 10:56: Glucometer 153H 02/22/19 15:31: Glucometer 169H 02/22/19 21:48: Glucometer 129H 02/23/19 05:23: Glucometer 137H 02/23/19 11:40: Glucometer 153H 02/23/19 16:01: Glucometer 123H 02/23/19 20:57: Glucometer 166H 02/24/19 06:09: Glucometer 106 02/24/19 11:43: Glucometer 171H 02/24/19 16:30: Glucometer 168H 02/24/19 21:16: Glucometer 177H 02/25/19 06:09: Glucometer 130H Pending Labs Laboratory Tests 02/06/19 20:58: Glucometer 324 02/07/19 07:14: White Blood Count 13.3, Red Blood Count 2.95, Hemoglobin 7.8, Hematocrit 25, Mean Corpuscular Volume 84, Mean Corpuscular Hemoglobin 26, Mean Corpuscular Hemoglobin Concent 32, Red Cell Distribution Width 16.7, Platelet Count 244, Mean Platelet Volume 11.8, Neutrophils (%) (Auto) 69, Lymphocytes (%) (Auto) 19 , Monocytes (%) (Auto) 11, Eosinophils (%) (Auto) 1, Basophils (%) (Auto) 0, Neutrophils # (Auto) 9.1, Lymphocytes # (Auto) 2.6, Monocytes # (Auto) 1.5, Eosinophils # (Auto) 0.1, Basophils # (Auto) 0.0, Sodium Level 137, Potassium Level 3.6, Chloride Level 102, Carbon Dioxide Level 26, Anion Gap 9, Blood Urea Nitrogen 14, Creatinine 0.76, Estimat Glomerular Filtration Rate > 60, BUN/ Creatinine Ratio 18, Glucose Level 164, Calcium Level 8.6, Corrected Calcium 9.2 , Total Bilirubin 0.3, Aspartate Amino Transf (AST/SGOT) 20, Alanine Aminotransferase (ALT/SGPT) 12, Alkaline Phosphatase 84, Total Protein 5.9, Albumin 3.2 02/07/19 11:10: Glucometer 183 02/07/19 15:40: Glucometer 169 02/07/19 21:20: Glucometer 205 02/08/19 05:48: Glucometer 164 02/08/19 11:04: Glucometer 173 02/08/19 16:26: Glucometer 159 02/08/19 20:40: Glucometer 203 02/09/19 05:28: Glucometer 145 02/09/19 11:29: Glucometer 234 02/09/19 16:13: Glucometer 145 02/09/19 21:28: Glucometer 189 02/10/19 06:22: Glucometer 138 02/10/19 11:23: Glucometer 152 02/10/19 16:39: Glucometer 176 02/10/19 20:10: Glucometer 121 02/11/19 05:24: Glucometer 145 02/11/19 12:20: Glucometer 135 02/11/19 16:24: Glucometer 141 02/11/19 20:52: Glucometer 161 02/12/19 06:00: Glucometer 137 02/12/19 12:01: Glucometer 134 02/12/19 17:05: Glucometer 161 02/12/19 21:20: Glucometer 188 02/13/19 05:30: White Blood Count 10.4, Red Blood Count 2.91, Hemoglobin 7.8, Hematocrit 25, Mean Corpuscular Volume 85, Mean Corpuscular Hemoglobin 27, Mean Corpuscular Hemoglobin Concent 32, Red Cell Distribution Width 17.0, Platelet Count 494, Mean Platelet Volume 9.7, Neutrophils (%) (Auto) 56, Lymphocytes (%) (Auto) 29, Monocytes (%) (Auto) 11, Eosinophils (%) (Auto) 3, Basophils (%) (Auto) 1, Neutrophils # (Auto) 5.9, Lymphocytes # (Auto) 3.0, Monocytes # (Auto) 1.2, Eosinophils # (Auto) 0.3, Basophils # (Auto) 0.1, Sodium Level 141, Potassium Level 3.6, Chloride Level 101, Carbon Dioxide Level 27, Anion Gap 13, Blood Urea Nitrogen 9, Creatinine 0.73, Estimat Glomerular Filtration Rate > 60, BUN/ Creatinine Ratio 12, Glucose Level 128, Calcium Level 8.8, Corrected Calcium 9.6 , Total Bilirubin 0.2, Aspartate Amino Transf (AST/SGOT) 19, Alanine Aminotransferase (ALT/SGPT) 16, Alkaline Phosphatase 139, Total Protein 5.8, Albumin 3.0 02/13/19 11:29: Glucometer 147 02/13/19 16:00: Glucometer 151 02/13/19 20:20: Glucometer 149 02/14/19 04:04: Glucometer 153 02/14/19 11:18: Glucometer 159 02/14/19 16:23: Glucometer 152 02/14/19 20:39: Glucometer 192 02/15/19 05:37: Glucometer 141 02/15/19 11:19: Glucometer 139 02/15/19 16:43: Glucometer 138 02/15/19 21:13: Glucometer 184 02/16/19 06:35: Glucometer 129 02/16/19 11:32: Glucometer 147 02/16/19 16:10: Glucometer 132 02/16/19 21:27: Glucometer 201 02/17/19 06:11: Glucometer 125 02/17/19 11:14: Glucometer 175 02/17/19 16:18: Glucometer 128 02/17/19 21:00: Glucometer 159 02/18/19 05:40: Glucometer 116 02/18/19 11:30: Glucometer 115 02/18/19 16:38: Glucometer 145 02/18/19 20:06: Glucometer 145 02/19/19 04:46: Glucometer 136 02/19/19 11:04: Glucometer 148 02/19/19 17:34: Glucometer 126 02/19/19 20:47: Glucometer 172 02/20/19 04:19: Glucometer 130 02/20/19 11:07: Glucometer 144 02/20/19 15:57: Glucometer 105 02/20/19 21:11: Glucometer 176 02/21/19 06:25: Glucometer 128 02/21/19 11:11: Glucometer 190 02/21/19 16:23: Glucometer 149 02/21/19 21:05: Glucometer 180 02/22/19 04:55: Glucometer 118 02/22/19 10:56: Glucometer 153 02/22/19 15:31: Glucometer 169 02/22/19 21:48: Glucometer 129 02/23/19 05:23: Glucometer 137 02/23/19 11:40: Glucometer 153 02/23/19 16:01: Glucometer 123 02/23/19 20:57: Glucometer 166 02/24/19 06:09: Glucometer 106 02/24/19 11:43: Glucometer 171 02/24/19 16:30: Glucometer 168 02/24/19 21:16: Glucometer 177 02/25/19 06:09: Glucometer 130 Discharge Home Medications: Active Scripts Active Baclofen 10 Mg Tablet 10 Mg PO Q6HR PRN Aspirin EC (Aspirin) 81 Mg Tablet.dr 81 Mg PO HS Tramadol HCl 50 Mg Tablet 100 Mg PO HS Reported Tylenol Arthritis (Acetaminophen) 650 Mg Tablet.er 1,300 Mg PO TID Flonase Allergy Relief (Fluticasone Propionate) 9.9 Ml [place].susp 1 [place] NS DAILY PRN Bupropion HCl 75 Mg Tablet 75 Mg PO 1600,2200 Ondansetron HCl 4 Mg Tablet 4 Mg PO Q8H PRN Furosemide 40 Mg Tablet 40 Mg PO DAILY Magnesium Oxide 400 Mg Tablet 400 Mg PO DAILY Cartia Xt (Diltiazem HCl) 300 Mg Cap.er.24h 300 Mg PO DAILY Spironolactone 25 Mg Tablet 25 Mg PO DAILY Cyclobenzaprine HCl 10 Mg Tablet 20 Mg PO HS TAKES 2 (10MG) TABLETS Rosuvastatin Calcium 40 Mg Tablet 40 Mg PO DAILY Divalproex Sodium ER (Divalproex Sodium) 250 Mg Tab.er.24h 250 Mg PO HS TAKES ALONG WITH 2 (500MG) TABLETS FOR A TOTAL DOSE OF 1250MG AT BEDTIME Divalproex Sodium 500 Mg Tablet.dr 1,000 Mg PO HS TAKES 2 (500MG) TABLETS - TAKES ALONG WITH 250MG TABLET FOR A TOTAL DOSE OF 1250MG AT BEDTIME Premarin (Estrogens Conjugated) 1.25 Mg Tab 1.25 Mg PO HS Bupropion Xl (Bupropion HCl) 150 Mg Tab.er.24h 150 Mg PO DAILY Trazodone HCl 50 Mg Tablet 50 Mg PO HS Losartan Potassium 50 Mg Tablet 50 Mg PO DAILY Esomeprazole Magnesium 40 Mg Capsule.dr 40 Mg PO 1500 Levothyroxine Sodium 50 Mcg Tablet 50 Mcg PO DAILY Januvia (Sitagliptin Phosphate) 100 Mg Tablet 100 Mg PO HS Instructions to patient/family Please see electronic discharge instructions given to patient. Diagnosis/Problems Diagnosis/Problems (1) S/P spinal fusion Status: Acute (2) PAO (obstructive sleep apnea) Status: Chronic (3) Dysphoric mood Status: Chronic (4) GERD (gastroesophageal reflux disease) Status: Chronic Qualifiers: Qualified Codes: K21.9 - Gastro-esophageal reflux disease without esophagitis (5) Hypothyroidism Status: Chronic Qualifiers: Qualified Codes: E03.9 - Hypothyroidism, unspecified (6) Bipolar disorder Status: Chronic Qualifiers: Qualified Codes: F31.9 - Bipolar disorder, unspecified (7) Diabetes mellitus Status: Chronic Qualifiers: Qualified Codes: E11.9 - Type 2 diabetes mellitus without complications (8) Constipation Status: Resolved Qualifiers: Qualified Codes: K59.03 - Drug induced constipation Resolution Date/Time: 02/25/19 @ 20:39 Clinical Quality Measures DVT/VTE Risk/Contraindication: Risk Factor Score Per Nursin RFS Level Per Nursing on Admit: 4+=Very High VAL GUADALUPE DO Feb 25, 2019 08:14
[2019-02-25] MEDS: LOSARTAN 50 MG (COZAAR) TAB PO SCH (08:31)
[2019-02-25] MEDS: MAGNESIUM OXIDE (MAG-OX)400 MG TAB PO SCH (08:31)
[2019-02-25] MEDS: FUROSEMIDE 40 MG (LASIX) TAB PO SCH (08:31)
[2019-02-25] MEDS: DOCUSATE SODIUM 100 MG (COLACE) CAP PO SCH (08:31)
[2019-02-25] MEDS: POLYETHYLENE GLYCOL 17 GM (MIRALAX) PACK PO SCH (08:32)
[2019-02-25] MEDS: SPIRONOLACTONE 25 MG (ALDACTONE) TAB PO SCH (08:32)
[2019-02-25] MEDS: DILTIAZEM 300 MG (CARDIZEM CD) CAP PO SCH (08:32)
[2019-02-25] MEDS: ROSUVASTATIN 20 MG (CRESTOR) TABLET PO SCH (08:32)
[2019-02-25] MEDS: buPROPion XL 150 MG (WELLBUTRIN XL) NON-FORM PO SCH (08:35)
--- NOTE | 2019-02-25 09:08 | Physical Therapy Daily Note ---
PT Daily Note-Current Subjective Pt. was sitting in chair upon arrival. Pt. agreed to therapy treatment. Pt. had no complaints of pain. Pt. is anxious to go home. Pt. asking questions on if therapist will tell her sister about her discharge. Mental Status Patient Orientation: Person, Place, Situation Attachments: Other-See Comments (Aracely brace she dons independently ) Transfers Therapy Code Descriptions/Definitions Functional [place] Measure: 0=Not Assessed/NA 4=Minimal Assistance 1=Total Assistance 5=Supervision or Setup 2=Maximal Assistance 6=Modified [place] 3=Moderate Assistance 7=Complete [place] Therapy Quality Codes: 6 Independent with activity with or without an assistive device 5 Patient requires set up or clean up by helper. Patient completes activity by themselves 4 Supervision or touching assist (CGA). Sigurd provide cues , steadying assist 3 The helper provides less than half the effort to complete the activity 2 The helper provides more than half the effort to complete the activity 1 Dependent. The helper does all the effort to complete an activity 7 Patient refused to complete or attempt activity 9 The patient did not perform the activity before the current illness or injury 88 Not attempted due to Medical conditions or safety concerns Transfers (B, C, W/C) (FIM): 6 Scootin Rollin Roll Left to Right (QC): 6 Supine to/from Sit: 6 Sit to/from Stand: 6 Sit to Lying (QC): 6 Sit to Stand (QC): 6 Chair/Sht-tw-Zpnun Xfer(QC): 6 Bed to/from Chair: 6 Car Transfer (QC): 6 Weight Bearing Right Lower Extremity: Right Full Weight Bearing Left Lower Extremity: Left Full Weight Bearing Back precautions; Breg brace on when up Gait Training Does the Patient Walk?: Yes Gait (FIM): 6 Distance (FIM): 3=150 ft (200' x 2) Walk 10 feet (QC): 6 Walk 50 ft with 2 Turns(QC): 6 Walk 150 ft (QC): 6 Walking 10ft/uneven surface-QC: 6 Gait Level of Assist: 6 Gait Persons Needed: 1 Gait Assistive Device: FWW Pt. ambulates with a slight trunk flexion. Pt. uses mod weight bearing using walker. No LOB observed during ambulation. Wheelchair Training Does the Pt Use a Wheelchair?: No Stair Training Stair Training: Handrails/: 2 handrails Stairs (FIM): 5 #of Steps: 4 1 Step (curb) (QC): 5 4 Steps (QC): 5 Stairs: Pattern: Step to Level of Assist: 5 Pt. need min instruction for sequencing and B handrails. Balance Special Test Comments Contraindicated for bending over. Assessment Current Status: Good Progress Pt. has memory issues and requires occasional supervision for safety. PT Short Term Goals Short Term Goals Time Frame: Feb 20, 2019 Transfers (B,C,W/C) (FIM): 4 (met) Gait (FIM): 4 (met) Distance (FIM): 3=150 ft Gait Assistive Device: FWW Stairs (FIM): 2 (met) # of Steps: 4 PT Etcher [employer] Goals Mcfp Goals PT Mcfp Goals Time Frame: Mar 06, 2019 Transfers (B,C,W/C) (FIM): 6 Sit to Lying (QC): 6 Lying-Sitting on Side/Bed(QC): 6 Sit to Stand (QC): 6 Rollin Roll Left to Right (QC): 6 Chair/Vie-xc-Xpeln Xfer(QC): 6 Car Transfer (QC): 5 Does the Patient Walk: Yes Gait (FIM): 6 Gait distance (FIM): 3=150 ft Walk 10 feet (QC): 6 Walk 10ft-Uneven Surface(QC): 6 Walk 50ft with 2 Turns (QC): 6 Walk 150 ft (QC): 6 Gait Assistive Device: FWW Does the Pt use WC or Scooter?: No Stairs (FIM): 2 # of Steps: 4 1 Step (curb) (QC): 5 4 Steps (QC): 4 12 Steps (QC): 88 Picking up an Object (QC): 88 PT Plan Treatment/Plan Treatment Plan: Discontinue PT, goals met Treatment Plan: Bed Mobility, Education, Functional Activity Carlyle, Functional Strength, Group Therapy, Gait, Safety, Therapeutic Exercise, Transfers Treatment Duration: Mar 06, 2019 Frequency: At least 5 of 7 days/Wk (IRF) Estimated Hrs Per Day: 1.5 hours per day Patient and/or Family Agrees t: Yes Safety Risks/Education Patient Education: Gait Training, Transfer Techniques, Steps, Correct Positioning, Reviewed Don/Doff Brace, Disease Process, Safety Issues Teaching Recipient: Patient Teaching Methods: Demonstration, Discussion Response to Teaching: Verbalize Understanding, Return Demonstration, Reinforcement Needed Time/GCodes Time In: 855 Time Out: 915 Total Billed Treatment Time: 20 Total Billed Treatment 1, FA x 20 min. G Codes Necessary: KINA Connors LADLE POURER Feb 25, 2019 09:08
--- NOTE | 2019-02-25 11:06 | Speech Therapy Daily Note ---
Speech Daily Progress Note Subjective Date Seen by Provider: Feb 25, 2019 Time Seen by Provider: 00:15 The patient is excited to be returning home today. Objective The patient completed problem solving activities for her return home with 100% accuracy. Assessment Assessment Current Status: Good Progress Treatment Plan Discontinue ST, Goals Met Communication Comprehension: 7 Expression: 7 Social Cognition Social Interaction: 7 Problem Solvin Memory: 7 Speech Short Term Goals Short Term Goals Short Term Goals 1) The patient will demonstrate simple problem solving (verbal/visual) with 80% accuracy, min to mod cues. Met 2) The patient will demonstrate sustained attention for task performance with 80 % accuracy, min to mod cues. Met 3) The patient will demonstrate sequencing for ADL's with 80% accuracy, min to mod cues. Met Speech Contact Worker Goals Shelter Goals The patient will improve skills necessary for ADL's and safety in the home with minimal assist. Met Comprehension: 6 Expression: 6 Social Interaction: 6 Problem Solvin Memory: 6 Speech-Plan Patient/Family Goals Patient/Family Goals: Patient is discharging home with her sister today. She will be receiving home health services. Treatment Plan Speech Therapy Treatment Plan: Discontinue ST, Goals Met The patient has made good progress as a result of ST services. Treatment Duration: Feb 25, 2019 Frequency: 5 times per week Estimated Hrs Per Day: .5 hour per day Rehab Potential: Good Barriers to Learning: Patient has memory and problem solving deficits. Pt/Family Agrees to Plan: Yes Safety Risks/Education Teaching Recipient: Patient Teaching Methods: Discussion Response to Teaching: Verbalize Understanding Education Topics Provided: Safety upon her returning home. Time Speech Therapy Time In: 10:30 Speech Therapy Time Out: 10:45 Total Billed Time: 15 Billed Treatment Time 1CHARBEL BETH[address] ST Feb 25, 2019 11:06
--- NOTE | 2019-02-25 11:10 | Therapy Team Discharge Summary ---
Therapy Discharge Summary Discharge Recommendations Date of Discharge Therapy D/C Recommendations: Physical Therapy Home Care Occupational Therapy Decreased Activ Tolerance, Decreased UE Strength, Impaired Self-Care Skills Speech-Language Pathology The patient was admitted to the ARU following a back surgery for strengthening for a safe return home. She was evaluated for cognitive-communication upon admission. She had deficits at memory and problem solving initially. She has made good progress in both areas as a result of skilled therapy. The patient is returning home with her sister today. She will receive home health services. Patient is being discharged from skilled at this time. PT Prison Goals Prison Goals PT Interactive Graphic Designer Goals Time Frame: Mar 06, 2019 Transfers (B,C,W/C) (FIM): 6 Roll Left to Right (QC): 6 Sit to Lying (QC): 6 Lying-Sitting on Side/Bed(QC): 6 Sit to Stand (QC): 6 Chair/Ohr-ay-Mqhkn Xfer(QC): 6 Car Transfer (QC): 5 Does the Patient Walk: Yes Gait (FIM): 6 Gait distance (FIM): 3=150 ft Walk 10 feet (QC): 6 Walk 10ft-Uneven Surface(QC): 6 Walk 50ft with 2 Turns (QC): 6 Walk 150 ft (QC): 6 Gait Assistive Device: FWW Does the Pt use WC or Scooter?: No Stairs (FIM): 2 # of Steps: 4 1 Step (curb) (QC): 5 4 Steps (QC): 4 12 Steps (QC): 88 Picking up an Object (QC): 88 OT Interactive Graphic Designer Goals Interactive Graphic Designer Goals Time Frame: Feb 27, 2019 Eating (FIM): 6 (met-02/18/2019) Eating (QC): 6 (met-02/18/2019) Oral Hygiene (QC): 6 (met-02/18/2019) Grooming(FIM): 6 (met-02/18/2019) Bathing(FIM): 5 Shower/Bathe Self (QC): 5 Upper Body Dressing(FIM): 6 Upper Body Dressing (QC): 6 Lower Body Dressing(FIM): 5 Lower Body Dressing (QC): 5 On/Off Footwear (QC): 5 Toileting(FIM): 6 Toileting Hygiene (QC): 6 Transfers (B,C,W/C) (FIM): 6 Toilet/Commode Transfer(FIM): 6 Toilet/Commode Transfer (QC): 6 Shower Transfer(FIM): 5 (met-02/18/2019) Comprehension(FIM): 6 Expression (FIM): 6 Social Interaction(FIM): 6 Problem Solving(FIM): 6 Memory(FIM): 6 Additional Goals: 1-Demonstrate ADL Tasks, 2-Verbalize Understanding, 3- ImproveStrength/Carlyle 1=Demonstrate adherence to instructed precautions during ADL tasks. 2=Patient will verbalize/demonstrate understanding of assistive devices/ modifications for ADL. 3=Patient will improve strength/tolerance for activity to enable patient to perform ADL's. Speech Interactive Graphic Designer Goals Interactive Graphic Designer Goals The patient will improve skills necessary for ADL's and safety in the home with minimal assist. Met Comprehension: 7 Expression: 7 Social Interaction: 7 Problem Solvin Memory: 7 ALFRED INGRAM Feb 25, 2019 11:10
--- NOTE | 2019-02-25 11:25 | Therapy Team Discharge Summary ---
Therapy Discharge Summary Discharge Recommendations Date of Discharge Therapy D/C Recommendations: Physical Therapy Home Care Physical Therapy Patient came to rehab post lumbar fusion. Upon evaluation patient performed bed mobility and transfers with max assist, ambulated 50' with a rolling walker with CGA/Yoana, and declined stairs. Patient has been performing bed mobility and transfer training, balance and endurance training, functional strengthening , stair training, gait training, and education. Patient has made good progress and has met all of her manager terminal goals. Now, patient performs bed mobility and transfers with mod I, car transfers mod I, ambulates 200' with a rolling walker with mod I (including 50' with at least 2 turns of 90 degrees), and can go up and down 4 steps using 2 handrails with SBA. Patient is discharging from this facility today and will be discharged from PT at this time. Occupational Therapy Decreased Activ Tolerance, Decreased UE Strength, Impaired Self-Care Skills PT Retirement Goals Customer Associate Goals PT Customer Associate Goals Time Frame: Mar 06, 2019 Transfers (B,C,W/C) (FIM): 6 Roll Left to Right (QC): 6 Sit to Lying (QC): 6 Lying-Sitting on Side/Bed(QC): 6 Sit to Stand (QC): 6 Chair/Xqw-wl-Wpouk Xfer(QC): 6 Car Transfer (QC): 5 Does the Patient Walk: Yes Gait (FIM): 6 Gait distance (FIM): 3=150 ft Walk 10 feet (QC): 6 Walk 10ft-Uneven Surface(QC): 6 Walk 50ft with 2 Turns (QC): 6 Walk 150 ft (QC): 6 Gait Assistive Device: FWW Does the Pt use WC or Scooter?: No Stairs (FIM): 2 # of Steps: 4 1 Step (curb) (QC): 5 4 Steps (QC): 4 12 Steps (QC): 88 Picking up an Object (QC): 88 OT Customer Associate Goals Retirement Goals Time Frame: Feb 27, 2019 Eating (FIM): 6 (met-02/18/2019) Eating (QC): 6 (met-02/18/2019) Oral Hygiene (QC): 6 (met-02/18/2019) Grooming(FIM): 6 (met-02/18/2019) Bathing(FIM): 5 Shower/Bathe Self (QC): 5 Upper Body Dressing(FIM): 6 Upper Body Dressing (QC): 6 Lower Body Dressing(FIM): 5 Lower Body Dressing (QC): 5 On/Off Footwear (QC): 5 Toileting(FIM): 6 Toileting Hygiene (QC): 6 Transfers (B,C,W/C) (FIM): 6 Toilet/Commode Transfer(FIM): 6 Toilet/Commode Transfer (QC): 6 Shower Transfer(FIM): 5 (met-02/18/2019) Comprehension(FIM): 7 Expression (FIM): 7 Social Interaction(FIM): 7 Problem Solving(FIM): 7 Memory(FIM): 7 Additional Goals: 1-Demonstrate ADL Tasks, 2-Verbalize Understanding, 3- ImproveStrength/Carlyle 1=Demonstrate adherence to instructed precautions during ADL tasks. 2=Patient will verbalize/demonstrate understanding of assistive devices/ modifications for ADL. 3=Patient will improve strength/tolerance for activity to enable patient to perform ADL's. Speech Customer Associate Goals Retirement Goals The patient will improve skills necessary for ADL's and safety in the home with minimal assist. Met Comprehension: 7 Expression: 7 Social Interaction: 7 Problem Solvin Memory: 7 GIRISH DOZIER PT Feb 25, 2019 11:25
--- NOTE | 2019-02-25 11:40 | Occupational Ther Daily Note ---
OT Current Status-Daily Note Subjective Pt lying in bed, woke to name. Pt agrees to therapy. Discharging today. No c/ o pain at this time. Mental Status/Objective Patient Orientation: Person, Place, Time, Situation Therapy Code Descriptions/Definitions Functional Stark Measure: 0=Not Assessed/NA 4=Minimal Assistance 1=Total Assistance 5=Supervision or Setup 2=Maximal Assistance 6=Modified Stark 3=Moderate Assistance 7=Complete Stark ADL-Treatment Therapy Code Descriptions/Definitions Functional Stark Measure: 0=Not Assessed/NA 4=Minimal Assistance 1=Total Assistance 5=Supervision or Setup 2=Maximal Assistance 6=Modified Stark 3=Moderate Assistance 7=Complete Stark Therapy Quality Codes: 6 Independent with activity with or without an assistive device 5 Patient requires set up or clean up by helper. Patient completes activity by themselves 4 Supervision or touching assist (CGA). [place] provide cues , steadying assist 3 The helper provides less than half the effort to complete the activity 2 The helper provides more than half the effort to complete the activity 1 Dependent. The helper does all the effort to complete an activity 7 Patient refused to complete or attempt activity 9 The patient did not perform the activity before the current illness or injury 88 Not attempted due to Medical conditions or safety concerns Eating (FIM): 6 (Partial. Pt able to set meals up and use regular utensils.) Eating (QC): 6 Grooming (FIM): 6 (Sitting at sink, pt able to complete by self.) Oral Hygiene (QC): 6 Bathing (FIM): 6 (Using long handle sponge, grabbar, hand held shower and bench pt able to complete shower by self. Pt has AE at home.) Bathing Location: L Arm, R Arm, L Upper Leg, R Upper Leg, L Lower Leg ( including foot), R Lower Leg (including foot), Chest, Abdomen, Buttocks, Perineal Area Shower/Bathe Self (QC): 6 Upper Body (FIM): 6 (Pt retrieves clothing from closet with FWW and completes own dressing.) Upper Body Dressing (QC): 6 Lower Body Dressing (FIM): 4 (Retrieves clothing with FWW from closet. Pt able to don/doff pants/underpants by self. Set up to don socks with sockaide. Assist to don and tie shoes. Pt doffs with AE by self. Has AE at home.) Lower Body Dressing (QC): 3 On/Off Footwear (QC): 3 Toileting (FIM): 6 (Using BSC and grabbars pt able to complete own toileting.) Toileting Hygiene (QC): 6 Transfers (B, C, W/C) (FIM): 6 (Using FWW) Toilet/Commode Transfer (FIM): 6 (Using FWW, grabbar and BSC.) Toilet Transfer (QC): 6 Shower Transfer(FIM): 6 (Using FWW, grabbars and shower bench. Has shower bench at home.) Pt will be receiving HHC at home to assist with IADLs and any ADLs the pt deems needed. Pt has own routine at home and will be more comfortable to complete tasks on own. Pt does not want slip on shoes or elastic shoes laces for shoes. After therapy, pt sitting in recliner with call light/phone in reach. Left in care of PT. All needs met. OT Short Term Goals Short Term Goals Time Frame: Feb 13, 2019 Eating(FIM): 5 Grooming(FIM): 5 Bathing(FIM): 3 Upper Body Dressing(FIM): 4 Lower Body Dressing(FIM): 3 Toileting(FIM): 4 Transfers (B,C,W/C) (FIM): 4 (met) Toilet/Commode Transfer(FIM): 4 Shower Transfer(FIM): 4 Additional Short Term Goals: 1-Demonstrate ADL Tasks, 2-Verbalize Understanding , 3-ImproveStrength/Carlyle 1=Demonstrate adherence to instructed precautions during ADL tasks. 2=Patient will verbalize/demonstrate understanding of assistive devices/ modifications for ADL. 3=Patient will improve strength/tolerance for activity to enable patient to perform ADL's. OT Half-Way Goals Half-Way Goals Time Frame: Feb 27, 2019 Eating (FIM): 6 (met-02/18/2019) Eating (QC): 6 (met-02/18/2019) Groomin (met-02/18/2019) Oral Hygiene (QC): 6 (met-02/18/2019) Bathing(FIM): 5 (met-02/25/19) Shower/Bathe Self (QC): 5 (met-02/25/19) Upper Body Dressing(FIM): 6 (met-02/25/19) Upper Body Dressing (QC): 6 (met-02/25/19) Lower Body Dressing(FIM): 5 (not met due to assist with shoes) Lower Body Dressing (QC): 5 (not met due to assist with shoes) On/Off Footwear (QC): 5 (not met) Toileting(FIM): 6 (met-02/25/19) Toileting Hygiene (QC): 6 (met-02/25/19) Transfers (B,C,W/C) (FIM): 6 (met-02/25/19) Toilet/Commode Transfer(FIM): 6 (met-02/25/19) Toilet/Commode Transfer (QC): 6 (met-02/25/19) Shower Transfer(FIM): 5 (met-02/18/2019) Comprehension(FIM): 7 Expression (FIM): 7 Social Interaction(FIM): 7 Problem Solving(FIM): 7 Memory(FIM): 7 Additional Goals: 1-Demonstrate ADL Tasks, 2-Verbalize Understanding, 3- ImproveStrength/Carlyle 1=Demonstrate adherence to instructed precautions during ADL tasks. 2=Patient will verbalize/demonstrate understanding of assistive devices/ modifications for ADL. 3=Patient will improve strength/tolerance for activity to enable patient to perform ADL's. OT Education/Plan Discharge Recommendations Plan/Recommendations: Discharge/Goals Met Therapy D/C Recommendations: Home w/ Family Support, Occupational Therapy Home Care Treatment Plan/Plan of Care Patient would benefit from OT for education, treatment and training to promote independence in ADL's, mobility, safety and/or upper extremity function for ADL' s. Plan of Care: ADL Retraining, Functional Mobility, Group Exercise/Act as Ind, UE Funct Exercise/Act Treatment Duration: Feb 27, 2019 Frequency: At least 5 of 7 days/Wk (IRF) Estimated Hrs Per Day: 1.5 hours per day Agreement: Yes Rehab Potential: Good Time/GCodes Start Time: 08:00 Stop Time: 08:50 Total Time Billed (hr/min): 50 Billed Treatment Time 1 visit-ADL 3 (50 min) JUAQUIN DELEON Feb 25, 2019 11:40
--- NOTE | 2019-02-25 11:52 | NUR ---
ACTING TEACHER met with patient and patient's sister, Gisselle in regards to last minute questions regarding discharge. Neither express concerns with discharge plans. Gisselle has purchased a gait belt, sock aide, and grab bars for the bathroom. ACTING TEACHER reviewed IMM and Patient Choice Letter with patient and obtained signatures. ACTING TEACHER sent discharge orders to [facility] and left voicemail with In life skills coordinator, Latonya regarding discharge for today. ACTING TEACHER has requested coordinator meet patient at her home this afternoon to complete call to [facility] for re-evaluation for increase of in-home assistance; however, if a coordinator is not available, ACTING TEACHER has instructed Gisselle on how to proceed with call. Please see discharge summary for further information.
--- NOTE | 2019-02-25 12:02 | NUR ---
RICARDO VALLEJO demonstrates understanding of discharge instructions and accurately returns instructions upon questioning. Copy of Post-Discharge Instructions given to pt. RICARDO VALLEJO is not able to manage continuing needs after discharge and will be receiving home health an in home assistance as well as living with her sister. Patients belongings returned to . Patient discharged from 227[facility] on 02-25-2019 at 1200. RICARDO VALLEJO left floor via , accompanied by .
[2019-02-25 12:05] VITALS: BP 119/73
--- NOTE | 2019-02-26 09:28 | Therapy Team Discharge Summary ---
Therapy Discharge Summary Discharge Recommendations Date of Discharge Feb 25, 2019 at 11:20 Therapy D/C Recommendations: Home w/ Family Support, Occupational Therapy Home Care Occupational Therapy Pt. has been seen by occupational therapy to increase overall strength and independence with daily tasks. Pt. has met most goals, but does still require min assist with LE dressing. Pt. would benefit from a hip kit for home. Pt. is discharging home with sister support, and it is recommended that she has continued home health OT. Decreased Activ Tolerance, Decreased UE Strength, Impaired Self-Care Skills PT Remote Sensing Engineer Goals Intermediate Goals PT Intermediate Goals Time Frame: Mar 06, 2019 Transfers (B,C,W/C) (FIM): 6 Roll Left to Right (QC): 6 Sit to Lying (QC): 6 Lying-Sitting on Side/Bed(QC): 6 Sit to Stand (QC): 6 Chair/Rqk-wy-Mmica Xfer(QC): 6 Car Transfer (QC): 5 Does the Patient Walk: Yes Gait (FIM): 6 Gait distance (FIM): 3=150 ft Walk 10 feet (QC): 6 Walk 10ft-Uneven Surface(QC): 6 Walk 50ft with 2 Turns (QC): 6 Walk 150 ft (QC): 6 Gait Assistive Device: FWW Does the Pt use WC or Scooter?: No Stairs (FIM): 2 # of Steps: 4 1 Step (curb) (QC): 5 4 Steps (QC): 4 12 Steps (QC): 88 Picking up an Object (QC): 88 OT Remote Sensing Engineer Goals Remote Sensing Engineer Goals Time Frame: Feb 27, 2019 Eating (FIM): 6 (met-02/18/2019) Eating (QC): 6 (met-02/18/2019) Oral Hygiene (QC): 6 (met-02/18/2019) Grooming(FIM): 6 (met-02/18/2019) Bathing(FIM): 5 (met-02/25/19) Shower/Bathe Self (QC): 5 (met-02/25/19) Upper Body Dressing(FIM): 6 (met-02/25/19) Upper Body Dressing (QC): 6 (met-02/25/19) Lower Body Dressing(FIM): 5 (not met due to assist with shoes) Lower Body Dressing (QC): 5 (not met due to assist with shoes) On/Off Footwear (QC): 5 (not met) Toileting(FIM): 6 (met-02/25/19) Toileting Hygiene (QC): 6 (met-02/25/19) Transfers (B,C,W/C) (FIM): 6 (met-02/25/19) Toilet/Commode Transfer(FIM): 6 (met-02/25/19) Toilet/Commode Transfer (QC): 6 (met-02/25/19) Shower Transfer(FIM): 5 (met-02/18/2019) Comprehension(FIM): 7 Expression (FIM): 7 Social Interaction(FIM): 7 Problem Solving(FIM): 7 Memory(FIM): 7 Additional Goals: 1-Demonstrate ADL Tasks, 2-Verbalize Understanding, 3- ImproveStrength/Carlyle 1=Demonstrate adherence to instructed precautions during ADL tasks. 2=Patient will verbalize/demonstrate understanding of assistive devices/ modifications for ADL. 3=Patient will improve strength/tolerance for activity to enable patient to perform ADL's. Speech Intermediate Goals Intermediate Goals The patient will improve skills necessary for ADL's and safety in the home with minimal assist. Met Comprehension: 7 Expression: 7 Social Interaction: 7 Problem Solvin Memory: 7 DWIGHT NORTON OT Feb 26, 2019 09:28
--- NOTE | 2019-03-11 06:55 | Physician Query Clarification ---
PQ-Intro New Diagnosis Admission/Discharge Admission Date: Feb 06, 2019 at 14:14 Discharge Date: Feb 25, 2019 at 11:20 The medical record reflects the following clinical scenario: History/Risk Factors: s/p spinal fusion, bipolar disorder, diabetes Clinical Findings: Debility Treatment: spinal fusion Question: What condition best reflects the above clinical scenario? Please document below. 1. Please list the diagnosis responsible for the spinal fusion 2. Other, with explanation of the clinical findings. 3. Clinically undetermined, no explanation for the clinical findings. PHYSICIAN RESPONSE What condition reflects above: Clinically undetermined Explanation of clincal finding Please inquire with spine surgeon for this answer In responding to this query, please exercise your independent professional judgment. The purpose of this communication is to more accurately reflect the complexity of your patients condition. The fact that a question is asked does not imply that any particular answer is desired or expected. Thank you for your timely response to this clarification. Requestors name: [ ] Phone # [ ] THIS PHYSICIAN QUERY FORM IS A PERMANENT PART OF THE MEDICAL RECORD TONIE PRAJAPATI Mar 11, 2019 06:55 VAL GUADALUPE DO Mar 11, 2019 10:17
--- NOTE | 2019-03-14 08:21 | Physician Query Clarification ---
PQ-Intro New Diagnosis Admission/Discharge Admission Date: Feb 06, 2019 at 14:14 Discharge Date: Feb 25, 2019 at 11:20 The medical record reflects the following clinical scenario: History/Risk Factors: s/p spinal fusion, bipolar disorder, diabetes Clinical Findings: Debility Treatment: spinal fusion Question: What condition best reflects the above clinical scenario? Please document below. 1. Please list the diagnosis responsible for the spinal fusion 2. Other, with explanation of the clinical findings. 3. Clinically undetermined, no explanation for the clinical findings. PHYSICIAN RESPONSE What condition reflects above: Other, explanation/clinical finding (Lumbar stenosis) In responding to this query, please exercise your independent professional judgment. The purpose of this communication is to more accurately reflect the complexity of your patients condition. The fact that a question is asked does not imply that any particular answer is desired or expected. Thank you for your timely response to this clarification. Requestors name: Tonie THIS PHYSICIAN QUERY FORM IS A PERMANENT PART OF THE MEDICAL RECORD TONIE PRAJAPATI Mar 14, 2019 08:21 GOMEZ SIDHU DO Mar 16, 2019 10:22
== END 2019-02-25 11:20 | disposition home health service (06) | DRG 561 ==
PROVIDERS: ADMIT Internal Medicine; ATTEND Internal Medicine
DX: Z47.89 Encounter for other orthopedic aftercare (principal); F31.9 Bipolar disorder, unspecified; F41.9 Anxiety disorder, unspecified; G47.33 Obstructive sleep apnea (adult) (pediatric); E78.5 Hyperlipidemia, unspecified; I10 Essential (primary) hypertension; E11.40 Type 2 diabetes mellitus with diabetic neuropathy, unspecified; K21.9 Gastro-esophageal reflux disease without esophagitis; K59.09 Other constipation; M54.9 Dorsalgia, unspecified; E03.9 Hypothyroidism, unspecified; M19.90 Unspecified osteoarthritis, unspecified site
CPT/HCPCS: 36415; 74018; 80053; 82962; 85025